=== PATIENT | female | born 1935 | race Caucasian/White ===

== ENCOUNTER 2018-10-30 16:34 | Emergency (ER) | payer MEDICARE, SELFPAY ==
[2018-10-30 16:37] VITALS: BP 150/96; PULSE 74; RESP 17; TEMP 36.7; O2SAT 98; BMI 26.4
[2018-10-30 17:27] LABS: Bacteria 0 SEEN /hpf (None Seen); Red Blood Cells-Urine 0 SEEN /hpf (0-5); Squamous Epithelial Cells - UA 0 SEEN /hpf (5-10)
[2018-10-30 17:28] LABS: Color, Urine Yellow (Yellow); Glucose, Dipstick Normal (Normal); Ketone-Dipstick 50 mg/dl (Negative); Leukocyte Esterase-Dipstick 25 /ul (Negative); Nitrite-Dipstick Negative (Negative); Occult Blood-Urine 10 /ul (Negative); Protein-Dipstick 30 mg/dl (Negative); Specific Gravity, Urine 1.025 (1.002-1.030); Urine Bilirubin Dipstick Negative (Negative); Urine Clarity Sl. Cloudy (Clear); Urine Urobilinogen Normal (Normal)
[2018-10-30 17:48] LABS: White Blood Cells 0-5 SEEN /hpf (0-5)
[2018-10-30 17:49] LABS: Calcium Oxalate Crystals Ur 3+ /hpf (<or=2+); Mucous, Urine 2+ /hpf (<or=2+)
[2018-10-30 18:04] LABS: Anion Gap 11 (5-15); BUN 22 mg/dL (7-18); BUN/Creat Ratio 22.4 RATIO (10-20); Calcium,Total 9.6 mg/dL (8.5-10.1); Chloride 104 mmol/L (98-107); Creatinine, Serum 0.98 mg/dL (0.55-1.02); EST Glomerular Filtration Rate 58 mL/min (>60); Est Glom Filt Rate - Afr Amer 70 mL/min (>60); Estimated Creatinine Clearance 39.54 ml/min; Glucose 93 mg/dL (74-106); Potassium 4.8 mmol/L (3.5-5.1); Sodium Level 140 mmol/L (136-145)
--- NOTE | 2018-10-30 18:16 | US_ITS ---
STUDY: ABDOMINAL ULTRASOUND - RIGHT UPPER QUADRANT REASON FOR VISIT: Female, 82 years old. Upper abdominal pain x2 days TECHNIQUE: Ultrasound evaluation of the right upper quadrant was performed with real-time and static sheffield-scale imaging. TECHNICAL QUALITY: Adequate. COMPARISON: None. FINDINGS: Liver: The liver measures 14.7 cm. There is normal echogenicity of the liver. The bile ducts are within normal limits. There is hepatic color flow. The direction of portal flow is hepatopetal. There is no demonstrated mass lesion. Gallbladder: Normal distended gallbladder. The gallbladder wall measures 1.4 mm. There is a negative sonographic Ricks's sign. There is no pericholecystic fluid. There are no gallstones. Common Bile Duct (C.B.D.): The common bile duct measures 3 mm. Pancreas: Normal size of the head, body and tail of the pancreas. There is normal echogenicity of the pancreas. There is no demonstrated pancreatic mass or cyst. Right Kidney: Normal size of the right kidney. The right kidney measures cm. Normal renal cortex. The right cortex measures cm. There is no demonstrated renal mass or cyst. There is no right hydronephrosis. US/Gallbladder IMPRESSION: Normal right upper quadrant ultrasound examination. Electronically Signed: Rolando Shultz MD at 20:04 EST , Service support ,
--- NOTE | 2018-10-30 18:16 | ED.VISSUMM ---
- ER Visit Summary Date of Service: 10/30/18 Chief Complaint: Abdominal pain History of Present Illness: The patient is a [address] Madden. She reports that she has upper abdominal pain began 2 days ago. Pain began suddenly. She describes an aching pain centered at worst and 6 out of 10 currently. Is worsened by nothing. She taken antacids and Pepto-Bismol without relief. She denies any nausea, vomiting, or diarrhea. Last bowel was today. She had no melena hematochezia. No dysuria frequency. She has no history of fatty food intolerance. She is never had anything like this before. Review of systems is negative. Physical Examination: Vitals: Stable. Afebrile. General: Well-nourished and well-developed. Head: Normocephalic atraumatic. Neck: Supple, no lymphadenopathy. No JVD. Nontender. Cardiovascular: Regular rate and rhythm. No murmurs. Respiratory: No respiratory distress. Clear to auscultation bilaterally. Abdominal: Soft, moderate epigastric and right upper quadrant tenderness to palpation, nondistended, normal bowel sounds. No guarding, rebound, or peritoneal signs. Back: Nontender. Extremities: Nontender, no edema. Skin: Normal color, no rash. Neurologic: Alert and oriented ?3. Cranial nerves II through XII are intact. Normal strength and sensation. Psych: Normal affect. Test Results: CBC is marked for a white count of 22 with 21 7 neutrophils 76 lymphocytes. 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 I do not have an old white count for comparison. Chem-7 is more for BUN of 22. LFTs are normal. Lipase normal. UA is negative. Clinical Impression(s) from Imaging Studies Gallbladder Ultrasound 10/30/18 18:16 IMPRESSION: Normal right upper quadrant ultrasound examination. Electronically Signed: Rolando Shlutz MD at 20:04 EST , Service support , Abdomen/Pelvis CT 10/30/18 20:30 IMPRESSION: Prominent nonspecific retroperitoneal lymphadenopathy. Differential considerations include infectious, inflammatory, and neoplastic disease. Follow-up and clinical correlation required. Otherwise no acute disease. Electronically Signed: Rolando Shultz MD at 21:28 EST , Service support , Emergency Department Course and Treatment: Patient refused pain and nausea medications. She is resting comfortably. Treatment Plan: I had a prolonged discussion with patient at this time I do not have an explanation for her pain. She has refused pain or nausea medications for home. She will be discharged with instructions to follow-up Dr. Madden in 1-2 days if not improving. Follow-up Dr. Altamirano as soon as possible for further evaluation and treatment. Return to the emergency department for any worsening symptoms. Disposition: To home in improved and stable condition. Impression: 1. Abdominal pain, uncertain cause. 2. Coagulopathy on Xarelto. 3. History of CLL. This note was generated with [employer] dictation software. It may contain incorrect words, spelling, and punctuation that were not noted in review of the chart prior to signing ED Disposition - Plan for ED Patient: Disposition: Home or Assisted Living Instructions: ED Abdominal Pain Unkn Cause Referrals: Jos Mcneil MD [STAFF PHYSICIAN] - As soon as possible Yamil Madden MD [Primary Care Provider] - 1-2 Days if not improving
[2018-10-30 18:35] VITALS: BP 160/85; PULSE 70; RESP 16; O2SAT 97
[2018-10-30] MEDS: 0.9% Normal Saline 1,000 ML 125 ML IV (18:43)
[2018-10-30 18:55] LABS: AST(SGOT) 30 U/L (15-37); Alanine Aminotransfer ALT/SGPT 21 U/L (13-56); Alkaline Phosphatase 61 U/L (45-117); Bilirubin, Direct 0.16 mg/dL (0.00-0.30); Globulin 3.2 g/dL (2.2-4.2); Lipase 151 U/L (73-393); Protein, Total 7.2 g/dL (6.4-8.2)
[2018-10-30 20:13] LABS: Absolute Lymphocyte Count 16.62 X10^3/ul (0.83-4.51); Absolute Neutrophil Count 4.6 X10^3/uL (2.0-7.7); Basophil# 0.03 X10^3/uL; Basophil% 0.1 % (0-1); Eosinophil# 0.13 X10^3/uL; Eosinophils% 0.6 % (0-5); Hemoglobin 14.7 g/dl (12.0-15.0); Lymphocyte # 16.62 X10^3/ul (4.0); Lymphocyte % 75.5 % (19-41); Mean Corp Hgb Conc 32.7 g/gl (32-36); Mean Corpuscular Hgb 30.6 pg (27.0-32.0); Mean Corpuscular Volume 93.6 fL (81-99); Monocyte# 0.62 X10^3/uL; Monocyte% 2.8 % (0-10); Neutrophil # 4.57 X10^3/uL (2.7-7.7); Neutrophil % 20.8 % (47-70); Platelet Count 150 K/mm3 (150-450); RBC Distribution Width CV 14.1 % (11.6-14.6); RBC Distribution Width SD 47.7 fl (35.1-43.9); Red Blood Count 4.81 M/mm3 (4.2-5.4)
[2018-10-30 20:27] LABS: Differential Indicated SCAN CRITERIA MET; POSITIVE COUNT NO; POSITIVE DIFFERENTIAL YES; POSITIVE MORPHOLOGY NO
[2018-10-30 20:30] VITALS: BP 142/103; PULSE 79; RESP 15; O2SAT 98
--- NOTE | 2018-10-30 20:30 | CT_ITS ---
STUDY: CT ABDOMEN AND PELVIS WITHOUT CONTRAST REASON FOR EXAM: Female, 82 years old. Upper abdominal pain and history of breast cancer RADIATION DOSAGE (If Supplied By Facility): CTDIvol = ( 17.91 ) mGy, DLP = ( 734.00 ) mGycm TECHNIQUE: Transaxial images were obtained from the dome of the diaphragm to the symphysis pubis without oral contrast, and without intravenous contrast. Sagittal and coronal images were reconstructed. Individualized dose optimization techniques were used for this CT. COMPARISON: None. FINDINGS: 3 x 7 mm nodule right lung base. The visualized portions of the heart are within normal limits. Normal liver. Normal gallbladder and extrahepatic biliary system. Normal spleen. Normal pancreas. Normal bilateral adrenal glands. Normal right kidney. Normal left kidney. Normal visualized stomach. Normal small intestine. Increased stool throughout the colon. Appendix is not identified. Normal abdominal aorta. Normal inferior vena cava. Prominent retroperitoneal lymphadenopathy measuring up to 8 x 20 mm. Normal urinary bladder. Normal abdominal wall. Slight anterior subluxation L4-5. CT/Abdomen/Pelvis W IV Cont ONLY IMPRESSION: Prominent nonspecific retroperitoneal lymphadenopathy. Differential considerations include infectious, inflammatory, and neoplastic disease. Follow-up and clinical correlation required. Otherwise no acute disease. Electronically Signed: Rolando Shultz MD at 21:28 EST , Service support ,
[2018-10-30 20:59] LABS: Differential Comment SCANNED; Platelet Estimate ADEQUATE (ADEQ); Smudge Cells 2+
[2018-10-30 22:18] VITALS: BP 161/77; PULSE 61; RESP 16; O2SAT 96
[2018-11-01 10:16] LABS: Pathologist Review Reviewed
== END 2018-10-30 22:22 | disposition home or self-care (01) ==
LOC: ED 18:30
PROVIDERS: Emergency Provider Emergency Medicine; Family Provider Family Medicine; PCP Family Medicine
DX: R10.13 Epigastric pain (principal); R10.11 Right upper quadrant pain; C91.10 Chronic lymphocytic leukemia of B-cell type not having achieved remission; I48.91 Unspecified atrial fibrillation; Z79.02 Long term (current) use of antithrombotics/antiplatelets; Z85.3 Personal history of malignant neoplasm of breast; Z79.899 Other long term (current) drug therapy
CPT/HCPCS: 36415; 74177; 76705; 80048; 80076; 81001; 83690; 85025; 96360; 96361; 99285; J7030; Q9967; A4216

== ENCOUNTER → 2019-06-14 12:46 | Outpatient (CLI) | payer MEDICARE, SELFPAY ==
[2019-06-14 12:37] VITALS: BMI 25.3
--- NOTE | 2019-06-14 12:48 | RAD_ITS ---
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 paperwork: 3 3 views of the left hand. Findings: No fracture or subluxation. Bone mineral density is diminished. Joint spaces of the interphalangeal joints are narrowed. There is minimal sclerosis at the first carpal metacarpal joint. Chondrocalcinosis is present in triangle fibrocartilage complex and adjacent to the triquetrum at the joint between the triquetrum and the lunate soft tissue swelling is present dorsal to the metatarsal phalangeal joints. RAD/Hand Min 3 Views IMPRESSION: Minimal interphalangeal joint arthritis. Chondrocalcinosis of the triangle fibrocartilage complex and at the lunotriquetral articulation. Findings may be related to osteoarthritis, or possibly even CPPD. at 0506 Reported and signed by: Nestor Barrios MD Electronically Signed: Nestor Barrios MD at 5:58 EDT Tel , Service support ,
== END ==
PROVIDERS: Family Provider Family Medicine; PCP Family Medicine; Referring Provider Physician Assistant; Visit Provider Physician Assistant
DX: M65.342 Trigger finger, left ring finger (principal)
CPT/HCPCS: 73130

== ENCOUNTER → 2019-06-15 15:06 | Outpatient (CLI) | payer MEDICARE, SELFPAY ==
[2019-05-29 13:09] VITALS: BMI 25.3
[2019-06-14 12:37] VITALS: BMI 25.3
--- NOTE | 2019-06-15 15:14 | ECHOD_ITS ---
Reason For Study: AFIB Procedure This was a 2D Doppler, Color Flow transthoracic echocardiogram. The study was technically difficult. Pt has difficulty tolerating any pressure from probe d/t history of radiation therapy. Exam performed in department. Left Ventricle Normal size and thickness. Mid cavitary false tendon noted. The estimated ejection fraction is 65 %. Unable to assess diastolic dysfunction due to arrhythmia. No regional wall motion abnormalities noted. Right Ventricle Normal size and thickness. Normal systolic function. Atria Normal left atrium. Normal right atrium. Normal atrial septum. Mitral Valve Mild focal mitral valve thickening. Mild mitral annular calcification extending into the posterior leaflet. Trivial mitral valve insufficiency. Tricuspid Valve Normal tricuspid valve. Trivial tricuspid valve insufficiency. Right ventricular systolic pressure estimated to be 40 mmHg. Mild pulmonary hypertension. Aortic Valve Normal aortic valve. Trisinus/trileaflet aortic valve. Pulmonic Valve Normal pulmonic valve. Great Vessels Normal aortic root. Normal arch. Normal inferior vena cava. Inferior vena cava collapse with sniff. Pericardium/Pleural No pericardial effusion. MMode/2D Measurements & Calculations LVIDd: 3.7 cm IVSd: 1.0 cm Ao root diam: 3.3 cm LVIDs: 2.6 cm LVPWd: 1.1 cm RVDd: 2.9 cm FS: 30.4 % LAV(MOD-bp): 53.6 ml LA A4 area: 15.4 cm2 LA dimension(2D): 4.0 cm LAV(MOD-bp) Indexed: 30.2 ml/m2 LAV(MOD-sp2): 65.5 ml LAV(MOD-sp4): 39.2 ml RA A4 area: 12.8 cm2 Doppler Measurements & Calculations Ao V2 max: 151.6 cm/sec LV V1 max: 117.5 cm/sec PA V2 max: 81.7 cm/sec Ao max P.4 mmHg LV V1 max P.6 mmHg TR max steven: 252.2 cm/sec TR max P.4 mmHg Interpretation Summary The estimated ejection fraction is 65 %. Unable to assess diastolic dysfunction due to arrhythmia. Trivial mitral valve insufficiency. Right ventricular systolic pressure estimated to be 40 mmHg. Mild pulmonary hypertension. Compared to echo report dated 09/12/2006, LV function has remained the same. Pt appears to be in atrial fibrillation. Ordering Physician: Ignacio Munoz Referring Physician: BONNIE COLLINS Performed By: Ciera Holland, HEENA, RVT
== END ==
PROVIDERS: Family Provider Family Medicine; PCP Family Medicine; Referring Provider Internal Medicine Cardiovascular Disease; Visit Provider Internal Medicine Cardiovascular Disease
DX: Z98.890 Other specified postprocedural states (principal)
CPT/HCPCS: 93306

== ENCOUNTER 2019-07-09 16:22 | Emergency (ER) | payer MEDICARE, SELFPAY ==
[2019-06-14 12:37] VITALS: BMI 25.3
[2019-07-09 16:23] VITALS: BP 148/89; PULSE 70; RESP 17; TEMP 36.9; O2SAT 97; BMI 25.2
[2019-07-09 16:49] LABS: Mucous, Urine 0 SEEN /hpf (<or=2+); Red Blood Cells-Urine 0 SEEN /hpf (0-5)
[2019-07-09 16:53] LABS: Color, Urine Yellow (Yellow); Glucose, Dipstick Normal (Normal); Ketone-Dipstick 5 mg/dl (Negative); Leukocyte Esterase-Dipstick 25 /ul (Negative); Nitrite-Dipstick Negative (Negative); Occult Blood-Urine Negative /ul (Negative); Protein-Dipstick 30 mg/dl (Negative); Urine Bilirubin Dipstick Negative (Negative); Urine Clarity Clear (Clear); Urine Urobilinogen Normal (Normal); Urine pH 6.5 (5.0 - 8.0)
[2019-07-09 17:11] LABS: Bacteria 1+ /hpf (None Seen); Squamous Epithelial Cells - UA 0-5 SEEN /hpf (5-10); White Blood Cells 0-5 SEEN /hpf (0-5)
[2019-07-09 17:42] LABS: Absolute Lymphocyte Count 12.64 X10^3/uL (0.83-4.51); Absolute Neutrophil Count 4.3 X10^3/uL (2.0-7.7); Basophil# 0.06 X10^3/uL; Basophil% 0.3 % (0-1); Eosinophil# 0.08 X10^3/uL; Eosinophils% 0.5 % (0-5); Hematocrit 44.3 % (37-47); Hemoglobin 14.9 g/dL (12.0-15.0); Lymphocyte # 12.64 X10^3/ul (4.0); Lymphocyte % 71.7 % (19-41); Mean Corp Hgb Conc 33.6 g/dL (32-36); Mean Corpuscular Hgb 31.2 pg (27.0-32.0); Mean Corpuscular Volume 92.7 fL (81-99); Mean Platelet Vol. 10.2 fl (6.2-12.0); Monocyte# 0.51 X10^3/uL; Monocyte% 2.9 % (0-10); NRBC Flagged by Analyzer 0 % (0-5); Neutrophil % 24.4 % (47-70); POSITIVE DIFFERENTIAL YES; POSITIVE MORPHOLOGY YES; Platelet Count 143 K/mm3 (150-450); RBC Distribution Width CV 13.8 % (11.6-14.6); RBC Distribution Width SD 46.8 fl (35.1-43.9); Red Blood Count 4.78 M/mm3 (4.2-5.4); White Blood Count 17.6 K/mm3 (4.4-11.0)
[2019-07-09 17:56] LABS: Differential Indicated SCAN CRITERIA MET
[2019-07-09 17:57] LABS: Anion Gap 7 (5-15); BUN 14 mg/dL (7-18); BUN/Creat Ratio 12.3 RATIO (10-20); Calcium,Total 9.5 mg/dL (8.5-10.1); Chloride 105 mmol/L (98-107); Creatinine, Serum 1.14 mg/dL (0.55-1.02); EST Glomerular Filtration Rate 49 mL/min (>60); Est Glom Filt Rate - Afr Amer 59 mL/min (>60); Estimated Creatinine Clearance 34.83 ml/min; Glucose 95 mg/dL (74-106); Potassium 4.8 mmol/L (3.5-5.1); Sodium Level 137 mmol/L (136-145)
--- NOTE | 2019-07-09 18:02 | CT_ITS ---
STUDY: CT ABDOMEN AND PELVIS WITHOUT CONTRAST REASON FOR EXAM: Female, 83 years old. Mid abdominal pain RADIATION DOSAGE (If Supplied By Facility): CTDIvol = ( 7.25 ) mGy, DLP = ( 335.22 ) mGycm TECHNIQUE: Transaxial images were obtained from the dome of the diaphragm to the symphysis pubis without oral contrast, and without intravenous contrast. Sagittal and coronal images were reconstructed. Individualized dose optimization techniques were used for this CT. COMPARISON: Previous study of 10/30/2018 FINDINGS: The study is technically limited, being performed without intravenous contrast. There is a 4 mm nodule of the right lower lobe image 12 of series 2, as well as a 3 x 7 mm nodule of the anterior right lower lobe image 18 series 2. Both of these are stable in the interval. Cardiomegaly is present. Coronary arterial calcifications are seen. There is no pericardial effusion. Normal liver. Normal gallbladder and extrahepatic biliary system. There is mild splenomegaly. Normal pancreas. Normal bilateral adrenal glands. Normal right kidney. Normal left kidney. Normal visualized stomach. Normal small intestine. Normal colon. There is non-visualization of the appendix. There are calcified plaques of the abdominal aorta. Normal inferior vena cava. Normal retroperitoneum. Normal urinary bladder. There is a small umbilical hernia containing fat. There are diffuse degenerative changes of the visualized thoracolumbar spine. CT/Abdomen/Pelvis without Cont IMPRESSION: 1. Stable right lower lobe nodules. 2. Mild splenomegaly. 3. Small fat-containing umbilical hernia. 4. Diffuse degenerative changes of the visualized thoracolumbar spine. 5. There is no evidence of free intra-abdominal or intrapelvic air, fluid, or inflammatory process. Electronically Signed: Rock Sarabia MD at 18:56 EST , Service support ,
--- NOTE | 2019-07-09 18:03 | ED.VIS.GEN ---
History of Present Illness Chief Complaint: Abd Pain Informant: Patient, Family Onset: Weeks - 3 or 4 weeks, worse x2 days. Current Severity: Moderate Maximum Severity: Moderate Narrative: Patient presents with a 1 month history of abdominal pain, but states it significantly worsened this weekend. She points the mid abdomen. She reports some mild nausea and mild constipation. Her primary care physician put her on Bactrim and Flagyl last week thinking she may have diverticulitis. She was scheduled for a CAT scan tomorrow, but due to worsened pain came to the emergency room. She denies fever or chills. Past Medical History - Allergies and Home Meds Allergies/Adverse Reactions: Allergies Gadolinium-MRI Contrast Medium Allergy (Severe, Verified 07/09/19 16:26) Hives gadoterate meglumine [From Dotarem] Allergy (Severe, Verified 07/09/19 16:26) Hives dabigatran etexilate [From Pradaxa] Adverse Reaction (Intermediate, Verified 07/09/19 16:26) GI upset codeine Adverse Reaction (Verified 07/09/19 16:26) Unknown diphtheria,pertussis (acell),tetanu Adverse Reaction (Verified 07/09/19 16:26) Swelling Penicillins Adverse Reaction (Verified 07/09/19 16:26) Hives Primary Care Physician: Yamil Madden MD [Primary Care Provider] - Prior records reviewed: Yes Past Medical History: - - Reviewed Surgical History: - - Uterine surgery Lives: Spouse/ Significant Other Smoking Status: Never smoker Review of Systems General: Denies: Chills, Fever Eyes: Denies: Visual changes - bilaterally ENT: Denies: Bilateral ear pain Cardiovascular: Denies: Chest pain Respiratory: Denies: Dyspnea, Cough Gastrointestinal: Reports: Abdominal pain, Nausea, Diarrhea. Denies: Vomiting Genitourinary: Denies: Dysuria Musculoskeletal: Denies: Neck pain, Back pain Skin: Denies: Rash Neurological: Denies: Headache Hematologic: Denies: Easy bruising Allergy: Denies: Uticaria Physical Exam Vital Signs/Narrative: Vital Signs Temp Pulse Resp BP Pulse Ox 07/09/19 16:23 98.5 F 70 17 148/89 H 97 Inital Vital Signs reviewed: Yes General: Well nourished, Well developed Head: Normocephalic ENT: Moist mucous membranes Neck: Supple Cardiovascular: Regular rate, Regular rhythm Respiratory: No distress, CTA bilaterally Abdomen: Soft, Tender - Mild diffuse tenderness palpation., Hypoactive bowel sounds. Negative for: Guarding, Rebound tenderness Extremities: Nontender Skin: Normal color, No rash Neurological: Alert, Oriented x3 Psychological: Normal affect Diagnostic/Tx/Re-eval Impressions Abdomen/Pelvis CT 07/09/19 18:02 IMPRESSION: 1. Stable right lower lobe nodules. 2. Mild splenomegaly. 3. Small fat-containing umbilical hernia. 4. Diffuse degenerative changes of the visualized thoracolumbar spine. 5. There is no evidence of free intra-abdominal or intrapelvic air, fluid, or inflammatory process. Electronically Signed: Rock Sarabia MD at 18:56 EST , Service support , 07/09/19 18:02 Abdomen/Pelvis without Cont [CT] Stat Laboratory Results 07/09/19 07/09/19 07/09/19 16:37 17:30 17:30 WBC 17.6 H RBC 4.78 Hgb 14.9 Hct 44.3 MCV 92.7 MCH 31.2 MCHC 33.6 RDW Std Deviation 46.8 H RDW Coeff of Asael 13.8 Plt Count 143 L MPV 10.2 Immature Gran % (Auto) 0.200 Neut % (Auto) 24.4 L Lymph % (Auto) 71.7 H [place] % (Auto) 2.9 Eos % (Auto) 0.5 Baso % (Auto) 0.3 Absolute Neuts (auto) 4.3 Absolute Lymphs (auto) 12.64 H Nucleated RBC % 0 Sodium 137 Potassium 4.8 Chloride 105 Carbon Dioxide 25.0 Anion Gap 7 BUN 14 Creatinine 1.14 H Estim Creat Clear Calc 34.83 Est GFR (MDRD) Af Amer 59 L Est GFR (MDRD) Non-Af 49 L BUN/Creatinine Ratio 12.3 Glucose 95 Calcium 9.5 Total Bilirubin Direct Bilirubin AST ALT Alkaline Phosphatase Total Protein Albumin Globulin Lipase Urine Color Yellow Urine Clarity Clear Urine pH 6.5 Ur Specific [place] 1.010 Urine Protein 30 H Urine Glucose (UA) Normal Urine Ketones 5 H Urine Occult Blood Negative Urine Nitrite Negative Urine Bilirubin Negative Urine Urobilinogen Normal Ur Leukocyte Esterase 25 H Urine RBC 0 SEEN Urine WBC 0-5 SEEN Ur Squamous Epith Cells 0-5 SEEN Urine Bacteria 1+ Urine Mucus 0 SEEN 07/09/19 17:30 WBC RBC Hgb Hct MCV MCH MCHC RDW Std Deviation RDW Coeff of Asael Plt Count MPV Immature Gran % (Auto) Neut % (Auto) Lymph % (Auto) [place] % (Auto) Eos % (Auto) Baso % (Auto) Absolute Neuts (auto) Absolute Lymphs (auto) Nucleated RBC % Sodium Potassium Chloride Carbon Dioxide Anion Gap BUN Creatinine Estim Creat Clear Calc Est GFR (MDRD) Af Amer Est GFR (MDRD) Non-Af BUN/Creatinine Ratio Glucose Calcium Total Bilirubin 0.50 Direct Bilirubin 0.18 AST 26 ALT 24 Alkaline Phosphatase 58 Total Protein 6.9 Albumin 4.2 Globulin 2.7 Lipase 146 Urine Color Urine Clarity Urine pH Ur Specific [place] Urine Protein Urine Glucose (UA) Urine Ketones Urine Occult Blood Urine Nitrite Urine Bilirubin Urine Urobilinogen Ur Leukocyte Esterase Urine RBC Urine WBC Ur Squamous Epith Cells Urine Bacteria Urine Mucus - Medical Decision Making Patient was given a small dose of morphine and Zofran. On repeat evaluation she is resting more comfortably. I discussed her test results with her. Her white count is elevated, however this is actually a good value for her with her history of CLL. I advised her that there are no acute findings noted on her abdominal CT. Whether this is secondary to being on antibiotics for the past 4 days I am unable to tell her. I did recommend she continue the full course of antibiotics and she will be written [place] for pain. She is to follow-up with her primary care physician. ED Disposition - Plan for ED Patient: Disposition: Home or Assisted Living Diagnosis: Abdominal pain Instructions: ABDOMINAL PAIN, Unknown Cause, (Female) Prescriptions: Hydrocodone Bitart/Apap 5-325 [[place] 5MG-325MG] 1 tablet PO Q6H PRN PRN 3 Days #10 tablet PRN Reason: Pain Referrals: Yamil Madden MD [Primary Care Provider] - 3-5 Days
[2019-07-09] MEDS: 0.9% Normal Saline 1,000 ML 150 ML IV (18:15)
[2019-07-09] MEDS: Morphine 2 MG/ML Syringe IV (18:16)
[2019-07-09] MEDS: Ondansetron 4 MG/2 ML Vial IV (18:16)
[2019-07-09 18:39] LABS: AST(SGOT) 26 U/L (15-37); Alanine Aminotransfer ALT/SGPT 24 U/L (13-56); Albumin, Serum 4.2 g/dL (3.2-5.0); Alkaline Phosphatase 58 U/L (45-117); Bilirubin, Direct 0.18 mg/dL (0.00-0.30); Globulin 2.7 g/dL (2.2-4.2); Lipase 146 U/L (73-393); Protein, Total 6.9 g/dL (6.4-8.2)
[2019-07-09 19:48] VITALS: BP 136/79; PULSE 47; RESP 16; O2SAT 95
[2019-07-09 19:50] LABS: Smudge Cells 1+
[2019-07-09 19:51] LABS: Platelet Estimate SLT DEC (ADEQ); Red Cell Morphology NORM C+C NORMAL (NORM C&C)
[2019-07-10 12:43] LABS: Pathologist Review Reviewed
== END 2019-07-09 19:53 | disposition home or self-care (01) ==
PROVIDERS: Emergency Provider Emergency Medicine; Family Provider Family Medicine; PCP Family Medicine
DX: R10.9 Unspecified abdominal pain (principal); R11.0 Nausea; R19.7 Diarrhea, unspecified; K59.00 Constipation, unspecified; R91.8 Other nonspecific abnormal finding of lung field; R16.1 Splenomegaly, not elsewhere classified; K42.9 Umbilical hernia without obstruction or gangrene; Z85.6 Personal history of leukemia; Z79.899 Other long term (current) drug therapy
CPT/HCPCS: 74176; 80048; 80076; 81001; 83690; 85025; 96361; 96374; 96375; 99283; J7030; A4216; J2405

== ENCOUNTER → 2020-02-06 11:38 | Outpatient (CLI) | payer MEDICARE, SELFPAY ==
[2020-01-31 11:55] VITALS: BMI 25.1
[2020-02-06 13:23] LABS: AST(SGOT) 28 U/L (15-37); Alanine Aminotransfer ALT/SGPT 22 U/L (13-56); Albumin, Serum 3.9 g/dL (3.2-5.0); Alkaline Phosphatase 53 U/L (45-117); Bilirubin, Direct 0.19 mg/dL (0.00-0.30); Cholesterol 147 mg/dL (200); Globulin 3.1 g/dL (2.2-4.2); High Density Lipoprotein 44 mg/dL; Triglycerides 107 mg/dL; Very Low Density Lipoprotein 21 mg/dL (5-40)
== END ==
PROVIDERS: PCP Family Medicine; Referring Provider Internal Medicine Cardiovascular Disease; Visit Provider Internal Medicine Cardiovascular Disease
DX: E78.5 Hyperlipidemia, unspecified (principal)
CPT/HCPCS: 36415; 80061; 80076

== ENCOUNTER 2020-10-20 11:05 | Emergency (ER) | payer MEDICARE, SELFPAY ==
[2020-06-10 13:53] VITALS: BMI 23.3
[2020-10-20 11:07] VITALS: BP 143/106; PULSE 73; RESP 15; TEMP 35.6; O2SAT 95; BMI 22.7
--- NOTE | 2020-10-20 11:51 | US_ITS ---
STUDY: ULTRASOUND OF THE FEMALE PELVIS - COMPLETE REASON FOR EXAM: Female, 84 years old. VAGINAL BLEEDING, POST MENOPAUSAL X 30 YEARS LMP: Postmenopausal. TECHNIQUE: Transvaginal TECHNICAL QUALITY: Adequate. COMPARISON: None. FINDINGS: The uterus is anteverted and is in a midline position. The uterus measures 2.7 cm x 2.6 cm x 3.7 cm. There is a Nabothian cyst of the cervix. The endometrium measures 8.3 mm in thickness, and is fluid distended. There is no demonstrated myometrial mass. I.U.D. - The patient does not have an I.U.D. The right ovary is non-visualized. The left ovary is non-visualized. There is minimal fluid in the cul-de-sac. US/Transvaginal Non- IMPRESSION: Thickened fluid distended endometrium. Minimal amount of free fluid in the cul-de-sac. The ovaries were not visualized. Electronically Signed: Moises Colbert MD at 13:07 EST , Service support ,
--- NOTE | 2020-10-20 11:51 | ED.DCSUM_ITS ---
History of Present Illness Chief Complaint: Vag Bleeding Informant: Patient Narrative: 84-year-old female presenting with vaginal spotting. She states that she only notices a small amount of blood on toilet paper when she wipes. She denies dysuria. She states he has had problems with vaginal dryness and itching. [facility] tested her for a yeast infection and states that she does not have one. They put her on estrogen 2 weeks ago. Patient states that now she notes a small amount of blood when she wipes. She denies any abdominal pain pelvic pain. She did not feel dizzy or lightheaded. She does not note any heavy bleeding. 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 (3) History of pulmonary embolus (PE) Status: Chronic Past Medical History - Allergies and Home Meds Allergies/Adverse Reactions: Allergies Gadolinium-MRI Contrast Medium Allergy (Severe, Verified 10/20/20 11:07) Hives gadoterate meglumine [From Dotarem] Allergy (Severe, Verified 10/20/20 11:07) Hives dabigatran etexilate [From Pradaxa] Adverse Reaction (Intermediate, Verified 10/20/20 11:07) GI upset codeine Adverse Reaction (Verified 10/20/20 11:07) Unknown diphtheria,pertussis (acell),tetanu Adverse Reaction (Verified 10/20/20 11:07) Swelling Penicillins Adverse Reaction (Verified 10/20/20 11:07) Hives Primary Care Physician: Yamil Madden MD [Primary Care Provider] - Prior records reviewed: Yes Surgical History: noncontributory, - - Uterine surgery Lives: Spouse/ Significant Other Smoking Status: Never smoker Alcohol: None Drugs: None Review of Systems General: Denies: Chills, Fever, Sweats Eyes: Denies: Visual changes - bilaterally, Diplopia ENT: Denies: Rhinorrhea, Sore throat Cardiovascular: Denies: Chest pain, Palpitations Respiratory: Denies: Dyspnea, Cough, Dyspnea on exertion Gastrointestinal: Denies: Abdominal pain, Nausea, Vomiting, Diarrhea, Melena, Hematochezia Genitourinary: Reports: - - Vaginal bleeding. Denies: Dysuria, Hematuria Musculoskeletal: Denies: Myalgias, Arthralgias Skin: Denies: Rash, Abscess Neurological: Denies: Headache, Weakness Psych: Denies: Depression, Anxiety Physical Exam Vital Signs/Narrative: Vital Signs Temp Pulse Resp BP Pulse Ox 10/20/20 11:07 96.0 F L 73 15 143/106 H 95 Inital Vital Signs reviewed: Yes General: Well nourished, No Acute Distress Head: Normocephalic, Atraumatic Eyes: Perrl, EOMI Cardiovascular: Regular rate, Regular rhythm Respiratory: No distress, CTA bilaterally Abdomen: Soft, Nontender, Nondistended Skin: Normal color, No rash. Negative for: Cyanosis, Diaphoresis, Pallor Neurological: Alert, Oriented x3 Psychological: Normal affect, Normal Mood Diagnostic/Tx/Re-eval Clinical Impression(s) from Imaging Studies Transvaginal US 10/20/20 11:51 IMPRESSION: Thickened fluid distended endometrium. Minimal amount of free fluid in the cul-de-sac. The ovaries were not visualized. Electronically Signed: Moises Colbert MD at 13:07 EST , Service support , - Medical Decision Making 84-year-old female presents with vaginal spotting. 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 She is not having any pain. Given the spotting and her age I did check a transvaginal ultrasound which shows thickening of the endometrium and some fluid. I discussed this with [facility] who recommended that she set up an appointment for follow-up with them. They did not feel it was anything emergent. This was discussed with the patient at length. She can return precautions. She stable for discharge at this time. Impression: 1. Vaginal spotting 2. Thickened fluid-filled endometrium ED Disposition - Plan for ED Patient: Disposition: Home or Assisted Living Referrals: Yamil Madden MD [Primary Care Provider] - Additional Instructions: I spoke with the [facility] about your ultrasound findings and they want you to come make an appointment to follow-up for further testing.
== END 2020-10-20 13:43 | disposition home or self-care (01) ==
PROVIDERS: Emergency Provider Student in an Organized Health Care Education/Training Program; PCP Family Medicine
DX: N93.9 Abnormal uterine and vaginal bleeding, unspecified (principal); R93.89 Abnormal findings on diagnostic imaging of other specified body structures; I10 Essential (primary) hypertension; Z86.711 Personal history of pulmonary embolism; Z86.69 Personal history of other diseases of the nervous system and sense organs; Z79.01 Long term (current) use of anticoagulants; Z79.899 Other long term (current) drug therapy
CPT/HCPCS: 76830; 99282

== ENCOUNTER 2021-04-21 13:56 | Inpatient (IN) | payer MEDICARE, SELFPAY ==
[2020-12-10 15:00] VITALS: BMI 22.6
[2021-04-21 14:05] VITALS: BMI 23.4
[2021-04-21 15:27] VITALS: BP 109/63; PULSE 70; RESP 16; TEMP 36.1; O2SAT 94
[2021-04-21] MEDS: Menthol/Lanolin/Calamine/Znox 113 GM Tube 1 APPLIC TOPICAL (17:15)
[2021-04-21] MEDS: Nystatin Powder 15gm Bottle 1 APPLIC TOPICAL (17:15)
--- NOTE | 2021-04-21 17:53 | HP.PCM_ITS ---
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 on 04/18/2021 complaining of right knee pain since twisting it while getting out of bed. When she tried to stand to go to the her knee gave out and she went down on her R knee. She was unable to ambulate. She was noted to have a right knee effusion and there was concern for a hemarthrosis since she is on Xarelto for atrial fibrillation. The ER note mentioned that her pain seemed out of proportion to the physical findings. She had a right total knee arthroplasty by Dr. Nair 14 years ago. . There was no fracture or dislocation on plain x-rays of the knee. Dr. Nair was called and recommended ice, elevation and a knee immobilizer. He also recommended holding the Xarelto so he could do an arthrocentesis. A CT scan of the right knee was obtained without contrast and showed a large suprapatellar joint effusion with a fluid heme level. There was no fracture seen. She was seen by PT and they felt she was not safe to go home. She is admitted to the transitional care unit at [facility] on 04/21/21 for rehabilitation. Consult will be placed with Dr. Nair. She tells me that the pain is actually much better today and she is able to move her knee without experiencing extreme pain. [facility] Medical History (Updated 04/21/21 @ 19:[address] Na Piper, ) Benign paroxysmal positional vertigo Chronic lymphocytic leukemia Circumscribed scleroderma Diverticulosis of colon Essential hypertension History of DVT of lower extremity (2006) History of Guillain-[place] syndrome (1969) History of pulmonary embolus (PE) Hyperlipidemia Insomnia Macular degeneration Osteoporosis Permanent atrial fibrillation Personal history of malignant neoplasm of breast (2007) Tietze syndrome Trigger finger, left ring finger Home Medications cholecalciferol (vitamin D3) 1,000 unit PO DAILY 10/30/18 [History Last Taken 10/30/18] multivitamin with folic acid 1 tab PO DAILY 10/30/18 [History Last Taken 10/30/18] vitamins A,C,M-tewh-wutlhf 1 ea PO BID 10/30/18 [History Last Taken 10/30/18] calcium citrate 250 mg calcium-vitamin D3 5 mcg (200 unit) tablet 1 tablet PO BID tablet 12/10/20 [History Last Taken Unknown] famotidine 20 mg tablet 20 mg PO QHS 12/10/20 [History Last Taken Unknown] acetaminophen 1,000 mg PO Q8 04/21/21 [History Last Taken Unknown] diltiazem HCl 240 mg PO DAILY 04/21/21 [History Last Taken Unknown] losartan 25 mg PO DAILY 04/21/21 [History Last Taken Unknown] lovastatin 20 mg PO QHS 04/21/21 [History Last Taken Unknown] multivitamin 1 tab PO DAILY 04/21/21 [History Last Taken Unknown] ondansetron 4 mg PO Q6H PRN 04/21/21 [History Last Taken Unknown] oxycodone 5 mg PO Q6H PRN 04/21/21 [History Last Taken Unknown] rivaroxaban 15 mg PO DAILY 04/21/21 [History Last Taken Unknown] Allergy/AdvReac Type Severity Reaction Status Date / Time Gadolinium-MRI Contrast Allergy Severe Hives Verified 12/10/20 15:00 Medium gadoterate meglumine Allergy Severe Hives Verified 12/10/20 15:00 [From Dotarem] dabigatran etexilate AdvReac Intermediate GI upset Verified 12/10/20 15:00 [From Pradaxa] codeine AdvReac Unknown Verified 12/10/20 15:00 diphtheria,pertussis AdvReac Swelling Verified 12/10/20 15:00 (acell),tetanu Penicillins AdvReac Hives Verified 12/10/20 15:00 Family History Mother H/O bilateral mastectomy Breast cancer Father Heart disease unsure of type Sister Cardiac pacemaker in situ Surgical History History of cardioversion (10/06/12) History of left mastectomy (04/11/08) History of total right knee replacement (2006) History of transesophageal echocardiography (LEN) (10/06/12) Social History Smoking Status: Never smoker ROS Constitutional Constitutional: Denies anorexia, change in weight, chills, fatigue, fever(s), night sweats or weakness Eyes Eyes: Denies blurry vision, change in vision, eye pain or loss of vision ENT HEENT: Denies abnormal hearing, dysphagia, headache(s), hearing loss, nasal congestion or sore throat Cardiovascular Cardiovascular: Denies chest pain, dyspnea on exertion, edema, lightheadedness, orthopnea, palpitations, paroxysmal nocturnal dyspnea or syncope Respiratory/Chest Respiratory/Chest: Denies cough, dyspnea, shortness of breath at rest, shortness of breath with exertion or wheezing Gastrointestinal Gastrointestinal: Denies abdominal pain, constipation, diarrhea, dyspepsia, hematemesis, hematochezia, nausea or vomiting Genitourinary Genitourinary: Denies dysuria, hematuria, nocturia, urinary frequency, urinary hesitancy, urinary incontinence or urinary urgency Musculoskeletal Musculoskeletal: Reports joint pain and joint swelling; Denies back pain or neck pain Neurologic Neurologic: Denies confusion, disequilibrium, dizziness, focal weakness, heada kasie(s), paresthesias, seizures or tremor(s) Psychiatric Psychiatric: Denies anxiety, depression, homicidal ideation or suicidal ideation Endocrine Endocrinology: Denies change in body appearance, polydipsia or polyuria Hematologic/Lymphatic Hematologic/Lymphatic: Reports easy bleeding and easy bruising; Denies lymphadenopathy Allergic/Immunologic Allergic/Immunologic: Denies rhinitis, eczemia or asthma Vital Signs Vital Signs Vital Signs: 04/21/21 14:05 04/21/21 15:27 Temperature 96.9 F L Temperature Source Oral Pulse Rate 70 Pulse Rhythm Regular Pulse Strength Normal (2+) Respiratory Rate 16 Respiratory Effort Normal Non-Labored Respiratory Depth Normal Respiratory Pattern Normal Blood Pressure 109/63 Blood Pressure Mean 78 Blood Pressure Source Monitor Blood Pressure Position Sitting Blood Pressure Location Right Arm Pulse Ox 94 Oxygen Delivery Method Room Air Room Air Weight Weight: 140 lb 14.006 oz Body Mass Index (BMI) 23.4 Physical Exam Const alert, oriented x3 and no apparent distress Constitutional Narrative: Making good eye contact, appropriate. She is sitting in bed and she has the knee immobilizer present. General Appearance: cooperative and comfortable HEENT moist oral mucous membranes Neck supple and no carotid bruits Resp normal respiratory effort, no use of accessory muscles and clear to auscultation bilaterally Resp Narrative: Not tachypneic and no conversational dyspnea. Cardio S1 normal heart sound, S2 normal heart sound, no rub and no gallops Cardio Narrative: irregular irregular rhythm with a controlled ventricular rate. She has a 2/6 SUJATHA at the second RICS with radiation to the LLSB. She also has a systolic MM in the left axilla GI normal to inspection, nondistended, normoactive bowel sounds and non-tender GI Narrative: No guarding with palpation. Extremity no clubbing, cyanosis or edema Extremity Narrative: Negative Abelardo's and Bell's signs. DP pulse is 2+ BL. Intact6 sensation in the R foot. Good cap refill. There is a joint effusion and also swelling in the bursa around the knee. She had pain with balloting the patella. Skin Skin Narrative: No rashes, no skin breakdown. Neuro oriented x3, CN's II-XII intact bilaterally and no focal motor deficits Motor Exam: strength 5/5 throughout Psych affect normal Psych Narrative: Appropriate, making good eye contact. Able to stay on topic and focus. No flight of ideas. Does not appear anxious or depressed. Conversant. Assessment & Plan Assessment/Plan (1) Debility: (2) Right knee pain: (3) Hemarthrosis of right knee: (4) Chronic anticoagulation: (5) Permanent atrial fibrillation: (6) History of DVT of lower extremity: (7) History of pulmonary embolus (PE): (8) Essential hypertension: (9) Hyperlipidemia: QUALIFIERS: Hyperlipidemia type: unspecified Qualified Code(s): E78.5 - Hyperlipidemia, unspecified (10) Chronic lymphocytic leukemia: (11) Personal history of malignant neoplasm of breast: (12) History of Guillain-[place] syndrome: PLAN: PLAN PT for gait stability OT for ADL's Analgesics as needed Bowel protocol Fall precautions Assess for Anxiety/Depression GI prophylaxis not necessary. She denies epigastric pain and has no history of peptic ulcer disease. DVT prophylaxis with JB osborne and SCDs. Follow up with PCP and Dr. Nair following DC from [facility] AM lab including CMP, CBC Hold Xarelto for arthrocentesis of the right knee by Dr. Nair. Restart Xarelto for chronic atrial fibrillation when appropriate. Charges/Coding Visit Charges Inpatient E&M: 78016 Init Hosp L2
[2021-04-21] MEDS: Atorvastatin Calcium 10 MG Tablet 5 MG PO (21:32)
[2021-04-21] MEDS: Acetaminophen 500 MG Tablet 1000 MG PO (21:33)
[2021-04-21] MEDS: oxyCODONE 5 MG Tablet PO (21:34)
[2021-04-22 05:19] VITALS: BP 140/66; PULSE 45
[2021-04-22] MEDS: Acetaminophen 500 MG Tablet 1000 MG PO ×3 (05:24→21:33)
[2021-04-22] MEDS: Nystatin Powder 15gm Bottle 1 APPLIC TOPICAL ×2 (05:25→21:36)
[2021-04-22] MEDS: Menthol/Lanolin/Calamine/Znox 113 GM Tube 1 APPLIC TOPICAL ×2 (05:25→21:35)
--- NOTE | 2021-04-22 05:25 | NURSING ---
Patient's heart rate at 45 BPM, apical. Asymptomatic. Patient states she feels fine. RN aware.
[2021-04-22 05:36] LABS: Absolute Lymphocyte Count 24.82 X10^3/uL (0.83-4.51); Absolute Neutrophil Count 3.7 X10^3/uL (2.0-7.7); Basophil# 0.09 X10^3/uL; Basophil% 0.3 % (0-1); Eosinophil# 0.18 X10^3/uL; Eosinophils% 0.6 % (0-5); Hematocrit 40.3 % (37-47); Hemoglobin 12.9 g/dL (12.0-15.0); Lymphocyte # 24.82 X10^3/ul (0.83-4.51); Lymphocyte % 84.2 % (19-41); Mean Corpuscular Hgb 30.6 pg (27.0-32.0); Mean Corpuscular Volume 95.5 fL (81-99); Mean Platelet Vol. 10.5 fl (6.2-12.0); Monocyte# 0.69 X10^3/uL; Monocyte% 2.3 % (0-10); NRBC Flagged by Analyzer 0 % (0-5); Neutrophil # 3.66 X10^3/uL (2.7-7.7); Neutrophil % 12.4 % (47-70); POSITIVE DIFFERENTIAL YES; Platelet Count 190 K/mm3 (150-450); RBC Distribution Width CV 13.6 % (11.6-14.6); RBC Distribution Width SD 47.4 fl (35.1-43.9); Red Blood Count 4.22 M/mm3 (4.2-5.4); White Blood Count 29.5 K/mm3 (4.4-11.0)
[2021-04-22 05:43] LABS: Differential Indicated SCAN CRITERIA MET
[2021-04-22 06:06] LABS: Anion Gap 6 (5-15); BUN 16 mg/dL (7-18); BUN/Creat Ratio 20.1 RATIO (10-20); Calcium,Total 8.5 mg/dL (8.5-10.1); Chloride 107 mmol/L (98-107); EST Glomerular Filtration Rate 73 mL/min (>60); Est Glom Filt Rate - Afr Amer 88 mL/min (>60); Estimated Creatinine Clearance 47.95 ml/min; Glucose 90 mg/dL (74-106); Potassium 4.2 mmol/L (3.5-5.1); Sodium Level 140 mmol/L (136-145)
[2021-04-22 06:54] VITALS: BP 138/70; PULSE 47
[2021-04-22 07:33] LABS: Smudge Cells 2+
[2021-04-22 07:34] LABS: Differential Comment SCANNED
[2021-04-22 07:35] LABS: Reactive Lymphocyte 3+
[2021-04-22] MEDS: Losartan Potassium 25 MG Tablet PO (09:16)
[2021-04-22] MEDS: dilTIAZem CD 240 MG Capsule PO (09:16)
[2021-04-22] MEDS: Multivitamins,Therapeutic Tablet 1 TABLET PO (09:17)
[2021-04-22 09:20] VITALS: BP 139/58; PULSE 66
[2021-04-22] MEDS: Magnesium Citrate 300 ML PO (09:26)
[2021-04-22] MEDS: Tuberculin,Purif.prot.deriv. 50 TU/ML Vial 0.1 ML ID (09:28)
[2021-04-22 09:35] VITALS: PULSE 66; RESP 18; O2SAT 96
--- NOTE | 2021-04-22 11:08 | NURSING ---
PT HAS APPOINTMENT WITH [facility] ON 04/23 AT 1;15PM. WILL PICK HER UP AT 12:40PM TO TAKE.
--- NOTE | 2021-04-22 11:56 | CASEMGMT ---
Social Work Met with pt for initial assessment. Discussed code status and assisted pt in completing MOLST. Pt choosing Full code with intubation. MOLST form communicated to nursing and physician and placed in pt chart. SW explained [facility] insurance and that NRD is 04/23 with no guarantee of continued stay. Pt plans to return home with her spouse at time of discharge. SW to follow. HOWARD Golden
[2021-04-22 15:37] VITALS: BP 135/65; PULSE 60; RESP 17; TEMP 36.4; O2SAT 97
--- NOTE | 2021-04-22 15:45 | CHAPLAIN ---
Type of Pastoral Visit _x__ Initial Visit ___ Follow-up Visit ___ On-call Visit ___ General Patient Visit ___ Spiritual Assessment ___ Family Conference ___ Bereavement ___ Rapid Response ___ Code Blue ___ Other (describe below) Pastoral Care Referral From _x__ Patient ___ Family ___ Nurse ___ Physician ___ Delinquency Prevention Officer ___ Chief Radiology ___ Other (describe below) Sacrament/Intervention _x__ Active listening ___ Anointing ___ Islam ___ Bereavement ___ Communion ___ Mirela exploration ___ ___ Life review _x__ Prayer ___ Reconciliation ___ Sacrament of Sick _x__ Supportive presence ___ Wedding ___ Other (describe below) Pastoral Comments
[2021-04-22] MEDS: Senna/Docusate Sodium 1 Tablet 2 TABLET PO (17:20)
--- NOTE | 2021-04-22 18:58 | NURSING ---
PT CAME TO NURSES STATION AND SAID PT STOMACH WAS HURTING. THIS NURSE WENT TO PT ROOM AND PT WAS MOANING AND HOLDING STOMACH. STOMACH SOFT AND HYPER BOWEL SOUNDS. 2 ASSIST TO BED SIDE COMMODE. EXPLAINED TO PT THAT SHE HAD MAX CITRATE AND STOOL SOFTENER PER ORDER AND THAT MAYBE WANTS CAUSING THE PAIN AND IF SHE DOESNT GET ANY RELEAF WE WILL CALL THE DOCTOR. REPORTED TO RN.
--- NOTE | 2021-04-22 19:43 | NURSING ---
pt transferred pt from bsc to bed. explained to that they need to call for help if needed and that we dont want pt to fall. stated well she wanted to go back. mag citrate given had positive results. xx large,liquid/soft. pt stated she felt much better.
[2021-04-22] MEDS: Atorvastatin Calcium 10 MG Tablet 5 MG PO (21:32)
[2021-04-23] MEDS: Senna/Docusate Sodium 1 Tablet 2 TABLET PO (05:42)
[2021-04-23] MEDS: Acetaminophen 500 MG Tablet 1000 MG PO ×3 (05:42→21:58)
[2021-04-23 05:43] VITALS: BP 125/57; PULSE 48; RESP 16; TEMP 36.9; O2SAT 96
[2021-04-23] MEDS: Nystatin Powder 15gm Bottle 1 APPLIC TOPICAL ×2 (05:43→21:58)
[2021-04-23] MEDS: Menthol/Lanolin/Calamine/Znox 113 GM Tube 1 APPLIC TOPICAL ×2 (05:43→21:59)
--- NOTE | 2021-04-23 05:45 | NURSING ---
Patient's apical heart rate at 48 BPM. Will recheck before giving Cozaar and Cardizem
[2021-04-23] MEDS: dilTIAZem CD 240 MG Capsule PO (06:32)
[2021-04-23] MEDS: Losartan Potassium 25 MG Tablet PO (06:32)
[2021-04-23 06:33] VITALS: PULSE 67
[2021-04-23] MEDS: Multivitamins,Therapeutic Tablet 1 TABLET PO (08:10)
[2021-04-23 11:46] LABS: Pathologist Review Reviewed
[2021-04-23 13:11] VITALS: BP 139/56; PULSE 60; RESP 16; TEMP 36; O2SAT 97
--- NOTE | 2021-04-23 15:02 | NURSING ---
Pt went to Dr. Nair's office today, WBAT in brace, does not need to wear brace in bed, active and passive ROM eithout resistence
--- NOTE | 2021-04-23 15:18 | PCM.PN.RX ---
Progress Note - Pharmacy Subjective: TCU ADMISSION Objective: Allergies Gadolinium-MRI Contrast Medium Allergy (Severe, Verified 12/10/20 15:00) Hives gadoterate meglumine [From Dotarem] Allergy (Severe, Verified 12/10/20 15:00) Hives dabigatran etexilate [From Pradaxa] Adverse Reaction (Intermediate, Verified 12/10/20 15:00) GI upset codeine Adverse Reaction (Verified 12/10/20 15:00) Unknown diphtheria,pertussis (acell),tetanu Adverse Reaction (Verified 12/10/20 15:00) Swelling Penicillins Adverse Reaction (Verified 12/10/20 15:00) Hives Current Medications Generic Name Dose Route Start Last Admin Trade Name Freq PRN Reason Stop Dose Admin Acetaminophen 1,000 mg 04/21/21 22:00 04/23/21 15:00 Acetaminophen 500 Mg Tablet PO 1,000 mg Q8 FARNAZ Administration Atorvastatin Calcium 5 mg 04/21/21 22:00 04/22/21 21:32 Atorvastatin Calcium 10 Mg Tablet PO 5 mg QHS FARNAZ Administration Calamine/Phenol 1 applic 04/22/21 22:00 04/23/21 05:43 Menthol/Lanolin/Calamine/Znox 113 Gm Tube TOPICAL 1 applic 0600,2200 FARNAZ Administration Protocol Diltiazem HCl 240 mg 04/22/21 06:00 04/23/21 06:32 Diltiazem Cd 240 Mg Capsule PO 240 mg DAILY FARNAZ Administration Losartan Potassium 25 mg 04/22/21 06:00 04/23/21 06:32 Losartan Potassium 25 Mg Tablet PO 25 mg DAILY FARNAZ Administration Multivitamins 1 tablet 04/22/21 08:00 04/23/21 08:10 Multivitamins,Therapeutic Tablet PO 1 tablet DAILYCM FARNAZ Administration Nutritional Formula (Lactose Free) 120 ml 04/22/21 08:00 04/23/21 08:10 Ensure Enlive 120 Ml Liquid PO 120 ml BIDCM FARNAZ Administration Nystatin 1 applic 04/22/21 22:00 04/23/21 05:43 Nystatin Powder 15gm Bottle TOPICAL 1 applic 0600,2200 FARNAZ Administration Protocol Ondansetron HCl 4 mg 04/21/21 14:48 Ondansetron Odt 4 Mg Tablet PO Q6H PRN PRN Nausea/Vomiting Oxycodone HCl 5 mg 04/21/21 14:48 04/21/21 21:34 Oxycodone 5 Mg Tablet PO 5 mg Q6H PRN PRN Administration Pain 4-10 Senna/Docusate Sodium 2 tablet 04/22/21 18:00 04/23/21 05:42 Senna/Docusate Sodium 1 Tablet PO 2 tablet BID FARNAZ Administration Tuberculin PPD 0.1 ml 04/29/21 10:00 Tuberculin,Purif.Prot.Deriv. 50 Tu/Ml Vial ID 04/29/21 10:01 X1 ONE Problem List (Last Reviewed 04/21/21 @ 17:[address] Na Piper, DO) Right knee pain (Acute) Debility (Acute) Hemarthrosis of right knee (Acute) Chronic anticoagulation (Acute) Permanent atrial fibrillation (Chronic) History of DVT of lower extremity (Chronic 2006) History of pulmonary embolus (PE) (Chronic) Essential hypertension (Chronic) Hyperlipidemia (Chronic) Chronic lymphocytic leukemia (Chronic) Personal history of malignant neoplasm of breast (Chronic 2007) History of Guillain-[place] syndrome (Chronic 1969) Vital Signs Temp Pulse Resp BP Pulse Ox 96.8 F L 60 16 139/56 H 97 04/23/21 13:11 04/23/21 13:11 04/23/21 13:11 04/23/21 13:11 04/23/21 13:11 Oxygen Delivery Method Room Air Weight: 63.758 kg Body Mass Index (BMI) 23.4 Sodium 140 mmol/L (136-145) 04/22/21 05:15 Potassium 4.2 mmol/L (3.5-5.1) 04/22/21 05:15 Chloride 107 mmol/L (98-107) 04/22/21 05:15 Carbon Dioxide 27.0 mmol/L (21.0-32.0) 04/22/21 05:15 Anion Gap 6 (5-15) 04/22/21 05:15 BUN 16 mg/dL (7-18) 04/22/21 05:15 Creatinine 0.80 mg/dL (0.55-1.02) 04/22/21 05:15 Est GFR (MDRD) Af Amer 88 mL/min (>60) 04/22/21 05:15 Est GFR (MDRD) Non-Af 73 mL/min (>60) 04/22/21 05:15 BUN/Creatinine Ratio 20.1 RATIO (10-20) H 04/22/21 05:15 Glucose 90 mg/dL (74-106) 04/22/21 05:15 Assessment/Plan: 1. Pain: Tylenol 1000mg PO Q8h, Oxycodone 5mg PO Q4h PRN Pain 4-10. Please continue to monitor for increased/ decreased S/S pain, PRN medication usage. 2. Atrial Fibrillation/ HLD/HTN: Lipitor 5mg PO QHS, Cardizem 240mg PO Daily, Losartan 25mg PO Daily. Please continue to monitor BP, HR, Lipid panel annually or sooner if clinically indicated. 3. Nausea/Vomitting: Zofran 4 mg PO Q6h PRN. Please continue to monitor for medication effectiveness, prolongation of the QT interval given hx of Afib, PRN medication usage. 4. General Wellness: MVI 1 tab PO Daily. Please continue to monitor Psychotropic Medications: None Unnecessary Medications: None Bowel Regimen: Senna/Docusate 2 tab PO BID. Please continue to monitor for increased/decreased constipation and/or diarrhea. Date of Note:: 04/23/21
[2021-04-23] MEDS: Atorvastatin Calcium 10 MG Tablet 5 MG PO (21:58)
[2021-04-23 22:04] VITALS: PULSE 44; RESP 16; O2SAT 96
[2021-04-24 05:51] VITALS: BP 131/70; PULSE 57; RESP 16; TEMP 36.2; O2SAT 98
[2021-04-24] MEDS: Senna/Docusate Sodium 1 Tablet 2 TABLET PO (05:52)
[2021-04-24] MEDS: Acetaminophen 500 MG Tablet 1000 MG PO ×3 (05:52→21:42)
[2021-04-24] MEDS: Losartan Potassium 25 MG Tablet PO (05:52)
[2021-04-24] MEDS: dilTIAZem CD 240 MG Capsule PO (05:52)
[2021-04-24] MEDS: Nystatin Powder 15gm Bottle 1 APPLIC TOPICAL ×2 (05:53→21:42)
[2021-04-24] MEDS: Menthol/Lanolin/Calamine/Znox 113 GM Tube 1 APPLIC TOPICAL ×2 (05:53→21:42)
[2021-04-24] MEDS: Multivitamins,Therapeutic Tablet 1 TABLET PO (08:39)
--- NOTE | 2021-04-24 10:58 | NURSING ---
Addendum entered by Anne Walsh 04/24/21 13:32: Joanie's office called back and stated that it was ok to resume Xarelto but watch for increased edema in right knee, Dr. Kirby updated and is agreeable to resuming Xarelto Original Note: Dr. Nair's office was called to clarify if pt can resume xarelto, Clinical specialist stated she would consult with Alexander PAREDES and call this nurse back to update on orders.
[2021-04-24 13:55] VITALS: BP 126/57; PULSE 64; RESP 16; TEMP 36.6; O2SAT 97
[2021-04-24] MEDS: Rivaroxaban 15 MG Tablet PO (16:46)
[2021-04-24] MEDS: Atorvastatin Calcium 10 MG Tablet 5 MG PO (21:41)
[2021-04-24] MEDS: MELATONIN 10 MG TABLET PO (22:52)
[2021-04-25] MEDS: dilTIAZem CD 240 MG Capsule PO (05:41)
[2021-04-25] MEDS: Acetaminophen 500 MG Tablet 1000 MG PO ×3 (05:41→21:39)
[2021-04-25] MEDS: Menthol/Lanolin/Calamine/Znox 113 GM Tube 1 APPLIC TOPICAL ×2 (05:42→21:38)
[2021-04-25] MEDS: Nystatin Powder 15gm Bottle 1 APPLIC TOPICAL ×2 (05:42→21:40)
[2021-04-25] MEDS: Losartan Potassium 25 MG Tablet PO (05:42)
[2021-04-25] MEDS: Multivitamins,Therapeutic Tablet 1 TABLET PO (07:52)
[2021-04-25] MEDS: oxyCODONE 5 MG Tablet PO (07:53)
[2021-04-25 16:21] VITALS: BP 138/66; PULSE 49; RESP 18; TEMP 36.6; O2SAT 97
[2021-04-25] MEDS: Rivaroxaban 15 MG Tablet PO (17:26)
[2021-04-25] MEDS: Atorvastatin Calcium 10 MG Tablet 5 MG PO (21:39)
[2021-04-25] MEDS: MELATONIN 10 MG TABLET PO (21:39)
[2021-04-25 22:00] VITALS: PULSE 61; O2SAT 98
[2021-04-26] MEDS: Losartan Potassium 25 MG Tablet PO (04:57)
[2021-04-26] MEDS: Acetaminophen 500 MG Tablet 1000 MG PO ×2 (04:57→21:51)
[2021-04-26] MEDS: Menthol/Lanolin/Calamine/Znox 113 GM Tube 1 APPLIC TOPICAL ×2 (04:57→21:51)
[2021-04-26] MEDS: dilTIAZem CD 240 MG Capsule PO (04:57)
[2021-04-26] MEDS: Nystatin Powder 15gm Bottle 1 APPLIC TOPICAL ×2 (04:58→21:51)
[2021-04-26] MEDS: Multivitamins,Therapeutic Tablet 1 TABLET PO (08:51)
[2021-04-26 10:40] VITALS: PULSE 51; RESP 18; O2SAT 96
[2021-04-26 16:23] VITALS: BP 145/65; PULSE 56; RESP 16; TEMP 36.4; O2SAT 96
[2021-04-26] MEDS: Rivaroxaban 15 MG Tablet PO (16:55)
[2021-04-26] MEDS: MELATONIN 10 MG TABLET PO (21:52)
[2021-04-26] MEDS: Atorvastatin Calcium 10 MG Tablet 5 MG PO (21:52)
[2021-04-27] MEDS: Losartan Potassium 25 MG Tablet PO (05:34)
[2021-04-27] MEDS: Acetaminophen 500 MG Tablet 1000 MG PO ×3 (05:34→21:29)
[2021-04-27] MEDS: Menthol/Lanolin/Calamine/Znox 113 GM Tube 1 APPLIC TOPICAL ×2 (05:34→21:31)
[2021-04-27] MEDS: dilTIAZem CD 240 MG Capsule PO (05:34)
[2021-04-27] MEDS: Nystatin Powder 15gm Bottle 1 APPLIC TOPICAL ×2 (05:35→21:32)
[2021-04-27] MEDS: Multivitamins,Therapeutic Tablet 1 TABLET PO (08:06)
--- NOTE | 2021-04-27 09:56 | NURSING ---
[facility] called and asked if pt needed bone scan while on TCU or if ok to schedule for after discharge. Clinical specialist stated it is not emergent and ok for pt to receive after discharge as an outpatient. Pt and occupational therapy asking if ok for pt to ambulate without brace, pt just saw [facility] last week with notes to wear brace at all times while OOB, order was clarified per pt and OT request, Pt is still supposed to wear brace with all ambulation.
[2021-04-27 14:18] VITALS: BP 139/62; PULSE 58; RESP 16; TEMP 36.6; O2SAT 96
[2021-04-27] MEDS: Rivaroxaban 15 MG Tablet PO (17:01)
[2021-04-27 21:28] VITALS: PULSE 50; RESP 16; O2SAT 95
[2021-04-27] MEDS: MELATONIN 10 MG TABLET PO (21:29)
[2021-04-27] MEDS: Atorvastatin Calcium 10 MG Tablet 5 MG PO (21:29)
[2021-04-28 05:31] VITALS: BP 120/69; PULSE 46
[2021-04-28] MEDS: Acetaminophen 500 MG Tablet 1000 MG PO ×3 (05:33→22:12)
[2021-04-28] MEDS: Nystatin Powder 15gm Bottle 1 APPLIC TOPICAL ×2 (05:36→22:12)
[2021-04-28] MEDS: Menthol/Lanolin/Calamine/Znox 113 GM Tube 1 APPLIC TOPICAL ×2 (05:36→22:11)
[2021-04-28 06:56] VITALS: BP 122/71; PULSE 47
[2021-04-28] MEDS: Multivitamins,Therapeutic Tablet 1 TABLET PO (08:44)
--- NOTE | 2021-04-28 09:04 | NURSING ---
PT STATED SHE WASN'T OFFERED TO HAVE HER CLOTHES CHANGED FOR BED AND NEEDED HELP TO TAKE HER BRACE OFF. THIS NURSE STATED TO PT THAT SHE IS AB JULIO IN ROOM BUT IF SHE DID NEED HELP WITH SOME THING TO CALL. PT STATED SHE HAS ONLY HAD 1 SHOWER SENSE SHES BEEN HERE. THIS NURSE OFFERED TO SET PT UP FOR A SHOWER AND HELP TAKE BRACE OFF BEFORE TURNING ON WATER. PT STATED I WILL MAYBE DO IT LATER. PT HAS MACULAR DEGENERATION AND MAY NEED HELP ON SOME THINGS. RN AWARE
[2021-04-28 09:30] VITALS: PULSE 72; RESP 18; O2SAT 96
[2021-04-28 13:28] VITALS: BP 117/65; PULSE 60; RESP 14; TEMP 35.7; O2SAT 97
[2021-04-28] MEDS: Rivaroxaban 15 MG Tablet PO (17:27)
[2021-04-28] MEDS: MELATONIN 10 MG TABLET PO (22:11)
[2021-04-28] MEDS: Atorvastatin Calcium 10 MG Tablet 5 MG PO (22:11)
[2021-04-29 05:50] LABS: Absolute Lymphocyte Count 23.11 X10^3/uL (0.83-4.51); Absolute Neutrophil Count 3.5 X10^3/uL (2.0-7.7); Basophil# 0.09 X10^3/uL; Basophil% 0.3 % (0-1); Eosinophil# 0.19 X10^3/uL; Eosinophils% 0.7 % (0-5); Hematocrit 42.4 % (37-47); Hemoglobin 13.2 g/dL (12.0-15.0); Lymphocyte # 23.11 X10^3/ul (0.83-4.51); Lymphocyte % 83.9 % (19-41); Mean Corp Hgb Conc 31.1 g/dL (32-36); Mean Corpuscular Hgb 30.6 pg (27.0-32.0); Mean Corpuscular Volume 98.1 fL (81-99); Mean Platelet Vol. 10.1 fl (6.2-12.0); Monocyte# 0.57 X10^3/uL; Monocyte% 2.1 % (0-10); NRBC Flagged by Analyzer 0 % (0-5); Neutrophil # 3.52 X10^3/uL (2.7-7.7); Neutrophil % 12.8 % (47-70); POSITIVE DIFFERENTIAL YES; Platelet Count 222 K/mm3 (150-450); RBC Distribution Width CV 13.5 % (11.6-14.6); RBC Distribution Width SD 48.8 fl (35.1-43.9); Red Blood Count 4.32 M/mm3 (4.2-5.4); White Blood Count 27.5 K/mm3 (4.4-11.0)
[2021-04-29 06:11] LABS: Differential Indicated SCAN CRITERIA MET
[2021-04-29] MEDS: dilTIAZem CD 120 MG Capsule PO (06:13)
[2021-04-29] MEDS: Acetaminophen 500 MG Tablet 1000 MG PO ×3 (06:13→20:54)
[2021-04-29] MEDS: Nystatin Powder 15gm Bottle 1 APPLIC TOPICAL ×2 (06:14→20:56)
[2021-04-29] MEDS: Menthol/Lanolin/Calamine/Znox 113 GM Tube 1 APPLIC TOPICAL ×2 (06:14→20:56)
[2021-04-29 06:23] LABS: Differential Comment SCANNED
[2021-04-29 06:26] LABS: Anion Gap 4 (5-15); BUN 23 mg/dL (7-18); BUN/Creat Ratio 31.6 RATIO (10-20); Calcium,Total 9.2 mg/dL (8.5-10.1); Chloride 106 mmol/L (98-107); Creatinine, Serum 0.73 mg/dL (0.55-1.02); EST Glomerular Filtration Rate 81 mL/min (>60); Est Glom Filt Rate - Afr Amer 98 mL/min (>60); Estimated Creatinine Clearance 38.36 ml/min; Glucose 84 mg/dL (74-106); Sodium Level 139 mmol/L (136-145)
[2021-04-29] MEDS: Multivitamins,Therapeutic Tablet 1 TABLET PO (08:04)
--- NOTE | 2021-04-29 08:06 | NURSING ---
THIS NURSE SEEN PT HAD BRUISES TO INSIDE OF LEFT KNEE. PT THINKS ITS FROM WEARING THE BRACE ON RIGHT AND ITS HITTING THE INSIDE OF HER KNEE. BRACE AT KNEE DOES LINE UP WITH BRUISES. RN AWARE. PLEASE PLACE BLANKET OR PILLOW BETWEEN KNEES WHEN PT RESTING.
[2021-04-29] MEDS: Tuberculin,Purif.prot.deriv. 50 TU/ML Vial 0.1 ML ID (10:45)
[2021-04-29 13:36] VITALS: BP 119/98; PULSE 73; RESP 16; TEMP 36.1; O2SAT 96
--- NOTE | 2021-04-29 14:09 | CASEMGMT ---
Social Work Plan of care meeting held with pt and pt spouse in attendance. Pt is receiving PT/OT and progressing well with therapy. Pt Mod I in her room. Pt requesting to return home and discharge date set for Tuesday05/01/21. Therapy will work with pt on tub transfers and toilet transfers to assist pt in deciding on what DME will be needed at home. Pt will need a Wheeled Walker and would like this to be ordered from [email or web address]. Pt is also agreeable to home health PT and list of [facility] agencies including quality and resource use data and consistent with the patient's preferred geographic region, medical needs and insurance network provided. Pt preferred provider is [facility]. SW will make referral. Discharge Date: 05/01/21 Discharge Disposition: home with spouse, home health PT HOWARD Golden
--- NOTE | 2021-04-29 14:38 | CASEMGMT ---
Social Work Referral to [facility] for home PT and they are able to accept with start date of Tuesday or Tuesday. SW will fax order for walker and request delivery to pt room prior to discharge. No further d/c needs. Discharge Date 05/01 Discharge Disposition: Home with spouse, home health PT HOWARD Golden
[2021-04-29] MEDS: Rivaroxaban 15 MG Tablet PO (17:35)
[2021-04-29 20:49] VITALS: PULSE 48; RESP 16; O2SAT 96
[2021-04-29] MEDS: MELATONIN 10 MG TABLET PO (20:53)
[2021-04-29] MEDS: Atorvastatin Calcium 10 MG Tablet 5 MG PO (20:54)
--- NOTE | 2021-04-29 21:31 | PCM.DC.SUM ---
Providers Date of Admission: 04/21/21 Primary Care Physician: Dr. Yamil Madden MD Consultations 04/21/21 19:45 Consult: Orthopedics Routine Consulting Provider: Clinton Nair Reason for Consult: R knee pain and effusion. 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 (5) Permanent atrial fibrillation: Status: Chronic Code(s): I48.2 - Chronic atrial fibrillation (6) History of DVT of lower extremity: Status: Chronic Code(s): Z86.718 - Personal history of other venous thrombosis and embolism (7) History of pulmonary embolus (PE): Status: Chronic Code(s): Z86.711 - Personal history of pulmonary embolism (8) Essential hypertension: Status: Chronic Code(s): I10 - Essential (primary) hypertension (9) Hyperlipidemia: Status: Chronic Code(s): E78.5 - Hyperlipidemia, unspecified Qualifiers: Hyperlipidemia type: unspecified Qualified Code(s): E78.5 - Hyperlipidemia, unspecified (10) Chronic lymphocytic leukemia: Status: Chronic Code(s): C91.90 - Lymphoid leukemia, unspecified not having achieved remission (11) Personal history of malignant neoplasm of breast: Status: Chronic Code(s): Z85.3 - Personal history of malignant neoplasm of breast (12) History of Guillain-Hoffmeister syndrome: Status: Chronic Code(s): Z86.69 - Personal history of other diseases of the nervous system and sense organs Medications at Discharge Home Medications acetaminophen 1,000 mg PO Q8 04/21/21 lovastatin 20 mg PO QHS 04/21/21 multivitamin 1 tab PO DAILY 04/21/21 rivaroxaban 15 mg PO DAILY 04/21/21 diltiazem HCl 120 mg PO DAILY 30 Days #30 cap 04/29/21 melatonin 10 mg PO QHS #0 tab 04/29/21 Hospital Course Operations None Procedures None Summary of Care Provided Minutes Spent on Discharge: 35 Hospital Course: 85 year old female with below past medical history with right knee pain, right knee effusion, admitted to TCU with debility, here for rehabilitation, strengthening, prior to discharge home with . Discharge home with 05/01/2021, Home Health PT. Physical Exam Const alert and oriented x3 General Appearance: cooperative HEENT normocephalic Eyes PERRL and EOMs intact bilaterally Neck supple, no JVD and no carotid bruits Resp normal respiratory effort, normal air movement and clear to auscultation bilaterally Cardio regular rate and regular rhythm GI normal to inspection, nondistended, normoactive bowel sounds, non-tender and non-distended Extremity normal capillary refill General Extremity: Negative for edema Skin no rashes or lesions noted General Skin Exam: no breakdown Psych affect normal Appearance: appropriate Weight / BMI Weight Weight: 62.737 kg Body Mass Index (BMI) 23.4 ABG / Lab / Microbiology Data Result Diagrams: 04/29/21 05:16 04/29/21 05:16 Laboratory: Laboratory Results - last 24 hr 04/29/21 05:16: WBC 27.5 H, RBC 4.32, Hgb 13.2, Hct 42.4, MCV 98.1, MCH 30.6, MCHC 31.1 L, RDW Std Deviation 48.8 H, RDW Coeff of Asael 13.5, Plt Count 222, MPV 10.1, Immature Gran % (Auto) 0.200, Neut % (Auto) 12.8 L, Lymph % (Auto) 83.9 H, [place] % (Auto) 2.1, Eos % (Auto) 0.7, Baso % (Auto) 0.3, Absolute Neuts (auto) 3.5, Absolute Lymphs (auto) 23.11 H, Nucleated RBC % 0, Differential Comment SCANNED 04/29/21 05:16: Sodium 139, Potassium 4.0, Chloride 106, Carbon Dioxide 29.0, Anion Gap 4 L, BUN 23 H, Creatinine 0.73, Estim Creat Clear Calc 38.36, Est GFR (MDRD) Af Amer 98, Est GFR (MDRD) Non-Af 81, BUN/Creatinine Ratio 31.6 H, Glucose 84, Calcium 9.2 D/C Instructions Discharge Diet: No restrictions Discharge Activity: Return to Normal Activity, May Shower and Use Walker Weight Bearing Status: Weight bearing as tolerated Call your doctor if you observe: Fever of 101 or Higher, Inability to urinate, Inability to have a bowel movement, Shortness of breath, Dizziness, Fainting spells, Swelling in the ankles, Chest pain, Increased palpitations (irregular heartbeat) and Uncontrolled pain Additional Instructions: Discharge home with 05/01/2021, Home Health PT. Please Follow Up With: REGGIE Mata When: As scheduled. Meaningful Use Info Meaningful Use Diagnoses (Choose all that apply): None applicable Discharge Plan Admission Admit Date/Time: 04/21/21 13:56 Primary Reason for Your Visit: Debility. Attending Provider: Carlito Tran Chi Primary Care Provider: Yamil Madden Consulting Providers: Clinton Nair Instructions Additional Instructions / Restrictions: Home Health PT Discharge Orders/Prescriptions Prescriptions: New diltiazem HCl 120 mg Capsule,Extended Release 24hr 120 mg PO DAILY 30 Days Qty: 30 RF: 0 melatonin 10 mg Tablet, Sublingual 10 mg PO QHS Qty: 0 RF: 0 Continued acetaminophen 500 mg Tablet 1,000 mg PO Q8 RF: 0 multivitamin Tablet 1 tab PO DAILY RF: 0 lovastatin 20 mg tablet 20 mg PO QHS RF: 0 rivaroxaban 15 mg tablet 15 mg PO DAILY RF: 0 Discontinued calcium citrate 250 mg calcium-vitamin D3 5 mcg (200 unit) tablet 250 mg-5 mcg (200 unit) tablet 1 tablet PO BID RF: 0 famotidine 20 mg tablet 20 mg PO QHS RF: 0 cholecalciferol (vitamin D3) 1,000 UNIT tablet 1,000 unit PO DAILY RF: 0 vitamins A,C,U-jven-fwqdbf 1 EACH capsule 1 ea PO BID RF: 0 multivitamin with folic acid 1 TABLET tablet 1 tab PO DAILY RF: 0 losartan 25 mg Tablet 25 mg PO DAILY RF: 0 ondansetron 4 mg Tablet,Disintegrating 4 mg PO Q6H PRN (Reason: Nausea/Vomiting ) RF: 0 oxycodone 5 mg Tablet 5 mg PO Q6H PRN (Reason: Pain 4-10) RF: 0 diltiazem HCl 240 mg capsule,extended release 24hr 240 mg PO DAILY RF: 0 Referrals / Follow Up: Yamil Madden MD [Primary Care Provider] - Disposition Disposition (needs filled in before D/C Order can be placed): Home Health Service
[2021-04-30 05:44] VITALS: BP 142/72; PULSE 52
[2021-04-30] MEDS: Menthol/Lanolin/Calamine/Znox 113 GM Tube 1 APPLIC TOPICAL ×2 (05:47→20:21)
[2021-04-30] MEDS: dilTIAZem CD 120 MG Capsule PO (05:47)
[2021-04-30] MEDS: Acetaminophen 500 MG Tablet 1000 MG PO ×3 (05:47→20:20)
[2021-04-30] MEDS: Nystatin Powder 15gm Bottle 1 APPLIC TOPICAL ×2 (05:47→20:22)
[2021-04-30] MEDS: Multivitamins,Therapeutic Tablet 1 TABLET PO (08:09)
[2021-04-30 13:38] VITALS: BP 124/68; PULSE 79; RESP 16; TEMP 36.4; O2SAT 96
[2021-04-30] MEDS: Rivaroxaban 15 MG Tablet PO (16:36)
[2021-04-30] MEDS: MELATONIN 10 MG TABLET PO (20:21)
[2021-04-30] MEDS: Atorvastatin Calcium 10 MG Tablet 5 MG PO (20:21)
[2021-05-01] MEDS: Acetaminophen 500 MG Tablet 1000 MG PO (05:25)
[2021-05-01] MEDS: dilTIAZem CD 120 MG Capsule PO (05:25)
[2021-05-01] MEDS: Nystatin Powder 15gm Bottle 1 APPLIC TOPICAL (05:28)
[2021-05-01] MEDS: Menthol/Lanolin/Calamine/Znox 113 GM Tube 1 APPLIC TOPICAL (05:30)
--- NOTE | 2021-05-01 07:15 | MDS.RN ---
Information for the mds was obtained from review of the clinical record, interview of resident, staff, and direct observation of resident's care.
[2021-05-01] MEDS: Multivitamins,Therapeutic Tablet 1 TABLET PO (08:57)
[2021-05-01] MEDS: MENTHOL 226.8 GM JAR 1 APPLIC TOPICAL (10:58)
== END 2021-05-01 11:44 | disposition home health service (06) | DRG 560 ==
PROVIDERS: Admitting Provider Internal Medicine; PCP Family Medicine; Visit Provider Family Medicine Geriatric Medicine
DX: Z47.1 Aftercare following joint replacement surgery (principal); I48.21 Permanent atrial fibrillation; C91.10 Chronic lymphocytic leukemia of B-cell type not having achieved remission; E78.5 Hyperlipidemia, unspecified; I10 Essential (primary) hypertension; Z96.651 Presence of right artificial knee joint; Z86.711 Personal history of pulmonary embolism; Z86.718 Personal history of other venous thrombosis and embolism; Z79.01 Long term (current) use of anticoagulants; Z79.899 Other long term (current) drug therapy
CPT/HCPCS: 36415; 80048; 85025; 97110; 97116; 97162; 97166; 97530; 97535; 97802

== ENCOUNTER 2021-11-13 14:10 | Emergency (ER) | payer MEDICARE, SELFPAY ==
[2021-11-13 14:10] VITALS: BP 119/92; PULSE 82; RESP 20; TEMP 36.6; O2SAT 98; BMI 21.6
--- NOTE | 2021-11-13 15:07 | EDS_ITS ---
HPI History of Present Illness Chief Complaint: Lower Extremity Injury Narrative Narrative: 85-year-old female presenting with right knee pain. She states it is right above her right kneecap. She states she woke up this morning with mild pain and over the course of the day it has progressed. Patient denies any trauma. She denies feeling a pop or tear. She states the pain is worsened over the day to the point where she is having difficulty walking. Patient has a history of right knee replacement. She states he has had something similar to this in the past and had to do weeks of physical therapy. She has history of DVT in the past and is currently on Xarelto. [facility] Medical History (Updated 11/13/21 @ 16:[address] Kyle Quinteros, DO) Benign paroxysmal positional vertigo Chronic lymphocytic leukemia Circumscribed scleroderma Diverticulosis of colon Essential hypertension History of DVT of lower extremity (2006) History of Guillain-Irwin syndrome (1969) History of pulmonary embolus (PE) Hyperlipidemia Insomnia Macular degeneration Osteoporosis Permanent atrial fibrillation Personal history of malignant neoplasm of breast (2007) Tietze syndrome Trigger finger, left ring finger Home Medications lovastatin 20 mg PO QHS 04/21/21 [History Last Taken Unknown] multivitamin 1 tab PO DAILY 04/21/21 [History Last Taken Unknown] rivaroxaban 15 mg PO DAILY 04/21/21 [History Last Taken Unknown] diltiazem HCl 120 mg PO DAILY 30 Days #30 cap 04/29/21 [Rx Last Taken Unknown] hydrocodone-acetaminophen 1 tab PO Q6H PRN 3 Days #12 tab 11/13/21 [Rx Last Taken Unknown] sertraline 50 mg PO DAILY 11/13/21 [History Last Taken Unknown] vit C,P-Ut-dbaut-lutein-zeaxan [PreserVision AREDS-2] 1 tab PO BID 11/13/21 [History Last Taken Unknown] Allergy/AdvReac Type Severity Reaction Status Date / Time Gadolinium-MRI Contrast Allergy Severe Hives Verified 11/13/21 14:13 Medium gadoterate meglumine Allergy Severe Hives Verified 11/13/21 14:13 [From Dotarem] dabigatran etexilate AdvReac Intermediate GI upset Verified 11/13/21 14:13 [From Pradaxa] codeine AdvReac Unknown Verified 11/13/21 14:13 diphtheria,pertussis AdvReac Swelling Verified 11/13/21 14:13 (acell),tetanu Penicillins AdvReac Hives Verified 11/13/21 14:13 Family History Mother H/O bilateral mastectomy Breast cancer Father Heart disease unsure of type Sister Cardiac pacemaker in situ Surgical History History of cardioversion (10/06/12) History of left mastectomy (04/11/08) History of total right knee replacement (2006) History of transesophageal echocardiography (LEN) (10/06/12) Social History Smoking Status: Never smoker ROS ROS ED Review of Systems ROS Unobtainable: due to encephalopathy Constitutional Constitutional ED: Denies chills or fever(s) Eyes Eyes: Denies blurry vision or diplopia ENT ENT ED: Denies rhinorrhea or sore throat Cardiovascular Cardiovascular: Denies chest pain or palpitations Respiratory/Chest Respiratory/Chest: Denies cough, dyspnea or dyspnea on exertion Gastrointestinal Gastrointestinal: Denies abdominal pain, nausea or vomiting Genitourinary Genitourinary ED: Denies dysuria or hematuria Musculoskeletal Musculoskeletal: Reports other Details: Right knee pain ; Denies back pain or neck pain Integumentary Denies Abrasions or rash Neurologic Neurologic: Denies headache(s) or paresthesias Psychiatric Psychiatric: Denies anxiety or depression EXAM Physical Exam Const Vital Signs: 11/13/21 14:10 11/13/21 17:59 Temperature 97.9 F Temperature Source Temporal Pulse Rate 82 102 H Respiratory Rate 20 H 18 Blood Pressure 119/92 H 109/77 Blood Pressure Mean 101 Pulse Ox 98 99 Oxygen Delivery Method Room Air Positive well nourished General Appearance ED: NAD HEENT Reports moist mucous membranes normocephalic and atraumatic Eyes PERRL Resp normal respiratory effort and clear to auscultation bilaterally Cardio regular rate and regular rhythm Extremity Extremity Narrative: Tenderness to palpation superior to the right patella. There is some localized swelling in this area. There is no ecchymosis. Infrapatellar region is nontender. Patient is able to bend her knee slightly but states it hurts above the right patella. She is unable to hold her leg extended secondary to pain, which makes it difficult to evaluate her extensor mechanism. Neuro oriented x3 and CN's II-XII intact bilaterally Sensorium / Orientation: alert Psych mental status grossly normal Skin Lesions: no lesions Rashes: no rashes MDM MDM MDM Narrative Medical decision making narrative: Patient presenting with pain above the right knee. She denies feeling a pop or tearing sensation prior to this. It slowly gradually worsened over the course of the day. Patient declines analgesia. She is on Xarelto so I have low suspicion for DVT. Patient has difficulty moving her right knee secondary to pain and I will obtain an x-ray of this. My interpretation of the right knee x-ray shows a large joint effusion however there is no bony abnormality. Patient initially declined pain medication but now is requesting this. She is given [place] for pain. I will place her in an Zev wrap and knee immobilizer and try to ambulate her. She states she uses a walker and crutches at home from time to time and has these available. Patient ambulated in the emergency room and was stable. Patient will follow up with Dr. Nair. Impression: 1. Right knee effusion Lab Data Attestation: I reviewed the patient's lab results. Radiography Diagnostic Testing: Clinical Impression(s) from Imaging Studies Knee X-Ray 11/13/21 15:08 IMPRESSION: There is a large volume joint effusion. Electronically Signed: Edvin Du MD at 15:23 EST Reading Location ID and State: [facility] / [place] , Service support , Discharge Plan Triage Chief Complaint: Lower Extremity Injury ED Provider: Kyle Quinteros Dx/Rx/DC Orders Instructions: ED Knee Effusion Prescriptions: New hydrocodone-acetaminophen 5-325 mg tablet 1 tab PO Q6H PRN (Reason: pain) 3 Days Qty: 12 RF: 0 No Action multivitamin Tablet 1 tab PO DAILY RF: 0 lovastatin 20 mg tablet 20 mg PO QHS RF: 0 rivaroxaban 15 mg tablet 15 mg PO DAILY RF: 0 diltiazem HCl 120 mg Capsule,Extended Release 24hr 120 mg PO DAILY 30 Days Qty: 30 RF: 0 sertraline 50 mg tablet 50 mg PO DAILY RF: 0 PreserVision AREDS-2 250-90-40-1 mg Capsule 1 tab PO BID RF: 0 Primary Care Provider: Yamil Madden Referrals: Clinton Nair DO [STAFF PHYSICIAN] - As soon as possible Yamil Madden MD [Primary Care Provider] - Disposition Disposition: Home, Self Care Discharge Date/Time: 11/13/21 18:00
--- NOTE | 2021-11-13 15:08 | RAD_ITS ---
STUDY: XR Knee 3 Views 11/13/2021 3:21 PM REASON FOR EXAM: Female, 85 years old. PAIN SUDDEN PAIN TO KNEE, STARTING THIS MORNING TECHNIQUE: XR Knee 3 Views RIGHT COMPARISON: None FINDINGS: There is demineralization of the visualized distal femur. There is demineralization of the tibia and fibula. Normal proximal tibiofibular articulation. Total right knee arthroplasty. Normal lateral femorotibial compartment. Normal patellofemoral articulation. There is a large volume joint effusion. The soft tissue structures are unremarkable. RAD/Knee 3 Views IMPRESSION: There is a large volume joint effusion. Electronically Signed: Edvin Du MD at 15:23 EST ,
[2021-11-13] MEDS: HYDROcodone Bitartrate/Apap 5/325 Tablet PO (17:26)
[2021-11-13 17:59] VITALS: BP 109/77; PULSE 102; RESP 18; O2SAT 99
== END 2021-11-13 18:00 | disposition home or self-care (01) ==
PROVIDERS: Emergency Provider Student in an Organized Health Care Education/Training Program; PCP Family Medicine; Visit Provider Student in an Organized Health Care Education/Training Program
DX: M25.461 Effusion, right knee (principal); I48.21 Permanent atrial fibrillation; M25.561 Pain in right knee; E78.5 Hyperlipidemia, unspecified; I10 Essential (primary) hypertension; Z96.651 Presence of right artificial knee joint; Z86.718 Personal history of other venous thrombosis and embolism; Z79.01 Long term (current) use of anticoagulants; Z79.899 Other long term (current) drug therapy; Z85.6 Personal history of leukemia; Z86.711 Personal history of pulmonary embolism; M81.0 Age-related osteoporosis without current pathological fracture; Z85.3 Personal history of malignant neoplasm of breast
CPT/HCPCS: 73562; 99283

== ENCOUNTER 2021-11-19 11:05 | Outpatient (CLI) | payer MEDICARE, SELFPAY ==
[2021-11-19 11:30] LABS: Absolute Lymphocyte Count 19.37 X10^3/uL (0.83-4.51); Absolute Neutrophil Count 5.2 X10^3/uL (2.0-7.7); Basophil# 0.07 X10^3/uL; Basophil% 0.3 % (0-1); Eosinophil# 0.27 X10^3/uL; Eosinophils% 1.1 % (0-5); Hematocrit 39.5 % (37-47); Hemoglobin 12.6 g/dL (12.0-15.0); Lymphocyte # 19.37 X10^3/ul (0.83-4.51); Lymphocyte % 75.4 % (19-41); Mean Corp Hgb Conc 31.9 g/dL (32-36); Mean Corpuscular Hgb 30.3 pg (27.0-32.0); Mean Platelet Vol. 9.9 fl (6.2-12.0); Monocyte# 0.73 X10^3/uL; Monocyte% 2.8 % (0-10); NRBC Flagged by Analyzer 0 % (0-5); Neutrophil % 20.2 % (47-70); POSITIVE DIFFERENTIAL YES; POSITIVE MORPHOLOGY YES; Platelet Count 190 K/mm3 (150-450); RBC Distribution Width CV 14.1 % (11.6-14.6); RBC Distribution Width SD 48.5 fl (35.1-43.9); Red Blood Count 4.16 M/mm3 (4.2-5.4); White Blood Count 25.7 K/mm3 (4.4-11.0)
[2021-11-19 11:37] LABS: Differential Indicated SCAN CRITERIA MET
[2021-11-19 11:38] LABS: Erythrocyte Sedimentation Rate 12 mm/hr (0-30)
[2021-11-19 11:57] LABS: Differential Comment SCANNED
[2021-11-19 12:00] LABS: CRP < 2.90 mg/L (0.0-3.0)
== END 2021-11-19 23:59 | disposition home or self-care (01) ==
LOC: LAB 11:07
PROVIDERS: PCP Family Medicine; Referring Provider Physician Assistant; Visit Provider Physician Assistant
DX: Z96.651 Presence of right artificial knee joint (principal)
CPT/HCPCS: 36415; 85025; 85652; 86140

== ENCOUNTER 2022-09-28 17:52 | Observation (INO) | payer MEDICARE, SELFPAY ==
[2022-09-28 17:53] VITALS: BP 165/75; PULSE 60; RESP 14; TEMP 36.4; O2SAT 98; BMI 20.1
[2022-09-28] MEDS: Morphine 4 MG/ML Syringe IV ×2 (18:30→21:08)
[2022-09-28] MEDS: Ondansetron 4 MG/2 ML Vial IV ×2 (18:30→21:08)
--- NOTE | 2022-09-28 18:36 | ED.VIS.LOWEX ---
HPI History of Present Illness Chief Complaint: Lower Extremity Injury Detail of Chief Complaint: Acute on chronic right knee pain Informant: patient Occured/Mechanism Comment: Patient denies trauma. Patient denies history of crystal induced arthritis. Patient is on anticoagulant for remote DVT after knee surgery and atrial fibrillation. Onset/Context/Timing Onset: Yesterday Context: Sudden Onset Timing: Continuous Quality of Pain: Dull and Aching Location: Right knee Current Severity: Moderate Maximum Severity: Severe Worsened by: Palpation, attempt to move, weightbearing Relieved by: None thing Associated Symptoms Associated Symptoms: Positive for Loss of Funtion (Due to pain); Negative for Parasthesia or Weakness Narrative Narrative: Patient is an 86-year-old woman status post total right knee arthroplasty by Dr. Wen Fagan. Patient is on Xarelto. There is no history of trauma. She denies fever, chills night sweats. She denies paresthesia, anesthesia medics. She denies history of gout or pseudogout. She denies history of infected joint. She denies recent infection. She denies fever, chills night sweats. She denies rhinorrhea, congestion, postnasal drainage sore throat. She denies cough or sputum production. She denies nausea, vomit or diarrhea. She denies dysuria, frequency, urgency or hematuria. Tetanus Immunization: Unknown Prior similar symptoms: No Recent Illness/Hospitalization: [facility] Medical History (Updated 09/28/22 @ 21:[address] Cy Read MD) Benign paroxysmal positional vertigo Chronic lymphocytic leukemia Circumscribed scleroderma Diverticulosis of colon Essential hypertension History of DVT of lower extremity (2006) History of Guillain-Belgrade syndrome (1969) History of pulmonary embolus (PE) Hyperlipidemia Insomnia Macular degeneration Osteoporosis Permanent atrial fibrillation Personal history of malignant neoplasm of breast (2007) Tietze syndrome Trigger finger, left ring finger Home Medications lovastatin 20 mg tablet 20 mg PO QHS Cholesterol 04/21/21 [History Last Taken Unknown] multivitamin 1 tab PO DAILY Supplement 04/21/21 [History Last Taken Unknown] rivaroxaban 15 mg tablet 15 mg PO DAILY Blood Thinner 04/21/21 [History Last Taken Unknown] diltiazem HCl 120 mg capsule,extended release 24 hr 120 mg PO DAILY 30 days #30 caps 04/29/21 [Rx Last Taken Unknown] sertraline 50 mg tablet 100 mg PO DAILY 11/13/21 [History Last Taken Unknown] vit C 250 mg-vit E 90 mg-zinc 40 mg-copper 1 xw-uzpwoa-uenuqb capsule (PreserVision AREDS-2) 1 tab PO BID 11/13/21 [History Last Taken Unknown] Allergy/AdvReac Type Severity Reaction Status Date / Time Gadolinium-MRI Contrast Allergy Severe Hives Verified 09/28/22 17:57 Medium gadoterate meglumine Allergy Severe Hives Verified 09/28/22 17:57 [From Dotarem] dabigatran etexilate AdvReac Intermediate GI upset Verified 09/28/22 17:57 [From Pradaxa] codeine AdvReac Unknown Verified 09/28/22 17:57 diphtheria,pertussis AdvReac Swelling Verified 09/28/22 17:57 (acell),tetanu Penicillins AdvReac Hives Verified 09/28/22 17:57 Family History Mother H/O bilateral mastectomy Breast cancer Father Heart disease unsure of type Sister Cardiac pacemaker in situ Surgical History History of cardioversion (10/06/12) History of left mastectomy (04/11/08) History of total right knee replacement (2006) History of transesophageal echocardiography (LEN) (10/06/12) Social History (Updated 09/28/22 @ 18:[address] Cy Read MD) household members: spouse Smoking Status: Never smoker substance use type: does not use ROS ROS ED Constitutional Constitutional ED: Denies chills, fever(s), subjective, sweats or weight loss Eyes Eyes: Denies blurry vision, change in vision or diplopia ENT ENT ED: Denies rhinorrhea or sore throat Cardiovascular Cardiovascular: Denies chest pain or palpitations Respiratory/Chest Respiratory/Chest: Denies cough, dyspnea or dyspnea on exertion Gastrointestinal Gastrointestinal: Denies abdominal pain, diarrhea, nausea or vomiting Genitourinary Genitourinary ED: Denies dysuria, hematuria or urinary frequency Musculoskeletal Musculoskeletal: Denies arthralgias, back pain, myalgias or neck pain Integumentary Denies rash Neurologic Neurologic: Denies paresthesias Hematologic/Lymphatic Hematologic/Lymphatic: Reports easy bruising; Denies easy bleeding EXAM Physical Exam Const Vital Signs: 09/28/22 17:53 Temperature 97.5 F L Temperature Source Temporal Pulse Rate 60 Respiratory Rate 14 Blood Pressure 165/75 H Blood Pressure Mean 105 Pulse Ox 98 Oxygen Delivery Method Room Air Positive well nourished and well developed General Appearance ED: well developed and NAD HEENT Reports moist mucous membranes normocephalic and atraumatic Eyes PERRL Eyes Narrative: Extract muscle intact. Sclera is anicteric. Conjunctive is pink. Neck full ROM and supple Chest Wall inspection of chest normal and palpation of chest normal Resp normal respiratory effort, no retractions and clear to auscultation bilaterally Cardio regular rate, S1 normal heart sound, S2 normal heart sound and no murmurs GI non-tender, non-distended and no masses Back/Spine no CVA tenderness Extremity Negative for normal to inspection Extremity Narrative: Well-healed vertical incision noted right knee due to total knee arthroplasty. There is no evidence of infection i.e. erythema, warmth, induration, lymphangitis, popliteal angle lymphadenopathy. The knee is swollen. There is a significant effusion. There is fullness in the popliteal fossa to suggest a Nicholson's cyst. Patient cannot hold her leg up against gravity because of pain. She is reluctant to even flex her knee. General Extremety ED: Yes weight-bearing difficulty; Negative for cyanosis or edema General Extremity: weight-bearing difficulty; Negative for cyanosis or edema Neuro oriented x3, CN's II-XII intact bilaterally and no sensory deficits noted Sensorium / Orientation: alert Psych mental status grossly normal Skin no wounds Lesions: no lesions Rashes: no rashes MDM MDM MDM Narrative Medical decision making narrative: Presents with atraumatic effusion of the right knee. This may represent a hemarthrosis, crystal induced arthritis versus pyogenic arthritis. Will obtain CBC, electrolyte panel, ESR and CRP as well as x-ray to evaluate this. Patient was medicated with morphine. When patient was informed of her x-ray results and laboratory results she states she was told that she had blood last time she had fluid in her knee. I informed her based on the x-ray I am unable to determine whether this was blood or not. Radiologist did not make comment whether this was blood or not. She requests additional dose of morphine. then made comment that she cannot go home because they have 2 floors. Case management was consulted. Lab Data Attestation: I reviewed the patient's lab results. Lab results narrative: TypeWhite count is elevated is chronically elevated due to CLL. All is unremarkable. ESR and CRP are normal. Labs: Laboratory Results - last 24 hr 09/28/22 09/28/22 18:30 18:30 WBC 20.2 H RBC 4.24 Hgb 13.2 Hct 40.6 MCV 95.8 MCH 31.1 MCHC 32.5 RDW Std Deviation 56.4 H RDW Coeff of Asael 16.0 H Plt Count 125 L MPV 10.6 Immature Gran % (Auto) 0.300 Neut % (Auto) 33.5 L Lymph % (Auto) 63.4 H [place] % (Auto) 2.4 Eos % (Auto) 0.1 Baso % (Auto) 0.3 Absolute Neuts (auto) 6.7 Absolute Lymphs (auto) 12.77 H Nucleated RBC % 0 Differential Comment SCANNED Atypical Lymphocytes 1+ Reactive Lymphocytes 1+ ESR 5 Sodium 139 Potassium 4.5 Chloride 106 Carbon Dioxide 28.0 Anion Gap 5 BUN 19 H Creatinine 0.77 Estim Creat Clear Calc 36.36 Est GFR (MDRD) Af Amer 92 Est GFR (MDRD) Non-Af 76 BUN/Creatinine Ratio 24.6 H Glucose 108 H Calcium 9.3 C-React Prot Ext Range < 2.90 Radiography X-Ray: - (Multiple view x-ray of the knee reveals a large effusion. There is hardware due to total knee arthroplasty. There is no bony abnormality noted. This is independently reviewed and interpreted by me.) Diagnostic Testing: Clinical Impression(s) from Imaging Studies Knee X-Ray 09/28/22 18:43 IMPRESSION: Right knee replacement. Large joint effusion. Electronically Signed: Faustino Moser MD at 19:05 EST , Treatment and Re-Evaluation Narrative: This management did see patient. Patient and would like her admitted to be placed in an transitional care unit since she is unable to go up and down steps and ambulation is limited. According to the licensed funeral director and embalmer for for case management she will need precertification based on her insurance. For this reason hospitalist was contacted for observation status with goal of placing in a transitional care unit facility/unit. Discharge Plan Triage Chief Complaint: Lower Extremity Injury ED Provider: Cy Read Dx/Rx/DC Orders Clinical Impression: Effusion of right knee joint, Essential hypertension, Chronic anticoagulation, Chronic lymphocytic leukemia, Inability to ambulate due to knee Prescriptions: No Action multivitamin Tablet 1 tab PO DAILY lovastatin 20 mg tablet 20 mg PO QHS rivaroxaban 15 mg tablet 15 mg PO DAILY diltiazem HCl 120 mg Capsule,Extended Release 24hr 120 mg PO DAILY 30 Days Qty: 30 0RF sertraline 50 mg tablet 100 mg PO DAILY PreserVision AREDS-2 250-90-40-1 mg Capsule 1 tab PO BID Primary Care Provider: Yamil Madden Referrals: Yamil Madden MD [Primary Care Provider] - Disposition Disposition: Acute Care Hospital [facility]
--- NOTE | 2022-09-28 18:43 | RAD_ITS ---
STUDY: X-RAY - RIGHT KNEE REASON FOR EXAM: Female, 86 years old. Injury/Pain TECHNIQUE: 3 view(s) of the knee. COMPARISON: November 13, 2021 FINDINGS: There is demineralization of the visualized distal femur. There is demineralization of the tibia and fibula. Normal proximal tibiofibular articulation. There is no demonstrated fracture. There is total knee replacement. Alignment is near-anatomic. There is a large suprapatellar joint effusion. RAD/Knee 3 Views IMPRESSION: Right knee replacement. Large joint effusion. Electronically Signed: Faustino Moser MD at 19:05 EST ,
[2022-09-28 18:47] LABS: Erythrocyte Sedimentation Rate 5 mm/hr (0-30)
[2022-09-28 18:50] LABS: Absolute Lymphocyte Count 12.77 X10^3/uL (0.83-4.51); Absolute Neutrophil Count 6.7 X10^3/uL (2.0-7.7); Basophil# 0.06 X10^3/uL; Basophil% 0.3 % (0-1); Eosinophil# 0.03 X10^3/uL; Eosinophils% 0.1 % (0-5); Hematocrit 40.6 % (37-47); Hemoglobin 13.2 g/dL (12.0-15.0); Lymphocyte # 12.77 X10^3/ul (0.83-4.51); Lymphocyte % 63.4 % (19-41); Mean Corp Hgb Conc 32.5 g/dL (32-36); Mean Corpuscular Hgb 31.1 pg (27.0-32.0); Mean Corpuscular Volume 95.8 fL (81-99); Mean Platelet Vol. 10.6 fl (6.2-12.0); Monocyte# 0.49 X10^3/uL; Monocyte% 2.4 % (0-10); NRBC Flagged by Analyzer 0 % (0-5); Neutrophil # 6.74 X10^3/uL (2.7-7.7); Neutrophil % 33.5 % (47-70); POSITIVE DIFFERENTIAL YES; Platelet Count 125 K/mm3 (150-450); RBC Distribution Width SD 56.4 fl (35.1-43.9); Red Blood Count 4.24 M/mm3 (4.2-5.4); White Blood Count 20.2 K/mm3 (4.4-11.0)
[2022-09-28 18:57] LABS: Differential Indicated SCAN CRITERIA MET
[2022-09-28 19:00] LABS: Anion Gap 5 (5-15); BUN 19 mg/dL (7-18); BUN/Creat Ratio 24.6 RATIO (10-20); CRP < 2.90 mg/L (0.0-3.0); Calcium,Total 9.3 mg/dL (8.5-10.1); Chloride 106 mmol/L (98-107); Creatinine, Serum 0.77 mg/dL (0.55-1.02); EST Glomerular Filtration Rate 76 mL/min (>60); Est Glom Filt Rate - Afr Amer 92 mL/min (>60); Estimated Creatinine Clearance 36.36 ml/min; Glucose 108 mg/dL (74-106); Potassium 4.5 mmol/L (3.5-5.1); Sodium Level 139 mmol/L (136-145)
[2022-09-28 19:15] LABS: Atypical Lymphocyte 1+ %; Differential Comment SCANNED; Reactive Lymphocyte 1+
--- NOTE | 2022-09-28 22:07 | CM.ED ---
SW Note SW met with MD Read to review patient's symptoms and current concerns. SW to follow up with patient and patient's . SW met with patient and patient's and introduced herself and role as [facility] Managed Care Liaison. Patient provided permission for SW to speak with her present. Patient's explained they are concerned with patient returning home due to their home being two story with stairs the patient can't currently navigate. Patient explained she is in a lot of pain and sat on the toilet for 45 minutes before being able to get up with assistance from . Patient and patient's feel patient needs to go to a SNF to get stronger in order to return home. SW reviewed patient's insurance and explained patient would need to be admitted due to her insurance requiring precert. SW reviewed [facility] and [facility] resource. Patient and patient's were receptive but ultimately feel patient is unable to go home today. SW met with MD Read and reviewed concerns. MD to follow up with hospitalist to review for admission. Plan: SNF, first choice [facility] TCU/rehab Dyan NORIEGA, RANI
[2022-09-28 22:24] VITALS: BMI 19.3
[2022-09-28 22:34] VITALS: BP 123/73; PULSE 55; RESP 18; TEMP 36.8; O2SAT 93
[2022-09-28 22:35] VITALS: BP 123/73; PULSE 55; RESP 18; TEMP 36.8; O2SAT 93
[2022-09-28 22:47] VITALS: RESP 18
[2022-09-28] MEDS: Atorvastatin Calcium 10 MG Tablet 5 MG PO (23:03)
--- NOTE | 2022-09-28 23:20 | HP.PCM.HOS_ITS ---
HPI - General General Date of Admission: 09/28/22 Date of Service: 09/28/22 Chief Complaint: R knee severe pain, debility. 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 She notes pain is controlled 1-2/10 if she is laying flat and not moving otherwise markedly increases to 10/10 with palpation or movement attempt. Patient reports similar presentation 04/2021 with initially onset severe sharp stabbing pain to the right knee however at that time she did end up falling but ended up having a right knee hemarthrosis at that time requiring evaluation and treatment at [facility] and eventual transition to rehab at [facility] In the ED work-up included T97.5, heart rate 60, BP 165/75, respiratory rate 14, 98% on room air, CBC with WC 20.2, hemoglobin 13.2, platelet 125 with lymphocytosis, BMP with glucose 108 otherwise unremarkable, ESR 5, CRP less than 2.90, plain film of the right knee with evidence of a right knee replacement with a large joint effusion. In the ED patient ministered morphine 4 mg IV x2 as well as Zofran 4 mg IV x2. [facility] Medical History (Updated 09/28/22 @ 21:[address] Cy Read MD) Benign paroxysmal positional vertigo Chronic lymphocytic leukemia Circumscribed scleroderma Diverticulosis of colon Essential hypertension History of DVT of lower extremity (2006) History of Guillain-Marble syndrome (1969) History of pulmonary embolus (PE) Hyperlipidemia Insomnia Macular degeneration Osteoporosis Permanent atrial fibrillation Personal history of malignant neoplasm of breast (2007) Tietze syndrome Trigger finger, left ring finger Home Medications lovastatin 20 mg tablet 20 mg PO QHS Cholesterol 04/21/21 [History Last Taken Unknown] multivitamin 1 tab PO DAILY Supplement 04/21/21 [History Last Taken Unknown] rivaroxaban 15 mg tablet 15 mg PO DAILY Blood Thinner 04/21/21 [History Last Taken Unknown] diltiazem HCl 120 mg capsule,extended release 24 hr 120 mg PO DAILY 30 days #30 caps 04/29/21 [Rx Last Taken Unknown] sertraline 50 mg tablet 100 mg PO DAILY 11/13/21 [History Last Taken Unknown] vit C 250 mg-vit E 90 mg-zinc 40 mg-copper 1 ke-osrnur-azipfw capsule (PreserVis ion AREDS-2) 1 tab PO BID 11/13/21 [History Last Taken Unknown] Allergy/AdvReac Type Severity Reaction Status Date / Time Gadolinium-MRI Contrast Allergy Severe Hives Verified 09/28/22 17:57 Medium gadoterate meglumine Allergy Severe Hives Verified 09/28/22 17:57 [From Dotarem] dabigatran etexilate AdvReac Intermediate GI upset Verified 09/28/22 17:57 [From Pradaxa] codeine AdvReac Unknown Verified 09/28/22 17:57 diphtheria,pertussis AdvReac Swelling Verified 09/28/22 17:57 (acell),tetanu Penicillins AdvReac Hives Verified 09/28/22 17:57 Family History Mother H/O bilateral mastectomy Breast cancer Father Heart disease unsure of type Sister Cardiac pacemaker in situ Surgical History History of cardioversion (10/06/12) History of left mastectomy (04/11/08) History of total right knee replacement (2006) History of transesophageal echocardiography (LEN) (10/06/12) Social History (Updated 09/28/22 @ 23:[address] Elsie Mendoza MD) household members: spouse Smoking Status: Never smoker alcohol intake: never substance use type: does not use ROS ROS Narrative Admission Review of Systems: CONSTITUTIONAL: No weight loss, fever, chills, + weakness or fatigue. HEENT: Eyes: No visual loss, blurred vision, double vision or yellow sclerae. Ears, Nose, Throat: No hearing loss, sneezing, congestion, runny nose or sore throat. SKIN: No rash or itching, lesions, wounds. CARDIOVASCULAR: No chest pain, chest pressure or chest discomfort, palpitations, edema, orthopnea, syncopal events. RESPIRATORY: No shortness of breath, cough or sputum, wheezing, hemoptysis. GASTROINTESTINAL: No anorexia, nausea, vomiting or diarrhea, abdominal pain, melena, BRBPR. GENITOURINARY: No dysuria, frequency, urgency or retention. NEUROLOGICAL: No headache, dizziness, syncope, paralysis, ataxia, numbness or tingling in the extremities, focal weakness, change in bowel or bladder control, seizure. MUSCULOSKELETAL: + muscle, back pain, joint pain or stiffness. HEMATOLOGIC: + anemia, bleeding or bruising. LYMPHATICS: No enlarged nodes. No history of splenectomy. PSYCHIATRIC: + history of depression or anxiety. ENDOCRINOLOGIC: No reports of sweating, cold or heat intolerance. No polyuria or polydipsia. ALLERGIES: + history of hives. Vital Signs Vital Signs Vital Signs: 09/28/22 17:53 Temperature 97.5 F L Temperature Source Temporal Pulse Rate 60 Respiratory Rate 14 Blood Pressure 165/75 H Blood Pressure Mean 105 Pulse Ox 98 Oxygen Delivery Method Room Air Weight Weight: 121 lb 4.068 oz Body Mass Index (BMI) 20.1 Physical Exam Narrative Physical Examination: General: Awake, alert, oriented x 3 and cooperative, laying in the ED bed, fatigued appearing, notes pain controlled his lungs the knee is not palpated or she is not moving, with examination reports severe 10 out of 10 pain Skin: Normal color, normal turgor, no icterus, no cyanosis. HEENT: AT/NC, EOMI, PERRLA, mildly dry MM, no carotid bruits or JVD noted. Lungs: Mildly diminished, greater bases, appropriate effort no rales, ronchi or wheezing. Heart: Bradycardic, rate controlled; no gallop, rub audible. Abdomen: Soft, NTTP, ND, distant normal BS, no HSM. Extremities: No cyanosis, no clubbing, significant right knee marked effusion, severe tenderness to palpation, no marked increased warmth or erythema overlying. Neurological: Patient awake, alert, oriented x 3, cognitive function intact; pupils equally reactive to light and accommodation, cranial nerves II-XII grossly normal, moving all 4 extremities except severe limitation to the right lower extremity given acute pain with any movement or palpation, strength accordingly severely globally decreased. Psychiatric: Affect appears fatigued, severely uncomfortable following evaluation, no acute evidence of depressive or anxiety feelings but does have underlying history. Results Lab / Micro Data Result Diagrams: 09/28/22 18:30 09/28/22 18:30 Labs: Laboratory Results - last 24 hr 09/28/22 18:30: WBC 20.2 H, RBC 4.24, Hgb 13.2, Hct 40.6, MCV 95.8, MCH 31.1, MCHC 32.5, RDW Std Deviation 56.4 H, RDW Coeff of Asael 16.0 H, Plt Count 125 L, MPV 10.6, Immature Gran % (Auto) 0.300, Neut % (Auto) 33.5 L, Lymph % (Auto) 63.4 H, [place] % (Auto) 2.4, Eos % (Auto) 0.1, Baso % (Auto) 0.3, Absolute Neuts (auto) 6.7, Absolute Lymphs (auto) 12.77 H, Nucleated RBC % 0, Differential Comment SCANNED, Atypical Lymphocytes 1+, Reactive Lymphocytes 1+, ESR 5 09/28/22 18:30: Sodium 139, Potassium 4.5, Chloride 106, Carbon Dioxide 28.0, Anion Gap 5, BUN 19 H, Creatinine 0.77, Estim Creat Clear Calc 36.36, Est GFR (MDRD) Af Amer 92, Est GFR (MDRD) Non-Af 76, BUN/Creatinine Ratio 24.6 H, Glucose 108 H, Calcium 9.3, C-React Prot Ext Range < 2.90 Radiology Impression Knee X-Ray 09/28/22 18:43 IMPRESSION: Right knee replacement. Large joint effusion. Electronically Signed: Faustino Moser MD at 19:05 EST , Assessment & Plan Assessment/Plan (1) Effusion of right knee joint: PLAN: Plan The patient is an 86 y/o F w/ PMHx: Anxiety and Depression, HTN, HLD, Hx RLE DVT w/ associated PE following R TKR, BPPV, CLL with chronic leukocytosis, Chronic atrial fibrillation, Hx L breast CA unclear type s/p mastectomy, Hx GBS 1970 who presents to the [facility] ED on with history of progressive worsening R knee pain and swelling over the last 48 hours with no recent increased warmth to the right knee, erythema, injury, fever or chills but notably sharp stabbing 10/10 severe pain starting to the R knee with eventual onset R sided effusion with inability to bend the knee or bear weight prompting eventual ED evaluation. #1. Intractable right knee pain with a large right knee joint effusion complicated by prior right total knee replacement: Patient status post prior rem ote right total knee replacement per Dr. Nair per discussion with patient, given significant joint effusion and pain will admit to medical surgical floor, temporally hold patient anticoagulant therapy, maintain on fall precautions, will have as needed pain and nausea regimen, will request patient's orthopedic surgery service to evaluate patient for consideration aspiration especially given status post replacement status ED was very hesitant to intervene, ESR and CRP unremarkable at this time, afebrile currently, will closely monitor hemoglobin level. #2. CLL: Admission CBC with WBC 20.2, hemoglobin 13.2, platelet 125 with lymphocytosis, patient CBC per review with chronic WC elevation primarily in the 20s, encourage continued outpatient follow-up with oncology. #3. Permanent atrial fibrillation: Patient status post prior cardioversion 2013 initially successful however eventually reverted, we will temporarily hold Xarelto while awaiting orthopedic surgery evaluation of the knee in case hemarthroses, continue patient home diltiazem regimen. #4. History of VTE: Patient with history right lower extremity DVT, PE following remote right total knee replacement, in this case was considered provoked although does have underlying cancer, holding Xarelto temporarily given acute presentation as noted. #5. Hypertension: Continue home regimen including diltiazem, PRN hydralazine. #6. Hyperlipidemia: We will continue patient on lovastatin regimen. #7. History of breast cancer: Patient status post left-sided breast cancer, unclear type, status postmastectomy, considered in remission, encourage continued follow-up outpatient with oncology. #8. Anxiety and depression: We will continue patient home sertraline regimen. #9. DVT prophylaxis: SCDs, temporarily holding patient home Xarelto regimen as noted. #10. CODE status: Patient HCPOA is her who is present and living will is currently in place. Full Code status. Admission Evaluation Time spent evaluating chart, patient history, patient evaluation, care planning and discussion with specialists: 60 minutes. Charges/Coding Visit Charges Inpatient E&M: 44332 Init Hosp L2
[2022-09-29 03:28] VITALS: BP 123/94; PULSE 51; RESP 18; TEMP 36.8; O2SAT 95
[2022-09-29] MEDS: Morphine 2 MG/ML Syringe IV (05:18)
[2022-09-29] MEDS: 0.9% Saline Lock 10 ML Syringe IV (05:24)
[2022-09-29 06:32] LABS: Absolute Lymphocyte Count 20.08 X10^3/uL (0.83-4.51); Absolute Neutrophil Count 4.4 X10^3/uL (2.0-7.7); Basophil# 0.08 X10^3/uL; Basophil% 0.3 % (0-1); Eosinophil# 0.11 X10^3/uL; Eosinophils% 0.4 % (0-5); Hematocrit 39.8 % (37-47); Hemoglobin 12.7 g/dL (12.0-15.0); Lymphocyte # 20.08 X10^3/ul (0.83-4.51); Lymphocyte % 78.5 % (19-41); Mean Corp Hgb Conc 31.9 g/dL (32-36); Mean Corpuscular Hgb 31.3 pg (27.0-32.0); Mean Platelet Vol. 11.2 fl (6.2-12.0); Monocyte# 0.82 X10^3/uL; Monocyte% 3.2 % (0-10); NRBC Flagged by Analyzer 0 % (0-5); Neutrophil # 4.43 X10^3/uL (2.7-7.7); Neutrophil % 17.4 % (47-70); POSITIVE DIFFERENTIAL YES; Platelet Count 135 K/mm3 (150-450); RBC Distribution Width SD 57.8 fl (35.1-43.9); Red Blood Count 4.06 M/mm3 (4.2-5.4); White Blood Count 25.6 K/mm3 (4.4-11.0)
[2022-09-29 06:36] LABS: Differential Indicated SCAN CRITERIA MET
[2022-09-29 07:00] LABS: ALB/GLOB Ratio 1.3 RATIO (0.9-2.4); AST(SGOT) 24 U/L (15-37); Alanine Aminotransfer ALT/SGPT 16 U/L (13-56); Albumin, Serum 3.8 g/dL (3.2-5.0); Alkaline Phosphatase 53 U/L (45-117); Anion Gap 6 (5-15); BUN 21 mg/dL (7-18); BUN/Creat Ratio 24.9 RATIO (10-20); Calcium,Total 9.1 mg/dL (8.5-10.1); Chloride 105 mmol/L (98-107); Creatinine, Serum 0.84 mg/dL (0.55-1.02); EST Glomerular Filtration Rate 68 mL/min (>60); Est Glom Filt Rate - Afr Amer 82 mL/min (>60); Globulin 2.9 g/dL (2.2-4.2); Glucose 91 mg/dL (74-106); Potassium 4.2 mmol/L (3.5-5.1); Protein, Total 6.7 g/dL (6.4-8.2); Sodium Level 138 mmol/L (136-145)
[2022-09-29 07:05] LABS: Anisocytosis 1+; Platelet Estimate SLT DEC (ADEQ)
[2022-09-29 07:42] VITALS: O2SAT 96
--- NOTE | 2022-09-29 08:53 | PN.HOSP_ITS ---
Objective Data Objective Data Vital Signs: Vital Signs Temp Pulse Resp BP Pulse Ox O2 Del Method 98.2 F 51 L 18 123/94 H 96 Room Air 09/29/22 03:28 09/29/22 03:28 09/29/22 03:28 09/29/22 03:28 09/29/22 07:42 09/29/22 07:42 Oxygen Delivery Method Room Air Weight: 115 lb 15.41 oz Body Mass Index (BMI) 19.3 Lab / Micro Data Result Diagrams: 09/29/22 05:06 09/29/22 05:06 Labs: Laboratory Results - last 24 hr 09/28/22 18:30: WBC 20.2 H, RBC 4.24, Hgb 13.2, Hct 40.6, MCV 95.8, MCH 31.1, MCHC 32.5, RDW Std Deviation 56.4 H, RDW Coeff of Asael 16.0 H, Plt Count 125 L, MPV 10.6, Immature Gran % (Auto) 0.300, Neut % (Auto) 33.5 L, Lymph % (Auto) 63.4 H, [place] % (Auto) 2.4, Eos % (Auto) 0.1, Baso % (Auto) 0.3, Absolute Neuts (auto) 6.7, Absolute Lymphs (auto) 12.77 H, Nucleated RBC % 0, Differential Comment SCANNED, Atypical Lymphocytes 1+, Reactive Lymphocytes 1+, ESR 5 09/28/22 18:30: Sodium 139, Potassium 4.5, Chloride 106, Carbon Dioxide 28.0, Anion Gap 5, BUN 19 H, Creatinine 0.77, Estim Creat Clear Calc 36.36, Est GFR (MDRD) Af Amer 92, Est GFR (MDRD) Non-Af 76, BUN/Creatinine Ratio 24.6 H, Glucose 108 H, Calcium 9.3, C-React Prot Ext Range < 2.90 09/29/22 05:06: WBC 25.6 H, RBC 4.06 L, Hgb 12.7, Hct 39.8, MCV 98.0, MCH 31.3, MCHC 31.9 L, RDW Std Deviation 57.8 H, RDW Coeff of Asael 16.0 H, Plt Count 135 L, MPV 11.2, Immature Gran % (Auto) 0.200, Neut % (Auto) 17.4 L, Lymph % (Auto) 78.5 H, [place] % (Auto) 3.2, Eos % (Auto) 0.4, Baso % (Auto) 0.3, Absolute Neuts (auto) 4.4, Absolute Lymphs (auto) 20.08 H, Nucleated RBC % 0, Platelet Estimate SLT DEC, Anisocytosis 1+ 09/29/22 05:06: Sodium 138, Potassium 4.2, Chloride 105, Carbon Dioxide 27.0, Anion Gap 6, BUN 21 H, Creatinine 0.84, Estim Creat Clear Calc 41.40, Est GFR (MDRD) Af Amer 82, Est GFR (MDRD) Non-Af 68, BUN/Creatinine Ratio 24.9 H, Glucose 91, Calcium 9.1, Total Bilirubin 0.80, AST 24, ALT 16, Alkaline Phosphatase 53, Total Protein 6.7, Albumin 3.8, Globulin 2.9, Albumin/Globulin Ratio 1.3 Radiography Diagnostic Testing: Radiology Impression Knee X-Ray 09/28/22 18:43 IMPRESSION: Right knee replacement. Large joint effusion. Electronically Signed: Faustino Moser MD at 19:05 EST Reading Location ID and State: [address] [place] [address] , Service support , Physical Exam Narrative Seen and examined. Patient complain of severe pain all around left knee, insidious onset progressively worsening for 1 week.Has history of several occasion of hemarthrosis due to anticoagulation therapy. Physical exam General: Alert, Oriented x3, Cooperative HEENT: Atraumatic, PERRLA, EOMI, Normocephalic Oral: Oral mucosa moist no Gingival or Mucosal Lesions/ Ulcerations Neck: Supple, No JVD, Negative Carotid Bruits Lungs: Air entry diminished in bilateral lung bases. No crepitation/rhonchi Cardiovascular: Irregular rhythm, Normal S1, Normal S2, No murmurs Abdomen: Bowel Sounds Present, Soft, Non Tender, Non-Distended : No renal angle tenderness. No suprapubic tenderness. Extremities: No edema, Capillary Refill Less than 3 Seconds Skin: No rashes, No breakdown Musculoskeletal: Mild warmth, swelling, edema exquisite tenderness over left knee. ROM not possible because of severe pain. Right knee no tenderness. Neurological: Cranial nerves II-XII grossly intact, DTR 2+/4 and Symmetrical, Neuro grossly intact Psych/Mental Status: Normal Affect, Appropriate. Assessment & Plan Assessment/Plan (1) Effusion of right knee joint: PLAN: Plan The patient is an 86 y/o F is being admitted with severe right knee pain 10/10 intensity along with right knee effusion #1. Intractable right knee pain with a large right knee joint effusion complicated by prior right total knee replacement: Patient status post prior remote right total knee replacement about [address] Nair. Patient is being admitted as MedSurg status PT and OT. Pain control. ESR and CRP unremarkable. 09/29: Patient seen by orthopedic service. No plan for aspiration. There is chance that patient might have hemarthrosis as he had in the past and is on blood thinner #2. CLL: Admission CBC with WBC 20.2, hemoglobin 13.2, platelet 125 with lymphocytosis, patient CBC per review with chronic WC elevation primarily in the 20s, encourage continued outpatient follow-up with oncology. #3. Permanent atrial fibrillation: Patient status post prior cardioversion 2012. Xarelto is on hold. Continue Cardizem #4. History of VTE: Patient with history right lower extremity DVT, PE following remote right total knee replacement, although patient is high risk of future DVT because of history of CLL and breast cancer #5. Hypertension: Continue home regimen including diltiazem, PRN hydralazine. #6. Hyperlipidemia: We will continue patient on lovastatin regimen. #7. History of breast cancer: Patient status post left-sided breast cancer, unclear type, status postmastectomy, considered in remission, encourage continued follow-up outpatient with oncology. #8. Anxiety and depression: We will continue patient home sertraline regimen. #9. DVT prophylaxis: SCDs, temporarily holding patient home Xarelto regimen as noted. #10. CODE status: Patient HCPOA is her who is present and living will is currently in place. Full Code status. Charges/Coding Visit Charges Inpatient E&M: 31556 Subs Hosp L2
[2022-09-29 09:40] VITALS: BP 104/55; PULSE 59; RESP 17; TEMP 36.7; O2SAT 93
[2022-09-29] MEDS: Sertraline 100 MG Tablet PO (09:46)
[2022-09-29] MEDS: dilTIAZem CD 120 MG Capsule PO (09:46)
--- NOTE | 2022-09-29 11:21 | CONS.ORTHO ---
HPI Consult Data Date of Consult: 09/29/22 HPI Narrative Reason for Consultation: Left knee pain and swelling HPI Narrative: DOMENICO MAIN, is a 86 F who presents through the emergency department with a chief complaint of left knee pain. Patient has had an insidious onset of progressive worsening knee pain over the past week. Patient reports that she has had similar pain in the past. She has had extensive work-up including synovial fluid analysis, bone scans, and extensive physical exam. Patient has had several occasions of hemarthrosis due to her anticoagulation therapy with Xarelto. Patient has been under the care of Dr. Oliveros for similar complaints. Patient reports no history of any type of trauma, or strenuous activities in the past month. Patient denies any falls. Patient reports she has severe pain if she attempts to weight-bear or bends her knee. Patient denies any chest pain, shortness of breath, fever, chills. No recent illnesses or infection. [facility] Medical History (Updated 09/29/22 @ 11:32 by Antelmo PAREDES PA-C) Benign paroxysmal positional vertigo Chronic lymphocytic leukemia Circumscribed scleroderma Diverticulosis of colon Essential hypertension History of DVT of lower extremity (2006) History of Guillain-Cleveland syndrome (1969) History of pulmonary embolus (PE) Hyperlipidemia Insomnia Macular degeneration Osteoporosis Permanent atrial fibrillation Personal history of malignant neoplasm of breast (2007) Tietze syndrome Trigger finger, left ring finger Home Medications lovastatin 20 mg tablet 20 mg PO QHS Cholesterol 04/21/21 [History Last Taken Unknown] multivitamin 1 tab PO DAILY Supplement 04/21/21 [History Last Taken Unknown] rivaroxaban 15 mg tablet 15 mg PO DAILY Blood Thinner 04/21/21 [History Last Taken Unknown] diltiazem HCl 120 mg capsule,extended release 24 hr 120 mg PO DAILY 30 days #30 caps 04/29/21 [Rx Last Taken Unknown] sertraline 50 mg tablet 100 mg PO DAILY 11/13/21 [History Last Taken Unknown] vit C 250 mg-vit E 90 mg-zinc 40 mg-copper 1 [id number] capsule (PreserVision AREDS-2) 1 tab PO BID 11/13/21 [History Last Taken Unknown] Allergy/AdvReac Type Severity Reaction Status Date / Time Gadolinium-MRI Contrast Allergy Severe Hives Verified 09/28/22 17:57 Medium gadoterate meglumine Allergy Severe Hives Verified 09/28/22 17:57 [From Dotarem] dabigatran etexilate AdvReac Intermediate GI upset Verified 09/28/22 17:57 [From Pradaxa] codeine AdvReac Unknown Verified 09/28/22 17:57 diphtheria,pertussis AdvReac Swelling Verified 09/28/22 17:57 (acell),tetanu Penicillins AdvReac Hives Verified 09/28/22 17:57 Family History Mother H/O bilateral mastectomy Breast cancer Father Heart disease unsure of type Sister Cardiac pacemaker in situ Surgical History History of cardioversion (10/06/12) History of left mastectomy (04/11/08) History of total right knee replacement (2006) History of transesophageal echocardiography (LEN) (10/06/12) Social History household members: spouse Smoking Status: Never smoker alcohol intake: never substance use type: does not use ROS ROS Narrative I discussed at detail at length 10 review of systems all pertinent positive negatives noted in the medical record Vital Signs Vital Signs Vital Signs: 09/28/22 17:53 09/28/22 22:34 09/28/22 22:47 Temperature 97.5 F L 98.3 F Temperature Source Temporal Oral Pulse Rate 60 55 L Respiratory Rate 14 18 18 Respiratory Effort Normal Non-Labored Respiratory Depth Normal Respiratory Pattern Normal Blood Pressure 165/75 H 123/73 H Blood Pressure Mean 105 89 Blood Pressure Source Monitor Blood Pressure Position Semi-Fowlers Blood Pressure Location Right Arm Pulse Ox 98 93 Oxygen Delivery Method Room Air Room Air Room Air 09/28/22 22:35 09/29/22 03:28 09/29/22 07:42 Temperature 98.3 F 98.2 F Temperature Source Oral Oral Pulse Rate 55 L 51 L Respiratory Rate 18 18 Respiratory Effort Respiratory Depth Respiratory Pattern Blood Pressure 123/73 H 123/94 H Blood Pressure Mean 88 104 Blood Pressure Source Monitor Monitor Blood Pressure Position Semi-Fowlers Semi-Fowlers Blood Pressure Location Pulse Ox 93 95 96 Oxygen Delivery Method Room Air Room Air Room Air 09/29/22 07:42 01/25/23 09:40 Temperature 98.0 F Temperature Source Oral Pulse Rate 59 L Respiratory Rate 17 Respiratory Effort Normal Respiratory Depth Normal Respiratory Pattern Normal Blood Pressure 104/55 L Blood Pressure Mean 70 Blood Pressure Source Monitor Blood Pressure Position Semi-Fowlers Blood Pressure Location Right Arm Pulse Ox 93 Oxygen Delivery Method Room Air Room Air Weight Weight: 52.6 kg Body Mass Index (BMI) 19.3 Physical Exam Narrative Upon exam I found the patient sleeping comfortably in bed. Patient was easy to awake alert oriented to person place and time. Patient in no obvious respiratory distress, speaking in full sentences. Patient is full range of motion of the upper extremities with good muscle tone and strength. Cranial nerves II through XII gross intact. No pain to palpation cervical thoracic lumbosacral spine. Full range of motion of the bilateral hips and left knee. Exam of the right knee initially when I began palpating the knee she complained of severe pain to touch. However during my history and the patient explaining her previous treatments to the left right knee I was palpating the knee and she showed no obvious signs of discomfort or pain when distracted for my exam. The knee was cool to touch nonerythematous. There is a trace effusion appreciated greatest in the patella tendon region. The patella appeared to be tracking nicely within the femoral groove. Patient was reluctant to any extensive range of motion secondary to reported pain. Patient was lacking 4 degrees full extension flexion to 80 degrees with pain. There was no pain to palpation of the popliteal fossa. There was no calf tenderness. There is no atrophic skin changes varicosities or edema the lower extremities. Patient had no instability with medial lateral anterior posterior stressing. Review of imaging studies 3 views shows patient has a very nicely seated cemented femoral tibial component there is no translucency's or indication of loosening. The patella appears to be tracking nicely within the femoral groove. Patient does have noted hemarthrosis appreciated greatest in the anterior patellofemoral region. Const alert, oriented x3, no apparent distress and well nourished General Appearance: cooperative HEENT normocephalic Eyes PERRL Lymph Lymphatic: no lymphadenopathy noted Resp normal respiratory effort Effort and Inspection: able to speak in complete sentences Cardio regular rate Extremity normal capillary refill, no clubbing, cyanosis or edema, no calf tenderness and no pedal edema Skin no rashes or lesions noted Neuro CN's II-XII intact bilaterally Psych mental status grossly normal and affect normal Lab / Micro Data Result Diagrams: 09/29/22 05:06 09/29/22 05:06 Labs: Laboratory Results - last 24 hr 09/28/22 18:30: WBC 20.2 H, RBC 4.24, Hgb 13.2, Hct 40.6, MCV 95.8, MCH 31.1, MCHC 32.5, RDW Std Deviation 56.4 H, RDW Coeff of Asael 16.0 H, Plt Count 125 L, MPV 10.6, Immature Gran % (Auto) 0.300, Neut % (Auto) 33.5 L, Lymph % (Auto) 63.4 H, [place] % (Auto) 2.4, Eos % (Auto) 0.1, Baso % (Auto) 0.3, Absolute Neuts (auto) 6.7, Absolute Lymphs (auto) 12.77 H, Nucleated RBC % 0, Differential Comment SCANNED, Atypical Lymphocytes 1+, Reactive Lymphocytes 1+, ESR 5 09/28/22 18:30: Sodium 139, Potassium 4.5, Chloride 106, Carbon Dioxide 28.0, Anion Gap 5, BUN 19 H, Creatinine 0.77, Estim Creat Clear Calc 36.36, Est GFR (MDRD) Af Amer 92, Est GFR (MDRD) Non-Af 76, BUN/Creatinine Ratio 24.6 H, Glucose 108 H, Calcium 9.3, C-React Prot Ext Range < 2.90 09/29/22 05:06: WBC 25.6 H, RBC 4.06 L, Hgb 12.7, Hct 39.8, MCV 98.0, MCH 31.3, MCHC 31.9 L, RDW Std Deviation 57.8 H, RDW Coeff of Asael 16.0 H, Plt Count 135 L, MPV 11.2, Immature Gran % (Auto) 0.200, Neut % (Auto) 17.4 L, Lymph % (Auto) 78.5 H, [place] % (Auto) 3.2, Eos % (Auto) 0.4, Baso % (Auto) 0.3, Absolute Neuts (auto) 4.4, Absolute Lymphs (auto) 20.08 H, Nucleated RBC % 0, Platelet Estimate SLT DEC, Anisocytosis 1+ 09/29/22 05:06: Sodium 138, Potassium 4.2, Chloride 105, Carbon Dioxide 27.0, Anion Gap 6, BUN 21 H, Creatinine 0.84, Estim Creat Clear Calc 41.40, Est GFR (MDRD) Af Amer 82, Est GFR (MDRD) Non-Af 68, BUN/Creatinine Ratio 24.9 H, Glucose 91, Calcium 9.1, Total Bilirubin 0.80, AST 24, ALT 16, Alkaline Phosphatase 53, Total Protein 6.7, Albumin 3.8, Globulin 2.9, Albumin/Globulin Ratio 1.3 Radiology Impression Knee X-Ray 09/28/22 18:43 IMPRESSION: Right knee replacement. Large joint effusion. Electronically Signed: Faustino Moser MD at 19:05 EST , Assessment & Plan Assessment/Plan (1) Hemarthrosis involving knee joint: PLAN: 1. Continue all pain medications as presently prescribed 2. Polar Care to right knee except with ambulation 3. Begin physical therapy weight-bear as tolerated, encourage range of motion 4. At this time no aspiration of the knee will be performed. The knee is cool to touch nonerythematous with a trace effusion. 5. Patient is to follow with Dr. Oliveros in 1 to 2 weeks. (2) Right knee pain: (3) Chronic anticoagulation:
--- NOTE | 2022-09-29 12:48 | CASEMGMT ---
ED SW spoke with patient and patient expressed interest in TCU. SW made a referral to TCU an they can accept. SW went to patient's room. Introduced self and role at [facility]. SW let patient know TCU can take her at discharge. Patient said she is not sure. Patient said her wanted her to go to TCU more than she does. SW explained to patient that therapy has to see her to see if she qualifies. Patient then asked SW to come back when her is present. SW let her know SW will do this. Dina Infante LABOR ECONOMIST RANI
[2022-09-29] MEDS: oxyCODONE 5 MG Tablet PO (13:03)
--- NOTE | 2022-09-29 15:20 | CASEMGMT ---
PETRA confirmed with patient and her that the plan is TCU. SW let them know TCU can take patient. PETRA also explained that patient will stay at [facility] while we wait on insurance to approve. PETRA asked Dalia with TCU to start the pre-cert. Plan: d/c to TCU under skilled level of care pending insurance approval Dina SARAVIA
[2022-09-29 15:48] VITALS: BP 115/61; PULSE 54; RESP 16; TEMP 36.5; O2SAT 96
--- NOTE | 2022-09-29 16:18 | CASEMGMT ---
LORIE ROMAN in to complete ERNANDEZ form with patient. LORIE ROMAN explained ERNANDEZ form with patient, patient voiced understanding. Patient signed ERNANDEZ form and filed in chart. Patient provided copy of signed ERNANDEZ form. Patient had no further questions or concerns at this time.
[2022-09-29 21:40] VITALS: BP 83/52; PULSE 52; RESP 16; TEMP 36.3; O2SAT 95
[2022-09-29] MEDS: Atorvastatin Calcium 10 MG Tablet 5 MG PO (21:50)
[2022-09-29 23:00] VITALS: BP 107/61; PULSE 46; RESP 16; TEMP 36.6; O2SAT 93
[2022-09-30] VITALS (7 sets, daily range): BP systolic 104–130; BP diastolic 54–74; PULSE 48–55; RESP 16; TEMP 36.6–37.1; O2SAT 94–99
--- NOTE | 2022-09-30 00:30 | NURSING ---
Patient hasn't been drinking enough water, no output this past 6 hours, discussed this with her and gave her a full pitcher of ice water. Will continue to push fluids. ADVERTISING DIRECTOR instructed to encourage her.
--- NOTE | 2022-09-30 03:42 | CPS ---
Pt sleeping, did not wake up for incentive spirometer.
[2022-09-30] MEDS: oxyCODONE 5 MG Tablet PO ×3 (03:54→20:01)
[2022-09-30] MEDS: Acetaminophen 325 MG Tablet 650 MG PO ×3 (03:54→20:00)
[2022-09-30 04:48] LABS: Absolute Neutrophil Count 3.3 X10^3/uL (2.0-7.7); Basophil# 0.04 X10^3/uL; Basophil% 0.3 % (0-1); Eosinophil# 0.14 X10^3/uL; Eosinophils% 1.1 % (0-5); Hematocrit 36.4 % (37-47); Hemoglobin 11.2 g/dL (12.0-15.0); Lymphocyte % 64.6 % (19-41); Mean Corp Hgb Conc 30.8 g/dL (32-36); Mean Corpuscular Hgb 30.4 pg (27.0-32.0); Mean Corpuscular Volume 98.9 fL (81-99); Mean Platelet Vol. 11.7 fl (6.2-12.0); Monocyte# 0.97 X10^3/uL; Monocyte% 7.6 % (0-10); NRBC Flagged by Analyzer 0.5 % (0-5); Neutrophil # 3.32 X10^3/uL (2.7-7.7); Neutrophil % 26.2 % (47-70); POSITIVE DIFFERENTIAL YES; Platelet Count 112 K/mm3 (150-450); RBC Distribution Width CV 15.7 % (11.6-14.6); RBC Distribution Width SD 57.4 fl (35.1-43.9); Red Blood Count 3.68 M/mm3 (4.2-5.4); White Blood Count 12.7 K/mm3 (4.4-11.0)
[2022-09-30 04:54] LABS: Differential Indicated SCAN CRITERIA MET
[2022-09-30 05:22] LABS: Anion Gap 7 (5-15); BUN 23 mg/dL (7-18); BUN/Creat Ratio 33.2 RATIO (10-20); Calcium,Total 8.3 mg/dL (8.5-10.1); Chloride 104 mmol/L (98-107); Creatinine, Serum 0.69 mg/dL (0.55-1.02); EST Glomerular Filtration Rate 86 mL/min (>60); Est Glom Filt Rate - Afr Amer 104 mL/min (>60); Estimated Creatinine Clearance 34.77 ml/min; Glucose 97 mg/dL (74-106); Potassium 4.4 mmol/L (3.5-5.1); Sodium Level 139 mmol/L (136-145)
[2022-09-30 05:55] LABS: Anisocytosis 1+; Platelet Estimate SLT DEC (ADEQ)
--- NOTE | 2022-09-30 07:25 | CASEMGMT ---
Patient's insurance approved patient for TCU. SW notified physician. Plan: [facility] TCU when ready. Dina SARAVIA
--- NOTE | 2022-09-30 09:45 | PCM.PN.HOSP ---
Subjective Subjective Follow-up for right knee swelling suspected hemarthrosis. Pain is better, 7/10 intensity. Swelling is better. Patient not happy with right knee not drain. Range of motion is better. Objective Data Objective Data Vital Signs: Vital Signs Temp Pulse Resp BP Pulse Ox O2 Del Method 97.8 F 52 L 16 121/68 H 96 Room Air 09/30/22 04:00 09/30/22 04:00 09/30/22 04:00 09/30/22 04:00 09/30/22 04:00 09/30/22 04:00 Oxygen Delivery Method Room Air Weight: 115 lb 1.301 oz Body Mass Index (BMI) 19.3 Intake & Output: Intake and Output for Last 24 Hours 09/28/22 09/29/22 09/30/22 23:59 23:59 23:59 Intake Total 550 / 650 100 / 100 Output Total 0 / 0 Balance 550 / 650 100 / 100 Medical Nutrition Assessment Dietitian: Malnutrition Criteria Met Start: 09/29/22 14:31 Freq: Status: Active Protocol: Document 09/29/22 14:31 (Rec: 09/29/22 14:31 [id number]) Nutrition Malnutrition Evidence of Malnutrition Exists Yes Malnutrition (moderate): Chronic Evidenced By Suboptimal Energy Intake ( Moderate),Physical Changes ( Moderate) Clinical Problem Chronic Disease or Condition Related Malnutrition Etiology chronic, moderate malnutrition related to inadequate energy intake Signs/Symptoms as evidenced by estimated PO intake meeting <75% of estimated energy needs > 3 months; moderate muscle wasting/fat loss evident per physical exam in orbital, temporal, acromion, and clavicle areas; BMI 19.3 Status Active Problem Recommendation Dietitian Recommendations/Changes regular diet given signs/ symptoms of malnutrition; continue ensure plus high protein 120mL 4x/day w/ medpass and will add carnation instant breakfast w/ lunches for additional calories/ protein if consumed Lab / Micro Data Result Diagrams: 09/30/22 03:30 09/30/22 03:30 Labs: Laboratory Results - last 24 hr 09/30/22 03:30: WBC 12.7 H, RBC 3.68 L, Hgb 11.2 L, Hct 36.4 L, MCV 98.9, MCH 30.4, MCHC 30.8 L, RDW Std Deviation 57.4 H, RDW Coeff of Asael 15.7 H, Plt Count 112 L, MPV 11.7, Immature Gran % (Auto) 0.200, Neut % (Auto) 26.2 L, Lymph % (Auto) 64.6 H, [place] % (Auto) 7.6, Eos % (Auto) 1.1, Baso % (Auto) 0.3, Absolute Neuts (auto) 3.3, Absolute Lymphs (auto) 8.20 H, Nucleated RBC % 0.5, Platelet Estimate SLT DEC, Anisocytosis 1+ 09/30/22 03:30: Sodium 139, Potassium 4.4, Chloride 104, Carbon Dioxide 28.0, Anion Gap 7, BUN 23 H, Creatinine 0.69, Estim Creat Clear Calc 34.77, Est GFR (MDRD) Af Amer 104, Est GFR (MDRD) Non-Af 86, BUN/Creatinine Ratio 33.2 H, Glucose 97, Calcium 8.3 L Physical Exam Narrative Seen and examined. Physical exam General: Alert, Oriented x3, Cooperative HEENT: Atraumatic, PERRLA, EOMI, Normocephalic Oral: Oral mucosa moist no Gingival or Mucosal Lesions/ Ulcerations Neck: Supple, No JVD, Negative Carotid Bruits Lungs: Air entry diminished in bilateral lung bases. No crepitation/rhonchi Cardiovascular: Irregular rhythm, Normal S1, Normal S2, No murmurs Abdomen: Bowel Sounds Present, Soft, Non Tender, Non-Distended : No renal angle tenderness. No suprapubic tenderness. Extremities: No edema, Capillary Refill Less than 3 Seconds Skin: No rashes, No breakdown Musculoskeletal: Mild swelling, edema under ice bag. No increased temperature. Tenderness over right knee better. ROM not possible because of severe pain. Left knee no tenderness. Neurological: Cranial nerves II-XII grossly intact, DTR 2+/4 and Symmetrical, Neuro grossly intact Psych/Mental Status: Normal Affect, Appropriate. Assessment & Plan Assessment/Plan (1) Effusion of right knee joint: PLAN: Plan The patient is an 86 y/o F is being admitted with severe right knee pain 10/10 intensity along with right knee effusion #1. Intractable right knee pain with a large right knee joint effusion complicated by prior right total knee replacement: Patient status post prior remote right total knee replacement about [address] Nair. Patient is being admitted as MedSurg status PT and OT. Pain control. ESR and CRP unremarkable. 09/29: Patient seen by orthopedic service. No plan for aspiration. There is chance that patient might have hemarthrosis as he had in the past and is on blood thinner 09/30: Patient not happy with the right knee not being drained. Wanted definitive answer. I called Dr. Nair he is out of town but he can follow her in the office in about 1 to 2 weeks. Further call Thania Rodriges PA about patient concerned that she is not happy with knee not drained. He said he is discussed with Dr. Oliveros and this inoperability looks like hemarthrosis does not want needle to get new source of infection and bleeding. #2. CLL: Admission CBC with WBC 20.2, hemoglobin 13.2, platelet 125 with lymphocytosis, patient CBC per review with chronic WC elevation primarily in the 20s, encourage continued outpatient follow-up with oncology. 09/30: Leukocytosis better. Lymphocytosis on peripheral smear. #3. Permanent atrial fibrillation: Patient status post prior cardioversion 2012. Xarelto is on hold. Continue Cardizem #4. History of VTE: Patient with history right lower extremity DVT, PE following remote right total knee replacement, although patient is high risk of future DVT because of history of CLL and breast cancer #5. Hypertension: Continue home regimen including diltiazem, PRN hydralazine. #6. Hyperlipidemia: We will continue patient on lovastatin regimen. #7. History of breast cancer: Patient status post left-sided breast cancer, unclear type, status postmastectomy, considered in remission, encourage continued follow-up outpatient with oncology. #8. Anxiety and depression: We will continue patient home sertraline regimen. #9. DVT prophylaxis: SCDs, temporarily holding patient home Xarelto regimen as noted. #10. CODE status: Patient HCPOA is her who is present and living will is currently in place. Full Code status. Charges/Coding Visit Charges Inpatient E&M: 23274 Subs Hosp L2
[2022-09-30] MEDS: dilTIAZem CD 120 MG Capsule PO (10:25)
[2022-09-30] MEDS: Sertraline 100 MG Tablet PO (10:25)
[2022-09-30] MEDS: Senna/Docusate Sodium 1 Tablet 2 TABLET PO (20:01)
[2022-09-30] MEDS: Ensure Plus High Protein 120 ML LIQUID PO (21:59)
[2022-09-30] MEDS: Atorvastatin Calcium 10 MG Tablet 5 MG PO (21:59)
[2022-10-01 04:00] VITALS: BP 128/51; PULSE 105; RESP 16; TEMP 36.4; O2SAT 105; O2SAT 96
[2022-10-01 04:42] LABS: Absolute Lymphocyte Count 9.66 X10^3/uL (0.83-4.51); Absolute Neutrophil Count 2.7 X10^3/uL (2.0-7.7); Basophil# 0.05 X10^3/uL; Basophil% 0.4 % (0-1); Eosinophil# 0.19 X10^3/uL; Eosinophils% 1.5 % (0-5); Hematocrit 34.3 % (37-47); Hemoglobin 11.2 g/dL (12.0-15.0); Lymphocyte # 9.66 X10^3/ul (0.83-4.51); Mean Corp Hgb Conc 32.7 g/dL (32-36); Mean Corpuscular Hgb 31.7 pg (27.0-32.0); Mean Corpuscular Volume 97.2 fL (81-99); Monocyte# 0.47 X10^3/uL; Monocyte% 3.6 % (0-10); NRBC Flagged by Analyzer 0.5 % (0-5); Neutrophil # 2.66 X10^3/uL (2.7-7.7); Neutrophil % 20.3 % (47-70); POSITIVE DIFFERENTIAL YES; Platelet Count 115 K/mm3 (150-450); RBC Distribution Width CV 15.9 % (11.6-14.6); RBC Distribution Width SD 56.3 fl (35.1-43.9); Red Blood Count 3.53 M/mm3 (4.2-5.4); White Blood Count 13.1 K/mm3 (4.4-11.0)
[2022-10-01 04:44] LABS: Differential Indicated SCAN CRITERIA MET
[2022-10-01 05:05] LABS: Anisocytosis 1+; Platelet Estimate SLT DEC (ADEQ)
[2022-10-01 05:28] LABS: Anion Gap 6 (5-15); BUN 21 mg/dL (7-18); BUN/Creat Ratio 29.4 RATIO (10-20); Calcium,Total 8.5 mg/dL (8.5-10.1); Chloride 105 mmol/L (98-107); Creatinine, Serum 0.71 mg/dL (0.55-1.02); EST Glomerular Filtration Rate 83 mL/min (>60); Est Glom Filt Rate - Afr Amer 100 mL/min (>60); Estimated Creatinine Clearance 34.51 ml/min; Glucose 93 mg/dL (74-106); Potassium 4.4 mmol/L (3.5-5.1); Sodium Level 138 mmol/L (136-145)
--- NOTE | 2022-10-01 07:56 | TREXTCAR_ITS ---
Diet Diet Order/Speech Therapy: 09/29/22 13:39 Diet: Regular - General Food consistency:: Regular Liquid Consistency:: Regular/Thin Type of Dietary Supplement:: [place] Breakfast Is pt able to select menu?: No Diet Comments: CIB w/ lunch Routine Orders/Code Status Suppository Type: Dulcolax 10mg Suppository Frequency: Daily PRN Code Status: Full Code Therapies Weight Bearing: Weight bearing as tolerated Extremity Affected:: Right Lower Physical Therapy: Eval and Treat Occupational Therapy: Eval and Treat Speech Therapy: Eval and Treat Problem/Diagnosis (1) Effusion of right knee joint: Status: Acute Code(s): M25.461 - Effusion, right knee Plan The patient is an 86 y/o F is being admitted with severe right knee pain 10/10 intensity along with right knee effusion #1. Intractable right knee pain with a large right knee joint effusion complicated by prior right total knee replacement: Patient status post prior remote right total knee replacement about [address] Nair. Patient is being admitted as MedSurg status PT and OT. Pain control. ESR and CRP unremarkable. 09/29: Patient seen by orthopedic service. No plan for aspiration. There is chance that patient might have hemarthrosis as he had in the past and is on blood thinner 09/30: Patient not happy with the right knee not being drained. I called Dr. Nair he is out of town but he can follow her in the office in about 1 to 2 weeks. Further I talked to Thania Rodriges PA about patient concern at knee not drained. He said he is discussed with Dr. Oliveros who thinks it is like previous hemarthrosis does not want needle to get new source of infection and bleeding. #2. CLL: Admission CBC with WBC 20.2, hemoglobin 13.2, platelet 125 with lymphocytosis, patient CBC per review with chronic WC elevation primarily in the 20s, encourage continued outpatient follow-up with oncology. 09/30: Leukocytosis better. Lymphocytosis on peripheral smear. 10/01: WBC count is about 13,000.Platelet count 115,000. Hemoglobin 11 #3. Permanent atrial fibrillation: Patient status post prior cardioversion 2012. Xarelto is on hold. Continue Cardizem #4. History of VTE: Patient with history right lower extremity DVT, PE following remote right total knee replacement, although patient is high risk of future DVT because of history of CLL and breast cancer 10/01: Patient is going to TCU. Resume Xarelto as per orthopedic surgeon discretion #5. Hypertension: Continue home regimen including diltiazem, PRN hydralazine. #6. Hyperlipidemia: We will continue patient on lovastatin regimen. #7. History of breast cancer: Patient status post left-sided breast cancer, unclear type, status postmastectomy, considered in remission, encourage continued follow-up outpatient with oncology. #8. Anxiety and depression: We will continue patient home sertraline regimen. #9. DVT prophylaxis: SCDs, temporarily holding patient home Xarelto regimen as noted. #10. CODE status: Patient HCPSOPHIE is her who is present and living will is currently in place. Full Code status. Allergies/Procedures Done in Hospital Allergies Gadolinium-MRI Contrast Medium Allergy (Severe, Verified 09/28/22 17:57) Hives gadoterate meglumine [From Dotarem] Allergy (Severe, Verified 09/28/22 17:57) Hives dabigatran etexilate [From Pradaxa] Adverse Reaction (Intermediate, Verified 09/28/22 17:57) GI upset codeine Adverse Reaction (Verified 09/28/22 17:57) Unknown diphtheria,pertussis (acell),tetanu Adverse Reaction (Verified 09/28/22 17:57) Swelling Penicillins Adverse Reaction (Verified 09/28/22 17:57) Hives Type of Care/Length of Stay Estimated LOS: Convalescent Care Less Than 30 days Type of Care Needed: Skilled Rehab Potential: Good Prognosis: Good Additional Orders/Day of Discharge Day of Discharge: 10/01/22 Dietary and Speech Recommendations Dietitian Recommendations/Changes: regular diet given signs/symptoms of malnutrition; continue ensure plus high protein 120mL 4x/day w/ medpass and will add carnation instant breakfast w/ lunches for additional calories/protein if consumed Discharge Plan Admission Admit Date/Time: 09/28/22 21:27 Primary Reason for Your Visit: Right knee swelling probably hemarthrosis Attending Provider: Juan Guzman Primary Care Provider: Yamil Madden Consulting Providers: Cody Jhaveri ; Elsie Mendoza Discharge Orders/Prescriptions Prescriptions: New acetaminophen [Tylenol] 325 mg Tablet 650 mg PO Q4H PRN PRN (Reason: Fever, pain 1-10/10) Qty: 0 0RF sennosides-docusate sodium [Stool Softener-Stimulant Laxat] 8.6-50 mg Tablet 2 tab PO BID PRN (Reason: Constipation) Qty: 0 0RF oxycodone 5 mg Tablet 5 mg PO Q4H PRN PRN (Reason: Pain Score 4-10) Qty: 0 0RF tizanidine 2 mg Tablet 2 mg PO Q8H PRN PRN (Reason: muscle spasm) Qty: 0 0RF Continued multivitamin Tablet 1 tab PO DAILY lovastatin 20 mg tablet 20 mg PO QHS diltiazem HCl 120 mg Capsule,Extended Release 24hr 120 mg PO DAILY 30 Days Qty: 30 0RF sertraline 50 mg tablet 100 mg PO DAILY PreserVision AREDS-2 250-90-40-1 mg Capsule 1 tab PO BID Held rivaroxaban 15 mg tablet 15 mg PO DAILY Hold Instructions: Hold it general: Alert, Oriented x3, Cooperative HEENT: Atraumatic, PERRLA, EOMI, Normocephalic Oral: No Gingival or Mucosal Lesions/ Ulcerations Neck: Supple, No JVD, Negative Carotid Bruits Lungs: Air entry diminished in bilateral lung bases. No crepitation/rhonchi Cardiovascular: Regular rate, Regular Rhythm, Normal S1, Normal S2, No murmurs Abdomen: Bowel Sounds Present, Soft, Non Tender, Non-Distended : No renal angle tenderness. No suprapubic tenderness. Extremities: No edema, Capillary Refill Less than 3 Seconds Skin: No rashes, No breakdown Musculoskeletal: No Tenderness to Palpation of Joints or Extremities Neurological: Cranial nerves II-XII grossly intact, DTR 2+/4 and Symmetrical, Neuro grossly intact Psych/Mental Status: Normal Affect, Appropriate. Follow-up with Dr. Nair/Dr Oliveros before resumption. Referrals / Follow Up: Yamil Madden MD [Primary Care Provider] - Disposition Disposition (needs filled in before D/C Order can be placed): [facility]
--- NOTE | 2022-10-01 08:49 | DS.PCM_ITS ---
Providers Date of Admission: 09/28/22 Date of Discharge: 10/01/22 Primary Care Physician: Dr. Yamil Madden MD Consultations 09/28/22 22:31 Consult: Orthopedics Routine Consulting Provider: Cody Jhaveri Reason for Consult: Intractable R knee pain, notable effusion, s/p R TKR prior per Dr. Nair. EMERGENT Consult: No MD Notified: Yes Date Notified: 09/29/22 Time Notified: 06:30 Method of Notification: Text Reason For Visit: RT KNEE EFFUSION/PAIN,FTT ADULT Diagnosis Discharge Diagnosis (1) Effusion of right knee joint: Status: Acute Code(s): M25.461 - Effusion, right knee Plan The patient is an 86 y/o F is being admitted with severe right knee pain 10/10 intensity along with right knee effusion #1. Intractable right knee pain with a large right knee joint effusion complicated by prior right total knee replacement: Patient status post prior remote right total knee replacement about [address] Nair. Patient is being admitted as MedSurg status PT and OT. Pain control. ESR and CRP unremarkable. 09/29: Patient seen by orthopedic service. No plan for aspiration. There is chance that patient might have hemarthrosis as he had in the past and is on blood thinner 09/30: Patient not happy with the right knee not being drained. I called Dr. Nair he is out of town but he can follow her in the office in about 1 to 2 weeks. Further I talked to Thania Rodriges PA about patient concern at knee not drained. He said he is discussed with Dr. Oliveros who thinks it is like previous hemarthrosis does not want needle to get new source of infection and bleeding. 10/01: Discussed with the patient and advised follow-up with Dr. Nair. Continue holding Xarelto at least for 3 to 4 days and follow-up with orthopedic surgeon before resumption. #2. CLL: Admission CBC with WBC 20.2, hemoglobin 13.2, platelet 125 with lymphocytosis, patient CBC per review with chronic WC elevation primarily in the 20s, encourage continued outpatient follow-up with oncology. 09/30: Leukocytosis better. Lymphocytosis on peripheral smear. 10/01: WBC count is about 13,000.Platelet count 115,000. Hemoglobin 11 #3. Permanent atrial fibrillation: Patient status post prior cardioversion 2012. Xarelto is on hold. Continue Cardizem #4. History of VTE: Patient with history right lower extremity DVT, PE following remote right total knee replacement, although patient is high risk of future DVT because of history of CLL and breast cancer 10/01: Patient is going to TCU. Resume Xarelto as per orthopedic surgeon discretion #5. Hypertension: Continue home regimen including diltiazem, PRN hydralazine. #6. Hyperlipidemia: We will continue patient on lovastatin regimen. #7. History of breast cancer: Patient status post left-sided breast cancer, unclear type, status postmastectomy, considered in remission, encourage continued follow-up outpatient with oncology. #8. Anxiety and depression: We will continue patient home sertraline regimen. #9. DVT prophylaxis: SCDs, temporarily holding patient home Xarelto regimen as noted. #10. CODE status: Patient AMANDA is her who is present and living will is currently in place. Full Code status. Medications at Discharge Home Medications lovastatin 20 mg tablet 20 mg PO QHS Cholesterol 04/21/21 multivitamin 1 tab PO DAILY Supplement 04/21/21 rivaroxaban 15 mg tablet 15 mg PO DAILY Blood Thinner 04/21/21 diltiazem HCl 120 mg capsule,extended release 24 hr 120 mg PO DAILY 30 days #30 caps 04/29/21 sertraline 50 mg tablet 100 mg PO DAILY 11/13/21 vit C 250 mg-vit E 90 mg-zinc 40 mg-copper 1 [id number] capsule (PreserVision AREDS-2) 1 tab PO BID 11/13/21 acetaminophen 325 mg tablet (Tylenol) 650 mg PO Q4H PRN PRN Fever, pain 1-10/10 #0 tabs 10/01/22 oxycodone 5 mg tablet 5 mg PO Q4H PRN PRN Pain Score 4-10 #0 tabs 10/01/22 sennosides 8.6 mg-docusate sodium 50 mg tablet (Stool Softener-Stimulant Laxative) 2 tab PO BID PRN Constipation #0 tabs 10/01/22 tizanidine 2 mg tablet 2 mg PO Q8H PRN PRN muscle spasm #0 tabs 10/01/22 Physical Exam Narrative Seen and examined on the day of discharge. Physical exam General: Alert, Oriented x3, Cooperative HEENT: Atraumatic, PERRLA, EOMI, Normocephalic Oral: Oral mucosa moist no Gingival or Mucosal Lesions/ Ulcerations Neck: Supple, No JVD, Negative Carotid Bruits Lungs: Air entry diminished in bilateral lung bases. No crepitation/rhonchi Cardiovascular: Irregular rhythm, Normal S1, Normal S2, No murmurs Abdomen: Bowel Sounds Present, Soft, Non Tender, Non-Distended : No renal angle tenderness. No suprapubic tenderness. Extremities: No edema, Capillary Refill Less than 3 Seconds Skin: No rashes, No breakdown Musculoskeletal: Right knee swelling better, under ice bag. No increased temperature. Tenderness over right knee better. ROM restricted knee, prosthetic joint status post TKR. Left knee no tenderness. Neurological: Cranial nerves II-XII grossly intact, DTR 2+/4 and Symmetrical, Neuro grossly intact Psych/Mental Status: mildly frustrated. Medical Records Data Medical Nutrition Assessment Dietitian: Malnutrition Criteria Met Start: 09/29/22 14:31 Freq: Status: Active Protocol: Document 09/29/22 14:31 (Rec: 09/29/22 14:31 [id number]) Nutrition Malnutrition Evidence of Malnutrition Exists Yes Malnutrition (moderate): Chronic Evidenced By Suboptimal Energy Intake ( Moderate),Physical Changes ( Moderate) Clinical Problem Chronic Disease or Condition Related Malnutrition Etiology chronic, moderate malnutrition related to inadequate energy intake Signs/Symptoms as evidenced by estimated PO intake meeting <75% of estimated energy needs > 3 months; moderate muscle wasting/fat loss evident per physical exam in orbital, temporal, acromion, and clavicle areas; BMI 19.3 Status Active Problem Recommendation Dietitian Recommendations/Changes regular diet given signs/ symptoms of malnutrition; continue ensure plus high protein 120mL 4x/day w/ medpass and will add carnation instant breakfast w/ lunches for additional calories/ protein if consumed Weight / BMI Weight Weight: 117 lb 15.157 oz Body Mass Index (BMI) 19.3 ABG / Lab / Microbiology Data Result Diagrams: 10/01/22 04:34 10/01/22 04:34 Laboratory: Laboratory Results - last 24 hr 10/01/22 04:34: WBC 13.1 H, RBC 3.53 L, Hgb 11.2 L, Hct 34.3 L, MCV 97.2, MCH 31.7, MCHC 32.7 D, RDW Std Deviation 56.3 H, RDW Coeff of Asael 15.9 H, Plt Count 115 L, MPV 10.0, Immature Gran % (Auto) 0.200, Neut % (Auto) 20.3 L, Lymph % (Auto) 74.0 H, [place] % (Auto) 3.6, Eos % (Auto) 1.5, Baso % (Auto) 0.4, Absolute Neuts (auto) 2.7, Absolute Lymphs (auto) 9.66 H, Nucleated RBC % 0.5, Platelet Estimate SLT DEC, Anisocytosis 1+ 10/01/22 04:34: Sodium 138, Potassium 4.4, Chloride 105, Carbon Dioxide 27.0, Anion Gap 6, BUN 21 H, Creatinine 0.71, Estim Creat Clear Calc 34.51, Est GFR (MDRD) Af Amer 100, Est GFR (MDRD) Non-Af 83, BUN/Creatinine Ratio 29.4 H, Glucose 93, Calcium 8.5 Meaningful Use Info Meaningful Use Diagnoses (Choose all that apply): None applicable Discharge Plan Admission Admit Date/Time: 09/28/22 21:27 Primary Reason for Your Visit: Right knee swelling probably hemarthrosis Attending Provider: Juan Guzman Primary Care Provider: Yamil Madden Consulting Providers: Cody Jhaveri ; Elsie Mendoza Discharge Orders/Prescriptions Prescriptions: New acetaminophen [Tylenol] 325 mg Tablet 650 mg PO Q4H PRN PRN (Reason: Fever, pain 1-10/10) Qty: 0 0RF sennosides-docusate sodium [Stool Softener-Stimulant Laxat] 8.6-50 mg Tablet 2 tab PO BID PRN (Reason: Constipation) Qty: 0 0RF oxycodone 5 mg Tablet 5 mg PO Q4H PRN PRN (Reason: Pain Score 4-10) Qty: 0 0RF tizanidine 2 mg Tablet 2 mg PO Q8H PRN PRN (Reason: muscle spasm) Qty: 0 0RF Continued multivitamin Tablet 1 tab PO DAILY lovastatin 20 mg tablet 20 mg PO QHS diltiazem HCl 120 mg Capsule,Extended Release 24hr 120 mg PO DAILY 30 Days Qty: 30 0RF sertraline 50 mg tablet 100 mg PO DAILY PreserVision AREDS-2 250-90-40-1 mg Capsule 1 tab PO BID Held rivaroxaban 15 mg tablet 15 mg PO DAILY Hold Instructions: Hold it general: Alert, Oriented x3, Cooperative HEENT: Atraumatic, PERRLA, EOMI, Normocephalic Oral: No Gingival or Mucosal Lesions/ Ulcerations Neck: Supple, No JVD, Negative Carotid Bruits Lungs: Air entry diminished in bilateral lung bases. No crepitation/rhonchi Cardiovascular: Regular rate, Regular Rhythm, Normal S1, Normal S2, No murmurs Abdomen: Bowel Sounds Present, Soft, Non Tender, Non-Distended : No renal angle tenderness. No suprapubic tenderness. Extremities: No edema, Capillary Refill Less than 3 Seconds Skin: No rashes, No breakdown Musculoskeletal: No Tenderness to Palpation of Joints or Extremities Neurological: Cranial nerves II-XII grossly intact, DTR 2+/4 and Symmetrical, Neuro grossly intact Psych/Mental Status: Normal Affect, Appropriate. Follow-up with Dr. Nair/Dr Oliveros before resumpti on. Referrals / Follow Up: Yamil Madden MD [Primary Care Provider] - Disposition Disposition (needs filled in before D/C Order can be placed): Intermediate Facility Charges/Coding Visit Charges Inpatient E&M: 14666 Disch Hosp >30min
--- NOTE | 2022-10-01 09:41 | CASEMGMT ---
Patient is ready for d/c to [facility] TCU today. SW notified Dalia in TCU. Plan: d/c to [facility] TCU under skilled level of care Dina SARAVIA
[2022-10-01] MEDS: dilTIAZem CD 120 MG Capsule PO (09:49)
[2022-10-01] MEDS: Sertraline 100 MG Tablet PO (09:50)
[2022-10-01] MEDS: Senna/Docusate Sodium 1 Tablet 2 TABLET PO (09:52)
[2022-10-01 10:00] VITALS: BP 114/72; PULSE 53; RESP 18; TEMP 36.5; O2SAT 96
[2022-10-01] MEDS: 0.9% Saline Lock 10 ML Syringe IV (11:06)
[2022-10-01] MEDS: Ondansetron 4 MG/2 ML Vial IV (11:07)
[2022-10-01] MEDS: Acetaminophen 325 MG Tablet 650 MG PO (11:07)
[2022-10-01] MEDS: oxyCODONE 5 MG Tablet PO (11:07)
== END 2022-10-01 12:45 | disposition skilled nursing facility (03) ==
LOC: ED 21:14 → PCU 21:25
PROVIDERS: Admitting Provider Family Medicine; Emergency Provider Emergency Medicine; PCP Family Medicine; Visit Provider Internal Medicine
DX: M25.461 Effusion, right knee (principal); C91.10 Chronic lymphocytic leukemia of B-cell type not having achieved remission; I48.21 Permanent atrial fibrillation; E78.5 Hyperlipidemia, unspecified; I10 Essential (primary) hypertension; R53.81 Other malaise; M25.562 Pain in left knee; Z86.718 Personal history of other venous thrombosis and embolism; Z79.01 Long term (current) use of anticoagulants; F41.9 Anxiety disorder, unspecified; F32.A Depression, unspecified; Z86.711 Personal history of pulmonary embolism
CPT/HCPCS: 36415; 73562; 80048; 80053; 85025; 85652; 86140; 87426; 94668; 96374; 96375; 96376; 97162; 97166; 97530; 97802; 99221; 99252; 99284; A4216; G0378; G0463; J2405

== ENCOUNTER 2022-10-01 12:50 | Inpatient (IN) | payer MEDICARE, SELFPAY ==
[2022-10-01 12:58] VITALS: BP 120/60; PULSE 62; RESP 16; TEMP 36.2; O2SAT 94; BMI 19.6
[2022-10-01 13:40] VITALS: PULSE 54; RESP 16
--- NOTE | 2022-10-01 13:47 | HP.PCM_ITS ---
HPI - General General Date of Admission: 10/01/22 Date of Service: 10/01/22 Chief Complaint: Here for rehabilitation. HPI Narrative 09/28/2022 DOMENICO MAIN, is a 86 Female who presents to [facility] Emergency Department with lower extremity injury. History of right total knee arthroplasty with Dr. Nair. On Xarelto for atrial fibrillation, no recent trauma. Severe right knee pain, right knee effusion, morphine given x 2 for pain. Unable to go home due to 2 story home. 09/28/2022 Admit to Hospital. Consult Orthopedics for right knee effusion. Hold Xarelto for atrial fibrillation in case of intervention per Ortho. 09/29/2022 Severe right knee pain, History of hemarthrosis of knee on anticoagulation. PT/OT for debility. ESR okay, CRP okay. Ortho recmmended no aspiration right knee, probable Hemarthrosis on Xarelto, Hold Xarelto. 09/30/2022 Pain 7/10. Swelling better, Range of motion better. Patient not happy right knee not drained, but draining can increase risk of infection especially with prosthetic knee. 10/01/2022 Hold Xarelto until seen by Ortho in office. 10/01/2022 Admit to TCU with debility, here for rehabilitation, strengthening, prior to discharge home with . [facility] Medical History (Updated 10/01/22 @ 13:[address] Carlito Tran MD) Benign paroxysmal positional vertigo Chronic lymphocytic leukemia Circumscribed scleroderma Diverticulosis of colon Essential hypertension History of DVT of lower extremity (2006) History of Guillain-[place] syndrome (1969) History of pulmonary embolus (PE) Hyperlipidemia Insomnia Macular degeneration Osteoporosis Permanent atrial fibrillation Personal history of malignant neoplasm of breast (2007) Tietze syndrome Trigger finger, left ring finger Home Medications lovastatin 20 mg tablet 20 mg PO QHS Cholesterol 04/21/21 [History Last Taken Unknown] multivitamin 1 tab PO DAILY Supplement 04/21/21 [History Last Taken Unknown] rivaroxaban 15 mg tablet 15 mg PO DAILY Blood Thinner 04/21/21 [History Last Taken Unknown] sertraline 50 mg tablet 100 mg PO DAILY mental health 11/13/21 [History Last Taken Unknown] vit C 250 mg-vit E 90 mg-zinc 40 mg-copper 1 [id number] capsule (PreserVision AREDS-2) 1 tab PO BID vitamin 11/13/21 [History Last Taken Unknown] acetaminophen 325 mg tablet (Tylenol) 650 mg PO Q4H PRN PRN Fever, pain 1-10 #0 tabs 10/01/22 [Rx Last Taken Unknown] diltiazem HCl 120 mg capsule,extended release 24 hr 120 mg PO DAILY BP 10/01/22 [History Last Taken Unknown] oxycodone 5 mg tablet 5 mg PO Q4H PRN PRN Pain Score 4-10 #0 tabs 10/01/22 [Rx Last Taken Unknown] sennosides 8.6 mg-docusate sodium 50 mg tablet (Stool Softener-Stimulant Laxative) 2 tab PO BID PRN Constipation #0 tabs 10/01/22 [Rx Last Taken Unknown] tizanidine 2 mg tablet 2 mg PO Q8H PRN PRN muscle spasm #0 tabs 10/01/22 [Rx Last Taken Unknown] Allergy/AdvReac Type Severity Reaction Status Date / Time Gadolinium-MRI Contrast Allergy Severe Hives Verified 09/28/22 17:57 Medium gadoterate meglumine Allergy Severe Hives Verified 09/28/22 17:57 [From Dotarem] dabigatran etexilate AdvReac Intermediate GI upset Verified 09/28/22 17:57 [From Pradaxa] codeine AdvReac Unknown Verified 09/28/22 17:57 diphtheria,pertussis AdvReac Swelling Verified 09/28/22 17:57 (acell),tetanu Penicillins AdvReac Hives Verified 09/28/22 17:57 Family History Mother H/O bilateral mastectomy Breast cancer Father Heart disease unsure of type Sister Cardiac pacemaker in situ Surgical History (Updated 10/01/22 @ 13:[address] Carlito Tran MD) History of cardioversion (10/06/12) History of left mastectomy (04/11/08) History of total right knee replacement (2006) History of transesophageal echocardiography (LEN) (10/06/12) Social History household members: spouse Smoking Status: Never smoker alcohol intake: never substance use type: does not use ROS Constitutional Constitutional: Denies chills, fever(s) or weight gain ENT HEENT: Denies headache(s), nasal congestion or nasal discharge Cardiovascular Cardiovascular: Denies chest pain or palpitations Respiratory/Chest Respiratory/Chest: Denies cough, excessive phlegm production or shortness of breath with exertion Gastrointestinal Gastrointestinal: Denies abdominal pain, nausea or vomiting Genitourinary Genitourinary: Denies dysuria Musculoskeletal Musculoskeletal: Reports joint pain and joint swelling Integumentary Integumentary: Denies rash or wounds Neurologic Neurologic: Denies focal weakness, numbness or tingling Psychiatric Psychiatric: Denies anxiety, auditory hallucinations, depression, homicidal ideation or suicidal ideation Physical Exam Const alert General Appearance: cooperative HEENT normocephalic Eyes PERRL and EOMs intact bilaterally Neck supple, no JVD and no carotid bruits Resp normal respiratory effort, normal air movement and clear to auscultation bilaterally Cardio regular rate and regular rhythm GI normal to inspection, nondistended, normoactive bowel sounds, non-tender and non-distended Extremity normal capillary refill Extremity Narrative: Right knee swelling, right knee pain. General Extremity: Negative for edema Skin no rashes or lesions noted General Skin Exam: no breakdown Psych affect normal Appearance: appropriate Assessment & Plan Assessment/Plan (1) Debility: (2) Effusion of right knee joint: (3) Hemarthrosis, right knee: (4) Hyperlipidemia: (5) History of total right knee replacement: (6) Atrial fibrillation: (7) Depression: (8) Chronic lymphocytic leukemia: PLAN: Plan 86 year old female with below past medical history hospitalized for intractable right knee pain secondary to hemarthrosis right knee, admitted to TCU with debility, here for rehabilitation, strengthening, prior to discharge home with . * Debility - PT/OT. * Pain - Tylenol 1000mg q8, Tramadol 50mg q6h prn pain (1-5), Oxycodone 5mg q4h prn pain (6-10). * Bowel - senna/colace 2 tablets bid, Dulcolax 10mg pr x 1 prn, MOM 30ml po x 1 prn. * Adult immunization - Administer pneumonia vaccine, covid19 vaccine, flu vaccine as appropriate. * DVT prophylaxis - Hold, hemarthrosis right knee. * Hyperlipidemia - Atorvastatin 5mg qhs. * Atrial fibrillation - Diltiazem 120mg daily, Hold Xarelto 15mg daily until cleared by Orthopedics. * Nutrition - Ensure Plus 120ml 4x/day, MVI daily. * Macular degeneration - Healthy Eyes 1 capsule po bid. 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 * Muscle spasm - Tizanidine 2mg q8h prn.
--- NOTE | 2022-10-01 15:21 | NURSING ---
Teachers' Assistant Note; Activity Asset: Kd Thibodeaux is independent in her choice of daily activities. She has stated she is unable to see therefore can not read or even look at magazines. I offered her a radio while family was in her room and she declined. Morelia stated tv would be fine to listen to for now. I will do extra social visits weekly and told her if she needs anything to please ask myself of staff.
[2022-10-01] MEDS: Multivitamin (Healthy Eyes) Capsule 1 CAP PO (17:51)
[2022-10-01] MEDS: Ensure Plus High Protein 120 ML LIQUID PO (21:32)
[2022-10-01] MEDS: Atorvastatin Calcium 10 MG Tablet 5 MG PO (21:32)
[2022-10-01] MEDS: Acetaminophen 500 MG Tablet 1000 MG PO (21:36)
[2022-10-02] MEDS: Multivitamin (Healthy Eyes) Capsule 1 CAP PO ×2 (04:41→17:07)
[2022-10-02] MEDS: Multivitamins,Therapeutic Tablet 1 TABLET PO (04:41)
[2022-10-02] MEDS: dilTIAZem CD 120 MG Capsule PO (04:41)
[2022-10-02] MEDS: Senna/Docusate Sodium 1 Tablet 2 TABLET PO (04:41)
[2022-10-02] MEDS: Acetaminophen 500 MG Tablet 1000 MG PO ×3 (04:42→22:14)
[2022-10-02] MEDS: Sertraline 50 MG Tablet 100 MG PO (04:42)
[2022-10-02 07:46] LABS: Absolute Lymphocyte Count 13.67 X10^3/uL (0.83-4.51); Absolute Neutrophil Count 3.8 X10^3/uL (2.0-7.7); Basophil# 0.04 X10^3/uL; Basophil% 0.2 % (0-1); Eosinophil# 0.16 X10^3/uL; Eosinophils% 0.9 % (0-5); Hematocrit 36.3 % (37-47); Hemoglobin 11.5 g/dL (12.0-15.0); Lymphocyte # 13.67 X10^3/ul (0.83-4.51); Lymphocyte % 74.6 % (19-41); Mean Corp Hgb Conc 31.7 g/dL (32-36); Mean Corpuscular Hgb 31.2 pg (27.0-32.0); Mean Corpuscular Volume 98.4 fL (81-99); Mean Platelet Vol. 10.9 fl (6.2-12.0); Monocyte# 0.64 X10^3/uL; Monocyte% 3.5 % (0-10); NRBC Flagged by Analyzer 0 % (0-5); Neutrophil # 3.78 X10^3/uL (2.7-7.7); Neutrophil % 20.6 % (47-70); POSITIVE DIFFERENTIAL YES; Platelet Count 128 K/mm3 (150-450); RBC Distribution Width CV 15.9 % (11.6-14.6); RBC Distribution Width SD 56.7 fl (35.1-43.9); Red Blood Count 3.69 M/mm3 (4.2-5.4); White Blood Count 18.3 K/mm3 (4.4-11.0)
[2022-10-02 07:49] LABS: Differential Indicated SCAN CRITERIA MET
[2022-10-02 07:54] LABS: Anion Gap 5 (5-15); BUN 20 mg/dL (7-18); BUN/Creat Ratio 29.9 RATIO (10-20); Chloride 107 mmol/L (98-107); Creatinine, Serum 0.67 mg/dL (0.55-1.02); EST Glomerular Filtration Rate 89 mL/min (>60); Est Glom Filt Rate - Afr Amer 108 mL/min (>60); Estimated Creatinine Clearance 35.37 ml/min; Glucose 88 mg/dL (74-106); Potassium 4.2 mmol/L (3.5-5.1); Sodium Level 141 mmol/L (136-145)
[2022-10-02 08:31] LABS: Differential Comment SCANNED
[2022-10-02] MEDS: Tuberculin,Purif.prot.deriv. 50 TU/ML Vial 0.1 ML ID (10:13)
[2022-10-02 15:16] VITALS: BP 119/55; PULSE 59; RESP 20; TEMP 36.6; O2SAT 96
[2022-10-02] MEDS: Atorvastatin Calcium 10 MG Tablet 5 MG PO (22:08)
[2022-10-02 22:30] VITALS: PULSE 54; RESP 14; O2SAT 95
[2022-10-03] MEDS: Sertraline 50 MG Tablet 100 MG PO (05:27)
[2022-10-03] MEDS: Acetaminophen 500 MG Tablet 1000 MG PO ×3 (05:27→20:56)
[2022-10-03] MEDS: dilTIAZem CD 120 MG Capsule PO (05:27)
[2022-10-03] MEDS: Multivitamin (Healthy Eyes) Capsule 1 CAP PO ×2 (05:27→17:19)
[2022-10-03] MEDS: Multivitamins,Therapeutic Tablet 1 TABLET PO (05:28)
[2022-10-03 05:34] VITALS: BP 130/73; PULSE 53; RESP 16; O2SAT 93
[2022-10-03 09:53] VITALS: PULSE 54; RESP 16; O2SAT 95
[2022-10-03 16:00] VITALS: BP 134/57; PULSE 45; RESP 18; TEMP 36.6; O2SAT 96
[2022-10-03] MEDS: Atorvastatin Calcium 10 MG Tablet 5 MG PO (20:57)
[2022-10-04] MEDS: Acetaminophen 500 MG Tablet 1000 MG PO ×3 (05:24→19:36)
[2022-10-04] MEDS: Sertraline 50 MG Tablet 100 MG PO (05:25)
[2022-10-04] MEDS: Multivitamin (Healthy Eyes) Capsule 1 CAP PO ×2 (05:25→17:29)
[2022-10-04] MEDS: dilTIAZem CD 120 MG Capsule PO (05:27)
[2022-10-04 05:31] VITALS: BP 144/63; PULSE 60
[2022-10-04] MEDS: Multivitamins,Therapeutic Tablet 1 TABLET PO (08:36)
--- NOTE | 2022-10-04 11:52 | CASEMGMT ---
Social Work Met with patient to complete initial assessment. Introduced self and role. Verified contacts. Discussed code status and MOLST form. Pt wishes to be DNR-CCA, no intubation. New MOLST completed and placed in chart. Nursing notified and was going to have pt sign DNR form and place bracelet. Pt unsure if advanced directives are completed and will ask . SW offered to complete if needed. Educated to [facility] insurance with NRD 10/04 and continued stay is not guaranteed with each review. Pt's goal is to return home with at [facility]. SW to continue to follow. Marixa Jerome, LEANN SUPERVISOR BUILDING MAINTENANCE
--- NOTE | 2022-10-04 12:11 | PHA.CONS_ITS ---
TCU RX Drug Regimen Review Subjective: TCU Admission. 86 YOF presented to the ER with lower extremity injury. Hospitalized for intractable right knee pain secondary to hemarthrosis right knee. Admitted to TCU with debility for strengthening and rehabilitation. Objective: Allergies Gadolinium-MRI Contrast Medium Allergy (Severe, Verified 09/28/22 17:57) Hives gadoterate meglumine [From Dotarem] Allergy (Severe, Verified 09/28/22 17:57) Hives dabigatran etexilate [From Pradaxa] Adverse Reaction (Intermediate, Verified 09/28/22 17:57) GI upset codeine Adverse Reaction (Verified 09/28/22 17:57) Unknown diphtheria,pertussis (acell),tetanu Adverse Reaction (Verified 09/28/22 17:57) Swelling Penicillins Adverse Reaction (Verified 09/28/22 17:57) Hives Current Medications Generic Name Dose Route Start Last Admin Trade Name Freq PRN Reason Stop Dose Admin Acetaminophen 1,000 mg 10/01/22 22:00 10/04/22 05:24 Acetaminophen 500 Mg Tablet PO 1,000 mg Q8 [facility] Administration Atorvastatin Calcium 5 mg 10/01/22 22:00 10/03/22 20:57 Atorvastatin Calcium 10 Mg Tablet PO 5 mg QHS [facility]1983 Administration Bisacodyl 10 mg 10/01/22 13:21 Bisacodyl 10 Mg Suppository RC X1 PRN Constipation Diltiazem HCl 120 mg 10/05/22 08:00 Diltiazem Cd 120 Mg Capsule PO DAILY@0800 [facility] Magnesium Hydroxide 30 ml 10/01/22 14:01 Magnesium Hydroxide 30 Ml Udc PO X1 PRN Constipation Multivitamins 1 tablet 10/04/22 08:00 10/04/22 08:36 Multivitamins,Therapeutic Tablet PO 1 tablet DAILY@0800 [facility]1983 Administration Multivitamins/Minerals 1 cap 10/01/22 18:00 10/04/22 05:25 Multivitamin (Healthy Eyes) Capsule PO 1 cap BID [facility]1983 Administration Oxycodone HCl 5 mg 10/01/22 13:08 Oxycodone 5 Mg Tablet PO Q4H PRN PRN Pain Score 4-10 Senna/Docusate Sodium 2 tablet 10/01/22 18:00 10/04/22 05:29 Senna/Docusate Sodium 1 Tablet PO Not Given BID [facility] Sertraline HCl 100 mg 10/05/22 08:00 Sertraline 50 Mg Tablet PO DAILY@0800 FARNAZ Sodium Chloride 10 - 40 ml 10/01/22 13:44 0.9% Saline Lock 10 Ml Syringe IV UD PRN SALINE FLUSH Tizanidine HCl 2 mg 10/01/22 13:08 Tizanidine Hcl 2 Mg Tablet PO Q8H PRN PRN muscle spasm Tramadol HCl 50 mg 10/01/22 14:01 Tramadol 50 Mg Tablet PO Q6H PRN PRN Pain Score 1-3 Tuberculin PPD 0.1 ml 10/09/22 10:00 Tuberculin,Purif.Prot.Deriv. 50 Tu/Ml Vial ID 10/09/22 10:01 X1 ONE Problem List (Last Reviewed 10/01/22 @ 13:[address] Carlito Tran MD) Chronic lymphocytic leukemia (Chronic) Depression (Acute) Atrial fibrillation (Acute) History of total right knee replacement (Acute) Hyperlipidemia (Acute) Hemarthrosis, right knee (Acute) Debility (Acute) Effusion of right knee joint (Acute) Vital Signs Temp Pulse Resp BP Pulse Ox O2 Del Method 98 F 60 18 144/63 H 96 Room Air 10/03/22 16:00 10/04/22 05:31 10/03/22 16:00 10/04/22 05:31 10/03/22 16:00 10/03/22 16:00 Oxygen Delivery Method Room Air Weight: 53.5 kg Body Mass Index (BMI) 19.6 Sodium 141 mmol/L (136-145) 10/02/22 07:25 Potassium 4.2 mmol/L (3.5-5.1) 10/02/22 07:25 Chloride 107 mmol/L (98-107) 10/02/22 07:25 Carbon Dioxide 29.0 mmol/L (21.0-32.0) 10/02/22 07:25 Anion Gap 5 (5-15) 10/02/22 07:25 BUN 20 mg/dL (7-18) H 10/02/22 07:25 Creatinine 0.67 mg/dL (0.55-1.02) 10/02/22 07:25 Est GFR (MDRD) Af Amer 108 mL/min (>60) 10/02/22 07:25 Est GFR (MDRD) Non-Af 89 mL/min (>60) 10/02/22 07:25 BUN/Creatinine Ratio 29.9 RATIO (10-20) H 10/02/22 07:25 Glucose 88 mg/dL (74-106) 10/02/22 07:25 Assessment/Plan: 1. Pain: acetaminophen 1000mg PO Q8, tramadol 50mg PO Q6H PRN pain 1-5 and oxycodone 5mg PO Q4H PRN pain 6-10. Resident has not had any PRN doses. Please continue to monitor for increased pain and PRN usage. 2. Bowel: senna/docusate 2T PO BID, bisacodyl 10mg RX x1 PRN constipation and MOM 30mL PO x1 PRN constipation. No documented bowel movements or PRN doses. Resident has refused 5/6 doses of senna/docusate. Please consider changing to PRN constipation if clinically appropriate. Thanks. Please continue to monitor for constipation and PRN usage. 3. Atrial fibrillation: diltiazem 120mg PO daily. Please continue to monitor BP (last 144/63) and HR (last 60). Xarelto on hold until cleared by orthopedics. 4. Hyperlipidemia: atorvastatin 5mg PO QHS. Please consider ordering a lipid panel if clinically appropriate. Last panel from 03/04/20. Thanks. Please continue to monitor LFTs (last 09/29/22) and muscle pain. 5. Muscle spasm: [id number] PO Q8H PRN muscle spasms. Resident has not had any doses. Please continue to monitor for muscle spasms and PRN usage. 6. Nutrition/macular degeneration: multivitamin 1T PO DAILYCM and healthy eyes 1C PO BID. Please continue to monitor. Assessment/Plan for indications treated with psychotropic medications: 1. Depression: sertraline 100mg PO daily. Please see physician note regarding GDR. Please continue to monitor for suicidal ideation (black box warning), falls/fractures (BEERs criteria medication), sodium, and weight gain. Medical chart and medication regimen reviewed. The following medication irregularities or issues were identified: 1. Senna/docusate 2T PO BID. No documented bowel movements or PRN doses. Resident has refused 5/6 doses of senna/docusate. Please consider changing to PRN constipation if clinically appropriate. Thanks. 2. Atorvastatin 5mg PO QHS. Please consider ordering a lipid panel if clinically appropriate. Last panel from 03/04/20. Thanks. Date of Note:: 10/04/22
[2022-10-04 14:43] VITALS: BP 145/94; PULSE 52; RESP 16; TEMP 36.8; O2SAT 96
--- NOTE | 2022-10-04 15:08 | NURSING ---
Patient informed this nurse that she had her covid booster this past August and verified. Vaccine record updated.
[2022-10-04] MEDS: Atorvastatin Calcium 10 MG Tablet 5 MG PO (19:34)
[2022-10-04 23:02] VITALS: O2SAT 94
[2022-10-05] MEDS: tiZANidine HCl 2 MG Tablet PO (00:34)
[2022-10-05] MEDS: Acetaminophen 500 MG Tablet 1000 MG PO ×3 (04:58→20:32)
[2022-10-05] MEDS: Multivitamin (Healthy Eyes) Capsule 1 CAP PO ×2 (04:59→18:03)
[2022-10-05] MEDS: Multivitamins,Therapeutic Tablet 1 TABLET PO (08:09)
[2022-10-05] MEDS: Sertraline 50 MG Tablet 100 MG PO (08:09)
[2022-10-05] MEDS: dilTIAZem CD 120 MG Capsule PO (08:09)
[2022-10-05 15:25] VITALS: BP 136/79; PULSE 58; RESP 16; TEMP 36.7; O2SAT 96
--- NOTE | 2022-10-05 15:36 | CHAPLAIN ---
Type of Pastoral Visit _x__ Initial Visit ___ Follow-up Visit ___ On-call Visit ___ General Patient Visit ___ Spiritual Assessment ___ Family Conference ___ Bereavement ___ Rapid Response ___ Code Blue ___ Other (describe below) Pastoral Care Referral From _x__ Patient ___ Family ___ Nurse ___ Physician ___ Lockstitch Hemmer ___ Drywall Worker ___ Other (describe below) Sacrament/Intervention _x__ Active listening ___ Anointing ___ Oriental Orthodox ___ Bereavement ___ Communion ___ Mirela exploration ___ _x__ Life review _x__ Prayer ___ Reconciliation ___ Sacrament of Sick ___ Supportive presence ___ Wedding ___ Other (describe below) Pastoral Comments patient and spouse are in the room; pt acknowledges that she is struggling with the pain and inability to correct the situation with her knee; spouse also reports the difficulties for pt to maneuver in her own home; pt welcomes presence but needed to call aide for assistance to bathroom and the visit ended
[2022-10-05] MEDS: Atorvastatin Calcium 10 MG Tablet 5 MG PO (20:32)
[2022-10-05] MEDS: MELATONIN 10 MG TABLET PO (20:32)
[2022-10-06] MEDS: Multivitamins,Therapeutic Tablet 1 TABLET PO (07:52)
[2022-10-06] MEDS: Sertraline 50 MG Tablet 100 MG PO (07:53)
[2022-10-06] MEDS: Multivitamin (Healthy Eyes) Capsule 1 CAP PO ×2 (07:53→17:14)
[2022-10-06 07:55] VITALS: BP 141/67; PULSE 57
[2022-10-06] MEDS: dilTIAZem CD 120 MG Capsule PO (07:56)
[2022-10-06] MEDS: Acetaminophen 500 MG Tablet 1000 MG PO ×3 (09:50→21:40)
--- NOTE | 2022-10-06 10:38 | CASEMGMT ---
Social Work Plan of care meeting held. Patient present as well as patient spouse, Reginaldo. This social secretary communicating that continued stay approval has been obtained by insurance with next update due on 10/13/2022 and anticipated discharge date to be 10/16/2022 per insurance. Patient and Reginaldo voiced understanding. Patient inquired about if patient is able to discharge to home before 10/16. Reginaldo reports main concern with patient returning to home as there are 2 flights of stairs that patient will need to be able to negotiate to function in the home. Therapy reports to be able to work with patient further on step training as patient is not currently able to negotiate a flight of stairs. Patient agreeable to plan to continue with further care and treatment on the Transitional Care Unit to work on stair training and mobility. Team to continue to follow up with patient on establishing discharge date/plan. Social Work to continue to follow. Davion NORIEGA, WLOFGANG
[2022-10-06 16:00] VITALS: BP 138/61; PULSE 62; RESP 16; TEMP 36.3; O2SAT 97
[2022-10-06 21:30] VITALS: O2SAT 98
[2022-10-06] MEDS: Atorvastatin Calcium 10 MG Tablet 5 MG PO (21:37)
[2022-10-06] MEDS: MELATONIN 10 MG TABLET PO (21:38)
[2022-10-07] MEDS: Multivitamins,Therapeutic Tablet 1 TABLET PO (08:45)
[2022-10-07] MEDS: Acetaminophen 500 MG Tablet 1000 MG PO ×3 (08:45→20:54)
[2022-10-07] MEDS: Multivitamin (Healthy Eyes) Capsule 1 CAP PO ×2 (08:46→17:22)
[2022-10-07] MEDS: Sertraline 50 MG Tablet 100 MG PO (08:46)
[2022-10-07 08:51] VITALS: BP 111/65; PULSE 46
--- NOTE | 2022-10-07 12:38 | MDS.RN ---
Pain assessment for MALINDA 10/08/22 completed.
[2022-10-07 15:16] VITALS: BP 138/77; PULSE 54; RESP 18; TEMP 36.2; O2SAT 95
[2022-10-07] MEDS: MELATONIN 10 MG TABLET PO (20:55)
[2022-10-07] MEDS: Atorvastatin Calcium 10 MG Tablet 5 MG PO (20:55)
[2022-10-07 21:00] VITALS: PULSE 60; RESP 16; O2SAT 97
[2022-10-08] MEDS: Multivitamin (Healthy Eyes) Capsule 1 CAP PO ×2 (08:28→16:41)
[2022-10-08] MEDS: dilTIAZem CD 120 MG Capsule PO (08:28)
[2022-10-08] MEDS: Sertraline 50 MG Tablet 100 MG PO (08:29)
[2022-10-08] MEDS: Multivitamins,Therapeutic Tablet 1 TABLET PO (08:29)
[2022-10-08] MEDS: Acetaminophen 500 MG Tablet 1000 MG PO ×3 (08:31→21:10)
[2022-10-08 08:34] VITALS: BP 143/66; PULSE 60
--- NOTE | 2022-10-08 09:32 | NURSING ---
Film Booker Note; MDS Complete
--- NOTE | 2022-10-08 13:14 | CASEMGMT ---
Social Work BIMS () and PHQ-9 (01/17) completed for MDS assessment. Marixa Jerome MSW TECHNICAL SALES REPRESENTATIVES
[2022-10-08] MEDS: Glycerin/Hypromellose/PEG400 15 ml Bottle 2 DRP EACH EYE (13:51)
[2022-10-08 15:11] VITALS: BP 124/64; PULSE 60; RESP 18; TEMP 36.2; O2SAT 97
[2022-10-08 20:39] VITALS: PULSE 57; RESP 16; O2SAT 95
[2022-10-08] MEDS: MELATONIN 10 MG TABLET PO (21:06)
[2022-10-08] MEDS: Atorvastatin Calcium 10 MG Tablet 5 MG PO (21:10)
[2022-10-09 06:51] LABS: Absolute Lymphocyte Count 18.74 X10^3/uL (0.83-4.51); Absolute Neutrophil Count 3.2 X10^3/uL (2.0-7.7); Basophil# 0.06 X10^3/uL; Basophil% 0.3 % (0-1); Eosinophil# 0.24 X10^3/uL; Hematocrit 38.6 % (37-47); Hemoglobin 12.2 g/dL (12.0-15.0); Lymphocyte # 18.74 X10^3/ul (0.83-4.51); Lymphocyte % 81.9 % (19-41); Mean Corp Hgb Conc 31.6 g/dL (32-36); Mean Corpuscular Hgb 30.7 pg (27.0-32.0); Mean Corpuscular Volume 97.2 fL (81-99); Mean Platelet Vol. 9.9 fl (6.2-12.0); Monocyte# 0.63 X10^3/uL; Monocyte% 2.8 % (0-10); NRBC Flagged by Analyzer 0.6 % (0-5); Neutrophil # 3.16 X10^3/uL (2.7-7.7); Neutrophil % 13.8 % (47-70); POSITIVE DIFFERENTIAL YES; POSITIVE MORPHOLOGY YES; Platelet Count 161 K/mm3 (150-450); RBC Distribution Width CV 15.9 % (11.6-14.6); RBC Distribution Width SD 56.9 fl (35.1-43.9); Red Blood Count 3.97 M/mm3 (4.2-5.4); White Blood Count 22.9 K/mm3 (4.4-11.0)
[2022-10-09 06:59] LABS: Differential Indicated SCAN CRITERIA MET
[2022-10-09 07:19] LABS: Atypical Lymphocyte 2+ %; Differential Comment SCANNED
[2022-10-09 07:21] LABS: Anion Gap 6 (5-15); BUN 20 mg/dL (7-18); Calcium,Total 9.1 mg/dL (8.5-10.1); Chloride 109 mmol/L (98-107); Creatinine, Serum 0.65 mg/dL (0.55-1.02); EST Glomerular Filtration Rate 93 mL/min (>60); Est Glom Filt Rate - Afr Amer 112 mL/min (>60); Estimated Creatinine Clearance 35.15 ml/min; Glucose 88 mg/dL (74-106); Potassium 4.8 mmol/L (3.5-5.1); Sodium Level 141 mmol/L (136-145)
[2022-10-09] MEDS: dilTIAZem CD 120 MG Capsule PO (08:40)
[2022-10-09] MEDS: Multivitamins,Therapeutic Tablet 1 TABLET PO (08:40)
[2022-10-09] MEDS: Multivitamin (Healthy Eyes) Capsule 1 CAP PO ×2 (08:40→17:03)
[2022-10-09] MEDS: Acetaminophen 500 MG Tablet 1000 MG PO ×3 (08:40→21:50)
[2022-10-09] MEDS: Sertraline 50 MG Tablet 100 MG PO (08:41)
[2022-10-09] MEDS: Tuberculin,Purif.prot.deriv. 50 TU/ML Vial 0.1 ML ID (09:30)
[2022-10-09 09:42] VITALS: PULSE 60; O2SAT 97
[2022-10-09 15:40] VITALS: BP 149/70; PULSE 43; RESP 20; TEMP 36.6; O2SAT 95
[2022-10-09] MEDS: Glycerin/Hypromellose/PEG400 15 ml Bottle 2 DRP EACH EYE (17:02)
[2022-10-09 18:26] VITALS: PULSE 65; O2SAT 95
[2022-10-09] MEDS: Atorvastatin Calcium 10 MG Tablet 5 MG PO (21:47)
[2022-10-09] MEDS: MELATONIN 10 MG TABLET PO (21:48)
[2022-10-10] MEDS: Multivitamin (Healthy Eyes) Capsule 1 CAP PO ×2 (07:55→17:06)
[2022-10-10] MEDS: dilTIAZem CD 120 MG Capsule PO (07:55)
[2022-10-10] MEDS: Multivitamins,Therapeutic Tablet 1 TABLET PO (07:55)
[2022-10-10] MEDS: Sertraline 50 MG Tablet 100 MG PO (07:57)
[2022-10-10] MEDS: Acetaminophen 500 MG Tablet 1000 MG PO ×3 (08:00→21:33)
[2022-10-10 14:24] VITALS: BP 113/55; PULSE 56; RESP 14; TEMP 36.4; O2SAT 95
[2022-10-10 17:08] VITALS: O2SAT 95
[2022-10-10] MEDS: Atorvastatin Calcium 10 MG Tablet 5 MG PO (21:34)
[2022-10-10] MEDS: MELATONIN 10 MG TABLET PO (21:34)
--- NOTE | 2022-10-11 01:20 | NURSING ---
Left vm for Marixa LAMBERT, to update on pt request to discuss dc.
[2022-10-11] MEDS: Multivitamin (Healthy Eyes) Capsule 1 CAP PO ×2 (08:30→17:08)
[2022-10-11] MEDS: dilTIAZem CD 120 MG Capsule PO (08:30)
[2022-10-11] MEDS: Multivitamins,Therapeutic Tablet 1 TABLET PO (08:30)
[2022-10-11 08:33] VITALS: BP 128/69; PULSE 61; RESP 18; TEMP 36.8; O2SAT 97
[2022-10-11] MEDS: Acetaminophen 500 MG Tablet 1000 MG PO ×3 (08:45→21:19)
[2022-10-11] MEDS: Sertraline 50 MG Tablet 100 MG PO (08:45)
--- NOTE | 2022-10-11 09:13 | CASEMGMT ---
Addendum entered by Marixa Jerome 10/11/22 10:06: Pt received a FWW in 2020 and is not elgible for another one. Updated pt. Original Note: Social Work Spoke with pt about request to DC. Pt requesting to DC 10/12 home with . IDT agreeable. Pt denying continued therapy needs. SW offered FWW. Pt agreed. Referral made to [facility] [place] for FWW. to transport. Plan: DC home with 10/12, FWW, no therapy needs Marixa Jerome ,MEDICAL RECORD SPECIALIST DEPLOYMENT TECHNICIAN
[2022-10-11 09:21] VITALS: PULSE 66; RESP 16; O2SAT 95
[2022-10-11 16:00] VITALS: BP 132/68; PULSE 70; RESP 16; TEMP 36.6; O2SAT 97
--- NOTE | 2022-10-11 19:47 | DS.PCM_ITS ---
Providers Date of Admission: 10/01/22 Primary Care Physician: Dr. Yamil Madden MD Reason For Visit: RT KNEE EFFUSION, FAILURE TO THRIVE Diagnosis Discharge Diagnosis (1) Debility: Status: Acute Code(s): R53.81 - Other malaise (2) Effusion of right knee joint: Status: Inactive Code(s): M25.461 - Effusion, right knee (3) Hemarthrosis, right knee: Status: Acute Code(s): M25.061 - Hemarthrosis, right knee (4) Hyperlipidemia: Status: Acute Code(s): E78.5 - Hyperlipidemia, unspecified (5) History of total right knee replacement: Status: Acute Code(s): Z96.651 - Presence of right artificial knee joint (6) Atrial fibrillation: Status: Acute Code(s): I48.91 - Unspecified atrial fibrillation (7) Depression: Status: Acute Code(s): F32.A - Depression, unspecified (8) Chronic lymphocytic leukemia: Status: Chronic Code(s): C91.10 - Chronic lymphocytic leukemia of B-cell type not having achieved remission Plan 86 year old female with below past medical history hospitalized for intractable right knee pain secondary to hemarthrosis right knee, admitted to TCU with debility, here for rehabilitation, strengthening, prior to discharge home with . * Debility - PT/OT. * Pain - Tylenol 1000mg q8, Tramadol 50mg q6h prn pain (1-5), Oxycodone 5mg q4h prn pain (6-10). * Bowel - senna/colace 2 tablets bid, Dulcolax 10mg pr x 1 prn, MOM 30ml po x 1 prn. * Adult immunization - Administer pneumonia vaccine, covid19 vaccine, flu vacci ne as appropriate. * DVT prophylaxis - Hold, hemarthrosis right knee. * Hyperlipidemia - Atorvastatin 5mg qhs. * Atrial fibrillation - Diltiazem 120mg daily, Hold Xarelto 15mg daily until cleared by Orthopedics. * Nutrition - Ensure Plus 120ml 4x/day, MVI daily. * Macular degeneration - Healthy Eyes 1 capsule po bid. * Depression - Sertraline 100mg daily, stable chronic long term care phlebotomist use, GDR not recommended. * Muscle spasm - Tizanidine 2mg q8h prn. Medications at Discharge Home Medications lovastatin 20 mg tablet 20 mg PO QHS Cholesterol 04/21/21 multivitamin 1 tab PO DAILY Supplement 04/21/21 sertraline 50 mg tablet 100 mg PO DAILY mental health 11/13/21 vit C 250 mg-vit E 90 mg-zinc 40 mg-copper 1 [id number] capsule (Preser Vision AREDS-2) 1 tab PO BID vitamin 11/13/21 diltiazem HCl 120 mg capsule,extended release 24 hr 120 mg PO DAILY BP 10/01/22 acetaminophen 500 mg tablet 1,000 mg PO 0800,1400,2200 #0 tabs 10/11/22 Hospital Course Operations None Procedures None Summary of Care Provided Minutes Spent on Discharge: 35 Hospital Course: 86 year old female with below past medical history hospitalized for intractable right knee pain secondary to hemarthrosis right knee, admitted to TCU with debility, here for rehabilitation, strengthening, prior to discharge home with . Discharge home with 10/12/2022, Front Wheeled Walker, no therapy needs. Physical Exam Const alert General Appearance: cooperative HEENT normocephalic Eyes PERRL and EOMs intact bilaterally Neck supple, no JVD and no carotid bruits Resp normal respiratory effort, normal air movement and clear to auscultation bilaterally Cardio regular rate and regular rhythm GI normal to inspection, nondistended, normoactive bowel sounds, non-tender and non-distended Extremity normal capillary refill General Extremity: Negative for edema Skin no rashes or lesions noted General Skin Exam: no breakdown Psych affect normal Appearance: appropriate Medical Records Data Medical Nutrition Assessment Dietitian: Malnutrition Criteria Met Start: 10/01/22 13:54 Freq: Status: Active Protocol: Document 10/06/22 15:46 VITA (Rec: 10/06/22 15:47 [facility] [id number]) Nutrition Malnutrition Evidence of Malnutrition Exists Yes Malnutrition (moderate): Chronic Evidenced By Suboptimal Energy Intake ( Moderate),Physical Changes ( Moderate) Intake Problem Inadequate Oral Intake Etiology related to decreased appetite/ debility Signs/Symptoms as evidenced by oral intake ~ 50% meals Status Active Problem Clinical Problem Chronic Disease or Condition Related Malnutrition Etiology Moderate protein-calorie malnutrition in the context of chronic disease related to inadequate energy intake Signs/Symptoms as evidenced by estimated PO intake meeting <75% of estimated energy needs > 3 months; moderate muscle wasting/fat loss evident per physical exam in orbital, temporal, acromion, and clavicle areas; BMI 19.5 Status Active Problem Recommendation Dietitian Recommendations/Changes Will continue liberalized regular diet with fortified foods as able. Recommend appetite stimulant d /t poor po intake and signs and symptoms of malnutrition. Will order 120 ml ensure clear tid w/ meals per res request. Adjust ONS as needed to promote weight gain and optimize oral intake. Weight / BMI Weight Weight: 53.161 kg Body Mass Index (BMI) 19.6 ABG / Lab / Microbiology Data Result Diagrams: 10/09/22 06:40 10/09/22 06:40 Microbiology: Microbiology 10/05/22 06:25 Nasal Secretion SARS-CoV-2 Antigen (Rapid) - Final 10/03/22 05:13 Nasal Secretion SARS-CoV-2 Antigen (Rapid) - Final D/C Instructions Discharge Diet: No restrictions Discharge Activity: Return to Normal Activity, May Shower and Use Walker Weight Bearing Status: Weight bearing as tolerated Call your doctor if you observe: Fever of 101 or Higher, Inability to urinate, Inability to have a bowel movement, Shortness of breath, Dizziness, Fainting spells, Swelling in the ankles, Chest pain and Uncontrolled pain Additional Instructions: Discharge home with 10/12/2022, Front Wheeled Walker, no therapy needs. Please Follow Up With: Clinton Nair DO When: As scheduled. Meaningful Use Info Meaningful Use Diagnoses (Choose all that apply): None applicable Discharge Plan Admission Admit Date/Time: 10/01/22 12:50 Primary Reason for Your Visit: Debility. Attending Provider: Carlito Tran Chi Primary Care Provider: Yamil Madden Instructions Additional Instructions / Restrictions: Discharge home with 10/12/2022, Front Wheeled Walker, no therapy needs. Discharge Orders/Prescriptions Prescriptions: New acetaminophen 500 mg Tablet 1,000 mg PO 0800,1400,2200 Qty: 0 0RF Continued multivitamin Tablet 1 tab PO DAILY lovastatin 20 mg tablet 20 mg PO QHS sertraline 50 mg tablet 100 mg PO DAILY PreserVision AREDS-2 250-90-40-1 mg Capsule 1 tab PO BID diltiazem HCl 120 mg capsule,extended release 24hr 120 mg PO DAILY Discontinued rivaroxaban 15 mg tablet 15 mg PO DAILY Hold Instructions: Hold it general: Alert, Oriented x3, Cooperative HEENT: Atraumatic, PERRLA, EOMI, Normocephalic Oral: No Gingival or Mucosal Lesions/ Ulcerations Neck: Supple, No JVD, Negative Carotid Bruits Lungs: Air entry diminished in bilateral lung bases. No crepitation/rhonchi Cardiovascular: Regular rate, Regular Rhythm, Normal S1, Normal S2, No murmurs Abdomen: Bowel Sounds Present, Soft, Non Tender, Non-Distended : No renal angle tenderness. No suprapubic tenderness. Extremities: No edema, Capillary Refill Less than 3 Seconds Skin: No rashes, No breakdown Musculoskeletal: No Tenderness to Palpation of Joints or Extremities Neurological: Cranial nerves II-XII grossly intact, DTR 2+/4 and Symmetrical, Neuro grossly intact Psych/Mental Status: Normal Affect, Appropriate. Follow-up with Dr. Nair/Dr Oliveros before resumption. acetaminophen [Tylenol] 325 mg Tablet 650 mg PO Q4H PRN PRN (Reason: Fever, pain 1-10/10) Qty: 0 0RF sennosides-docusate sodium [Stool Softener-Stimulant Laxat] 8.6-50 mg Tablet 2 tab PO BID PRN (Reason: Constipation) Qty: 0 0RF oxycodone 5 mg Tablet 5 mg PO Q4H PRN PRN (Reason: Pain Score 4-10) Qty: 0 0RF tizanidine 2 mg Tablet 2 mg PO Q8H PRN PRN (Reason: muscle spasm) Qty: 0 0RF Referrals / Follow Up: Clinton Nair DO [Med Staff - Active Staff] - 10/14/22 10:15 am Yamil Madden MD [Primary Care Provider] - Disposition Disposition (needs filled in before D/C Order can be placed): Home, Self Care
[2022-10-11] MEDS: Atorvastatin Calcium 10 MG Tablet 5 MG PO (21:14)
[2022-10-11] MEDS: MELATONIN 10 MG TABLET PO (21:15)
[2022-10-12] MEDS: Multivitamin (Healthy Eyes) Capsule 1 CAP PO (08:36)
[2022-10-12] MEDS: Multivitamins,Therapeutic Tablet 1 TABLET PO (08:37)
[2022-10-12] MEDS: Sertraline 50 MG Tablet 100 MG PO (08:37)
[2022-10-12] MEDS: dilTIAZem CD 120 MG Capsule PO (08:37)
[2022-10-12] MEDS: Acetaminophen 500 MG Tablet 1000 MG PO (08:41)
[2022-10-12 08:42] VITALS: BP 124/64; PULSE 59
[2022-10-12 09:43] VITALS: PULSE 60; RESP 16; O2SAT 98
[2022-10-12 10:00] VITALS: BP 122/63; PULSE 60; RESP 16; TEMP 36.1; O2SAT 97
--- NOTE | 2022-10-13 13:40 | MDS.RN ---
Information for the mds was obtained from review of the clinical record, interview of resident, staff, and direct observation of resident's care,
== END 2022-10-12 10:45 | disposition home or self-care (01) | DRG 554 ==
PROVIDERS: Admitting Provider Family Medicine Geriatric Medicine; PCP Family Medicine; Referring Provider Family Medicine Geriatric Medicine; Visit Provider Family Medicine Geriatric Medicine
DX: M25.061 Hemarthrosis, right knee (principal); I48.21 Permanent atrial fibrillation; C91.10 Chronic lymphocytic leukemia of B-cell type not having achieved remission; E78.5 Hyperlipidemia, unspecified; I10 Essential (primary) hypertension; M62.838 Other muscle spasm; H35.30 Unspecified macular degeneration; M25.461 Effusion, right knee; F32.A Depression, unspecified; Z96.651 Presence of right artificial knee joint; Z86.718 Personal history of other venous thrombosis and embolism; Z86.711 Personal history of pulmonary embolism; Z79.899 Other long term (current) drug therapy; Z79.01 Long term (current) use of anticoagulants
CPT/HCPCS: 36415; 80048; 85025; 87426; 87811; 97110; 97161; 97166; 97530; 97535; 97802

== ENCOUNTER → 2023-05-13 | Outpatient (CLI) | payer MEDICARE, SELFPAY ==
[2023-05-13 14:40] LABS: Absolute Lymphocyte Count 23.15 X10^3/uL (0.83-4.51); Basophil# 0.09 X10^3/uL; Basophil% 0.3 % (0-1); Eosinophil# 0.14 X10^3/uL; Eosinophils% 0.5 % (0-5); Hematocrit 41.7 % (37-47); Hemoglobin 13.1 g/dL (12.0-15.0); Lymphocyte # 23.15 X10^3/ul (0.83-4.51); Lymphocyte % 82.7 % (19-41); Mean Corp Hgb Conc 31.4 g/dL (32-36); Mean Corpuscular Hgb 30.3 pg (27.0-32.0); Mean Corpuscular Volume 96.5 fL (81-99); Mean Platelet Vol. 10.6 fl (6.2-12.0); Monocyte# 0.57 X10^3/uL; NRBC Flagged by Analyzer 0 % (0-5); Neutrophil # 3.96 X10^3/uL (2.7-7.7); Neutrophil % 14.2 % (47-70); POSITIVE DIFFERENTIAL YES; POSITIVE MORPHOLOGY YES; Platelet Count 159 K/mm3 (150-450); RBC Distribution Width CV 14.1 % (11.6-14.6); RBC Distribution Width SD 49.6 fl (35.1-43.9); Red Blood Count 4.32 M/mm3 (4.2-5.4)
[2023-05-13 14:41] LABS: Differential Indicated SCAN CRITERIA MET
[2023-05-13 15:06] LABS: Smudge Cells 2+
[2023-05-13 15:08] LABS: Anion Gap 4 (5-15); BUN 13 mg/dL (7-18); BUN/Creat Ratio 17.1 RATIO (10-20); Calcium,Total 9.3 mg/dL (8.5-10.1); Chloride 109 mmol/L (98-107); Creatinine, Serum 0.76 mg/dL (0.55-1.02); EST Glomerular Filtration Rate 77 mL/min (>60); Est Glom Filt Rate - Afr Amer 93 mL/min (>60); Glucose 88 mg/dL (74-106); Potassium 4.4 mmol/L (3.5-5.1); Sodium Level 138 mmol/L (136-145)
[2023-05-13 15:25] LABS: BNP,B-Type NATRIURETIC PEPTIDE 199.2 pg/mL (0-100)
== END | disposition home or self-care (01) ==
LOC: LAB 13:54
PROVIDERS: PCP Family Medicine; Referring Provider Nurse Practitioner Gerontology; Visit Provider Nurse Practitioner Gerontology
DX: R42 Dizziness and giddiness (principal); R06.09 Other forms of dyspnea
CPT/HCPCS: 36415; 80048; 83880; 85025

== ENCOUNTER 2023-05-31 19:45 | Observation (INO) | payer MEDICARE, SELFPAY ==
[2023-05-31 19:46] VITALS: BP 128/70; PULSE 62; RESP 15; TEMP 36.3; O2SAT 95
--- NOTE | 2023-05-31 20:03 | RAD_ITS ---
INDICATION: PAIN EXAMINATION/TECHNIQUE: X-RAY - RIGHT XR Knee COMPARISON: XR right knee September 28, 2022 FINDINGS: 4 views of the right knee were obtained. A right knee prosthesis is again identified. No acute fracture is identified. A large knee joint effusion is similar to the prior exam. Osteopenia of the medial femoral condyle as well as the medial and lateral tibial plateau. RAD/Knee 4 or More Views IMPRESSION: No acute fracture identified. Knee prosthesis. Large joint effusion. Electronically Signed: Reji Berry MD at 20:33 EDT ,
--- NOTE | 2023-05-31 20:46 | EDS_ITS ---
HPI History of Present Illness Chief Complaint: Lower Extremity Injury [facility] Medical History (Updated 05/31/23 @ 22:[address] Osorio Cormier MD) Benign paroxysmal positional vertigo Chronic lymphocytic leukemia Circumscribed scleroderma Diverticulosis of colon Effusion of right knee joint Essential hypertension Hemarthrosis involving knee joint History of DVT of lower extremity (2006) History of Guillain-Ramona syndrome (1969) History of pulmonary embolus (PE) Hyperlipidemia Insomnia Macular degeneration Osteoporosis Permanent atrial fibrillation Personal history of malignant neoplasm of breast (2007) Tietze syndrome Trigger finger, left ring finger Home Medications lovastatin 20 mg tablet 20 mg PO QHS Cholesterol 04/21/21 [History Last Taken Unknown] multivitamin 1 tab PO DAILY Supplement 04/21/21 [History Last Taken Unknown] sertraline 50 mg tablet 100 mg PO DAILY mental health 11/13/21 [History Last Taken Unknown] vit C 250 mg-vit E 90 mg-zinc 40 mg-copper 1 kg-jndeqi-jykued capsule (PreserVision AREDS-2) 1 tab PO BID vitamin 11/13/21 [History Last Taken Unknown] acetaminophen 500 mg tablet 1,000 mg (2 x 500 mg) PO 0800,1400,2200 #0 tabs 10/11/22 [Rx Last Taken Unknown] apixaban 2.5 mg tablet (Eliquis) 2.5 mg PO BID #180 tabs 11/24/22 [Rx Last Taken Unknown] metoprolol tartrate 25 mg tablet 25 mg PO BID #60 tabs 05/13/23 [Rx Last Taken Unknown] Allergy/AdvReac Type Severity Reaction Status Date / Time Gadolinium-MRI Contrast Allergy Severe Hives Verified 05/31/23 19:52 Medium gadoterate meglumine Allergy Severe Hives Verified 05/31/23 19:52 [From Dotarem] dabigatran etexilate AdvReac Intermediate GI upset Verified 05/31/23 19:52 [From Pradaxa] codeine AdvReac Unknown Verified 05/31/23 19:52 diphtheria,pertussis AdvReac Swelling Verified 05/31/23 19:52 (acell),tetanu Penicillins AdvReac Hives Verified 05/31/23 19:52 Family History Mother H/O bilateral mastectomy Breast cancer Father Heart disease unsure of type Sister Cardiac pacemaker in situ Surgical History History of cardioversion (10/06/12) History of left mastectomy (04/11/08) History of total right knee replacement (2006) History of transesophageal echocardiography (LEN) (10/06/12) Social History household members: spouse Smoking Status: Never smoker alcohol intake: never substance use type: does not use EXAM Physical Exam Const Vital Signs: 05/31/23 19:46 05/31/23 21:29 05/31/23 22:48 Temperature 97.4 F L 98.2 F Temperature Source Temporal Oral Pulse Rate 62 54 L 52 L Respiratory Rate 15 16 14 Blood Pressure 128/70 H 158/65 H 143/66 H Blood Pressure Mean 89 96 91 Pulse Ox 95 93 94 Oxygen Delivery Method Room Air Room Air Room Air 05/31/23 22:51 Temperature 98.2 F Temperature Source Oral Pulse Rate 56 L Respiratory Rate 14 Blood Pressure 143/66 H Blood Pressure Mean 91 Pulse Ox 98 Oxygen Delivery Method Room Air MDM MDM MDM Narrative Medical decision making narrative: HISTORY OF PRESENT ILLNESS: 87-year-old female here with right knee pain. She states she has pain when she walks or stands. She notes a fluid collection started earlier today. States she stood up and felt a pop in her right knee. Noted swelling afterwards. Denies any falls or other trauma. Notes compliance with her blood thinning medication regimen. Denies any fever, fatigue body aches or other signs of infection REVIEW OF SYSTEMS: Pertinent positives: Right knee pain Pertinent negatives: Numbness weakness, fever PHYSICAL EXAM: Nursing triage notes reviewed, Vital signs reviewed Constitutional: please see mdm HENT: MMM Eyes: Pupils equal round and reactive to light, Extraocular muscles intact Neck: No stridor, no JVD, full neck ROM Lungs: Clear to auscultation, No wheezing or rales. No increased work of breathing, no conversational dyspnea, no accessory muscle use, no nasal flaring. No respiratory distress noted Heart: Regular rate and rhythm, No murmurs, No rubs and No gallops, 2+ distal pulses (radial, femoral, posterior tibial) in all extremities Abdomen: Soft, there is no tenderness, rigidity, rebound or guarding, no obvious peritoneal signs, no palpable pulsatile abdominal masses, no auscultated abdominal bruit : No CVAT Extremities: Right knee with obvious effusion, intact quadriceps tendon complex, compartments are soft Neuro: My back neuro Skin: No rash or lesions noted MEDICAL DECISION MAKING: Chief Complaint: Knee pain External records reviewed: X-ray of the involved joint from September 2022 shows right knee replacement a large joint effusion Factors affecting care: On Eliquis secondary to A-fib Social determinants of health: Elderly History obtained from others: Patient's Consults: Internal medicine, Orthopedic surgery MDM Narrative: Patient was hemodynamically stable, afebrile, nontoxic-appearing. Right knee was edematous with there is no warmth, no signs of infection, pain was on proportion to exam. There is intact quadriceps tendon complex. I considered the following differential diagnosis: Septic arthritis, joint effusion, quadriceps tendon strain, ligamentous injury of the knee, hemarthrosis secondary to Eliquis I suspect the patient presentation is likely secondary to ligamentous injury. ALL IMAGES (IF OBTAINED) HAVE BEEN PERSONALLY REVIEWED AND INTERPRETED BY MYSELF. X-ray was read and reviewed by myself shows no evidence of bony fracture, dislocation or hardware malfunction. I considered septic arthritis as a potential etiology but the patient is afebrile, her knee had a decent range of motion although limited by pain, pain was not out of proportion to exam and there was no overlying redness or signs of infection. The extremity is not warm. I suspect the patient suffering from a ligamentous injury. Patient could not ambulate despite giving IV narcotics. Given her advanced age and inability ambulate I offer the patient inpatient admission. Discussed with Dr. Cormier. Also discussed case with Dr. Apodaca. He recommended Zev wrap, pain control. He states he will see the patient tomorrow for further evaluation. He recommended against any arthrocentesis at this time is likely make the patient symptoms worse. The patient and/or family, caregivers express understanding. The patient and/or family, caregivers agrees with the plan. Shared decision making: I will have a discussion with the patient and or visitors regarding risk /benefits of further testing or admission. They will be made aware of of the risk/benefits inherent in this decision they will be given the opportunity to voice understanding. Total critical care time today provided was at least 0 minutes. This excludes separately billable procedures. Critical care time (if documented) is secondary to the patient having high probability of clinically significant/life threatening deterioration in the patient's condition which required my urgent intervention. Impression: 1. Knee pain 2. Knee effusion 3. History of knee replaced 4. Inability to ambulate Dispo: Admit Lab Data Labs: Laboratory Results - last 24 hr 05/31/23 21:20 WBC 28.3 H RBC 4.23 Hgb 13.2 Hct 40.8 MCV 96.5 MCH 31.2 MCHC 32.4 RDW Std Deviation 49.5 H RDW Coeff of Asael 14.2 Plt Count 144 L MPV 10.5 Immature Gran % (Auto) 0.200 Neut % (Auto) 23.0 L Lymph % (Auto) 74.5 H [place] % (Auto) 1.8 Eos % (Auto) 0.2 Baso % (Auto) 0.3 Absolute Neuts (auto) 6.5 Absolute Lymphs (auto) 21.04 H Nucleated RBC % 0.1 Differential Comment SCANNED Sodium 138 Potassium 4.3 Chloride 106 Carbon Dioxide 27.0 Anion Gap 5 BUN 17 Creatinine 0.90 Est GFR (MDRD) Af Amer 77 Est GFR (MDRD) Non-Af 63 BUN/Creatinine Ratio 18.9 Glucose 116 H Calcium 9.1 Total Bilirubin 0.70 AST 28 ALT 22 Alkaline Phosphatase 66 Total Protein 7.6 Albumin 4.2 Globulin 3.4 Albumin/Globulin Ratio 1.2 Radiography Diagnostic Testing: Clinical Impression(s) from Imaging Studies Knee X-Ray 05/31/23 20:03 IMPRESSION: No acute fracture identified. Knee prosthesis. Large joint effusion. Electronically Signed: Reji Berry MD at 20:33 EDT , Discharge Plan Triage Chief Complaint: Lower Extremity Injury ED Provider: Abundio You Dx/Rx/DC Orders Prescriptions: No Action metoprolol tartrate 25 mg tablet 25 mg PO BID Qty: 60 11RF multivitamin Tablet 1 tab PO DAILY lovastatin 20 mg tablet 20 mg PO QHS sertraline 50 mg tablet 100 mg PO DAILY PreserVision AREDS-2 250-90-40-1 mg Capsule 1 tab PO BID acetaminophen 500 mg Tablet 1,000 mg PO 0800,1400,2200 Qty: 0 0RF Eliquis 2.5 mg tablet 2.5 mg PO BID Qty: 180 3RF Primary Care Provider: Yamil Madden Referrals: Yamil Madden MD [Primary Care Provider] -
[2023-05-31] MEDS: Morphine 2 MG/ML Syringe IV (21:22)
[2023-05-31 21:29] VITALS: BP 158/65; PULSE 54; RESP 16; O2SAT 93
[2023-05-31 21:38] LABS: Absolute Lymphocyte Count 21.04 X10^3/uL (0.83-4.51); Absolute Neutrophil Count 6.5 X10^3/uL (2.0-7.7); Basophil# 0.08 X10^3/uL; Basophil% 0.3 % (0-1); Eosinophil# 0.07 X10^3/uL; Eosinophils% 0.2 % (0-5); Hematocrit 40.8 % (37-47); Hemoglobin 13.2 g/dL (12.0-15.0); Lymphocyte # 21.04 X10^3/ul (0.83-4.51); Lymphocyte % 74.5 % (19-41); Mean Corp Hgb Conc 32.4 g/dL (32-36); Mean Corpuscular Hgb 31.2 pg (27.0-32.0); Mean Corpuscular Volume 96.5 fL (81-99); Mean Platelet Vol. 10.5 fl (6.2-12.0); Monocyte# 0.52 X10^3/uL; Monocyte% 1.8 % (0-10); NRBC Flagged by Analyzer 0.1 % (0-5); Neutrophil # 6.47 X10^3/uL (2.7-7.7); POSITIVE DIFFERENTIAL YES; POSITIVE MORPHOLOGY YES; Platelet Count 144 K/mm3 (150-450); RBC Distribution Width CV 14.2 % (11.6-14.6); RBC Distribution Width SD 49.5 fl (35.1-43.9); Red Blood Count 4.23 M/mm3 (4.2-5.4); White Blood Count 28.3 K/mm3 (4.4-11.0)
[2023-05-31 21:44] LABS: Differential Indicated SCAN CRITERIA MET
[2023-05-31 22:04] LABS: ALB/GLOB Ratio 1.2 RATIO (0.9-2.4); AST(SGOT) 28 U/L (15-37); Alanine Aminotransfer ALT/SGPT 22 U/L (13-56); Albumin, Serum 4.2 g/dL (3.2-5.0); Alkaline Phosphatase 66 U/L (45-117); Anion Gap 5 (5-15); BUN 17 mg/dL (7-18); BUN/Creat Ratio 18.9 RATIO (10-20); Calcium,Total 9.1 mg/dL (8.5-10.1); Chloride 106 mmol/L (98-107); EST Glomerular Filtration Rate 63 mL/min (>60); Est Glom Filt Rate - Afr Amer 77 mL/min (>60); Globulin 3.4 g/dL (2.2-4.2); Glucose 116 mg/dL (74-106); Potassium 4.3 mmol/L (3.5-5.1); Protein, Total 7.6 g/dL (6.4-8.2); Sodium Level 138 mmol/L (136-145)
--- NOTE | 2023-05-31 22:22 | HP.PCM.HOS_ITS ---
HPI - General General Date of Admission: 05/31/23 Date of Service: 05/31/23 Chief Complaint: Right knee pain HPI Narrative DOMENICO MAIN, is a 87 F with a significant history of CLL; atrial fibrillation on metoprolol and Eliquis; and prostatic right knee replacement who presents emergency department with excruciating pain in the right knee. Reportedly patient attempted to ambulate. She stood up and then heard a pop in the right knee. Her symptoms started on the same day of presentation. At the emergency department it was found the patient has right knee effusion. Reportedly it is the third time that it has happened. ED doctor discussed case with orthopedic surgeon who recommended applying zev wrap. [facility] Medical History (Updated 06/01/23 @ 01:[address] Osorio Cormier MD) Benign paroxysmal positional vertigo Chronic lymphocytic leukemia Circumscribed scleroderma Diverticulosis of colon Effusion of right knee joint Essential hypertension Hemarthrosis involving knee joint History of DVT of lower extremity (2006) History of Guillain-[place] syndrome (1969) History of pulmonary embolus (PE) Hyperlipidemia Insomnia Macular degeneration Osteoporosis Permanent atrial fibrillation Personal history of malignant neoplasm of breast (2007) Tietze syndrome Trigger finger, left ring finger Home Medications lovastatin 20 mg tablet 20 mg PO QHS Cholesterol 04/21/21 [History Last Taken Unknown] multivitamin 1 tab PO DAILY Supplement 04/21/21 [History Last Taken Unknown] sertraline 50 mg tablet 100 mg PO DAILY mental health 11/13/21 [History Last Taken Unknown] vit C 250 mg-vit E 90 mg-zinc 40 mg-copper 1 so-puptie-wotbzr capsule (PreserVision AREDS-2) 1 tab PO BID vitamin 11/13/21 [History Last Taken Unknown] acetaminophen 500 mg tablet 1,000 mg (2 x 500 mg) PO 0800,1400,2200 #0 tabs 10/11/22 [Rx Last Taken Unknown] apixaban 2.5 mg tablet (Eliquis) 2.5 mg PO BID #180 tabs 11/24/22 [Rx Last Taken Unknown] metoprolol tartrate 25 mg tablet 25 mg PO BID #60 tabs 05/13/23 [Rx Last Taken Unknown] Allergy/AdvReac Type Severity Reaction Status Date / Time Gadolinium-MRI Contrast Allergy Severe Hives Verified 05/31/23 19:52 Medium gadoterate meglumine Allergy Severe Hives Verified 05/31/23 19:52 [From Dotarem] dabigatran etexilate AdvReac Intermediate GI upset Verified 05/31/23 19:52 [From Pradaxa] codeine AdvReac Unknown Verified 05/31/23 19:52 diphtheria,pertussis AdvReac Swelling Verified 05/31/23 19:52 (acell),tetanu Penicillins AdvReac Hives Verified 05/31/23 19:52 Family History Mother H/O bilateral mastectomy Breast cancer Father Heart disease unsure of type Sister Cardiac pacemaker in situ Surgical History History of cardioversion (10/06/12) History of left mastectomy (04/11/08) History of total right knee replacement (2006) History of transesophageal echocardiography (LEN) (10/06/12) Social History household members: spouse Smoking Status: Never smoker alcohol intake: never substance use type: does not use ROS ROS Narrative Pertinent positives and pertinent negatives as noted in HPI. All other systems were reviewed and are negative Vital Signs Vital Signs Vital Signs: 05/31/23 19:46 05/31/23 21:29 Temperature 97.4 F L Temperature Source Temporal Pulse Rate 62 54 L Respiratory Rate 15 16 Blood Pressure 128/70 H 158/65 H Blood Pressure Mean 89 96 Pulse Ox 95 93 Oxygen Delivery Method Room Air Room Air Physical Exam Narrative Physical exam: General: Well-nourished, well-developed. Head: Normocephalic, atraumatic, no tenderness Eyes: Vision is grossly intact. EOMI ENT, no trauma, moist mucous membranes, no rhinorrhea Neck: Nontender, No thyromegaly. CVS: Cardiac. Irregularly irregular. Respiratory : clear to auscultation bilaterally, chest wall nontender Abdomen: Soft, nontender, nondistended, normal bowel sounds, no masses : Deferred Back: Nontender, no CVA tenderness Extremities: Tender; and swelling of the right knee. Left knee no swelling, nontender. Skin: Normal color, no trauma, abrasions Neuro: Alert, oriented, cranial nerves II through XII grossly intact. Psychiatry: Normal mood. Normal affect. Not depressed. Not anxious. Results Lab / Micro Data 05/31/23 21:20 05/31/23 21:20 Labs: Laboratory Results - last 24 hr 05/31/23 21:20: WBC 28.3 H, RBC 4.23, Hgb 13.2, Hct 40.8, MCV 96.5, MCH 31.2, MCHC 32.4, RDW Std Deviation 49.5 H, RDW Coeff of Asael 14.2, Plt Count 144 L, MPV 10.5, Immature Gran % (Auto) 0.200, Neut % (Auto) 23.0 L, Lymph % (Auto) 74.5 H, [place] % (Auto) 1.8, Eos % (Auto) 0.2, Baso % (Auto) 0.3, Absolute Neuts (auto) 6.5, Absolute Lymphs (auto) 21.04 H, Nucleated RBC % 0.1, Sodium 138, Potassium 4.3, Chloride 106, Carbon Dioxide 27.0, Anion Gap 5, BUN 17, Creatinine 0.90, Est GFR (MDRD) Af Amer 77, Est GFR (MDRD) Non-Af 63, BUN/Creatinine Ratio 18.9, Glucose 116 H, Calcium 9.1, Total Bilirubin 0.70, AST 28, ALT 22, Alkaline Phosphatase 66, Total Protein 7.6, Albumin 4.2, Globulin 3.4, Albumin/Globulin Ratio 1.2 Radiology Impression Knee X-Ray 05/31/23 20:03 IMPRESSION: No acute fracture identified. Knee prosthesis. Large joint effusion. Electronically Signed: Reji Berry MD at 20:33 EDT , Assessment & Plan Assessment/Plan (1) Knee effusion: QUALIFIERS: Laterality: right Qualified Code(s): M25.461 - Effusion, right knee (2) Right knee pain: QUALIFIERS: Chronicity: acute Qualified Code(s): M25.561 - Pain in right knee (3) Atrial fibrillation: QUALIFIERS: Atrial fibrillation type: longstanding persistent Qualified Code(s): I48.11 - Longstanding persistent atrial fibrillation (4) Bradycardia: PLAN: Plan Right knee effusion and right knee pain Impression of right knee x-ray by radiology: No acute fracture identified. Knee prosthesis. Large joint effusion. Independent interpretation of right knee by hospitalist: Agrees with radiologist interpretation. Orthopedic recommendation Eliquis held and Zev wrap ordered for right knee. Tylenol continued. As needed oxycodone. Morphine ordered. Bowel protocol and antiemetics in place. PT and OT to work with patient. Case management consult. Orthopedic consult. Atrial Fibrillation with bradycardia: Hold parameters placed on metoprolol. If bradycardia persists consider de-escalating dose of metoprolol. Admit to [facility] on telemetry CLL White count of 28,300 with neutropenia and lymphocytosis. Chronic. Trend CBC DVT prophylaxis SCD ordered. Time spent in the patient's overall evaluation,decision-making process, review of diagnostic data, adjustment of management, discussion with other providers, nursing nursing and ancillary staff involved in patient's care documentation, 50 minutes. Charges/Coding Visit Charges Inpatient E&M: 63805 Init Hosp L2
[2023-05-31 22:35] LABS: Differential Comment SCANNED
[2023-05-31 22:48] VITALS: BP 143/66; PULSE 52; RESP 14; TEMP 36.8; O2SAT 94
[2023-05-31 22:51] VITALS: BP 143/66; PULSE 56; RESP 14; TEMP 36.8; O2SAT 98
[2023-05-31 23:37] VITALS: BP 131/66; PULSE 54; RESP 20; TEMP 36.8; O2SAT 95
[2023-06-01 00:08] VITALS: BMI 19.0
[2023-06-01 00:42] VITALS: BP 132/67; PULSE 62; RESP 14; TEMP 36.7; O2SAT 94
[2023-06-01] MEDS: oxyCODONE 5 MG Tablet PO (01:05)
[2023-06-01 06:18] VITALS: BP 131/73; PULSE 54; RESP 14; TEMP 36.6; O2SAT 94
--- NOTE | 2023-06-01 07:43 | CON.PCM.OR_ITS ---
HPI Consult Data Date of Consult: 06/01/23 HPI Narrative Reason for Consultation: Right knee effusion, suspected hemarthrosis HPI Narrative: DOMENICO MAIN, is a 87 F who presents to [facility] with excruciating right knee pain and swelling. Patient states she was standing up after putting up her socks and noted a pop in her right knee. Swelling was noted and pain. Patient reports this happening twice in the past with sig nificant swelling. Patient is on Eliquis for atrial fibrillation. It was suspected in the past this was due to hemarthrosis. She denies any constitutional symptoms including fevers, chills, nausea vomiting, chest pain or shortness of breath.Patient is status post right total knee arthroplasty liza roximately 15 years ago and reports no other issues with any other than these swelling episodes that have spontaneously resolved. [facility] Medical History (Updated 06/01/23 @ 01:[address] Osorio Cormier MD) Benign paroxysmal positional vertigo Chronic lymphocytic leukemia Circumscribed scleroderma Diverticulosis of colon Effusion of right knee joint Essential hypertension Hemarthrosis involving knee joint History of DVT of lower extremity (2006) History of Guillain-[place] syndrome (1969) History of pulmonary embolus (PE) Hyperlipidemia Insomnia Macular degeneration Osteoporosis Permanent atrial fibrillation Personal history of malignant neoplasm of breast (2007) Tietze syndrome Trigger finger, left ring finger Home Medications lovastatin 20 mg tablet 20 mg PO QHS Cholesterol 04/21/21 [History Last Taken Unknown] multivitamin 1 tab PO DAILY Supplement 04/21/21 [History Last Taken Unknown] sertraline 50 mg tablet 100 mg PO DAILY mental health 11/13/21 [History Last Taken Unknown] vit C 250 mg-vit E 90 mg-zinc 40 mg-copper 1 [id number] capsule (PreserVision AREDS-2) 1 tab PO BID vitamin 11/13/21 [History Last Taken Unknown] acetaminophen 500 mg tablet 1,000 mg (2 x 500 mg) PO 0800,1400,2200 #0 tabs 10/11/22 [Rx Last Taken Unknown] apixaban 2.5 mg tablet (Eliquis) 2.5 mg PO BID #180 tabs 11/24/22 [Rx Last Taken Unknown] metoprolol tartrate 25 mg tablet 25 mg PO BID #60 tabs 05/13/23 [Rx Last Taken Unknown] Allergy/AdvReac Type Severity Reaction Status Date / Time Gadolinium-MRI Contrast Allergy Severe Hives Verified 05/31/23 19:52 Medium gadoterate meglumine Allergy Severe Hives Verified 05/31/23 19:52 [From Dotarem] dabigatran etexilate AdvReac Intermediate GI upset Verified 05/31/23 19:52 [From Pradaxa] codeine AdvReac Unknown Verified 05/31/23 19:52 diphtheria,pertussis AdvReac Swelling Verified 05/31/23 19:52 (acell),tetanu Penicillins AdvReac Hives Verified 05/31/23 19:52 Family History Mother H/O bilateral mastectomy Breast cancer Father Heart disease unsure of type Sister Cardiac pacemaker in situ Surgical History History of cardioversion (10/06/12) History of left mastectomy (04/11/08) History of total right knee replacement (2006) History of transesophageal echocardiography (LEN) (10/06/12) Social History household members: spouse Smoking Status: Never smoker alcohol intake: never substance use type: does not use ROS ROS Narrative 12 point review systems obtained, negative unless otherwise noted in HPI. Vital Signs Vital Signs Vital Signs: 05/31/23 19:46 05/31/23 21:29 05/31/23 22:48 Temperature 97.4 F L 98.2 F Temperature Source Temporal Oral Pulse Rate 62 54 L 52 L Respiratory Rate 15 16 14 Respiratory Effort Respiratory Depth Respiratory Pattern Blood Pressure 128/70 H 158/65 H 143/66 H Blood Pressure Mean 89 96 91 Blood Pressure Source Blood Pressure Position Blood Pressure Location Pulse Ox 95 93 94 Oxygen Delivery Method Room Air Room Air Room Air 05/31/23 22:51 05/31/23 23:37 06/01/23 00:42 Temperature 98.2 F 98.2 F 98.1 F Temperature Source Oral Oral Oral Pulse Rate 56 L 54 L 62 Respiratory Rate 14 20 H 14 Respiratory Effort Respiratory Depth Respiratory Pattern Blood Pressure 143/66 H 131/66 H 132/67 H Blood Pressure Mean 91 87 88 Blood Pressure Source Monitor Blood Pressure Position Semi-Fowlers Blood Pressure Location Right Arm Pulse Ox 98 95 94 Oxygen Delivery Method Room Air Room Air Room Air 06/01/23 00:08 06/01/23 06:18 Temperature 98 F Temperature Source Oral Pulse Rate 54 L Respiratory Rate 14 Respiratory Effort Normal Non-Labored Respiratory Depth Normal Respiratory Pattern Normal Blood Pressure 131/73 H Blood Pressure Mean 92 Blood Pressure Source Monitor Blood Pressure Position Semi-Fowlers Blood Pressure Location Right Arm Pulse Ox 94 Oxygen Delivery Method Room Air Room Air Weight Weight: 117 lb 12.8 oz Body Mass Index (BMI) 19.0 Physical Exam Narrative General -A&Ox3, NAD, appears stated age. Vital signs stable, afebrile. Respiratory -normal work of breathing, no intercostal retractions. CV -pulses regular, brisk capillary refill ?4 limbs. Abdomen-soft, nontender, nondistended. No guarding, rigidity, rebound tenderness. Musculoskeletal/neurologic -full range of motion nontender throughout bilateral upper extremities, left lower extremity with full sensation and strength in all dermatomes and myotomes. No midline cervical tenderness. Right lower extremity-no obvious deformity. 3+ right knee effusion is noted with ballotable patella. No warmth or erythema. Patient unable to straight leg raise, no defect palpated in the quad or patellar tendon. No short arc range of motion pain. Brisk capillary refill. Sensation intact light touch L3-S1 dermatomes. DF, PF, EHL intact. DP, PT 2+. Pelvis is stable, nontender. Skin is intact without lacerations, abrasions. No ecchymosis noted. Lab / Micro Data 05/31/23 21:20 05/31/23 21:20 Labs: Laboratory Results - last 24 hr 05/31/23 21:20: WBC 28.3 H, RBC 4.23, Hgb 13.2, Hct 40.8, MCV 96.5, MCH 31.2, MCHC 32.4, RDW Std Deviation 49.5 H, RDW Coeff of Asael 14.2, Plt Count 144 L, MPV 10.5, Immature Gran % (Auto) 0.200, Neut % (Auto) 23.0 L, Lymph % (Auto) 74.5 H, [place] % (Auto) 1.8, Eos % (Auto) 0.2, Baso % (Auto) 0.3, Absolute Neuts (auto) 6.5, Absolute Lymphs (auto) 21.04 H, Nucleated RBC % 0.1, Differential Comment SCANNED, Sodium 138, Potassium 4.3, Chloride 106, Carbon Dioxide 27.0, Anion Gap 5, BUN 17, Creatinine 0.90, Est GFR (MDRD) Af Amer 77, Est GFR (MDRD) Non-Af 63, BUN/Creatinine Ratio 18.9, Glucose 116 H, Calcium 9.1, Total Bilirubin 0.70, AST 28, ALT 22, Alkaline Phosphatase 66, Total Protein 7.6, Albumin 4.2, Globulin 3.4, Albumin/Globulin Ratio 1.2 Radiology Impression Knee X-Ray 05/31/23 20:03 IMPRESSION: No acute fracture identified. Knee prosthesis. Large joint effusion. Electronically Signed: Reji Berry MD at 20:33 EDT , Assessment & Plan Assessment/Plan (1) Inability to ambulate due to knee: PLAN: Suspected right knee spontaneous hemarthrosis, likely secondary to Eliquis -I discussed the presumed diagnosis with the patient. We discussed conservative management with compression and holding anticoagulation therapy. We also discussed arthrocentesis. I explained this would allow us to visualize fluid as well as likely more rapidly improve her symptoms. She was amenable to arthrocentesis. Informed consent obtained. Procedure details: Skin was prepped overlying the superior lateral right knee with ChloraPrep. An 18-gauge needle was then inserted into the right knee joint. 60 cc of sanguinous fluid was aspirated. Patient noted immediate pain relief after needle was withdrawn dressed with a Band-Aid and Zev wrap. Patient was able to perform straight leg raise and had improved range of motion following arthro centesis. Fluid was not sent for analysis due to its gross appearance and benign appearing history. Patient may mobilize with physical therapy. I recommended holding Eliquis today, likely okay to restart tomorrow. I recommended patient limited to her activity to minimal walking over the next several days to limit any trauma to her knee. Ice as needed. Patient may follow-up with Dr. Nair as needed.
[2023-06-01 08:01] LABS: Vitamin D,25 Hydroxy 51.6 ng/mL
[2023-06-01] MEDS: Acetaminophen 500 MG Tablet 1000 MG PO (08:25)
[2023-06-01] MEDS: Multivitamins,Therapeutic Tablet 1 TABLET PO (08:25)
[2023-06-01 08:30] VITALS: BP 124/102; PULSE 49
--- NOTE | 2023-06-01 08:37 | PN.HOSP_ITS ---
Reason for Visit Reason for Visit: Diagnoses Longstanding persistent atrial fibrillation (05/31/23) Effusion, right knee (05/31/23) Pain in right knee (05/31/23) Bradycardia, unspecified (05/31/23) Difficulty in walking, not elsewhere classified (05/31/23) Subjective Subjective Feels much better after the arthocentesis. Objective Data Objective Data Vital Signs: Vital Signs Temp Pulse Resp BP Pulse Ox O2 Del Method 36.6 C 49 L 14 124/102 H 94 Room Air 06/01/23 06:18 06/01/23 08:30 06/01/23 06:18 06/01/23 08:30 06/01/23 06:18 06/01/23 06:18 Oxygen Delivery Method Room Air Weight: 53.433 kg Body Mass Index (BMI) 19.0 Lab / Micro Data 05/31/23 21:20 05/31/23 21:20 Labs: Laboratory Results - last 24 hr 05/31/23 21:20: WBC 28.3 H, RBC 4.23, Hgb 13.2, Hct 40.8, MCV 96.5, MCH 31.2, MCHC 32.4, RDW Std Deviation 49.5 H, RDW Coeff of Asael 14.2, Plt Count 144 L, MPV 10.5, Immature Gran % (Auto) 0.200, Neut % (Auto) 23.0 L, Lymph % (Auto) 74.5 H, [place] % (Auto) 1.8, Eos % (Auto) 0.2, Baso % (Auto) 0.3, Absolute Neuts (auto) 6.5, Absolute Lymphs (auto) 21.04 H, Nucleated RBC % 0.1, Differential Comment SCANNED, Sodium 138, Potassium 4.3, Chloride 106, Carbon Dioxide 27.0, Anion Gap 5, BUN 17, Creatinine 0.90, Est GFR (MDRD) Af Amer 77, Est GFR (MDRD) Non-Af 63, BUN/Creatinine Ratio 18.9, Glucose 116 H, Calcium 9.1, Total Bilirubin 0.70, AST 28, ALT 22, Alkaline Phosphatase 66, Total Protein 7.6, Albumin 4.2, Globulin 3.4, Albumin/Globulin Ratio 1.2 06/01/23 06:36: Vitamin D 25-Hydroxy 51.6 Radiography Diagnostic Testing: Radiology Impression Knee X-Ray 05/31/23 20:03 IMPRESSION: No acute fracture identified. Knee prosthesis. Large joint effusion. Electronically Signed: Reji Berry MD at 20:33 EDT , Physical Exam Const alert and no apparent distress Extremity Extremity Narrative: right knee wrapped--did not remove. able to bend right knee Assessment & Plan Assessment/Plan (1) Knee effusion: QUALIFIERS: Laterality: right Qualified Code(s): M25.461 - Effusion, right knee PLAN: Right knee effusion and right knee pain Orthopedic consult. Patient underwent an arthrocentesis today that removed 60 cc of sanguinous fluid. Per orthopedics, okay to resume apixaban on the 28th Pt doing much better after arthrocentesis. Ambulating w/o difficulty. PLAN: Plan Chronic conditions: * Atrial Fibrillation with bradycardia: Hold parameters placed on metoprolol. If bradycardia persists consider de-escalating dose of metoprolol. * CLLWhite count of 28,300 with neutropenia and lymphocytosis. Chronic. Trend CBC DVT prophylaxis SCD ordered.
[2023-06-01 09:00] VITALS: RESP 18
[2023-06-01 10:04] VITALS: BP 124/102; PULSE 49; RESP 18; TEMP 37.2; O2SAT 98
[2023-06-01] MEDS: Multivitamin (Healthy Eyes) Capsule 1 CAP PO (11:11)
[2023-06-01] MEDS: Sertraline 100 MG Tablet PO (11:12)
--- NOTE | 2023-06-01 12:26 | PCM.DC.SUM ---
Providers Date of Admission: 05/31/23 Primary Care Physician: Dr. Yamil Madden MD Consultations 06/01/23 00:17 Consult: Orthopedics Routine Consulting Provider: Marcelino Apodaca Reason for Consult: Large Right knee effusion EMERGENT Consult: No MD Notified: Yes Date Notified: 06/01/23 Time Notified: 06:22 Method of Notification: Text Reason For Visit: LARGE JOINT EFFUSION Diagnosis Discharge Diagnosis (1) Knee effusion: Status: Acute Code(s): M25.469 - Effusion, unspecified knee Qualifiers: Laterality: right Qualified Code(s): M25.461 - Effusion, right knee Plan: Right knee effusion and right knee pain Orthopedic consult. Patient underwent an arthrocentesis today that removed 60 cc of sanguinous fluid. Per orthopedics, okay to resume apixaban on the 28th Pt doing much better after arthrocentesis. Ambulating w/o difficulty. (2) Bradycardia: Status: Acute Code(s): R00.1 - Bradycardia, unspecified Plan: 30s-40s. DC metoprolol Plan Chronic conditions: Atrial Fibrillation with bradycardia: dc metoprolol as above. CLLWhite count of 28,300 with neutropenia and lymphocytosis. Chronic. Trend CBC DVT prophylaxis SCD ordered. Medications at Discharge Home Medications lovastatin 20 mg tablet 20 mg PO QHS Cholesterol 04/21/21 multivitamin 1 tab PO DAILY Supplement 04/21/21 sertraline 50 mg tablet 100 mg PO DAILY mental health 11/13/21 vit C 250 mg-vit E 90 mg-zinc 40 mg-copper 1 [id number]-[id number] capsule (PreserVision AREDS-2) 1 tab PO BID vitamin 11/13/21 acetaminophen 500 mg tablet 1,000 mg (2 x 500 mg) PO 0800,1400,2200 #0 tabs 10/11/22 apixaban 2.5 mg tablet (Eliquis) 2.5 mg PO BID #180 tabs 11/24/22 Hospital Course Operations None Procedures - (right knee arthrocentesis) Summary of Care Provided Minutes Spent on Discharge: 28 Weight / BMI Weight Weight: 53.433 kg Body Mass Index (BMI) 19.0 ABG / Lab / Microbiology Data 05/31/23 21:20 05/31/23 21:20 Laboratory: Laboratory Results - last 24 hr 05/31/23 21:20: WBC 28.3 H, RBC 4.23, Hgb 13.2, Hct 40.8, MCV 96.5, MCH 31.2, MCHC 32.4, RDW Std Deviation 49.5 H, RDW Coeff of Asael 14.2, Plt Count 144 L, MPV 10.5, Immature Gran % (Auto) 0.200, Neut % (Auto) 23.0 L, Lymph % (Auto) 74.5 H, [place] % (Auto) 1.8, Eos % (Auto) 0.2, Baso % (Auto) 0.3, Absolute Neuts (auto) 6.5, Absolute Lymphs (auto) 21.04 H, Nucleated RBC % 0.1, Differential Comment SCANNED, Sodium 138, Potassium 4.3, Chloride 106, Carbon Dioxide 27.0, Anion Gap 5, BUN 17, Creatinine 0.90, Est GFR (MDRD) Af Amer 77, Est GFR (MDRD) Non-Af 63, BUN/Creatinine Ratio 18.9, Glucose 116 H, Calcium 9.1, Total Bilirubin 0.70, AST 28, ALT 22, Alkaline Phosphatase 66, Total Protein 7.6, Albumin 4.2, Globulin 3.4, Albumin/Globulin Ratio 1.2 06/01/23 06:36: Vitamin D 25-Hydroxy 51.6 Radiography Diagnostic Testing: Radiology Impression Knee X-Ray 05/31/23 20:03 IMPRESSION: No acute fracture identified. Knee prosthesis. Large joint effusion. Electronically Signed: Reji Berry MD at 20:33 EDT Reading Location ID and State: [facility] / [place] Tel , Service support , D/C Instructions Discharge Diet: Low fat / Low cholesterol Call your doctor if you observe: - (increase pain and swelling of right knee. ) Meaningful Use Info Meaningful Use Diagnoses (Choose all that apply): None applicable Discharge Plan Admission Admit Date/Time: 05/31/23 22:24 Primary Reason for Your Visit: right knee hemarthrosis Attending Provider: Sina Garnett Primary Care Provider: Yamil Madden Consulting Providers: Marcelino Apodaca; Osorio Cormier Discharge Orders/Prescriptions Prescriptions: Continued multivitamin Tablet 1 tab PO DAILY lovastatin 20 mg tablet 20 mg PO QHS sertraline 50 mg tablet 100 mg PO DAILY PreserVision AREDS-2 250-90-40-1 mg Capsule 1 tab PO BID acetaminophen 500 mg Tablet 1,000 mg PO 0800,1400,2200 Qty: 0 0RF Held Eliquis 2.5 mg tablet 2.5 mg PO BID Qty: 180 3RF Hold Instructions: Resume on 06/02/23. Discontinued metoprolol tartrate 25 mg tablet 25 mg PO BID Qty: 60 11RF Referrals / Follow Up: Clinton Nair DO [Med Staff - Active Staff] - (as needed. ) Yamil Madden MD [Primary Care Provider] - Within 2 Weeks Disposition Disposition (needs filled in before D/C Order can be placed): Home, Self Care Charges/Coding Visit Charges Inpatient E&M: 54913 Disch Hosp
--- NOTE | 2023-06-01 14:24 | CASEMGMT ---
RN ABEL spoke with therapy, pt did well. Pt states she lives with her . She has a FWW that she does not typically use but obtained yesterday when she could not walk. Pt states her is able to assist her at home and he does as she has poor vision. Pt sitting up in chair and bending her knee. Pt denies any homegoing needs and states she is ready for dc home today.
--- NOTE | 2023-06-01 14:56 | CHAPLAIN ---
Type of Pastoral Visit _x__ Initial Visit ___ Follow-up Visit ___ On-call Visit ___ General Patient Visit ___ Spiritual Assessment ___ Family Conference ___ Bereavement ___ Rapid Response ___ Code Blue ___ Other (describe below) Pastoral Care Referral From _x__ Patient ___ Family ___ Nurse ___ Physician ___ Pilling Machine Operator ___ Search Strategist ___ Other (describe below) Sacrament/Intervention __x_ Active listening ___ Anointing ___ Sikh ___ Bereavement ___ Communion ___ Mirela exploration ___ ___ Life review _x__ Prayer ___ Reconciliation ___ Sacrament of Sick ___ Supportive presence ___ Wedding ___ Other (describe below) Pastoral Comments patient describes her issues and how she is now experiencing some relief; pt expresses myriam about the lower pain levels; pt expresses her experiences as she has difficulty with eyesight and has some concerns about being in the hospital; pt welcomes a prayer
[2023-06-01 16:24] VITALS: BP 137/70; PULSE 70; RESP 18; TEMP 36.8; O2SAT 98
== END 2023-06-01 15:50 | disposition home or self-care (01) ==
LOC: ED 23:07 → MS3 06-01 01:37
PROVIDERS: Admitting Provider Hospitalist; Emergency Provider Emergency Medicine; PCP Family Medicine
DX: M25.461 Effusion, right knee (principal); C91.10 Chronic lymphocytic leukemia of B-cell type not having achieved remission; I48.11 Longstanding persistent atrial fibrillation; R00.1 Bradycardia, unspecified; E78.5 Hyperlipidemia, unspecified; I10 Essential (primary) hypertension; Z79.01 Long term (current) use of anticoagulants; Z79.899 Other long term (current) drug therapy
CPT/HCPCS: 20610; 36415; 73564; 80053; 82306; 85025; 93005; 96374; 97162; 97166; 99221; 99284; A4216; G0378

== ENCOUNTER 2023-06-08 18:36 | Observation (INO) | payer MEDICARE, SELFPAY ==
[2023-06-08 18:37] VITALS: BP 115/95; PULSE 66; RESP 18; TEMP 36.4; O2SAT 97; BMI 20.5
[2023-06-08] MEDS: Morphine 2 MG/ML Syringe IV (19:42)
--- NOTE | 2023-06-08 19:54 | RAD_ITS ---
INDICATION: swelling EXAMINATION/TECHNIQUE: X-RAY - RIGHT XR Knee 3 Views COMPARISON: XR right knee May 31, 2023. FINDINGS: 3 views of the right knee were obtained. A knee prosthesis is again identified. Osteopenia of the femoral condyles and tibial plateau, greatest at the medial aspect is again identified. No acute fracture is visualized. A large joint effusion is similar in size to the prior exam. RAD/Knee 3 Views IMPRESSION: Knee prosthesis. No acute fracture identified. Large joint effusion is similar in size to the prior exam. Electronically Signed: Reji Berry MD at 20:17 EDT ,
--- NOTE | 2023-06-08 19:56 | ED.VIS.LOWEX ---
HPI History of Present Illness Chief Complaint: Lower Extremity Injury Informant: patient and spouse/S.O. Narrative Narrative: Right knee swelling and pain this morning. Denies trauma. History of right total knee arthroplasty [address] Nair. She is on Eliquis for history of atrial fibrillation. Last dose this morning. Similar symptoms swelling that brought her to the ED May 31, 8 days ago. She was admitted for inability to ambulate. She was seen by orthopedics states knee was drained and symptoms improved. She was restarted back on Eliquis. Similar presentation, states was given morphine for pain at that time. Spouse states she had to be carried from her home into the car and into the emergency department to the wheelchair. After initiation of work-up, evaluation patient's ED and inpatient records. She was seen by Dr. Apodaca, there was concern for potential hemarthrosis, her knee was aspirated with 60 cc of sanguinous fluid, her symptoms seem to improve then. There is no concerns for septic knee and labs were not sent. She was discharged to follow-up with her orthopedist. Prior similar symptoms: Yes PFSH PFSH Medical History (Updated 06/08/23 @ 23:[address] Gigi Fang, DO) Benign paroxysmal positional vertigo Chronic lymphocytic leukemia Circumscribed scleroderma Diverticulosis of colon Effusion of right knee joint Essential hypertension Hemarthrosis involving knee joint History of DVT of lower extremity (2006) History of Guillain-[place] syndrome (1969) History of pulmonary embolus (PE) Hyperlipidemia Insomnia Macular degeneration Osteoporosis Permanent atrial fibrillation Personal history of malignant neoplasm of breast (2007) Tietze syndrome Trigger finger, left ring finger Home Medications lovastatin 20 mg tablet 20 mg PO QHS Cholesterol 04/21/21 [History Last Taken Unknown] multivitamin 1 tab PO DAILY Supplement 04/21/21 [History Last Taken Unknown] sertraline 50 mg tablet 50 mg PO DAILY mental health 11/13/21 [History Last Taken Unknown] vit C 250 mg-vit E 90 mg-zinc 40 mg-copper 1 [id number] capsule (PreserVision AREDS-2) 1 tab PO BID vitamin 11/13/21 [History Last Taken Unknown] apixaban 2.5 mg tablet (Eliquis) 2.5 mg PO BID #180 tabs 11/24/22 [Rx Last Taken Unknown] acetaminophen 500 mg tablet 1,000 mg PO 0800,1400,2200 PRN pain 06/08/23 [History Last Taken Unknown] Allergy/AdvReac Type Severity Reaction Status Date / Time Gadolinium-MRI Contrast Allergy Severe Hives Verified 06/08/23 18:37 Medium gadoterate meglumine Allergy Severe Hives Verified 06/08/23 18:37 [From Dotarem] dabigatran etexilate AdvReac Intermediate GI upset Verified 06/08/23 18:37 [From Pradaxa] codeine AdvReac Unknown Verified 06/08/23 18:37 diphtheria,pertussis AdvReac Swelling Verified 06/08/23 18:37 (acell),tetanu Penicillins AdvReac Hives Verified 06/08/23 18:37 Family History Mother H/O bilateral mastectomy Breast cancer Father Heart disease unsure of type Sister Cardiac pacemaker in situ Surgical History History of cardioversion (10/06/12) History of left mastectomy (04/11/08) History of total right knee replacement (2006) History of transesophageal echocardiography (LEN) (10/06/12) Social History household members: spouse Smoking Status: Never smoker alcohol intake: never substance use type: does not use ROS ROS ED Constitutional Constitutional ED: Denies chills, fever(s) or sweats Eyes Eyes: Denies change in vision ENT ENT ED: Denies dysphagia or sore throat Cardiovascular Cardiovascular: Denies chest pain, leg edema, palpitations or racing heartbeat Respiratory/Chest Respiratory/Chest: Denies cough, dyspnea or dyspnea on exertion Gastrointestinal Gastrointestinal: Denies abdominal pain, diarrhea, nausea or vomiting Genitourinary Genitourinary ED: Denies dysuria, hematuria or urinary frequency Musculoskeletal Musculoskeletal: Reports extremity pain; Denies back pain or neck pain Integumentary Denies rash or wounds Neurologic Neurologic: Denies headache(s), paresthesias or weakness EXAM Physical Exam Const Vital Signs: 06/08/23 18:37 06/08/23 21:33 Temperature 97.5 F L Temperature Source Temporal Pulse Rate 66 60 Respiratory Rate 18 18 Blood Pressure 115/95 H 119/67 Blood Pressure Mean 101 84 Pulse Ox 97 96 Oxygen Delivery Method Room Air Room Air Positive well nourished and well developed General Appearance ED: well developed and NAD HEENT Reports moist mucous membranes normocephalic and atraumatic Eyes PERRL, EOMs intact bilaterally and conjunctivae normal General Eye ED: Yes normal appearance of both eyes Neck no lymphadenopathy and supple General: Negative for tenderness Chest Wall Chest: Negative for tenderness Resp normal respiratory effort and normal air movement Effort and Inspection: symmetric chest movement; Negative for respiratory distress Cardio regular rate, regular rhythm and no murmurs Peripheral Pulses: pulses 2+ throughout GI normal to inspection, nondistended, normoactive bowel sounds and non-tender Palpation: Negative for guarding or rebound tenderness present Back/Spine no CVA tenderness and no thoracic nor lumbar tenderness Extremity Extremity Narrative: Right lower extremity: Negative logroll. There is suprapatellar effusion knee was cool to palpation, pain worse with range of motion. No erythema. Puncture scab noted on superior lateral knee. Skin intact. Neuro vas intact distally. General Extremety ED: Negative for edema or tenderness General Extremity: Negative for edema Neuro oriented x3 and no sensory deficits noted Sensorium / Orientation: awake and alert Skin no rashes or lesions noted and no wounds MDM MDM MDM Narrative Medical decision making narrative: Interventions / MDM: Differential diagnosis: Recurrent knee effusion, history of CLL Diagnosis considered but do not suspect: Septic joint, however clinically lower suspicion. My EKG interpretation: N/A Imaging independently reviewed and interpreted by myself: Right knee x-ray 4 views: Right knee joint effusion External documents reviewed: N/A Test considered but not ordered:N/A ED course: Patient recurrent symptoms, pain worse with movement. Morphine IV ordered labs with ESR CRP and x-ray. WBC at 20.6 she has history of CLL the staff from 30. ESR and CRP negative. She has a prosthetic joint with recurrent right knee effusion. Discussed with her orthopedist Dr. Nair, agrees with lower concerns for septic joint with her recent evaluation in the hospital 8 days ago with fluid removal. he recommended admitting to the hospitalist service holding her Eliquis he will see her in the morning for treatment options. Discussed with hospitalist Dr. Mendoza for admission. Re-evaluation: stable Disposition discussed with patient/family/significant other: Patient significant other Case discussed with consulting clinician: Orthopedics, hospitalist This note was generated with [employer] dictation software. It may contain incorrect words, spelling, and punctuation that were not noted in checking the note before signing. Lab Data Labs: Laboratory Results - last 24 hr 06/08/23 19:37 WBC 20.6 H RBC 4.07 L Hgb 12.4 Hct 39.4 MCV 96.8 MCH 30.5 MCHC 31.5 L RDW Std Deviation 50.2 H RDW Coeff of Asael 14.2 Plt Count 179 MPV 10.4 Immature Gran % (Auto) 0.200 Neut % (Auto) 18.8 L Lymph % (Auto) 77.2 H [place] % (Auto) 2.9 Eos % (Auto) 0.6 Baso % (Auto) 0.3 Absolute Neuts (auto) 3.9 Absolute Lymphs (auto) 15.92 H Nucleated RBC % 0 Differential Comment SCANNED ESR 2 Sodium 139 Potassium 4.3 Chloride 106 Carbon Dioxide 32.0 Anion Gap 1 L BUN 15 Creatinine 0.84 Estim Creat Clear Calc 42.07 Est GFR (MDRD) Af Amer 82 Est GFR (MDRD) Non-Af 68 BUN/Creatinine Ratio 17.8 Glucose 116 H Calcium 9.1 C-React Prot Ext Range < 2.90 Radiography Diagnostic Testing: Clinical Impression(s) from Imaging Studies Knee X-Ray 06/08/23 19:54 IMPRESSION: Knee prosthesis. No acute fracture identified. Large joint effusion is similar in size to the prior exam. Electronically Signed: Reji Berry MD at 20:17 EDT , Discharge Plan Dx/Rx/DC Orders Clinical Impression: Knee effusion, Chronic lymphocytic leukemia, Chronic anticoagulation, Right knee pain Disposition Disposition: Acute Care Hospital [facility] Discharge Date/Time: 06/08/23 22:59
[2023-06-08 20:12] LABS: Anion Gap 1 (5-15); BUN 15 mg/dL (7-18); BUN/Creat Ratio 17.8 RATIO (10-20); CRP < 2.90 mg/L (0.0-3.0); Calcium,Total 9.1 mg/dL (8.5-10.1); Chloride 106 mmol/L (98-107); Creatinine, Serum 0.84 mg/dL (0.55-1.02); EST Glomerular Filtration Rate 68 mL/min (>60); Est Glom Filt Rate - Afr Amer 82 mL/min (>60); Estimated Creatinine Clearance 42.07 ml/min; Glucose 116 mg/dL (74-106); Potassium 4.3 mmol/L (3.5-5.1); Sodium Level 139 mmol/L (136-145)
[2023-06-08 20:15] LABS: Absolute Lymphocyte Count 15.92 X10^3/uL (0.83-4.51); Absolute Neutrophil Count 3.9 X10^3/uL (2.0-7.7); Basophil# 0.07 X10^3/uL; Basophil% 0.3 % (0-1); Eosinophil# 0.12 X10^3/uL; Eosinophils% 0.6 % (0-5); Hematocrit 39.4 % (37-47); Hemoglobin 12.4 g/dL (12.0-15.0); Lymphocyte # 15.92 X10^3/ul (0.83-4.51); Lymphocyte % 77.2 % (19-41); Mean Corp Hgb Conc 31.5 g/dL (32-36); Mean Corpuscular Hgb 30.5 pg (27.0-32.0); Mean Corpuscular Volume 96.8 fL (81-99); Mean Platelet Vol. 10.4 fl (6.2-12.0); Monocyte# 0.59 X10^3/uL; Monocyte% 2.9 % (0-10); NRBC Flagged by Analyzer 0 % (0-5); Neutrophil # 3.88 X10^3/uL (2.7-7.7); Neutrophil % 18.8 % (47-70); POSITIVE DIFFERENTIAL YES; POSITIVE MORPHOLOGY YES; Platelet Count 179 K/mm3 (150-450); RBC Distribution Width CV 14.2 % (11.6-14.6); RBC Distribution Width SD 50.2 fl (35.1-43.9); Red Blood Count 4.07 M/mm3 (4.2-5.4); White Blood Count 20.6 K/mm3 (4.4-11.0)
[2023-06-08 20:38] LABS: Differential Indicated SCAN CRITERIA MET
[2023-06-08 21:04] LABS: Differential Comment SCANNED
[2023-06-08 21:05] LABS: Erythrocyte Sedimentation Rate 2 mm/hr (0-30)
[2023-06-08 21:33] VITALS: BP 119/67; PULSE 60; RESP 18; O2SAT 96
--- NOTE | 2023-06-08 21:38 | HP.PCM.HOS_ITS ---
HPI - General General Date of Admission: 06/08/23 Date of Service: 06/08/23 Chief Complaint: Recurrent R joint effusion, debility. HPI Narrative The patient is an 87 y/o F w/ PMHx: CLL, Anxiety and Depression, HLD, PAF, Hx VTE (DVT/PE), Hx Breast CA unclear type s/p L mastectomy, recent discharge 06/01/23 following admission for a large right knee joint effusion with orthopedic consultation with arthrocentesis with removal of 60 cc of sanguinous fluid with clearance for resumption of apixaban on 06/02/2023 per orthopedic surgery with incidentally noted bradycardia during admission with heart rate in the 30s to 40s with discontinuation at that time of metoprolol with known CLL with chronic WBC elevation with neutropenia/lymphocytosis with clinical improvement following arthrocentesis prompting return to home who now represents with recurrent effusion starting just prior to ED evaluation occurring later in the day while she was actually standing at the sink in her bathroom and associated discomfort as well as difficulty ambulating prompting ED return. She denies any fever or chills nor any redness/increased warmth to the R knee. She notes it came on very suddenly and she had no trauma or injury. She currently is rating her pain 5-6 out of 10 in severity notes the morphine hardly touched it, worse with any movement or activity attempts. Work-up in the ED included T97.5, heart rate 66, BP 115/95, respiratory rate 18, 97% room air, CBC with WBC 20.6, hemoglobin 12.4, platelet 179 with left shift, BMP with glucose 116, ESR 2, CRP less than 2.90, plain film of the right knee with a knee prosthesis with no acute fracture identified with a large joint effusion similar to prior evaluation. Last dose of eliquis was in the AM. ED discussed case with Dr. Nair and noted intention for repeat drainage of the R knee. In the ED patient ministered morphine initially 2 mg IV x1 and a repeat morphine 4 mg IV x1. [facility] Medical History (Updated 06/09/23 @ 02:[address] Elsie Mendoza MD) Atrial fibrillation Benign paroxysmal positional vertigo Chronic lymphocytic leukemia Circumscribed scleroderma Diverticulosis of colon Effusion of right knee joint Essential hypertension Hemarthrosis involving knee joint History of DVT of lower extremity (2006) History of Guillain-[place] syndrome (1969) History of pulmonary embolus (PE) Hyperlipidemia Insomnia Macular degeneration Osteoporosis Permanent atrial fibrillation Personal history of malignant neoplasm of breast (2007) Tietze syndrome Trigger finger, left ring finger Home Medications lovastatin 20 mg tablet 20 mg PO QHS Cholesterol 04/21/21 [History Last Taken Unknown] multivitamin 1 tab PO DAILY Supplement 04/21/21 [History Last Taken Unknown] sertraline 50 mg tablet 50 mg PO DAILY mental health 11/13/21 [History Last Taken Unknown] vit C 250 mg-vit E 90 mg-zinc 40 mg-copper 1 [id number] capsule (PreserVision AREDS-2) 1 tab PO BID vitamin 11/13/21 [History Last Taken Unknown] apixaban 2.5 mg tablet (Eliquis) 2.5 mg PO BID #180 tabs 11/24/22 [Rx Last Taken Unknown] acetaminophen 500 mg tablet 1,000 mg PO 0800,1400,2200 PRN pain 06/08/23 [History Last Taken Unknown] Allergy/AdvReac Type Severity Reaction Status Date / Time Gadolinium-MRI Contrast Allergy Severe Hives Verified 06/08/23 18:37 Medium gadoterate meglumine Allergy Severe Hives Verified 06/08/23 18:37 [From Dotarem] dabigatran etexilate AdvReac Intermediate GI upset Verified 06/08/23 18:37 [From Pradaxa] codeine AdvReac Unknown Verified 06/08/23 18:37 diphtheria,pertussis AdvReac Swelling Verified 06/08/23 18:37 (acell),tetanu Penicillins AdvReac Hives Verified 06/08/23 18:37 Family History Mother H/O bilateral mastectomy Breast cancer Father Heart disease unsure of type Sister Cardiac pacemaker in situ Surgical History History of cardioversion (10/06/12) History of left mastectomy (04/11/08) History of total right knee replacement (2006) History of transesophageal echocardiography (LEN) (10/06/12) Social History household members: spouse Smoking Status: Never smoker alcohol intake: never substance use type: does not use ROS ROS Narrative Admission Review of Systems: CONSTITUTIONAL: No weight loss, fever, chills, + weakness or fatigue. HEENT: Eyes: No visual loss, blurred vision, double vision or yellow sclerae. Ears, Nose, Throat: No hearing loss, sneezing, congestion, runny nose or sore throat. SKIN: No rash or itching, lesions, wounds. CARDIOVASCULAR: No chest pain, chest pressure or chest discomfort, palpitations, edema, orthopnea, syncopal events. RESPIRATORY: No shortness of breath, cough or sputum, wheezing, hemoptysis. GASTROINTESTINAL: No anorexia, nausea, vomiting or diarrhea, abdominal pain, melena, BRBPR. GENITOURINARY: No dysuria, frequency, urgency or retention. NEUROLOGICAL: No headache, dizziness, syncope, paralysis, ataxia, numbness or tingling in the extremities, focal weakness, change in bowel or bladder control, seizure. MUSCULOSKELETAL: + muscle, back pain, joint pain or stiffness. HEMATOLOGIC: + Easy bleeding or bruising. LYMPHATICS: No enlarged nodes. No history of splenectomy. PSYCHIATRIC: + history of depression or anxiety. ENDOCRINOLOGIC: No reports of sweating, cold or heat intolerance. No polyuria or polydipsia. ALLERGIES: + history of hives. Vital Signs Vital Signs Vital Signs: 06/08/23 18:37 06/08/23 21:33 Temperature 97.5 F L Temperature Source Temporal Pulse Rate 66 60 Respiratory Rate 18 18 Blood Pressure 115/95 H 119/67 Blood Pressure Mean 101 84 Pulse Ox 97 96 Oxygen Delivery Method Room Air Room Air Weight Weight: 120 lb Body Mass Index (BMI) 20.5 Physical Exam Narrative Physical Examination: General: Awake, alert, oriented x 3 and cooperative, seated upright in the ED bed, notes ongoing discomfort to the right knee, worse with any movement. Skin: Normal color, normal turgor, no icterus, no cyanosis. HEENT: AT/NC, EOMI, PERRLA, MMM, no carotid bruits or JVD noted. Lungs: Mildly diminished, greater bases, proper effort, no rales, ronchi or wheezing. Heart: Regular rate and rhythm; no gallop, rub audible, + SM. Abdomen: Soft, NTTP, ND, mildly hyperactive BS, no HSM. Extremities: No cyanosis, no clubbing, significant right knee swelling with e ffusion, no erythema or increased warmth. Neurological: Patient awake, alert, oriented as noted, cognitive function intact; pupils equally reactive to light and accommodation, cranial nerves grossly normal, moving all 4 extremities except extremely limited right lower extremity movement secondary to pain elicited with fusion, strength accordingly severely globally decreased. Psychiatric: Affect appears fatigued, uncomfortable, no acute evidence of depressive or anxiety feelings but does have underlying history. Results Lab / Micro Data 06/08/23 19:37 06/08/23 19:37 Labs: Laboratory Results - last 24 hr 06/08/23 19:37: WBC 20.6 H, RBC 4.07 L, Hgb 12.4, Hct 39.4, MCV 96.8, MCH 30.5, MCHC 31.5 L, RDW Std Deviation 50.2 H, RDW Coeff of Asael 14.2, Plt Count 179, MPV 10.4, Immature Gran % (Auto) 0.200, Neut % (Auto) 18.8 L, Lymph % (Auto) 77.2 H, [place] % (Auto) 2.9, Eos % (Auto) 0.6, Baso % (Auto) 0.3, Absolute Neuts (auto) 3.9, Absolute Lymphs (auto) 15.92 H, Nucleated RBC % 0, Differential Comment SCANNED, ESR 2, Sodium 139, Potassium 4.3, Chloride 106, Carbon Dioxide 32.0, Anion Gap 1 L, BUN 15, Creatinine 0.84, Estim Creat Clear Calc 42.07, Est GFR (MDRD) Af Amer 82, Est GFR (MDRD) Non-Af 68, BUN/Creatinine Ratio 17.8, Glucose 116 H, Calcium 9.1, C-React Prot Ext Range < 2.90 Radiology Impression Knee X-Ray 06/08/23 19:54 IMPRESSION: Knee prosthesis. No acute fracture identified. Large joint effusion is similar in size to the prior exam. Electronically Signed: Reji Berry MD at 20:17 EDT , Assessment & Plan Assessment/Plan (1) Right knee pain: PLAN: Plan The patient is an 87 y/o F w/ PMHx: CLL, Anxiety and Depression, HLD, PAF, Hx VTE (DVT/PE), Hx Breast CA unclear type s/p L mastectomy, recent discharge 06/01/23 following admission for a large right knee joint effusion with orthopedic consultation with arthrocentesis with removal of 60 cc of sanguinous fluid with clearance for resumption of apixaban on 06/02/2023 per orthopedic surgery with incidentally noted bradycardia during admission with heart rate in the 30s to 40s with discontinuation at that time of metoprolol with known CLL with chronic WBC elevation with neutropenia/lymphocytosis with clinical improvement following arthrocentesis prompting return to home who now represents with recurrent effusion starting just prior to ED evaluation. #1. Recurrent intractable right knee discomfort with recurrent joint effusion: Given debility and recurrent effusion will admit to medical surgical floor, maintain on fall precaution, continue hold on oral anticoagulant therapy, orthopedic surgery consulted with planned a.m. arthrocentesis which improved her discomfort significantly previously and given recurrence may need earlier follow-up, will have as needed pain regimen, will trial topical pain compound, PT/OT/case management consultation for discharge planning. #2. CLL: Patient with CBC upon presentation with WBC 20.6, similar to baseline, will repeat CBC in a.m., encourage continued outpatient follow-up with her oncology team. #3. PAF: We will temporally hold home Eliquis regimen given presentation as noted, not on rate or rhythm agent of note. #4. History of breast cancer: Unclear specific type, status post left mast ectomy, considered in remission, encourage continued outpatient follow-up with her surgeon as previously arranged. #5. Hyperlipidemia: We will continue patient on statin therapy. #6. Anxiety and depression: We will continue patient home chronic sertraline regimen. #7. History of VTE: Patient status post prior DVT, PE, temporally holding oral Eliquis regimen as noted, resume once cleared per orthopedic surgery. #8. DVT prophylaxis: Holding Eliquis, last dose this AM. #9. CODE status: Patient AMANDA is her who is present and living will is currently in place. Discussed CODE status at length including difference between FULL code, DNR-CCA and DNR-CC status. Following discussions about the differences in these status, requested DNR-CCA, no intubation status. Advanced Care Planning Face to Face Time: 16 minutes. Charges/Coding Visit Charges Inpatient E&M: 06680 Init Hosp L2 Procedures Hospitalists Procedures: 56014 Advncd Care Plan 30 Min
[2023-06-08 22:01] VITALS: BP 119/67; PULSE 60; RESP 18; TEMP 36.3; O2SAT 94
[2023-06-08] MEDS: Morphine 4 MG/ML Syringe IV (22:29)
[2023-06-08 23:10] VITALS: BP 129/83; PULSE 60; RESP 16; TEMP 37.2; O2SAT 94
[2023-06-08 23:26] VITALS: BMI 20.3
[2023-06-09] MEDS: Arthritis Pain Compound 60 CLICK TUBE TOPICAL ×2 (00:27→06:09)
[2023-06-09 06:07] VITALS: BP 120/69; PULSE 54; RESP 16; TEMP 36.8; O2SAT 93
[2023-06-09] MEDS: Menthol/Lanolin/Calamine/Znox 113 GM Tube 1 APPLIC TOPICAL (06:09)
[2023-06-09 06:25] LABS: Absolute Neutrophil Count 3.3 X10^3/uL (2.0-7.7); Basophil# 0.08 X10^3/uL; Basophil% 0.3 % (0-1); Eosinophil# 0.18 X10^3/uL; Eosinophils% 0.7 % (0-5); Hematocrit 36.3 % (37-47); Hemoglobin 11.3 g/dL (12.0-15.0); Lymphocyte % 82.9 % (19-41); Mean Corp Hgb Conc 31.1 g/dL (32-36); Mean Corpuscular Hgb 30.2 pg (27.0-32.0); Mean Corpuscular Volume 97.1 fL (81-99); Monocyte% 2.4 % (0-10); NRBC Flagged by Analyzer 0 % (0-5); Neutrophil # 3.29 X10^3/uL (2.7-7.7); Neutrophil % 13.5 % (47-70); POSITIVE DIFFERENTIAL YES; POSITIVE MORPHOLOGY YES; Platelet Count 165 K/mm3 (150-450); RBC Distribution Width CV 14.3 % (11.6-14.6); Red Blood Count 3.74 M/mm3 (4.2-5.4); White Blood Count 24.5 K/mm3 (4.4-11.0)
[2023-06-09 06:26] LABS: Differential Indicated SCAN CRITERIA MET
[2023-06-09 06:33] VITALS: BMI 20.2
[2023-06-09] MEDS: Acetaminophen 325 MG Tablet 650 MG PO (06:36)
[2023-06-09] MEDS: oxyCODONE 5 MG Tablet PO (06:36)
[2023-06-09 06:53] LABS: AST(SGOT) 25 U/L (15-37); Alanine Aminotransfer ALT/SGPT 18 U/L (13-56); Albumin, Serum 3.1 g/dL (3.2-5.0); Alkaline Phosphatase 53 U/L (45-117); Anion Gap 4 (5-15); BUN 15 mg/dL (7-18); BUN/Creat Ratio 21.8 RATIO (10-20); Calcium,Total 8.1 mg/dL (8.5-10.1); Chloride 109 mmol/L (98-107); Creatinine, Serum 0.69 mg/dL (0.55-1.02); EST Glomerular Filtration Rate 86 mL/min (>60); Est Glom Filt Rate - Afr Amer 104 mL/min (>60); Estimated Creatinine Clearance 34.84 ml/min; Glucose 89 mg/dL (74-106); Potassium 4.3 mmol/L (3.5-5.1); Protein, Total 6.1 g/dL (6.4-8.2); Sodium Level 139 mmol/L (136-145)
[2023-06-09 09:15] VITALS: BP 142/74; PULSE 53; RESP 18; TEMP 36.8; O2SAT 94
[2023-06-09] MEDS: Multivitamin (Healthy Eyes) Capsule 1 CAP PO (09:22)
[2023-06-09] MEDS: Sertraline 50 MG Tablet PO (09:22)
[2023-06-09] MEDS: Multivitamins,Therapeutic Tablet 1 TABLET PO (09:22)
[2023-06-09 10:18] VITALS: O2SAT 97
--- NOTE | 2023-06-09 11:47 | CON.PCM.OR_ITS ---
HPI Consult Data Date of Consult: 06/09/23 HPI Narrative Reason for Consultation: Recurrent right knee effusion HPI Narrative: DOMENICO MAIN, is a 87 F who presents to [facility] with excruciating right knee pain and swelling. Patient states she was standing getting ready for bed last night and noted rapid onset of right knee pain. She reports no history of trauma. Swelling was noted and pain. Patient had very similar episode last week and was admitted to the hospital 05/31/2023. I saw patient in consultation 06/01/2023. Arthrocentesis was performed with 60 cc of sanguinous fluid aspirated. She noted immediate relief and was able to be discharged home same day. She returned to the emergency department last evening 06/08/23 shortly after the pain started. She denies any fevers, chills, nausea vomiting, chest pain or shortness of breath. [facility] Medical History (Updated 06/09/23 @ 11:[address] Marcelino Apodaca, DO) Atrial fibrillation Benign paroxysmal positional vertigo Chronic lymphocytic leukemia Circumscribed scleroderma Diverticulosis of colon Effusion of right knee joint Essential hypertension Hemarthrosis involving knee joint History of DVT of lower extremity (2006) History of Guillain-Carencro syndrome (1969) History of pulmonary embolus (PE) Hyperlipidemia Insomnia Macular degeneration Osteoporosis Permanent atrial fibrillation Personal history of malignant neoplasm of breast (2007) Tietze syndrome Trigger finger, left ring finger Home Medications lovastatin 20 mg tablet 20 mg PO QHS Cholesterol 04/21/21 [History Last Taken Unknown] multivitamin 1 tab PO DAILY Supplement 04/21/21 [History Last Taken Unknown] sertraline 50 mg tablet 50 mg PO DAILY mental health 11/13/21 [History Last T aken Unknown] vit C 250 mg-vit E 90 mg-zinc 40 mg-copper 1 [id number] capsule (PreserVision AREDS-2) 1 tab PO BID vitamin 11/13/21 [History Last Taken Unknown] acetaminophen 500 mg tablet 1,000 mg PO 0800,1400,2200 PRN pain 06/08/23 [History Last Taken Unknown] Allergy/AdvReac Type Severity Reaction Status Date / Time Gadolinium-MRI Contrast Allergy Severe Hives Verified 06/08/23 18:37 Medium gadoterate meglumine Allergy Severe Hives Verified 06/08/23 18:37 [From Dotarem] dabigatran etexilate AdvReac Intermediate GI upset Verified 06/08/23 18:37 [From Pradaxa] codeine AdvReac Unknown Verified 06/08/23 18:37 diphtheria,pertussis AdvReac Swelling Verified 06/08/23 18:37 (acell),tetanu Penicillins AdvReac Hives Verified 06/08/23 18:37 Family History Mother H/O bilateral mastectomy Breast cancer Father Heart disease unsure of type Sister Cardiac pacemaker in situ Surgical History History of cardioversion (10/06/12) History of left mastectomy (04/11/08) History of total right knee replacement (2006) History of transesophageal echocardiography (LEN) (10/06/12) Social History household members: spouse Smoking Status: Never smoker alcohol intake: never substance use type: does not use ROS ROS Narrative 12 point review systems obtained, negative less otherwise noted HPI. Vital Signs Vital Signs Vital Signs: 06/08/23 18:37 06/08/23 21:33 06/08/23 22:01 Temperature 97.5 F L 97.3 F L Temperature Source Temporal Temporal Pulse Rate 66 60 60 Pulse Strength Respiratory Rate 18 18 18 Respiratory Effort Respiratory Depth Respiratory Pattern Blood Pressure 115/95 H 119/67 119/67 Blood Pressure Mean 101 84 84 Blood Pressure Source Blood Pressure Position Blood Pressure Location Pulse Ox 97 96 94 Oxygen Delivery Method Room Air Room Air Room Air 06/08/23 23:10 06/08/23 23:56 06/09/23 06:07 Temperature 98.9 F 98.3 F Temperature Source Oral Oral Pulse Rate 60 54 L Pulse Strength Respiratory Rate 16 16 Respiratory Effort Normal Respiratory Depth Normal Respiratory Pattern Normal Blood Pressure 129/83 H 120/69 Blood Pressure Mean 98 86 Blood Pressure Source Monitor Monitor Blood Pressure Position Semi-Fowlers Semi-Fowlers Blood Pressure Location Right Arm Right Arm Pulse Ox 94 93 Oxygen Delivery Method Room Air Room Air Room Air 06/09/23 09:19 06/09/23 09:15 06/09/23 09:15 Temperature 98.2 F Temperature Source Oral Pulse Rate 53 L Pulse Strength Normal (2+) Respiratory Rate 18 Respiratory Effort Normal Non-Labored Respiratory Depth Normal Respiratory Pattern Normal Blood Pressure 142/74 H Blood Pressure Mean 96 Blood Pressure Source Monitor Blood Pressure Position Semi-Fowlers Blood Pressure Location Right Arm Pulse Ox 94 Oxygen Delivery Method Room Air Room Air 06/09/23 10:18 Temperature Temperature Source Pulse Rate Pulse Strength Respiratory Rate Respiratory Effort Respiratory Depth Respiratory Pattern Blood Pressure Blood Pressure Mean Blood Pressure Source Blood Pressure Position Blood Pressure Location Pulse Ox 97 Oxygen Delivery Method Room Air Weight Weight: 118 lb 4.8 oz Body Mass Index (BMI) 20.2 Physical Exam Narrative General -A&Ox3, NAD, appears stated age. Vital signs stable, afebrile. Respiratory -normal work of breathing, no intercostal retractions. CV -pulses regular, brisk capillary refill ?4 limbs. Abdomen-soft, nontender, nondistended. No guarding, rigidity, rebound tenderness. Musculoskeletal/neurologic -full range of motion nontender throughout bilateral upper extremities, left lower extremity with full sensation and strength in all dermatomes and myotomes. No midline cervical tenderness. Right lower extremity-no obvious deformity. 2+ right knee effusion is noted with ballotable patella. No warmth or erythema. Patient unable to straight leg raise, no defect palpated in the quad or patellar tendon. No short arc range of motion pain. Brisk capillary refill. Sensation intact light touch L3-S1 dermatomes. DF, PF, EHL intact. DP, PT 2+. Pelvis is stable, nontender. Skin is intact without lacerations, abrasions. No ecchymosis noted. Lab / Micro Data 06/09/23 06:00 06/09/23 06:00 Labs: Laboratory Results - last 24 hr 06/08/23 19:37: WBC 20.6 H, RBC 4.07 L, Hgb 12.4, Hct 39.4, MCV 96.8, MCH 30.5, MCHC 31.5 L, RDW Std Deviation 50.2 H, RDW Coeff of Asael 14.2, Plt Count 179, MPV 10.4, Immature Gran % (Auto) 0.200, Neut % (Auto) 18.8 L, Lymph % (Auto) 77.2 H, [place] % (Auto) 2.9, Eos % (Auto) 0.6, Baso % (Auto) 0.3, Absolute Neuts (auto) 3.9, Absolute Lymphs (auto) 15.92 H, Nucleated RBC % 0, Differential Comment SCANNED, ESR 2, Sodium 139, Potassium 4.3, Chloride 106, Carbon Dioxide 32.0, Anion Gap 1 L, BUN 15, Creatinine 0.84, Estim Creat Clear Calc 42.07, Est GFR (MDRD) Af Amer 82, Est GFR (MDRD) Non-Af 68, BUN/Creatinine Ratio 17.8, Glucose 116 H, Calcium 9.1, C-React Prot Ext Range < 2.90 06/09/23 06:00: WBC 24.5 H, RBC 3.74 L, Hgb 11.3 L, Hct 36.3 L, MCV 97.1, MCH 30.2, MCHC 31.1 L, RDW Std Deviation 50.0 H, RDW Coeff of Asael 14.3, Plt Count 165, MPV 10.0, Immature Gran % (Auto) 0.200, Neut % (Auto) 13.5 L, Lymph % (Auto) 82.9 H, [place] % (Auto) 2.4, Eos % (Auto) 0.7, Baso % (Auto) 0.3, Absolute Neuts (auto) 3.3, Absolute Lymphs (auto) 20.30 H, Nucleated RBC % 0, Sodium 139, Potassium 4.3, Chloride 109 H, Carbon Dioxide 26.0, Anion Gap 4 L, BUN 15, Creatinine 0.69, Estim Creat Clear Calc 34.84, Est GFR (MDRD) Af Amer 104, Est GFR (MDRD) Non-Af 86, BUN/Creatinine Ratio 21.8 H, Glucose 89, Calcium 8.1 L, Total Bilirubin 0.50, AST 25, ALT 18, Alkaline Phosphatase 53, Total Protein 6.1 L, Albumin 3.1 L, Globulin 3.0, Albumin/Globulin Ratio 1.0 Radiology Impression Knee X-Ray 06/08/23 19:54 IMPRESSION: Knee prosthesis. No acute fracture identified. Large joint effusion is similar in size to the prior exam. Electronically Signed: Reji Berry MD at 20:17 EDT , Assessment & Plan Assessment/Plan (1) Right knee pain: QUALIFIERS: Chronicity: acute Qualified Code(s): M25.561 - Pain in right knee PLAN: Suspected recurrent right knee hemarthrosis in the setting of oral anticoagulant therapy. We discussed conservative measures including ice, compression and holding her anticoagulant for at least 3 days as well as possible arthrocentesis. Patient wished to proceed with arthrocentesis due to the immediate pain relief offered last week. Informed consent was obtained. See below procedure note for details. Case was discussed with Dr. Nair who agreed with palliative arthrocentesis. Procedure details: Skin was prepped overlying the superior lateral right knee with ChloraPrep. An 18-gauge needle was then inserted into the right knee joint. 30 cc of sanguinous fluid was aspirated. Patient noted immediate pain relief after nee dle was withdrawn dressed with a Band-Aid and Zev wrap. Patient was able to perform straight leg raise and had improved range of motion following arthrocentesis. Fluid was not sent for analysis due to its gross appearance and benign appearing history. Plan: Mobilize with therapy. I would recommend holding anticoagulant times at least [address] Nair would like the patient follow-up with Dr. Oliveros following discharge from the hospital. I recommended Zev wrap to the right knee at all times when she is out of bed and may remove at nighttime and for hygiene purposes. Thank you for this consultation. I will sign off at this time. Plan of care was discussed with primary service. Please do not hesitate to call if any questions or concerns arise.
--- NOTE | 2023-06-09 11:48 | DCINST_ITS ---
Discharge Instructions Diet Discharge Diet: No restrictions Activity Discharge Activity: Return to Normal Activity and Use Walker Weight Bearing Status: Full weight bearing Follow Up Care Test Results: Test results from this visit will be discussed in further detail at your follow- up appointment, if applicable. Discharge Plan Admission Admit Date/Time: 06/08/23 21:39 Primary Reason for Your Visit: RIGHT KNEE EFFUSION Attending Provider: Adan Sotelo Primary Care Provider: Yamil Madden Consulting Providers: Elsie Mendoza; Clinton Nair Instructions Additional Instructions / Restrictions: YOU WILL HAVE TO CHECK WITH YOUR CAEDIOLOGIST ABOUT RESUMING ELIQUIS Discharge Orders/Prescriptions Prescriptions: Continued multivitamin Tablet 1 tab PO DAILY lovastatin 20 mg tablet 20 mg PO QHS sertraline 50 mg tablet 50 mg PO DAILY PreserVision AREDS-2 250-90-40-1 mg Capsule 1 tab PO BID acetaminophen 500 mg Tablet 1,000 mg PO 0800,1400,2200 PRN (Reason: pain) Discontinued Eliquis 2.5 mg tablet 2.5 mg PO BID Qty: 180 3RF Hold Instructions: MD Ordered Referrals / Follow Up: Everton Oliveros MD [Med Staff - Active Staff] - See Referral Note (CALL FOR APPOINTMENT) Yamil Madden MD [Primary Care Provider] - Disposition Disposition (needs filled in before D/C Order can be placed): Home, Self Care
--- NOTE | 2023-06-09 11:53 | DS.PCM_ITS ---
Providers Date of Admission: 06/08/23 Date of Discharge: 06/09/23 Primary Care Physician: Dr. Yamil Madden MD Consultations 06/09/23 06:29 Consult: Orthopedics Routine Consulting Provider: Clinton Nair Reason for Consult: Recurrent knee effusion EMERGENT Consult: No MD Notified: Yes Date Notified: 06/09/23 Time Notified: 06:30 Method of Notification: ED Physician Initiated Reason For Visit: RECURRENT R KNEE EFFUSION, DEBILITY Diagnosis Discharge Diagnosis (1) Right knee pain: Status: Acute Code(s): M25.561 - Pain in right knee Qualifiers: Chronicity: acute Qualified Code(s): M25.561 - Pain in right knee Plan 1. Right knee effusion-etiology unclear #2 essential hypertension #3 hyperlipidemia #4 chronic lymphocytic leukemia #5 acute debility secondary to right knee effusion Medications at Discharge Home Medications lovastatin 20 mg tablet 20 mg PO QHS Cholesterol 04/21/21 multivitamin 1 tab PO DAILY Supplement 04/21/21 sertraline 50 mg tablet 50 mg PO DAILY mental health 11/13/21 vit C 250 mg-vit E 90 mg-zinc 40 mg-copper 1 [id number]-tubghg capsule (Pre serVision AREDS-2) 1 tab PO BID vitamin 11/13/21 acetaminophen 500 mg tablet 1,000 mg PO 0800,1400,2200 PRN pain 06/08/23 Hospital Course Operations None Procedures - (Arthrocentesis of the right knee) Summary of Care Provided Minutes Spent on Discharge: 30 Hospital Course: This 87-year-old white female was seen in the emergency room at [facility] [place] complaining of right knee swelling, she denied any trauma, patient had a history of a right total knee arthroplasty in 2008, she is taking Eliquis for atrial fibrillation. She had been seen in the emergency room on May 31 and was admitted for inability to ambulate, she was seen by orthopedics at that time and underwent an arthrocentesis of her right knee. She then resumed her Eliquis at home. The ER physician contacted her orthopedic surgeon who was concerned that the patient may have a septic joint and recommended that she be admitted and be seen by orthopedic surgery. Patient's labs revealed an elevated white blood cell count but the patient has chronic lymphocytic leukemia. Patient was placed in observation status on MedSurg 3, she was given IV analgesics for pain, she was seen in consultation by orthopedic surgery performed right knee arthrocentesis with removal of approximately 30 cc of bloody fluid. Patient had improved ambulation after the arthrocentesis. On 06/09/2023, patient was seen and examined: On examination she appeared in good health and spirits, she does not appear to be in any distress. Vital signs as documented. Skin warm and dry and without overt rashes. Neck without JVD, thyroid appears normal, trachea is midline, neck is supple. Lungs clear, normal air movement was noted. Heart exam notable for regular rhythm, normal sounds and absence of murmurs, rubs or gallops. Abdomen unremarkable and without evidence of organomegaly, masses, or abdominal aortic enlargement, bowel sounds are present in all 4 quadrants, no abdominal tenderness was noted. Extremities nonedematous, no cyanosis was noted, no clubbing was noted. Neuro: Cranial nerves II through XII are grossly intact, no focal motor deficits were noted, sensation to light touch and pinprick is intact, motor exam 5/5 throughout. Psych: Patient is alert and oriented x3, she does not appear anxious or depressed, she does not appear agitated. Patient was felt to be stable for discharge home on 06/09/2023. She was not to resume her Eliquis. Weight / BMI Weight Weight: 53.66 kg Body Mass Index (BMI) 20.2 ABG / Lab / Microbiology Data 06/09/23 06:00 06/09/23 06:00 Laboratory: Laboratory Results - last 24 hr 06/08/23 19:37: WBC 20.6 H, RBC 4.07 L, Hgb 12.4, Hct 39.4, MCV 96.8, MCH 30.5, MCHC 31.5 L, RDW Std Deviation 50.2 H, RDW Coeff of Asael 14.2, Plt Count 179, MPV 10.4, Immature Gran % (Auto) 0.200, Neut % (Auto) 18.8 L, Lymph % (Auto) 77.2 H, [place] % (Auto) 2.9, Eos % (Auto) 0.6, Baso % (Auto) 0.3, Absolute Neuts (auto) 3.9, Absolute Lymphs (auto) 15.92 H, Nucleated RBC % 0, Differential Comment SCANNED, ESR 2, Sodium 139, Potassium 4.3, Chloride 106, Carbon Dioxide 32.0, Anion Gap 1 L, BUN 15, Creatinine 0.84, Estim Creat Clear Calc 42.07, Est GFR (MDRD) Af Amer 82, Est GFR (MDRD) Non-Af 68, BUN/Creatinine Ratio 17.8, Glucose 116 H, Calcium 9.1, C-React Prot Ext Range < 2.90 06/09/23 06:00: WBC 24.5 H, RBC 3.74 L, Hgb 11.3 L, Hct 36.3 L, MCV 97.1, MCH 30.2, MCHC 31.1 L, RDW Std Deviation 50.0 H, RDW Coeff of Asael 14.3, Plt Count 165, MPV 10.0, Immature Gran % (Auto) 0.200, Neut % (Auto) 13.5 L, Lymph % (Auto) 82.9 H, [place] % (Auto) 2.4, Eos % (Auto) 0.7, Baso % (Auto) 0.3, Absolute Neuts (auto) 3.3, Absolute Lymphs (auto) 20.30 H, Nucleated RBC % 0, Sodium 139, Potassium 4.3, Chloride 109 H, Carbon Dioxide 26.0, Anion Gap 4 L, BUN 15, Creatinine 0.69, Estim Creat Clear Calc 34.84, Est GFR (MDRD) Af Amer 104, Est GFR (MDRD) Non-Af 86, BUN/Creatinine Ratio 21.8 H, Glucose 89, Calcium 8.1 L, Total Bilirubin 0.50, AST 25, ALT 18, Alkaline Phosphatase 53, Total Protein 6.1 L, Albumin 3.1 L, Globulin 3.0, Albumin/Globulin Ratio 1.0 Radiography Diagnostic Testing: Radiology Impression Knee X-Ray 06/08/23 19:54 IMPRESSION: Knee prosthesis. No acute fracture identified. Large joint effusion is similar in size to the prior exam. Electronically Signed: Reji Berry MD at 20:17 EDT , D/C Instructions Discharge Diet: No restrictions Weight Bearing Status: Full weight bearing Meaningful Use Info Meaningful Use Diagnoses (Choose all that apply): None applicable Discharge Plan Admission Admit Date/Time: 06/08/23 21:39 Primary Reason for Your Visit: RIGHT KNEE EFFUSION Attending Provider: Adan Sotelo Primary Care Provider: Yamil Madden Consulting Providers: Elsie Mendoza; Clinton Nair Instructions Additional Instructions / Restrictions: YOU WILL HAVE TO CHECK WITH YOUR CAEDIOLOGIST ABOUT RESUMING ELIQUIS Discharge Orders/Prescriptions Prescriptions: Continued multivitamin Tablet 1 tab PO DAILY lovastatin 20 mg tablet 20 mg PO QHS sertraline 50 mg tablet 50 mg PO DAILY PreserVision AREDS-2 250-90-40-1 mg Capsule 1 tab PO BID acetaminophen 500 mg Tablet 1,000 mg PO 0800,1400,2200 PRN (Reason: pain) Discontinued Eliquis 2.5 mg tablet 2.5 mg PO BID Qty: 180 3RF Hold Instructions: MD Ordered Referrals / Follow Up: Everton Oliveros MD [Med Staff - Active Staff] - See Referral Note (CALL FOR APPOINTMENT) Yamil Madden MD [Primary Care Provider] - Disposition Disposition (needs filled in before D/C Order can be placed): Home, Self Care Charges/Coding Visit Charges Inpatient E&M: 51561 Subs Hosp L1
[2023-06-09 12:35] VITALS: BP 146/71; PULSE 54; RESP 18; TEMP 36.3; O2SAT 97
== END 2023-06-09 12:45 | disposition home or self-care (01) ==
LOC: ED 19:01 → MS3 22:04
PROVIDERS: Admitting Provider Family Medicine; Emergency Provider Emergency Medicine; PCP Family Medicine; Visit Provider Internal Medicine
DX: M25.461 Effusion, right knee (principal); C91.10 Chronic lymphocytic leukemia of B-cell type not having achieved remission; I48.0 Paroxysmal atrial fibrillation; Z96.659 Presence of unspecified artificial knee joint; I10 Essential (primary) hypertension; E78.5 Hyperlipidemia, unspecified; R53.81 Other malaise; Z79.01 Long term (current) use of anticoagulants; Z86.718 Personal history of other venous thrombosis and embolism; Z79.899 Other long term (current) drug therapy; F41.9 Anxiety disorder, unspecified; F32.A Depression, unspecified
CPT/HCPCS: 20610; 36415; 73562; 80048; 80053; 85025; 85652; 86140; 94668; 96374; 96376; 97162; 97166; 99221; 99283; A4216; G0378

== ENCOUNTER 2023-06-11 18:45 | Observation (INO) | payer MEDICARE, SELFPAY ==
[2023-06-11 18:46] VITALS: BP 154/77; PULSE 63; RESP 16; TEMP 36.2; O2SAT 94
--- NOTE | 2023-06-11 19:01 | EDS_ITS ---
HPI <REGGIE Stiles - Last Filed: 06/11/23 20:44> History of Present Illness HPI Narrative: 87-year-old female presents with recurrent right knee swelling. In the past she had a right knee replacement with Dr. Nair. The knee started swelling over the last few weeks and she was seen several times in the ER with negative x- rays. Xarelto was switched to Eliquis but it did not help. Dr. Apodaca performed arthrocentesis twice, most recently when she was admitted on 06/08-06/09. Orth opedics suspected recurrent right knee hemarthrosis due to ongoing anticoagulation so advised stopping all blood thinners which she did three days ago and following up with cardiology. However despite using an Zev wrap the knee is still swollen and she has pain with walking and difficulty going up stairs at home. No fever chills or redness of the joint. No trauma. Chief Complaint: Lower Extremity Injury [facility] <REGGIE Stiles - Last Filed: 06/11/23 20:44> [facility] Medical History (Updated 06/11/23 @ 20:44 by REGGIE Stiles) Atrial fibrillation Benign paroxysmal positional vertigo Chronic lymphocytic leukemia Circumscribed scleroderma Diverticulosis of colon Effusion of right knee joint Essential hypertension Hemarthrosis involving knee joint History of DVT of lower extremity (2006) History of Guillain-Merrillan syndrome (1969) History of pulmonary embolus (PE) Hyperlipidemia Insomnia Macular degeneration Osteoporosis Permanent atrial fibrillation Personal history of malignant neoplasm of breast (2007) Tietze syndrome Trigger finger, left ring finger Home Medications lovastatin 20 mg tablet 20 mg PO QHS Cholesterol 04/21/21 [History Last Taken Unknown] multivitamin 1 tab PO DAILY Supplement 04/21/21 [History Last Taken Unknown] sertraline 50 mg tablet 50 mg PO DAILY mental health 11/13/21 [History Last Taken Unknown] vit C 250 mg-vit E 90 mg-zinc 40 mg-copper 1 [id number] capsule (PreserVision AREDS-2) 1 tab PO BID vitamin 11/13/21 [History Last Taken Unknown] acetaminophen 500 mg tablet 1,000 mg PO 0800,1400,2200 PRN pain 06/08/23 [History Last Taken Unknown] Allergy/AdvReac Type Severity Reaction Status Date / Time Gadolinium-MRI Contrast Allergy Severe Hives Verified 06/11/23 18:48 Medium gadoterate meglumine Allergy Severe Hives Verified 06/11/23 18:48 [From Dotarem] dabigatran etexilate AdvReac Intermediate GI upset Verified 06/11/23 18:48 [From Pradaxa] codeine AdvReac Unknown Verified 06/11/23 18:48 diphtheria,pertussis AdvReac Swelling Verified 06/11/23 18:48 (acell),tetanu Penicillins AdvReac Hives Verified 06/11/23 18:48 Family History Mother H/O bilateral mastectomy Breast cancer Father Heart disease unsure of type Sister Cardiac pacemaker in situ Surgical History History of cardioversion (10/06/12) History of left mastectomy (04/11/08) History of total right knee replacement (2006) History of transesophageal echocardiography (LEN) (10/06/12) Social History household members: spouse Smoking Status: Never smoker alcohol intake: never substance use type: does not use ROS <REGGIE Stiles - Last Filed: 06/11/23 20:44> ROS ED ROS Narrative Constitutional: Negative for fever, chills, malaise. Neuro: Negative for motor/sensory dysfunction. Skin: Negative for rash, abscess, or wound. Musc: Positive for right knee pain, swelling. EXAM <REGGIE Stiles - Last Filed: 06/11/23 20:44> Physical Exam Narrative Exam Narrative: CONST: Patient sitting in no acute distress. EYES: Normal inspection. NECK: Normal inspection. RESP: No respiratory distress, CTAB. CVS: Regular rate and rhythm, no murmur, no gallop. SKIN: Color normal, no rash, warm, dry, intact. EXTREMITIES: Right knee effusion, extension intact, knee joint stable, compartments are soft. Normal distal strength and sensation, 2+ DP pulse. No erythema or warmth of the joint. Healed chronic midline arthroplasty incision. NEURO: Oriented x4. PSYCH: Normal affect. Const Vital Signs: 06/11/23 18:46 Temperature 97.1 F L Temperature Source Temporal Pulse Rate 63 Respiratory Rate 16 Blood Pressure 154/77 H Blood Pressure Mean 102 Pulse Ox 94 Oxygen Delivery Method Room Air <Dr. Abundio You DO - Last Filed: 06/11/23 20:52> Physical Exam Const Vital Signs: 06/11/23 18:46 Temperature 97.1 F L Temperature Source Temporal Pulse Rate 63 Respiratory Rate 16 Blood Pressure 154/77 H Blood Pressure Mean 102 Pulse Ox 94 Oxygen Delivery Method Room Air MDM <REGGIE Stiles - Last Filed: 06/11/23 20:44> [facility] MDM Narrative Medical decision making narrative: Patient has recurrent right knee effusion. She had recent admission and arthrocentesis by orthopedics who thought it was hemarthrosis secondary to anticoagulation. Blood thinners have been discontinued over the last several days and she is using an Zev wrap but the effusion is still present and causing pain and difficulty ambulating at home. She appears well and nontoxic and is afebrile with normal vital signs. Right knee is swollen but has no redness or warmth or signs of infection. Extremity is neurovascularly intact. Multiple x- rays in the past of been negative so I ordered a CT to rule out occult fracture. It shows hardware intact, no fracture, large fluid collection which may be hemarthrosis. CBC shows stable white count of 22.8 from CLL, hemoglobin 12.4, BMP unremarkable. Plan will be to call the hospitalist and admit patient for placement as she cannot ambulate or perform ADLs safely at home. I also spoke with Dr. Cody Jhaveri in orthopedics who is aware patient is here and states they can be consulted if needed if there is an infection/fracture. Differential: Right knee hemarthrosis, occult fracture, less likely infectious Consults: Hospitalist, orthopedics Lab Data Attestation: I reviewed the patient's lab results. Labs: Laboratory Results - last 24 hr 06/11/23 19:34 WBC 22.8 H RBC 4.07 L Hgb 12.4 Hct 39.1 MCV 96.1 MCH 30.5 MCHC 31.7 L RDW Std Deviation 49.5 H RDW Coeff of Asael 14.2 Plt Count 180 MPV 9.7 Immature Gran % (Auto) 0.200 Neut % (Auto) 14.3 L Lymph % (Auto) 82.3 H [place] % (Auto) 2.5 Eos % (Auto) 0.5 Baso % (Auto) 0.2 Absolute Neuts (auto) 3.3 Absolute Lymphs (auto) 18.74 H Nucleated RBC % 0 Differential Comment SCANNED Sodium 139 Potassium 4.4 Chloride 104 Carbon Dioxide 31.0 Anion Gap 4 L BUN 15 Creatinine 0.72 Est GFR (MDRD) Af Amer 99 Est GFR (MDRD) Non-Af 82 BUN/Creatinine Ratio 20.8 H Glucose 91 Calcium 9.4 Radiography Diagnostic Testing: Clinical Impression(s) from Imaging Studies Lower Extremity CT 06/11/23 19:18 IMPRESSION: 1. No acute fracture is identified. 2. Heterogenous mixed attenuation large joint effusion. This may be indicative of hemarthrosis. 3. Status post total knee arthroplasty. Electronically Signed: Heraclio Stacy DO at 20:39 EDT , <Dr. Abundio You, - Last Filed: 06/11/23 20:52> [facility] Lab Data Labs: Laboratory Results - last 24 hr 06/11/23 19:34 WBC 22.8 H RBC 4.07 L Hgb 12.4 Hct 39.1 MCV 96.1 MCH 30.5 MCHC 31.7 L RDW Std Deviation 49.5 H RDW Coeff of Asael 14.2 Plt Count 180 MPV 9.7 Immature Gran % (Auto) 0.200 Neut % (Auto) 14.3 L Lymph % (Auto) 82.3 H [place] % (Auto) 2.5 Eos % (Auto) 0.5 Baso % (Auto) 0.2 Absolute Neuts (auto) 3.3 Absolute Lymphs (auto) 18.74 H Nucleated RBC % 0 Differential Comment SCANNED Sodium 139 Potassium 4.4 Chloride 104 Carbon Dioxide 31.0 Anion Gap 4 L BUN 15 Creatinine 0.72 Est GFR (MDRD) Af Amer 99 Est GFR (MDRD) Non-Af 82 BUN/Creatinine Ratio 20.8 H Glucose 91 Calcium 9.4 Radiography Diagnostic Testing: Clinical Impression(s) from Imaging Studies Lower Extremity CT 06/11/23 19:18 IMPRESSION: 1. No acute fracture is identified. 2. Heterogenous mixed attenuation large joint effusion. This may be indicative of hemarthrosis. 3. Status post total knee arthroplasty. Electronically Signed: Heraclio Stacy DO at 20:39 EDT , Treatment and Re-Evaluation Narrative: ED attending note: I evaluated the patient in conjunction with the JACOB. I agree with his/her stat ements and above findings. I have personally performed a face to face assessment of the patient and have reviewed the JACOB Note. I performed a substantive portion of the visit including all aspects of the following. I personally saw the patient performed chart review, physical exam, reviewed labs, imaging (if obtained), and formulated a treatment and management plan. Brief history: 87-year-old female here with right knee pain. Exam: Hemodynamically stable, afebrile, nontoxic-appearing. Nursing triage notes reviewed, Vital signs reviewed Constitutional: please see mdm Extremities: Slight swelling to right knee. Neuro: N intact sensation L1-S1 dermatomal distributions. Intact 5/5 strength in hip flexion (T12-L3). Knee extension (L2-L4). Ankle dorsiflexion (L4-L5). Ankle plantar flexion (S1). Great toe extension (L5). 2+ patellar and Achilles DTRs. Skin: No rash or lesions noted but no overlying redness or erythema, right knee is not warm to touch has good range of motion. Pain is not out of proportion to exam. MDM/plan: Chief Complaint: Right knee pain External records reviewed: Multiple times recently for similar symptoms. Status post arthrocentesis by orthopedics with drainage of serosanguineous fluid. Factors affecting care: Hemarthrosis status post right total knee arthroplasty history of CLL, Social determinants of health: Elderly History obtained from others: The patient's Consults: Orthopedic surgery, internal medicine MDM narrative: I considered the following differential diagnosis: Fracture, dislocation, hardware failure, septic arthritis, hemarthrosis I suspect the patient suffered hemarthrosis given recent history recent visits for similar. No evidence of septic arthritis clinically. We will obtain a CT scan to rule out occult fracture dislocation or hardware failure. Given the patient is elderly and is not able to ambulate she would likely need admission for orthopedic surgery evaluation, physical therapy and possible pl acement. Shared decision making: I will have a discussion with the patient and or visitors regarding risk/benefits of further testing or admission. They will be made aware of of the risk/benefits inherent in this decision they will be given the opportunity to voice understanding. Discharge Plan Triage Chief Complaint: Lower Extremity Injury ED Midlevel Provider: Carrie Olmstead ED Provider: Abundio You Dx/Rx/DC Orders Clinical Impression: Knee effusion, right, Acute pain of right knee Prescriptions: No Action multivitamin Tablet 1 tab PO DAILY lovastatin 20 mg tablet 20 mg PO QHS sertraline 50 mg tablet 50 mg PO DAILY PreserVision AREDS-2 250-90-40-1 mg Capsule 1 tab PO BID acetaminophen 500 mg Tablet 1,000 mg PO 0800,1400,2200 PRN (Reason: pain) Primary Care Provider: Yamil Madden Referrals: Yamil Madden MD [Primary Care Provider] -
--- NOTE | 2023-06-11 19:18 | CT_ITS ---
EXAM: CT RIGHT LOWER EXTREMITY WITHOUT INTRAVENOUS CONTRAST, KNEE CLINICAL INDICATION: right knee pain, recurrent effusion TECHNIQUE: Helically acquired images were obtained of the right knee without intravenous contrast. This CT exam was performed using one or more of the following dose reduction techniques: automated exposure control, adjustment of the mA and/or kV according to patient size, and/or use of iterative reconstruction technique. COMPARISON: Right knee radiographs, 06/08/2023 FINDINGS: BONES/JOINTS: Heterogenous mixed attenuation large joint effusion. Examination is limited due to attenuation artifacts secondary to the patient''s knee arthroplasty hardware. Status post total knee arthroplasty. Patellar enthesopathy. Normal osseous alignment. No acute fracture is identified. SOFT TISSUES: No significant abnormality. No soft tissue swelling or gas. No radiopaque foreign body. CT/Extremity Lower without Contra IMPRESSION: 1. No acute fracture is identified. 2. Heterogenous mixed attenuation large joint effusion. This may be indicative of hemarthrosis. 3. Status post total knee arthroplasty. Electronically Signed: Heraclio Stacy DO at 20:39 EDT ,
[2023-06-11] MEDS: Acetaminophen 325 MG Tablet 650 MG PO (19:35)
[2023-06-11 19:42] LABS: Absolute Lymphocyte Count 18.74 X10^3/uL (0.83-4.51); Absolute Neutrophil Count 3.3 X10^3/uL (2.0-7.7); Basophil# 0.05 X10^3/uL; Basophil% 0.2 % (0-1); Eosinophil# 0.12 X10^3/uL; Eosinophils% 0.5 % (0-5); Hematocrit 39.1 % (37-47); Hemoglobin 12.4 g/dL (12.0-15.0); Lymphocyte # 18.74 X10^3/ul (0.83-4.51); Lymphocyte % 82.3 % (19-41); Mean Corp Hgb Conc 31.7 g/dL (32-36); Mean Corpuscular Hgb 30.5 pg (27.0-32.0); Mean Corpuscular Volume 96.1 fL (81-99); Mean Platelet Vol. 9.7 fl (6.2-12.0); Monocyte# 0.57 X10^3/uL; Monocyte% 2.5 % (0-10); NRBC Flagged by Analyzer 0 % (0-5); Neutrophil # 3.26 X10^3/uL (2.7-7.7); Neutrophil % 14.3 % (47-70); POSITIVE DIFFERENTIAL YES; POSITIVE MORPHOLOGY YES; Platelet Count 180 K/mm3 (150-450); RBC Distribution Width CV 14.2 % (11.6-14.6); RBC Distribution Width SD 49.5 fl (35.1-43.9); Red Blood Count 4.07 M/mm3 (4.2-5.4); White Blood Count 22.8 K/mm3 (4.4-11.0)
[2023-06-11 19:58] LABS: Differential Comment SCANNED; Differential Indicated SCAN CRITERIA MET
[2023-06-11 20:01] LABS: Anion Gap 4 (5-15); BUN 15 mg/dL (7-18); BUN/Creat Ratio 20.8 RATIO (10-20); Calcium,Total 9.4 mg/dL (8.5-10.1); Chloride 104 mmol/L (98-107); Creatinine, Serum 0.72 mg/dL (0.55-1.02); EST Glomerular Filtration Rate 82 mL/min (>60); Est Glom Filt Rate - Afr Amer 99 mL/min (>60); Glucose 91 mg/dL (74-106); Potassium 4.4 mmol/L (3.5-5.1); Sodium Level 139 mmol/L (136-145)
--- NOTE | 2023-06-11 20:58 | PCM.HP.STD ---
HPI - General General Date of Admission: 06/11/23 Date of Service: 06/11/23 Chief Complaint: Recurrent R knee pain, swelling. HPI Narrative The patient is an 87 y/o F w/ PMHx: CLL, Anxiety and Depression, HLD, PAF, Hx VTE (DVT/PE), Hx Breast CA unclear type s/p L mastectomy, recent discharge 06/01/23 following admission for a large right knee joint effusion with arthrocentesis with improvement, re-presentation 06/08/23 with again recurrent knee effusion again drained per Dr. Apodaca with temporarily d/c on anticoagulation secondary to recurrent hemarthrosis who now re-presents to the [facility] ED on 06/11/23 after being most recently discharged on 06/09/23 with recurrent right knee effusion despite snug HOMAR wraps and hold on her anticoagulation with no fever or chills but notable debility and difficulty safely caring for herself in her home prompting ED re-evaluation. She notes again she had gone home and seemed improved however she was laying on the couch this evening and got up to use the restroom and again had sudden onset of sensation of increased swelling and tension in the knee. She does report that it feels warm to the touch but she denies any fevers or chills. Work-up in the ED included T97.1, heart rate 63, BP 154/77, respiratory rate 16, 94% on room air, CBC with WBC 22.8, hemoglobin 12.4, platelet 180 with left shift, BMP unremarkable, CT of the right lower extremity obtained following ED discussion with orthopedic surgery to assure no occult fracture noting no acute fracture, heterogeneous mixed attenuation large joint effusion possibly indicative of hemarthroses, status post total knee arthroplasty evident. ED discussed case with Orthopedic surgery, Dr. Jhaveri. Of note patient Hgb has remained stable. [facility] Medical History Atrial fibrillation Benign paroxysmal positional vertigo Chronic lymphocytic leukemia Circumscribed scleroderma Diverticulosis of colon Effusion of right knee joint Essential hypertension Hemarthrosis involving knee joint History of DVT of lower extremity (2006) History of Guillain-Wymore syndrome (1969) History of pulmonary embolus (PE) Hyperlipidemia Insomnia Macular degeneration Osteoporosis Permanent atrial fibrillation Personal history of malignant neoplasm of breast (2007) Tietze syndrome Trigger finger, left ring finger Home Medications lovastatin 20 mg tablet 20 mg PO QHS Cholesterol 04/21/21 [History Last Taken Unknown] multivitamin 1 tab PO DAILY Supplement 04/21/21 [History Last Taken Unknown] sertraline 50 mg tablet 50 mg PO DAILY mental health 11/13/21 [History Last Taken Unknown] vit C 250 mg-vit E 90 mg-zinc 40 mg-copper 1 [id number] capsule (PreserVision AREDS-2) 1 tab PO BID vitamin 11/13/21 [History Last Taken Unknown] acetaminophen 500 mg tablet 1,000 mg PO 0800,1400,2200 PRN pain 06/08/23 [History Last Taken Unknown] Allergy/AdvReac Type Severity Reaction Status Date / Time Gadolinium-MRI Contrast Allergy Severe Hives Verified 06/11/23 18:48 Medium gadoterate meglumine Allergy Severe Hives Verified 06/11/23 18:48 [From Dotarem] dabigatran etexilate AdvReac Intermediate GI upset Verified 06/11/23 18:48 [From Pradaxa] codeine AdvReac Unknown Verified 06/11/23 18:48 diphtheria,pertussis AdvReac Swelling Verified 06/11/23 18:48 (acell),tetanu Penicillins AdvReac Hives Verified 06/11/23 18:48 Family History Mother H/O bilateral mastectomy Breast cancer Father Heart disease unsure of type Sister Cardiac pacemaker in situ Surgical History History of cardioversion (10/06/12) History of left mastectomy (04/11/08) History of total right knee replacement (2006) History of transesophageal echocardiography (LEN) (10/06/12) Social History household members: spouse Smoking Status: Never smoker alcohol intake: never substance use type: does not use ROS ROS Narrative Admission Review of Systems: CONSTITUTIONAL: No weight loss, fever, chills, + weakness or fatigue. HEENT: Eyes: No visual loss, blurred vision, double vision or yellow sclerae. Ears, Nose, Throat: No hearing loss, sneezing, congestion, runny nose or sore throat. SKIN: No rash or itching, lesions, wounds. CARDIOVASCULAR: No chest pain, chest pressure or chest discomfort, palpitations, edema, orthopnea, syncopal events. RESPIRATORY: No shortness of breath, cough or sputum, wheezing, hemoptysis. GASTROINTESTINAL: No anorexia, nausea, vomiting or diarrhea, abdominal pain, melena, BRBPR. GENITOURINARY: No dysuria, frequency, urgency or retention. NEUROLOGICAL: No headache, dizziness, syncope, paralysis, ataxia, numbness or tingling in the extremities, focal weakness, change in bowel or bladder control, seizure. MUSCULOSKELETAL: + muscle, back pain, joint pain or stiffness. HEMATOLOGIC: + Easy bleeding or bruising. LYMPHATICS: No enlarged nodes. No history of splenectomy. PSYCHIATRIC: + history of depression or anxiety. ENDOCRINOLOGIC: No reports of sweating, cold or heat intolerance. No polyuria or polydipsia. ALLERGIES: + history of hives. Vital Signs Vital Signs Vital Signs: 06/11/23 18:46 Temperature 97.1 F L Temperature Source Temporal Pulse Rate 63 Respiratory Rate 16 Blood Pressure 154/77 H Blood Pressure Mean 102 Pulse Ox 94 Oxygen Delivery Method Room Air Physical Exam Narrative Physical Examination: General: Awake, alert, oriented x 3 and cooperative, seated upright in the ED bed, discomfort to the right knee ongoing, worse with palpation and movement. Skin: Normal color, normal turgor, no icterus, no cyanosis, no erythema to the R knee. HEENT: AT/NC, EOMI, PERRLA, MMM, no carotid bruits or JVD noted. Lungs: Mildly diminished, greater bases, proper effort, no rales, ronchi or wheezing. Heart: Regular rate and rhythm; no gallop, rub audible, + SM. Abdomen: Soft, NTTP, ND, mildly hyperactive BS, no HSM. Extremities: No cyanosis, no clubbing, right knee swelling with effusion, no erythema, currently increased warmth noted to the R knee. Neurological: Patient awake, alert, oriented as noted, cognitive function intact; pupils equally reactive to light and accommodation, cranial nerves grossly normal, moving all 4 extremities except extremely limited right lower extremity movement secondary to pain elicited with fusion, strength accordingly severely globally decreased. Psychiatric: Affect appears fatigued, uncomfortable, no acute evidence of depressive or anxiety feelings but does have underlying history. Results Lab / Micro Data 06/11/23 19:34 06/11/23 19:34 Labs: Laboratory Results - last 24 hr 06/11/23 19:34: WBC 22.8 H, RBC 4.07 L, Hgb 12.4, Hct 39.1, MCV 96.1, MCH 30.5, MCHC 31.7 L, RDW Std Deviation 49.5 H, RDW Coeff of Asael 14.2, Plt Count 180, MPV 9.7, Immature Gran % (Auto) 0.200, Neut % (Auto) 14.3 L, Lymph % (Auto) 82.3 H, [place] % (Auto) 2.5, Eos % (Auto) 0.5, Baso % (Auto) 0.2, Absolute Neuts (auto) 3.3, Absolute Lymphs (auto) 18.74 H, Nucleated RBC % 0, Differential Comment SCANNED, Sodium 139, Potassium 4.4, Chloride 104, Carbon Dioxide 31.0, Anion Gap 4 L, BUN 15, Creatinine 0.72, Est GFR (MDRD) Af Amer 99, Est GFR (MDRD) Non-Af 82, BUN/Creatinine Ratio 20.8 H, Glucose 91, Calcium 9.4 Radiology Impression Lower Extremity CT 06/11/23 19:18 IMPRESSION: 1. No acute fracture is identified. 2. Heterogenous mixed attenuation large joint effusion. This may be indicative of hemarthrosis. 3. Status post total knee arthroplasty. Electronically Signed: Heraclio Stacy DO at 20:39 EDT , Assessment & Plan Assessment/Plan (1) Acute pain of right knee: (2) Knee effusion, right: PLAN: Plan The patient is an 87 y/o F w/ PMHx: CLL, Anxiety and Depression, HLD, PAF, Hx VTE (DVT/PE), Hx Breast CA unclear type s/p L mastectomy, recent discharge 06/01/23 following admission for a large right knee joint effusion with arthrocentesis with improvement, re-presentation 06/08/23 with again recurrent knee effusion again drained per Dr. Apodaca with temporarily d/c on anticoagulation secondary to recurrent hemarthrosis who now re-presents to the [facility] ED on 06/11/23 after being most recently discharged on 06/09/23 with recurrent right knee effusion despite snug HOMAR wraps and hold on her anticoagulation with no fever or chills but notable debility and difficulty safely caring for herself in her home prompting ED re-evaluation. #1. Recurrent intractable right knee discomfort, adult FTT, unable to ambulate with recurrent R knee hemarthorsis: Returns again with recurrent effusion despite wrap and aspiration, will admit to [facility], maintain on fall precaution, continue hold on oral anticoagulant therapy, continue snug HOMAR wrap, orthopedic surgery consulted and evaluation pending, uncertain if recurrent aspiration will be performed given it keeps recurring, will have as needed pain regimen, will use topical pain compound as seemed to assist during prior admission, PT/OT/case management consultation for discharge planning. Procalcitonin, CRP and ESR again requested. #2. CLL: Patient with CBC upon presentation with WBC 22.6, stable, repeat CBC in AM, encourage continued outpatient follow-up with her oncology team. #3. PAF: Continue to hold home Eliquis regimen, not on rate or rhythm agent. Prior had been on metoprolol but this was discontinued during prior admission secondary to noted bradycardia with HR 30-40 range. #4. History of breast cancer: Unclear specific type, s/p L mastectomy, in remission, encourage continued outpatient follow-up. #5. Hyperlipidemia: We will continue patient on statin therapy. #6. Anxiety and depression: We will continue patient home sertraline regimen. #7. History of VTE: Patient status post prior DVT, PE, holding oral Eliquis regimen as noted. #8. DVT prophylaxis: Holding Eliquis. Last dose was on 06/08/23 AM. #9. CODE status: Patient HCPOA is her who is present and living will is currently in place. DNR-CCA, no intubation status. Charges/Coding Visit Charges Inpatient E&M: 52739 Init Hosp L2
[2023-06-11 21:07] VITALS: BP 146/70; PULSE 50; RESP 16; TEMP 36.8; O2SAT 97
[2023-06-11 22:00] VITALS: BP 167/65; PULSE 99; RESP 18; TEMP 36.6; O2SAT 97
[2023-06-11 22:13] LABS: Erythrocyte Sedimentation Rate 2 mm/hr (0-30)
[2023-06-11 22:15] VITALS: BMI 20.2
[2023-06-11 22:33] LABS: Procalcitonin 0.06 ng/mL (0.00-0.09)
[2023-06-11 23:21] VITALS: BP 188/82; PULSE 84
[2023-06-11 23:36] VITALS: BP 188/82; PULSE 84
[2023-06-11] MEDS: 0.9% Saline Lock 10 ML Syringe IV (23:36)
[2023-06-11] MEDS: hydrALAZINE 20 MG/ML Vial 10 MG IV (23:36)
[2023-06-12] VITALS (8 sets, daily range): BP systolic 111–152; BP diastolic 64–73; PULSE 58–70; RESP 16–18; TEMP 36.7–37.6; O2SAT 96–97; BMI 20.1
[2023-06-12] MEDS: 0.9% Saline Lock 10 ML Syringe IV (04:34)
[2023-06-12] MEDS: Morphine 2 MG/ML Syringe IV (04:35)
[2023-06-12 06:05] LABS: Absolute Lymphocyte Count 18.22 X10^3/uL (0.83-4.51); Absolute Neutrophil Count 3.5 X10^3/uL (2.0-7.7); Basophil# 0.07 X10^3/uL; Basophil% 0.3 % (0-1); Eosinophil# 0.17 X10^3/uL; Eosinophils% 0.8 % (0-5); Hematocrit 38.4 % (37-47); Hemoglobin 12.3 g/dL (12.0-15.0); Lymphocyte # 18.22 X10^3/ul (0.83-4.51); Lymphocyte % 80.7 % (19-41); Mean Corpuscular Hgb 30.4 pg (27.0-32.0); Mean Corpuscular Volume 94.8 fL (81-99); Mean Platelet Vol. 10.6 fl (6.2-12.0); Monocyte# 0.63 X10^3/uL; Monocyte% 2.8 % (0-10); NRBC Flagged by Analyzer 0 % (0-5); Neutrophil # 3.46 X10^3/uL (2.7-7.7); Neutrophil % 15.2 % (47-70); POSITIVE DIFFERENTIAL YES; Platelet Count 161 K/mm3 (150-450); RBC Distribution Width CV 14.2 % (11.6-14.6); RBC Distribution Width SD 48.9 fl (35.1-43.9); Red Blood Count 4.05 M/mm3 (4.2-5.4); White Blood Count 22.6 K/mm3 (4.4-11.0)
[2023-06-12 07:27] LABS: ALB/GLOB Ratio 1.1 RATIO (0.9-2.4); AST(SGOT) 22 U/L (15-37); Alanine Aminotransfer ALT/SGPT 18 U/L (13-56); Albumin, Serum 3.5 g/dL (3.2-5.0); Alkaline Phosphatase 55 U/L (45-117); Anion Gap 8 (5-15); BUN 13 mg/dL (7-18); BUN/Creat Ratio 19.5 RATIO (10-20); Calcium,Total 9.1 mg/dL (8.5-10.1); Chloride 106 mmol/L (98-107); Creatinine, Serum 0.67 mg/dL (0.55-1.02); EST Glomerular Filtration Rate 89 mL/min (>60); Est Glom Filt Rate - Afr Amer 108 mL/min (>60); Estimated Creatinine Clearance 34.61 ml/min; Globulin 3.1 g/dL (2.2-4.2); Glucose 92 mg/dL (74-106); Protein, Total 6.6 g/dL (6.4-8.2); Sodium Level 138 mmol/L (136-145)
[2023-06-12 07:31] LABS: Differential Indicated SCAN CRITERIA MET
[2023-06-12] MEDS: Multivitamins,Therapeutic Tablet 1 TABLET PO (09:07)
[2023-06-12] MEDS: Multivitamin (Healthy Eyes) Capsule 1 CAP PO ×2 (09:08→21:56)
[2023-06-12] MEDS: Sertraline 50 MG Tablet PO (09:08)
[2023-06-12] MEDS: Acetaminophen 325 MG Tablet 650 MG PO (09:10)
[2023-06-12] MEDS: oxyCODONE 5 MG Tablet PO (09:11)
--- NOTE | 2023-06-12 10:19 | CON.PCM.OR_ITS ---
HPI Consult Data Date of Consult: 06/12/23 HPI Narrative HPI Narrative: DOMENICO MAIN, is a 87 F who presents recurring right knee pain and swelling. She previously had knee replacement surgery, cemented posterior stabilized total knee replacement by Dr. Nair approximately 17 years ago. She ultimately was started on blood thinners for atrial fibrillation. She cannot remember how long she has been on the blood thinner. She states she first developed right knee swelling in April 2021 without any specific trauma. She was on blood thinners at that time. Reportedly Dr. Nair did not want to aspirate her knee. He felt that it would recur. Patient denies any history of knee infection. She states that she has been in the hospital 3 times in the past 2 and half weeks. She did have evaluation and treatment by Dr. Apodaca as recently as of this week. She states that he did aspirate her knee which then felt better. Also it was decided to stop her blood thinners. Reportedly she has been off blood thinner since . Fluid was not sent. Reportedly it was a hemarthrosis. Patient has had recurrent knee pain and swelling. Denies fever or chills. Denies hip pain. Denies injury. She states she cannot put weight on it normally. She cannot walk on it. Patient returned to the hospital and orthopedics was reconsulted. [facility] Medical History Atrial fibrillation Benign paroxysmal positional vertigo Chronic lymphocytic leukemia Circumscribed scleroderma Diverticulosis of colon Effusion of right knee joint Essential hypertension Hemarthrosis involving knee joint History of DVT of lower extremity (2006) History of Guillain-Bellmont syndrome (1969) History of pulmonary embolus (PE) Hyperlipidemia Insomnia Macular degeneration Osteoporosis Permanent atrial fibrillation Personal history of malignant neoplasm of breast (2007) Tietze syndrome Trigger finger, left ring finger Home Medications lovastatin 20 mg tablet 20 mg PO QHS Cholesterol 04/21/21 [History Last Taken Unknown] multivitamin 1 tab PO DAILY Supplement 04/21/21 [History Last Taken Unknown] sertraline 50 mg tablet 50 mg PO DAILY mental health 11/13/21 [History Last Taken Unknown] vit C 250 mg-vit E 90 mg-zinc 40 mg-copper 1 [id number] capsule (PreserVision AREDS-2) 1 tab PO BID vitamin 11/13/21 [History Last Taken Unknown] acetaminophen 500 mg tablet 1,000 mg PO 0800,1400,2200 PRN pain 06/08/23 [ History Last Taken Unknown] Allergy/AdvReac Type Severity Reaction Status Date / Time Gadolinium-MRI Contrast Allergy Severe Hives Verified 06/11/23 18:48 Medium gadoterate meglumine Allergy Severe Hives Verified 06/11/23 18:48 [From Dotarem] dabigatran etexilate AdvReac Intermediate GI upset Verified 06/11/23 18:48 [From Pradaxa] codeine AdvReac Unknown Verified 06/11/23 18:48 diphtheria,pertussis AdvReac Swelling Verified 06/11/23 18:48 (acell),tetanu Penicillins AdvReac Hives Verified 06/11/23 18:48 Family History Mother H/O bilateral mastectomy Breast cancer Father Heart disease unsure of type Sister Cardiac pacemaker in situ Surgical History History of cardioversion (10/06/12) History of left mastectomy (04/11/08) History of total right knee replacement (2006) History of transesophageal echocardiography (LEN) (10/06/12) Social History household members: spouse Smoking Status: Never smoker alcohol intake: never substance use type: does not use ROS ROS Narrative Patient has macular degeneration. She has atrial fibrillation. She denies any recent changes to eyes ears nose or throat heart or lungs bowel or bladder. She has recurrent knee pain and swelling. Vital Signs Vital Signs Vital Signs: 06/11/23 18:46 06/11/23 21:07 06/11/23 22:00 Temperature 97.1 F L 98.2 F 97.9 F Temperature Source Temporal Oral Pulse Rate 63 50 L 99 Respiratory Rate 16 16 18 Respiratory Effort Respiratory Depth Respiratory Pattern Blood Pressure 154/77 H 146/70 H 167/65 H Blood Pressure [BP] Blood Pressure Mean 102 95 99 Blood Pressure Mean [BP] Blood Pressure Source Monitor Blood Pressure Source [BP] Blood Pressure Position Semi-Fowlers Blood Pressure Position [BP] Blood Pressure Location Right Arm Blood Pressure Location [BP] Pulse Ox 94 97 97 Oxygen Delivery Method Room Air Room Air 06/11/23 22:15 06/11/23 23:21 06/11/23 23:36 Temperature Temperature Source Pulse Rate 84 84 Respiratory Rate Respiratory Effort Normal Non-Labored Respiratory Depth Normal Respiratory Pattern Normal Blood Pressure 188/82 H Blood Pressure [BP] 188/82 H Blood Pressure Mean Blood Pressure Mean [BP] 117 Blood Pressure Source Blood Pressure Source [BP] Monitor Blood Pressure Position Blood Pressure Position [BP] Semi-Fowlers Blood Pressure Location Blood Pressure Location [BP] Right Arm Pulse Ox Oxygen Delivery Method Room Air 06/12/23 00:01 06/12/23 00:15 06/12/23 04:32 Temperature 98.2 F Temperature Source Oral Pulse Rate 58 L 58 L 58 L Respiratory Rate 16 Respiratory Effort Respiratory Depth Respiratory Pattern Blood Pressure 129/72 H Blood Pressure [BP] 147/67 H 147/67 H Blood Pressure Mean 91 Blood Pressure Mean [BP] 93 93 Blood Pressure Source Monitor Blood Pressure Source [BP] Monitor Monitor Blood Pressure Position Semi-Fowlers Blood Pressure Position [BP] Semi-Fowlers Semi-Fowlers Blood Pressure Location Right Arm Blood Pressure Location [BP] Right Arm Right Arm Pulse Ox 96 Oxygen Delivery Method Room Air 06/12/23 04:15 06/12/23 04:43 06/12/23 09:00 Temperature 98.0 F Temperature Source Temporal Pulse Rate 65 Respiratory Rate 18 Respiratory Effort Normal Non-Labored Respiratory Depth Normal Respiratory Pattern Normal Blood Pressure 111/64 Blood Pressure [BP] Blood Pressure Mean 79 Blood Pressure Mean [BP] Blood Pressure Source Monitor Blood Pressure Source [BP] Blood Pressure Position Semi-Fowlers Blood Pressure Position [BP] Blood Pressure Location Right Arm Blood Pressure Location [BP] Pulse Ox 96 Oxygen Delivery Method Room Air Room Air Weight Weight: 53.297 kg Body Mass Index (BMI) 20.1 Physical Exam Narrative Right knee has a small to moderate palpable effusion. She has some mild tenderness about the medial aspect of the knee. She is able to do a straight leg raise against gravity on the right leg. Her knee motion is 0-75 degrees actively. Passively her motion is 0-90 degrees. Knee seems ligamentously stable. No calf pain or swelling. Negative Homans' sign. No hip pain with motion. No hip pain on palpation. Negative straight leg raise. No warmth or redness about the knee. No adenopathy noted at the knee or hip region. Lab / Micro Data Attestation: I reviewed the patient's lab results. Lab results narrative: X-rays reviewed, no obvious loosening or fracture of the knee. CT scan reviewed, no obvious loosening or fracture of the knee, knee effusion noted on all exams. Previous knee x-rays also reviewed. Reported bone scan done approximately 1 year ago as ordered by Dr. Oliveros. Follow-up in 2 years was recommended 06/12/23 05:04 06/12/23 05:04 Labs: Laboratory Results - last 24 hr 06/11/23 19:34: WBC 22.8 H, RBC 4.07 L, Hgb 12.4, Hct 39.1, MCV 96.1, MCH 30.5, MCHC 31.7 L, RDW Std Deviation 49.5 H, RDW Coeff of Asael 14.2, Plt Count 180, MPV 9.7, Immature Gran % (Auto) 0.200, Neut % (Auto) 14.3 L, Lymph % (Auto) 82.3 H, [place] % (Auto) 2.5, Eos % (Auto) 0.5, Baso % (Auto) 0.2, Absolute Neuts (auto) 3.3, Absolute Lymphs (auto) 18.74 H, Nucleated RBC % 0, Differential Comment SCANNED, ESR 2, Sodium 139, Potassium 4.4, Chloride 104, Carbon Dioxide 31.0, Anion Gap 4 L, BUN 15, Creatinine 0.72, Est GFR (MDRD) Af Amer 99, Est GFR (MDRD) Non-Af 82, BUN/Creatinine Ratio 20.8 H, Glucose 91, Calcium 9.4, C-React Prot Ext Range 3.50 H 06/11/23 21:19: Procalcitonin 0.06 06/12/23 05:04: WBC 22.6 H, RBC 4.05 L, Hgb 12.3, Hct 38.4, MCV 94.8, MCH 30.4, MCHC 32.0, RDW Std Deviation 48.9 H, RDW Coeff of Asael 14.2, Plt Count 161, MPV 10.6, Immature Gran % (Auto) 0.200, Neut % (Auto) 15.2 L, Lymph % (Auto) 80.7 H, [place] % (Auto) 2.8, Eos % (Auto) 0.8, Baso % (Auto) 0.3, Absolute Neuts (auto) 3.5, Absolute Lymphs (auto) 18.22 H, Nucleated RBC % 0, Sodium 138, Potassium 4.0, Chloride 106, Carbon Dioxide 24.0, Anion Gap 8, BUN 13, Creatinine 0.67, Estim Creat Clear Calc 34.61, Est GFR (MDRD) Af Amer 108, Est GFR (MDRD) Non-Af 89, BUN/Creatinine Ratio 19.5, Glucose 92, Calcium 9.1, Total Bilirubin 0.60, AST 22, ALT 18, Alkaline Phosphatase 55, Total Protein 6.6, Albumin 3.5, Globulin 3.1, Albumin/Globulin Ratio 1.1 Radiology Impression Lower Extremity CT 06/11/23 19:18 IMPRESSION: 1. No acute fracture is identified. 2. Heterogenous mixed attenuation large joint effusion. This may be indicative of hemarthrosis. 3. Status post total knee arthroplasty. Electronically Signed: Heraclio Stacy DO at 20:39 EDT , Assessment & Plan Assessment/Plan (1) Acute pain of right knee: (2) Knee effusion, right: PLAN: Her diagnosis and treatment options regarding her recurring right knee effusion discussed with her at length. Dr. Mir was present. After prolonged discussion patient did wish to have her knee aspirated. She understood the risk of the procedure which could include infection, pain, recurrent swelling. She tolerated the procedure well. Fluid was sent for liza ropriate Gram stain, culture and sensitivity, cell count, crystal exam, fungal cultures. Patient can do ice to the knee. Zev wrap could be applied. She can be weightbearing as tolerated. I will make Dr. Oliveros/lyric/david aware of her admission. Procedure: After obtaining appropriate consent patient's right knee was prepped with Betadine followed by alcohol. Under standard sterile technique I aspirated her right knee from a superior lateral approach and obtained less than 5 cc of bloody fluid. Although further effusion was felt to be present no further fluid was obtainable. Sterile bandage was applied. Patient tolerated the procedure well. Case was discussed with Dr. Mir. Recommend patient follow-up with Dr. Oliveros as outpatient. (3) Right knee pain: QUALIFIERS: Chronicity: acute Qualified Code(s): M25.561 - Pain in right knee
[2023-06-12 10:30] LABS: Differential Comment SCANNED
--- NOTE | 2023-06-12 15:30 | PCM.PN.HOSP ---
Reason for Visit Reason for Visit: Diagnoses Effusion, right knee (06/11/23) Pain in right knee (06/11/23) Subjective Subjective Patient was seen and examined today, I talked with Dr. Jhaveri (Ortho) about her care today, he performed a bedside arthrocentesis on her right knee, he got minimal amounts of bloody fluid. He is going to have his partner Dr. Oliveros see the patient and give his input. Objective Data Objective Data Vital Signs: Vital Signs Temp Pulse Resp BP Pulse Ox O2 Del Method 98.0 F 70 18 111/64 96 Room Air 06/12/23 09:00 06/12/23 10:00 06/12/23 09:00 06/12/23 09:00 06/12/23 09:00 06/12/23 10:19 Oxygen Delivery Method Room Air Weight: 53.297 kg Body Mass Index (BMI) 20.1 Intake & Output: Intake and Output for Last 24 Hours 06/10/23 06/11/23 06/12/23 23:59 23:59 23:59 Intake Total 100 / 100 500 / 500 Balance 100 / 100 500 / 500 Lab / Micro Data 06/12/23 05:04 06/12/23 05:04 Labs: Laboratory Results - last 24 hr 06/11/23 19:34: WBC 22.8 H, RBC 4.07 L, Hgb 12.4, Hct 39.1, MCV 96.1, MCH 30.5, MCHC 31.7 L, RDW Std Deviation 49.5 H, RDW Coeff of Asael 14.2, Plt Count 180, MPV 9.7, Immature Gran % (Auto) 0.200, Neut % (Auto) 14.3 L, Lymph % (Auto) 82.3 H, [place] % (Auto) 2.5, Eos % (Auto) 0.5, Baso % (Auto) 0.2, Absolute Neuts (auto) 3.3, Absolute Lymphs (auto) 18.74 H, Nucleated RBC % 0, Differential Comment SCANNED, ESR 2, Sodium 139, Potassium 4.4, Chloride 104, Carbon Dioxide 31.0, Anion Gap 4 L, BUN 15, Creatinine 0.72, Est GFR (MDRD) Af Amer 99, Est GFR (MDRD) Non-Af 82, BUN/Creatinine Ratio 20.8 H, Glucose 91, Calcium 9.4, C-React Prot Ext Range 3.50 H 06/11/23 21:19: Procalcitonin 0.06 06/12/23 05:04: WBC 22.6 H, RBC 4.05 L, Hgb 12.3, Hct 38.4, MCV 94.8, MCH 30.4, MCHC 32.0, RDW Std Deviation 48.9 H, RDW Coeff of Asael 14.2, Plt Count 161, MPV 10.6, Immature Gran % (Auto) 0.200, Neut % (Auto) 15.2 L, Lymph % (Auto) 80.7 H, [place] % (Auto) 2.8, Eos % (Auto) 0.8, Baso % (Auto) 0.3, Absolute Neuts (auto) 3.5, Absolute Lymphs (auto) 18.22 H, Nucleated RBC % 0, Differential Comment SCANNED, Sodium 138, Potassium 4.0, Chloride 106, Carbon Dioxide 24.0, Anion Gap 8, BUN 13, Creatinine 0.67, Estim Creat Clear Calc 34.61, Est GFR (MDRD) Af Amer 108, Est GFR (MDRD) Non-Af 89, BUN/Creatinine Ratio 19.5, Glucose 92, Calcium 9.1, Total Bilirubin 0.60, AST 22, ALT 18, Alkaline Phosphatase 55, Total Protein 6.6, Albumin 3.5, Globulin 3.1, Albumin/Globulin Ratio 1.1 Micro: Microbiology 06/12/23 10:26 Fluid - Bursa Gram Stain - Final Radiography Diagnostic Testing: Radiology Impression Lower Extremity CT 06/11/23 19:18 IMPRESSION: 1. No acute fracture is identified. 2. Heterogenous mixed attenuation large joint effusion. This may be indicative of hemarthrosis. 3. Status post total knee arthroplasty. Electronically Signed: Heraclio Stacy DO at 20:39 EDT , Physical Exam Const alert, oriented x3, no apparent distress and average body habitus General Appearance: cooperative, well kempt and well developed Orientation / Consciousness: awake, oriented to person, oriented to place and oriented to time HEENT normocephalic, head/scalp atraumatic and moist oral mucous membranes Eyes PERRL, EOMs intact bilaterally and conjunctivae normal Neck supple, no JVD, thyroid normal and no carotid bruits General: trachea midline Resp normal respiratory effort, no retractions, no use of accessory muscles and clear to auscultation bilaterally Auscultation: Negative for rales, rhonchi or wheezes Cardio regular rate, regular rhythm, S1 normal heart sound, S2 normal heart sound, no murmurs, no rub and no gallops GI normal to inspection, nondistended, normoactive bowel sounds, soft to palpation, non-tender and non-distended Extremity Extremity Narrative: There is minimal right knee effusion noted on examination Skin no rashes or lesions noted General Skin Exam: no breakdown Neuro oriented x3, CN's II-XII intact bilaterally, moves all extremities, no focal motor deficits and no sensory deficits noted Sensorium / Orientation: awake and alert Speech: speech normal Psych affect normal Assessment & Plan Assessment/Plan (1) Knee effusion, right: PLAN: Plan 1. Recurrent right knee effusion-etiology unclear, continue PT OT, Dr. Oliveros will see the patient #2 debility secondary to #1-PT and OT will see the patient #3 chronic lymphocytic leukemia-complicates care, medical course, recovery, and prognosis #4 hyperlipidemia-patient is on lovastatin, she will be receiving Lipitor while she is hospitalized here Total clinical time spent by myself addressing the patient's medical issues, reviewing all of her data, and collaborating with patient's care team: 25 minutes Charges/Coding Visit Charges Inpatient E&M: 36694 Subs Hosp L1
[2023-06-12] MEDS: Atorvastatin Calcium 10 MG Tablet PO (21:56)
[2023-06-13 04:00] VITALS: BP 139/63; PULSE 72; RESP 18; TEMP 36.4; O2SAT 94
[2023-06-13 05:14] VITALS: BMI 20.1
[2023-06-13 07:15] VITALS: O2SAT 97
[2023-06-13] MEDS: Sertraline 50 MG Tablet PO (09:32)
[2023-06-13] MEDS: Multivitamin (Healthy Eyes) Capsule 1 CAP PO (09:32)
[2023-06-13] MEDS: Multivitamins,Therapeutic Tablet 1 TABLET PO (09:32)
--- NOTE | 2023-06-13 09:59 | CASEMGMT ---
Discharge Planning A list of?SNF?providers including quality and resource use data and consistent with the patient's preferred geographic region, medical needs, and insurance network was created in [facility] Guide.? This list was provided to the SW. Leti Jackson, Discharge Planning Asst.
[2023-06-13 10:00] VITALS: BP 112/99; PULSE 80; RESP 18; TEMP 36.5; O2SAT 96
--- NOTE | 2023-06-13 10:28 | PCM.PN.HOSP ---
Reason for Visit Reason for Visit: Diagnoses Effusion, right knee (06/11/23) Pain in right knee (06/11/23) Subjective Subjective Patient was seen and examined today, I had a discussion with the patient and her who was in the room at the time my examination, patient does not feel she is able to go home and the agrees, they would like to try to have her go to TCU for short-term rehab services. I talked with social and human services assistant and discharge planning about this. Objective Data Objective Data Vital Signs: Vital Signs Temp Pulse Resp BP Pulse Ox O2 Del Method 97.7 F L 80 18 112/99 H 96 Room Air 06/13/23 10:00 06/13/23 10:00 06/13/23 10:00 06/13/23 10:00 06/13/23 10:00 06/13/23 10:00 Oxygen Delivery Method Room Air Weight: 53.295 kg Body Mass Index (BMI) 20.1 Intake & Output: Intake and Output for Last 24 Hours 06/11/23 06/12/23 06/13/23 23:59 23:59 23:59 Intake Total 100 / 100 500 / 1000 550 / 550 Balance 100 / 100 500 / 1000 550 / 550 Lab / Micro Data 06/12/23 05:04 06/12/23 05:04 Labs: Laboratory Results - last 24 hr 06/12/23 05:04: Differential Comment SCANNED Micro: Microbiology 06/12/23 10:26 Fluid - Bursa Gram Stain - Final Physical Exam Narrative alert, oriented x3, no apparent distress and average body habitus General Appearance: cooperative, well kempt and well developed Orientation / Consciousness: awake, oriented to person, oriented to place and oriented to time HEENT normocephalic, head/scalp atraumatic and moist oral mucous membranes Eyes PERRL, EOMs intact bilaterally and conjunctivae normal Neck supple, no JVD, thyroid normal and no carotid bruits General: trachea midline Resp normal respiratory effort, no retractions, no use of accessory muscles and clear to auscultation bilaterally Auscultation: Negative for rales, rhonchi or wheezes Cardio regular rate, regular rhythm, S1 normal heart sound, S2 normal heart sound, no murmurs, no rub and no gallops GI normal to inspection, nondistended, normoactive bowel sounds, soft to palpation, non-tender and non-distended Extremity Extremity Narrative: There is minimal right knee effusion noted on examination Skin no rashes or lesions noted General Skin Exam: no breakdown Neuro oriented x3, CN's II-XII intact bilaterally, moves all extremities, no focal motor deficits and no sensory deficits noted Sensorium / Orientation: awake and alert Speech: speech normal Psych affect normal Assessment & Plan Assessment/Plan (1) Acute pain of right knee: (2) Knee effusion, right: PLAN: Plan 1. Recurrent right knee effusion-etiology unclear, continue PT OT, Dr. Oliveros will see the patient #2 debility secondary to #1-PT and OT will see the patient, patient and the patient's requested the patient go to a correction facility for short-term rehab services, again I let social and human services assistant and discharge planning know about this. #3 chronic lymphocytic leukemia-complicates care, medical course, recovery, and prognosis #4 hyperlipidemia-patient is on lovastatin, she will be receiving Lipitor while she is hospitalized here Total clinical time spent by myself addressing the patient's medical issues, reviewing all of her data, and collaborating with patient's care team: 25 minutes Charges/Coding Visit Charges Inpatient E&M: 82603 Subs Hosp L1
--- NOTE | 2023-06-13 10:56 | CASEMGMT ---
Met with patient to complete ERNANDEZ form. ERNANDEZ form explained to patient and her husbanc who voiced understanding and signed form (patient requested that her sign form).. Original form placed in pt?s chart and copy provided to patient. Leti Jackson, Discharge Planning Asst.
[2023-06-13] MEDS: Mag Hydrox/Al Hydrox/Simeth 30 ML UDC PO (12:13)
[2023-06-13] MEDS: Ondansetron 4 MG/2 ML Vial IV (12:13)
[2023-06-13] MEDS: 0.9% Saline Lock 10 ML Syringe IV (12:13)
--- NOTE | 2023-06-13 14:05 | CASEMGMT ---
Addendum entered by Basilia Nava 06/13/23 16:10: Pt with dc in. LORIE ROMAN into pt room, pt denies any need for therapy. She states she just wants to figure out what is causing this. Pt has an appt with on . Pt to dc home today. Addendum entered by Basilia Nava 06/13/23 15:00: Spoke with hospitalist who is unsure if ortho will be in today or tomorrow and asked to relay this to pt and . LORIE ROMAN relayed information at this time. Original Note: LORIE ROMAN into pt room, pt lying in bed stating she is nauseated, at bedside. Pt states she cannot return home. She states that her leg all of the sudden gives out and she feels that she gets paralyzed. Pt has two story home. Pt agrees that pt cannot return home. LORIE ROMAN spoke with therapy who states pt was nauseated this morning but moving the knee fine. LORIE ROMAN back into pt room and it was gathered that pt just doesn't know when this is going to happen and they are wanting an answer as to why this is happening.
--- NOTE | 2023-06-13 15:38 | DCINST_ITS ---
Discharge Instructions Diet Discharge Diet: No restrictions Activity Discharge Activity: Use Walker Weight Bearing Status: Weight bearing as tolerated Follow Up Care Test Results: Test results from this visit will be discussed in further detail at your follow- up appointment, if applicable. Discharge Plan Admission Admit Date/Time: 06/11/23 21:01 Primary Reason for Your Visit: right knee pain Attending Provider: Adan Sotelo Primary Care Provider: Yamil Madden Consulting Providers: Cody Jhaveri; Elsie Mendoza Discharge Orders/Prescriptions Prescriptions: New hydrocodone-acetaminophen 5-325 mg tablet 1 tab PO Q6H PRN (Reason: pain) 5 Days Qty: 20 0RF Rx Instructions: you may take 1/2-1 every six hours for pain-you may take a 500 mg Tylenol with each dose Continued multivitamin Tablet 1 tab PO DAILY lovastatin 20 mg tablet 20 mg PO QHS sertraline 50 mg tablet 50 mg PO DAILY PreserVision AREDS-2 250-90-40-1 mg Capsule 1 tab PO BID Discontinued acetaminophen 500 mg Tablet 1,000 mg PO 0800,1400,2200 PRN (Reason: pain) Referrals / Follow Up: Everton Oliveros MD [Med Staff - Active Staff] - See Referral Note (This ) Yamil Madden MD [Primary Care Provider] - Disposition Disposition (needs filled in before D/C Order can be placed): Home, Self Care
--- NOTE | 2023-06-13 15:39 | CASEMGMT ---
Social Work SW met with patient and in room, inquired about advanced directives. Pt does have documents, but Dr just ordered discharge so will not be able to provide copies. Marixa Jerome, [employer]
--- NOTE | 2023-06-13 15:53 | PCM.DC.SUM ---
Providers Date of Admission: 06/11/23 Date of Discharge: 06/13/23 Primary Care Physician: Dr. Yamil Madden MD Consultations 06/11/23 22:47 Consult: Orthopedics Routine Consulting Provider: Cody Jhaveri Reason for Consult: Recurrent R knee effusion, now knee warm to touch. EMERGENT Consult: No MD Notified: Yes Date Notified: 06/11/23 Time Notified: 21:47 Method of Notification: ED Physician Initiated Reason For Visit: RECURRENT R KNEE EFFUSION, PAIN Diagnosis Discharge Diagnosis (1) Acute pain of right knee: Status: Acute Code(s): M25.561 - Pain in right knee (2) Knee effusion, right: Status: Acute Code(s): M25.461 - Effusion, right knee Plan 1. Recurrent right knee effusion-etiology unclear #2 debility secondary to #1-PT and OT will see the patient, patient and the patient's requested the patient go to a long term facility for short-term rehab services, again I let social service technician and discharge planning know about this. #3 chronic lymphocytic leukemia-complicates care, medical course, recovery, and prognosis #4 hyperlipidemia-patient is on lovastatin, she will be receiving Lipitor while she is hospitalized here Total clinical time spent by myself addressing the patient's medical issues, reviewing all of her data, and collaborating with patient's care team: 30 minutes Medications at Discharge Home Medications lovastatin 20 mg tablet 20 mg PO QHS Cholesterol 04/21/21 multivitamin 1 tab PO DAILY Supplement 04/21/21 sertraline 50 mg tablet 50 mg PO DAILY mental health 11/13/21 vit C 250 mg-vit E 90 mg-zinc 40 mg-copper 1 [id number]-fqzajc capsule (PreserVision AREDS-2) 1 tab PO BID vitamin 11/13/21 hydrocodone-acetaminophen 5-325mg 5mg-325mg 1 tab PO Q6H PRN pain 5 days #20 tabs 06/13/23 Hospital Course Operations None Procedures - (Right knee arthrocentesis) Summary of Care Provided Minutes Spent on Discharge: 30 Hospital Course: This 87-year-old white female was seen in the emergency room at [facility] with complaints of right knee pain and inability to ambulate at home. Patient has a chronic right knee effusion which has been drained recently twice. The etiology of the knee effusion is unknown at this time. [facility], she was seen in consultation by orthopedic surgery who performed a right knee arthrocentesis, the final result was not available at the time of this dictation, there were a lot of red blood cells and some white blood cells seen in the fluid however. The knee was not felt to be infected. PT and OT saw the patient, she initially wanted to go to an extended care facility because she was afraid she could not walk at home but PT and OT did not feel she would qualify for skilled care. I talked with orthopedic surgery and they recommended the patient follow-up with Dr. Oliveros in his office this week, patient's stated that the patient had an upcoming appointment on . On 06/13/2023, patient was seen and examined: On examination she appeared in good health and spirits, she does not appear to be in any distress. Vital signs as documented. Skin warm and dry and without overt rashes. Neck without JVD, thyroid appears normal, trachea is midline, neck is supple. Lungs clear, normal air movement was noted. Heart exam notable for regular rhythm, normal sounds and absence of murmurs, rubs or gallops. Abdomen unremarkable and without evidence of organomegaly, masses, or abdominal aortic enlargement, bowel sounds are present in all 4 quadrants, no abdominal tenderness was noted. Extremities nonedematous, no cyanosis was noted, no clubbing was noted. Small right knee effusion was noted. Neuro: Cranial nerves II through XII are grossly intact, no focal motor deficits were noted, sensation to light touch and pinprick is intact, motor exam 5/5 throughout. Psych: Patient is alert and oriented x3, she does not appear anxious or depressed, she does not appear agitated. On 06/13/2023, patient was felt to be stable for discharge home. Weight / BMI Weight Weight: 53.295 kg Body Mass Index (BMI) 20.1 ABG / Lab / Microbiology Data 06/12/23 05:04 06/12/23 05:04 Microbiology: Microbiology 06/12/23 10:26 Fluid - Bursa Gram Stain - Final D/C Instructions Discharge Diet: No restrictions Weight Bearing Status: Weight bearing as tolerated Meaningful Use Info Meaningful Use Diagnoses (Choose all that apply): None applicable Discharge Plan Admission Admit Date/Time: 06/11/23 21:01 Primary Reason for Your Visit: right knee pain Attending Provider: Adan Sotelo Primary Care Provider: Yamil Madden Consulting Providers: Cody Jhaveri; Elsie Mendoza Discharge Orders/Prescriptions Prescriptions: New hydrocodone-acetaminophen 5-325 mg tablet 1 tab PO Q6H PRN (Reason: pain) 5 Days Qty: 20 0RF Rx Instructions: you may take 1/2-1 every six hours for pain-you may take a 500 mg Tylenol with each dose Continued multivitamin Tablet 1 tab PO DAILY lovastatin 20 mg tablet 20 mg PO QHS sertraline 50 mg tablet 50 mg PO DAILY PreserVision AREDS-2 250-90-40-1 mg Capsule 1 tab PO BID Discontinued acetaminophen 500 mg Tablet 1,000 mg PO 0800,1400,2200 PRN (Reason: pain) Referrals / Follow Up: Everton Oliveros MD [Med Staff - Active Staff] - See Referral Note (This ) Yamil Madden MD [Primary Care Provider] - Disposition Disposition (needs filled in before D/C Order can be placed): Home, Self Care Charges/Coding Visit Charges Inpatient E&M: 30381 Disch Hosp
[2023-06-13 16:00] VITALS: BP 124/73; PULSE 78; RESP 18; TEMP 36.6; O2SAT 97
== END 2023-06-13 16:40 | disposition home or self-care (01) ==
LOC: ED 19:21 → MS3 21:10
PROVIDERS: Physician Assistant; Admitting Provider Family Medicine; Emergency Provider Emergency Medicine; PCP Family Medicine; Visit Provider Internal Medicine
DX: M25.461 Effusion, right knee (principal); C91.10 Chronic lymphocytic leukemia of B-cell type not having achieved remission; I48.0 Paroxysmal atrial fibrillation; M25.561 Pain in right knee; E78.5 Hyperlipidemia, unspecified; R53.81 Other malaise; F41.9 Anxiety disorder, unspecified; I10 Essential (primary) hypertension; Z86.718 Personal history of other venous thrombosis and embolism; Z96.651 Presence of right artificial knee joint; Z79.899 Other long term (current) drug therapy; F32.A Depression, unspecified
CPT/HCPCS: 20610; 36415; 73700; 80048; 80053; 84145; 85025; 85652; 86140; 87070; 87075; 87205; 87206; 94668; 97162; 97166; 99284; A4216; J2405

== ENCOUNTER → 2023-06-21 | Outpatient (CLI) | payer MEDICARE, SELFPAY ==
--- NOTE | 2023-06-21 12:52 | ECHOD_ITS ---
Reason For Study: SOB Procedure This was a 2D Doppler, Color Flow transthoracic echocardiogram. Technically difficult study. Patient unable to lay in the left lateral position, was very uncomfortable on the table and could not tolerate the probe on her skin. Most images taken with patient supine. Exam performed in department. Left Ventricle Normal LV size. Left ventricular systolic function is normal. The estimated ejection fraction is 60 %. No regional wall motion abnormalities noted. Right Ventricle Normal RV size. Normal systolic function. Atria Normal left atrium. Normal right atrium. Tricuspid Valve Normal tricuspid valve. Pulmonic Valve Normal pulmonic valve. Great Vessels Normal aortic root. The pulmonary artery is normal size. Normal inferior vena cava. Pericardium/Pleural No pericardial effusion. MMode/2D Measurements & Calculations LVIDd: 4.1 cm IVSd: 0.86 cm Ao root diam: 3.1 cm LVIDs: 2.5 cm LVPWd: 0.82 cm LA dimension: 3.9 cm RVDd: 2.7 cm FS: 38.8 % LAV(MOD-sp4): 49.6 ml LA A4 area: 18.9 cm2 RA A4 area: 18.1 cm2 TAPSE: 1.3 cm Time Measurements MV dec time: 0.23 sec Doppler Measurements & Calculations MV E max stuart: 102.3 cm/sec Lat Peak E' Stuart: 14.2 cm/sec Med Peak E' Stuart: 14.0 cm/sec MV A max stuart: 23.1 cm/sec E/E' lat: 7.2 E/E' med: 7.3 MV E/A: 4.4 MV V2 max: 112.9 cm/sec MV P1/2t max stuart: 114.1 cm/sec Ao V2 max: 147.1 cm/sec MV max P.1 mmHg MV P1/2t: 76.1 msec Ao max P.7 mmHg MV V2 mean: 47.5 cm/sec MV dec slope: 439.6 cm/sec2 Ao V2 mean: 95.6 cm/sec MV mean P.3 mmHg Ao mean P.2 mmHg MV V2 VTI: 27.1 cm MVA(P1/2t): 2.9 cm2 Ao V2 VTI: 30.4 cm LV V1 max: 118.0 cm/sec TR max stuart: 231.8 cm/sec LV V1 max P.6 mmHg TR max P.5 mmHg ECHO/Echo Complete Interpretation Summary Normal LV size. Left ventricular systolic function is normal. The estimated ejection fraction is 60 %. Ordering Physician: Mackenzie Reyes Referring Physician: Mackenzie Reyes Performed By: Pedro Pablo Figueredo RCS
== END | disposition home or self-care (01) ==
LOC: CVS 12:52
PROVIDERS: PCP Family Medicine; Referring Provider Nurse Practitioner Gerontology; Visit Provider Nurse Practitioner Gerontology
DX: R06.09 Other forms of dyspnea (principal)
CPT/HCPCS: 93306

== ENCOUNTER 2023-11-23 06:25 | Observation (INO) | payer MEDICARE, SELFPAY ==
[2023-11-23] VITALS (7 sets, daily range): BP systolic 132–167; BP diastolic 62–89; PULSE 45–68; RESP 14–19; TEMP 36.2–37; O2SAT 91–99
--- NOTE | 2023-11-23 06:39 | ED.VIS.LOWEX ---
HPI History of Present Illness Chief Complaint: Lower Extremity Injury Informant: patient and spouse/S.O. Narrative Narrative: Patient woke up this morning with a swollen painful right knee. States they called was orthopedics, but she was not able to get in and so they were referred here to the ER to get the fluid drawn off of my knee again. She denies any falls or injuries to it, and denies any repetitive motions or unusual activities/overuse yesterday or this morning. She denies any fevers, chills, systemic symptoms. She used to be anticoagulated on apixaban but has not been on that medication for some time and just takes baby aspirin instead now. She states she has so much pain when she tries to move her knee or stand on it that she is unable to stand or walk. [facility] Medical History (Updated 11/23/23 @ 06:[address] Faustino Donnelly MD) Acute pain of right knee Atrial fibrillation Benign paroxysmal positional vertigo Chronic anticoagulation Chronic lymphocytic leukemia Circumscribed scleroderma Diverticulosis of colon Effusion of right knee joint Essential hypertension Hemarthrosis involving knee joint History of DVT of lower extremity (2006) History of Guillain-[place] syndrome (1969) History of pulmonary embolus (PE) Hyperlipidemia Insomnia Knee effusion, right Macular degeneration Osteoporosis Permanent atrial fibrillation Personal history of malignant neoplasm of breast (2007) Tietze syndrome Trigger finger, left ring finger Home Medications lovastatin 20 mg tablet 20 mg PO QHS Cholesterol 04/21/21 [History Last Taken Unknown] multivitamin 1 tab PO DAILY Supplement 04/21/21 [History Last Taken Unknown] sertraline 50 mg tablet 50 mg PO DAILY mental health 11/13/21 [History Last Taken Unknown] vit C 250 mg-vit E 90 mg-zinc 40 mg-copper 1 [id number]-bubmwn capsule (PreserVision AREDS-2) 1 tab PO BID vitamin 11/13/21 [History Last Taken Unknown] apixaban 2.5 mg tablet (Eliquis) 2.5 mg PO BID 08/16/23 [History Last Taken Unknown] Allergy/AdvReac Type Severity Reaction Status Date / Time Gadolinium-MRI Contrast Allergy Severe Hives Verified 08/16/23 14:11 Medium gadoterate meglumine Allergy Severe Hives Verified 08/16/23 14:11 [From Dotarem] dabigatran etexilate AdvReac Intermediate GI upset Verified 08/16/23 14:11 [From Pradaxa] codeine AdvReac Unknown Verified 08/16/23 14:11 diphtheria,pertussis AdvReac Swelling Verified 08/16/23 14:11 (acell),tetanu Penicillins AdvReac Hives Verified 08/16/23 14:11 Family History (Reviewed 08/16/23 @ 14:11 by Mackenzie Reyes SUPERVISOR HEAT TREATING, SUPERVISOR [employer] TREATING-C) Mother H/O bilateral mastectomy Breast cancer Father Heart disease unsure of type Sister Cardiac pacemaker in situ Surgical History (Updated 11/23/23 @ 06:[address] Faustino Donnelly MD) History of cardioversion (10/06/12) History of left mastectomy (04/11/08) History of total right knee replacement (2006) History of transesophageal echocardiography (LEN) (10/06/12) Social History household members: spouse Smoking Status: Never smoker alcohol intake: never substance use type: does not use ROS ROS ED Constitutional Constitutional ED: Denies chills or fever(s) Musculoskeletal Musculoskeletal: Reports extremity pain; Denies neck pain Integumentary Denies Abrasions, rash or wounds Neurologic Neurologic: Denies paresthesias or weakness EXAM Physical Exam Const Vital Signs: 11/23/23 06:26 11/23/23 06:25 Temperature 98.2 F Temperature Source Temporal Pulse Rate 58 L 68 Respiratory Rate 16 19 H Blood Pressure 167/82 H 147/79 H Blood Pressure Mean 110 101 Pulse Ox 95 96 Oxygen Delivery Method Room Air Room Air Positive well nourished and well developed General Appearance ED: well developed and NAD Neck full ROM and supple Back/Spine normal ROM and normal to inspection Extremity Extremity Narrative: Right knee with a mild-moderate effusion. There is no excessive warmth compared with surrounding areas and no erythema or other skin lesions. There is a well-healed midline dorsal knee surgical scar, apparently from a total knee arthroplasty. She is able to extend the knee fully, all ligaments are intact and without pain or laxity on stressing. She can move the knee well until about 45 degrees at which point she states she is unable. General Extremety ED: Yes weight-bearing difficulty General Extremity: weight-bearing difficulty Neuro oriented x3, no focal motor deficits and no sensory deficits noted Sensorium / Orientation: alert Psych mental status grossly normal and thought process normal Skin no wounds Rashes: no rashes MDM MDM MDM Narrative Medical decision making narrative: I confirmed with the patient that she has a total knee arthroplasty in the right knee, it was done about [address] Fagan with [facility], the practice she tried to call today. 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 I discussed with Dr. Oliveros, he does not recommend performing an emergent arthrocentesis for this, citing that the risks especially infection outweigh the potential benefits. I relayed to the patient and her that I do not think she has a septic arthritis here, she may have knee pain/effusion from arthritis, less likely to be crystal induced arthritis. I offered her a wrap, pain medication, they declined that but states that she is unable to go home because she is unable to stand or walk even with a walker. Therefore I advise x-rays, labs, and admission for now. History & Record Review Additional record(s) reviewed:: Prior ED visit (Orthopedic Dr. Apodaca performed 2 prior arthrocentesis, not performed by ED physicians.) Lab Data Attestation: I reviewed the patient's lab results. Labs: Laboratory Results - last 24 hr 11/23/23 07:21 WBC 26.0 H RBC 4.07 L Hgb 12.4 Hct 38.7 MCV 95.1 MCH 30.5 MCHC 32.0 RDW Std Deviation 50.4 H RDW Coeff of Asael 14.5 Plt Count 133 L MPV 10.0 Immature Gran % (Auto) 0.200 Neut % (Auto) 17.4 L Lymph % (Auto) 79.0 H [place] % (Auto) 2.2 Eos % (Auto) 0.9 Baso % (Auto) 0.3 Absolute Neuts (auto) 4.6 Absolute Lymphs (auto) 20.56 H Nucleated RBC % 0.2 ALC 21, ANC only 4.6. Similar WBC to prior measurements, likely related to CLL as opposed to acute infection. Management Discussion w/another healthcare provider: Hospitalist and Experimental Electronics Developer (Ortho Dr. Oliveros) Discharge Plan Dx/Rx/DC Orders Clinical Impression: Effusion of right knee, History of total right knee replacement, Inability to ambulate due to right knee Disposition Disposition: Acute Care Hospital [facility]
[2023-11-23] MEDS: HYDROcodone Bitartrate/Apap 5/325 Tablet PO (07:19)
--- NOTE | 2023-11-23 07:30 | RAD_ITS ---
INDICATION: pain/swelling EXAMINATION/TECHNIQUE: X-RAY - RIGHT XR Knee 1 or 2 Views 2 VIEWS COMPARISON: June 08, 2023 FINDINGS: SOFT TISSUES: No soft tissue swelling or gas. No radiopaque foreign body. BONES/JOINTS: There is a total knee arthroplasty in place that is stable. The alignment is anatomic. There is a moderate-sized joint effusion. No suspicious bony lesions are visualized. RAD/Knee 1 or 2 Views IMPRESSION: Total knee arthroplasty, grossly anatomic in alignment. Joint effusion. Electronically Signed: Rocío Borja MD at 8:07 EDT ,
[2023-11-23 07:35] LABS: Absolute Lymphocyte Count 20.56 X10^3/uL (0.83-4.51); Absolute Neutrophil Count 4.6 X10^3/uL (2.0-7.7); Basophil# 0.07 X10^3/uL; Basophil% 0.3 % (0-1); Eosinophil# 0.23 X10^3/uL; Eosinophils% 0.9 % (0-5); Hematocrit 38.7 % (37-47); Hemoglobin 12.4 g/dL (12.0-15.0); Lymphocyte # 20.56 X10^3/ul (0.83-4.51); Mean Corpuscular Hgb 30.5 pg (27.0-32.0); Mean Corpuscular Volume 95.1 fL (81-99); Monocyte# 0.58 X10^3/uL; Monocyte% 2.2 % (0-10); NRBC Flagged by Analyzer 0.2 % (0-5); Neutrophil # 4.55 X10^3/uL (2.7-7.7); Neutrophil % 17.4 % (47-70); POSITIVE DIFFERENTIAL YES; POSITIVE MORPHOLOGY YES; Platelet Count 133 K/mm3 (150-450); RBC Distribution Width CV 14.5 % (11.6-14.6); RBC Distribution Width SD 50.4 fl (35.1-43.9); Red Blood Count 4.07 M/mm3 (4.2-5.4)
[2023-11-23 07:38] LABS: Differential Indicated SCAN CRITERIA MET
[2023-11-23 07:51] LABS: Anion Gap 6 (5-15); BUN 20 mg/dL (7-18); BUN/Creat Ratio 23.5 RATIO (10-20); Calcium,Total 9.2 mg/dL (8.5-10.1); Chloride 109 mmol/L (98-107); Creatinine, Serum 0.85 mg/dL (0.55-1.02); EST Glomerular Filtration Rate 67 mL/min (>60); Est Glom Filt Rate - Afr Amer 82 mL/min (>60); Estimated Creatinine Clearance 40.56 ml/min; Glucose 116 mg/dL (74-106); Sodium Level 142 mmol/L (136-145); Uric Acid 3.8 mg/dL (2.6-6.0)
--- NOTE | 2023-11-23 09:55 | PCM.HP.STD ---
HPI - General General Date of Admission: 11/23/23 Date of Service: 11/23/23 Chief Complaint: Right knee pain HPI Narrative DOMENICO MAIN, is a 87 F who presents to the emergency room at [facility] with complaints of right knee pain that started early this morning. According to orthopedic surgery (Dr. Oliveros) who was contacted by the emergency room physician, patient has had a long history of right knee pain and she gets joint effusions which are usually bloody, she has been sent to other orthopedic surgeons for another opinion about the knee and it is not recommended that the knee be replaced again. Workup in the emergency room included a CBC which showed an elevated white blood cell count, on examination by myself the right knee does appear to be swollen but it is not overly warm or reddened. Patient states that she cannot be discharged home from the ER due to the fact that she cannot walk. I have decided to place the patient into observation status on [facility] 3, she will be seen by PT and OT, I will take her off aspirin, I had a brief discussion with Dr. Herrera concerning the patient's aspirin usage, aspirin is not beneficial to prevent strokes from A-fib and so I will stop her aspirin to prevent recurrent bleeding in her right knee. I will have to talk to the patient about this. [facility] Medical History (Updated 11/23/23 @ 06:[address] Faustino Donnelly MD) Acute pain of right knee Atrial fibrillation Benign paroxysmal positional vertigo Chronic anticoagulation Chronic lymphocytic leukemia Circumscribed scleroderma Diverticulosis of colon Effusion of right knee joint Essential hypertension Hemarthrosis involving knee joint History of DVT of lower extremity (2006) History of Guillain-[place] syndrome (1969) History of pulmonary embolus (PE) Hyperlipidemia Insomnia Knee effusion, right Macular degeneration Osteoporosis Permanent atrial fibrillation Personal history of malignant neoplasm of breast (2007) Tietze syndrome Trigger finger, left ring finger Home Medications lovastatin 20 mg tablet 20 mg PO QHS Cholesterol 04/21/21 [History Last Taken Unknown] multivitamin 1 tab PO DAILY Supplement 04/21/21 [History Last Taken Unknown] sertraline 50 mg tablet 50 mg PO DAILY mental health 11/13/21 [History Last Taken Unknown] vit C 250 mg-vit E 90 mg-zinc 40 mg-copper 1 iu-lcgmui-xmpixp capsule (PreserVision AREDS-2) 1 tab PO BID vitamin 11/13/21 [History Last Taken Unknown] aspirin 325 mg tablet,delayed release (Aspir-Melida) 325 mg PO DAILY 11/23/23 [History Last Taken Unknown] Allergy/AdvReac Type Severity Reaction Status Date / Time Gadolinium-MRI Contrast Allergy Severe Hives Verified 08/16/23 14:11 Medium gadoterate meglumine Allergy Severe Hives Verified 08/16/23 14:11 [From Dotarem] dabigatran etexilate AdvReac Intermediate GI upset Verified 08/16/23 14:11 [From Pradaxa] codeine AdvReac Unknown Verified 08/16/23 14:11 diphtheria,pertussis AdvReac Swelling Verified 08/16/23 14:11 (acell),tetanu Penicillins AdvReac Hives Verified 08/16/23 14:11 Family History (Reviewed 08/16/23 @ 14:11 by Mackenzie Reyes INSPECTOR [employer]GRICULTURAL COMMODITIES, INSPECTOR [employer]GRICULT[employer] COMMODITIES-C) Mother H/O bilateral mastectomy Breast cancer Father Heart disease unsure of type Sister Cardiac pacemaker in situ Surgical History (Updated 11/23/23 @ 06:[address] Faustino Donnelly MD) History of cardioversion (10/06/12) History of left mastectomy (04/11/08) History of total right knee replacement (2006) History of transesophageal echocardiography (LEN) (10/06/12) Social History household members: spouse Smoking Status: Never smoker alcohol intake: never substance use type: does not use ROS Constitutional Constitutional: Denies anorexia, change in weight, chills, fatigue, fever(s), malaise, night sweats or weakness Eyes Eyes: Denies blurry vision, change in vision, discharge from eye(s) or eye pain Cardiovascular Cardiovascular: Denies chest pain, claudication, edema or palpitations Respiratory/Chest Respiratory/Chest: Denies cough, hemoptysis, shortness of breath at rest or shortness of breath with exertion Gastrointestinal Gastrointestinal: Denies abdominal pain, constipation, diarrhea, hematemesis, hematochezia, melena, nausea or vomiting Genitourinary Genitourinary: Denies dysuria, hematuria, urinary frequency, urinary hesitancy, urinary incontinence or urinary urgency Musculoskeletal Musculoskeletal: Reports joint pain and joint swelling; Denies back pain, joint stiffness, myalgias or neck pain Neurologic Neurologic: Denies abnormal gait, abnormal speech, dizziness, focal weakness, headache(s), loss of vision, numbness, other visual disturbances, paresthesias, syncope or tingling Psychiatric Psychiatric: Denies anxiety, cognitive impairment, depression, irritability, mood swings or suicidal ideation Endocrine Endocrinology: Denies change in body appearance, cold intolerance, excessive sweating, heat intolerance, polydipsia or polyuria Hematologic/Lymphatic Hematologic/Lymphatic: Denies none, anemia, easy bleeding, easy bruising or lymphadenopathy Allergic/Immunologic Allergic/Immunologic: Denies rhinitis, urticaria, eczemia or asthma Vital Signs Vital Signs Vital Signs: 11/23/23 06:26 11/23/23 06:25 11/23/23 08:42 Temperature 98.2 F Temperature Source Temporal Pulse Rate 58 L 68 47 L Respiratory Rate 16 19 H 18 Blood Pressure 167/82 H 147/79 H 136/81 H Blood Pressure Mean 110 101 99 Pulse Ox 95 96 93 Oxygen Delivery Method Room Air Room Air Room Air Weight Weight: 53.1 kg Body Mass Index (BMI) 20.0 Physical Exam Const alert, oriented x3, no apparent distress, average body habitus and healthy appearing General Appearance: cooperative, well kempt and well developed Orientation / Consciousness: awake, oriented to person, oriented to place and oriented to time HEENT normocephalic and moist oral mucous membranes Eyes PERRL, EOMs intact bilaterally and conjunctivae normal Neck supple, no JVD, thyroid normal and no carotid bruits General: trachea midline Resp normal respiratory effort and clear to auscultation bilaterally Auscultation: Negative for rales, rhonchi or wheezes Cardio S1 normal heart sound, S2 normal heart sound, no murmurs, no rub and no gallops Cardio Narrative: Heart rate and rhythm is irregular GI normal to inspection, nondistended, normoactive bowel sounds, soft to palpation, non-tender and non-distended Extremity Extremity Narrative: Right knee is moderately swollen, it is not overly warm but it is warmer than the left knee on palpation. There is limited range of motion to flexion and extension the knee due to the knee pain, patient is not able to ambulate due to right knee pain. Skin no rashes or lesions noted General Skin Exam: no breakdown Neuro oriented x3, CN's II-XII intact bilaterally, moves all extremities, no focal motor deficits and no sensory deficits noted Sensorium / Orientation: awake, alert, oriented to person, oriented to place and oriented to time Speech: speech normal Psych affect normal Results Lab / Micro Data 11/23/23 07:21 11/23/23 07:21 Labs: Laboratory Results - last 24 hr 11/23/23 07:21: WBC 26.0 H, RBC 4.07 L, Hgb 12.4, Hct 38.7, MCV 95.1, MCH 30.5, MCHC 32.0, RDW Std Deviation 50.4 H, RDW Coeff of Asael 14.5, Plt Count 133 L, MPV 10.0, Immature Gran % (Auto) 0.200, Neut % (Auto) 17.4 L, Lymph % (Auto) 79.0 H, [place] % (Auto) 2.2, Eos % (Auto) 0.9, Baso % (Auto) 0.3, Absolute Neuts (auto) 4.6, Absolute Lymphs (auto) 20.56 H, Nucleated RBC % 0.2, Diff Path Review January, Sodium 142, Potassium 4.0, Chloride 109 H, Carbon Dioxide 27.0, Anion Gap 6, BUN 20 H, Creatinine 0.85, Estim Creat Clear Calc 40.56, Est GFR (MDRD) Af Amer 82, Est GFR (MDRD) Non-Af 67, BUN/Creatinine Ratio 23.5 H, Glucose 116 H, Uric Acid 3.8, Calcium 9.2 Imaging Radiology Impression Knee X-Ray 11/23/23 07:30 IMPRESSION: Total knee arthroplasty, grossly anatomic in alignment. Joint effusion. Electronically Signed: Rocío Borja MD at 8:07 EDT , Assessment & Plan Assessment/Plan (1) Inability to ambulate due to right knee: PLAN: Plan 1. Acute recurrent right knee effusion-most probably secondary to hemarthrosis precipitated by chronic aspirin usage-patient will be placed in observation status on [facility] 3, she will be seen by PT and OT, I will administer IV corticosteroids to the patient, orthopedic surgery did not recommend injecting the knee with corticosteroids and did not recommend any further workup for the patient's right knee problem. I will not consult orthopedic surgery. #2 permanent atrial fibrillation-patient's aspirin will be discontinued, it is not effective in preventing thrombus from atrial fibs. According to the patient's cardiology records, she was intolerant of Xarelto and Eliquis, and she elected not to go on Coumadin due to frequent blood draws. She may benefit from being evaluated for a Watchman procedure. Outpatient cardiology will have to determine this. #3 hyperlipidemia-patient is on lovastatin #4 chronic depression-patient is on Zoloft Total clinical time spent by myself addressing the patient's medical issues, reviewing all of her data, and collaborating with patient's care team: 55 minutes Charges/Coding Visit Charges Inpatient E&M: 13639 Init Hosp L2
[2023-11-23] MEDS: dexAMETHasone 4 MG/ML Vial IV ×2 (20:06→23:08)
[2023-11-23] MEDS: Atorvastatin Calcium 10 MG Tablet 5 MG PO (20:07)
[2023-11-24 05:00] VITALS: BP 134/73; PULSE 56; RESP 16; TEMP 36.9; O2SAT 96
[2023-11-24] MEDS: dexAMETHasone 4 MG/ML Vial IV ×2 (05:36→11:50)
[2023-11-24 07:39] LABS: Absolute Lymphocyte Count 19.62 X10^3/uL (0.83-4.51); Absolute Neutrophil Count 4.9 X10^3/uL (2.0-7.7); Basophil# 0.04 X10^3/uL; Basophil% 0.2 % (0-1); Eosinophil# 0.01 X10^3/uL; Hematocrit 35.9 % (37-47); Hemoglobin 11.4 g/dL (12.0-15.0); Lymphocyte # 19.62 X10^3/ul (0.83-4.51); Lymphocyte % 77.8 % (19-41); Mean Corp Hgb Conc 31.8 g/dL (32-36); Mean Corpuscular Hgb 30.2 pg (27.0-32.0); Mean Corpuscular Volume 95.2 fL (81-99); Mean Platelet Vol. 11.6 fl (6.2-12.0); Monocyte# 0.59 X10^3/uL; Monocyte% 2.3 % (0-10); NRBC Flagged by Analyzer 0 % (0-5); Neutrophil % 19.5 % (47-70); POSITIVE DIFFERENTIAL YES; POSITIVE MORPHOLOGY YES; Platelet Count 125 K/mm3 (150-450); RBC Distribution Width CV 14.4 % (11.6-14.6); RBC Distribution Width SD 50.3 fl (35.1-43.9); Red Blood Count 3.77 M/mm3 (4.2-5.4); White Blood Count 25.2 K/mm3 (4.4-11.0)
[2023-11-24 07:51] LABS: Differential Indicated SCAN CRITERIA MET
[2023-11-24 09:23] VITALS: BP 145/74; PULSE 69; RESP 18; TEMP 36.8; O2SAT 95
[2023-11-24] MEDS: Sertraline 50 MG Tablet PO (09:31)
[2023-11-24 09:32] LABS: Pathologist Review Reviewed
[2023-11-24] MEDS: 0.9% Saline Lock 10 ML Syringe IV (11:50)
--- NOTE | 2023-11-24 11:54 | CASEMGMT ---
Met with?patient to complete ERNANDEZ form. ERNANDEZ form explained to patient who voiced understanding and signed form. Original form placed in pt?s chart and copy provided to?patient. Leti Jackson, Discharge Planning Asst
--- NOTE | 2023-11-24 13:23 | DCINST_ITS ---
Discharge Instructions Diet Discharge Diet: No restrictions Activity Discharge Activity: Use Walker Weight Bearing Status: Full weight bearing Follow Up Care Test Results: Test results from this visit will be discussed in further detail at your follow- up appointment, if applicable. Discharge Plan Admission Admit Date/Time: 11/23/23 10:20 Primary Reason for Your Visit: Right knee effusion/pain Attending Provider: Adan Sotelo Primary Care Provider: Yamil Madden Discharge Orders/Prescriptions Prescriptions: No Action multivitamin Tablet 1 tab PO DAILY lovastatin 20 mg tablet 20 mg PO QHS sertraline 50 mg tablet 50 mg PO DAILY PreserVision AREDS-2 250-90-40-1 mg Capsule 1 tab PO BID aspirin [Aspir-Melida] 325 mg tablet,delayed release (DR/EC) 325 mg PO DAILY Referrals / Follow Up: Yamil Madden MD [Primary Care Provider] -
--- NOTE | 2023-11-24 13:23 | PCM.DC ---
Discharge Instructions Diet Discharge Diet: No restrictions Activity Discharge Activity: Use Walker Weight Bearing Status: Full weight bearing Follow Up Care Test Results: Test results from this visit will be discussed in further detail at your follow-up appointment, if applicable. Discharge Plan Admission Admit Date/Time: 11/23/23 10:20 Primary Reason for Your Visit: Right knee effusion/pain Attending Provider: Adan Sotelo Primary Care Provider: Yamil Madden Instructions Additional Instructions / Restrictions: Do not take any ibuprofen, Aleve, or aspirin Take Tylenol or hydrocodone/Tylenol only for pain Discharge Orders/Prescriptions Prescriptions: New hydrocodone-acetaminophen 5-325 mg Tablet 1 tab PO Q4H PRN PRN (Reason: Pain Score 4-10) 7 Days Qty: 20 0RF prednisone 10 mg tablet 20 mg PO BID Qty: 30 0RF Rx Instructions: Two twice a day for 3 days, then 3 once a day for 3 days, then 2/day for 3 days, then 1/day for 3 days then stop Continued multivitamin Tablet 1 tab PO DAILY lovastatin 20 mg tablet 20 mg PO QHS sertraline 50 mg tablet 50 mg PO DAILY PreserVision AREDS-2 250-90-40-1 mg Capsule 1 tab PO BID Discontinued aspirin [Aspir-Melida] 325 mg tablet,delayed release (DR/EC) 325 mg PO DAILY Referrals / Follow Up: Yamil Madden MD [Primary Care Provider] - Within 2 Weeks Gaetano Herrera MD [Med Staff - Active Staff] - See Referral Note (See Dr. Herrera within 3 weeks to discuss alternate treatments for the prevention of clots with A-fib (? Watchman procedure)) Disposition Disposition (needs filled in before D/C Order can be placed): Home, Self Care
--- NOTE | 2023-11-24 13:39 | PCM.DC.SUM ---
Providers Date of Admission: 11/23/23 Date of Discharge: 11/24/23 Primary Care Physician: Dr. Yamil Madden MD Reason For Visit: DEBILITY, INABLILITY TO AMBULATE, CHRONIC RT KNEE Diagnosis Discharge Diagnosis (1) Inability to ambulate due to right knee: Status: Acute Code(s): R26.2 - Difficulty in walking, not elsewhere classified Plan 1. Acute recurrent right knee effusion-most probably secondary to hemarthrosis precipitated by chronic aspirin usage-[facility], she will be seen by PT and OT, I will administer IV corticosteroids to the patient, orthopedic surgery did not recommend injecting the knee with corticosteroids and did not recommend any further workup for the patient's right knee problem. I will not consult orthopedic surgery. #2 permanent atrial fibrillation-patient's aspirin will be discontinued, it is not effective in preventing thrombus from atrial fibs. According to the patient's cardiology records, she was intolerant of Xarelto and Eliquis, and she elected not to go on Coumadin due to frequent blood draws. She may benefit from being evaluated for a Watchman procedure. Outpatient cardiology will have to determine this. #3 hyperlipidemia-patient is on lovastatin #4 chronic depression-patient is on Zoloft Total clinical time spent by myself addressing the patient's medical issues, reviewing all of her data, and collaborating with patient's care team: 55 minutes Medications at Discharge Home Medications lovastatin 20 mg tablet 20 mg PO QHS Cholesterol 04/21/21 multivitamin 1 tab PO DAILY Supplement 04/21/21 sertraline 50 mg tablet 50 mg PO DAILY mental health 11/13/21 vit C 250 mg-vit E 90 mg-zinc 40 mg-copper 1 lf-btprnr-epvore capsule (PreserVision AREDS-2) 1 tab PO BID vitamin 11/13/21 hydrocodone-acetaminophen 5-325mg 5mg-325mg 1 tab PO Q4H PRN PRN Pain Score 4-10 7 days #20 tabs 11/24/23 prednisone 10 mg tablet 20 mg (2 x 10 mg) PO BID #30 tabs 11/24/23 Hospital Course Operations None Procedures None Summary of Care Provided Minutes Spent on Discharge: 31 Hospital Course: This 87-year-old white female was seen in the emergency room at [facility] with complaints of right knee pain and inability to weight-bear in the right knee. She denies any recent trauma. Patient has a long history of right knee effusions which are easily bloody in nature. According to her orthopedic surgeon who I talked with by phone, patient has been worked up for this persistent right knee recurrent effusion, no etiology was determined and it was not recommended that the patient have her right knee undergo surgery. Examination of the patient in the emergency room revealed limited walking ability due to right knee pain, there was some slight swelling of the right knee noted, orthopedic surgery requested the patient not undergo an arthrocentesis by the ER doctor. I talked with the patient's orthopedic surgeon by phone and he stated it was not necessary for him to see the patient and that he could not add any additional input into her care. Patient was placed in observation status on [facility] 3 and seen by PT and OT, she was placed on IV Decadron, the next day the swelling in her right knee had diminished, it was felt that the patient's use of chronic aspirin 325 mg daily may have contributed to a possible hemarthrosis in the right knee. I talked with the patient's catering driver by phone and he recommended discontinuing her aspirin-she was taking it for dementia and clots for A-fib. On 11/24/2023, patient was seen and examined: On examination she appeared in good health and spirits, she does not appear to be in any distress. Vital signs as documented. Skin warm and dry and without overt rashes. Neck without JVD, thyroid appears normal, trachea is midline, neck is supple. Lungs clear, normal air movement was noted. Heart exam notable for regular rhythm, normal sounds and absence of murmurs, rubs or gallops. Abdomen unremarkable and without evidence of organomegaly, masses, or abdominal aortic enlargement, bowel sounds are present in all 4 quadrants, no abdominal tenderness was noted. Extremities nonedematous, no cyanosis was noted, no clubbing was noted. Neuro: Cranial nerves II through XII are grossly intact, no focal motor deficits were noted, sensation to light touch and pinprick is intact, motor exam 5/5 throughout. Psych: Patient is alert and oriented x3, she does not appear anxious or depressed, she does not appear agitated. On 11/24/2023, patient was seen and examined and felt to be stable for discharge home, she was instructed to follow-up with her catering driver for a discussion regarding prevention of blood clots from A-fib which may include a Watchman device. Weight / BMI Weight Weight: 53.07 kg Body Mass Index (BMI) 20.0 ABG / Lab / Microbiology Data 11/24/23 06:25 11/23/23 07:21 Laboratory: Laboratory Results - last 24 hr 11/23/23 07:21: Diff Path Review Reviewed 11/24/23 06:25: WBC 25.2 H, RBC 3.77 L, Hgb 11.4 L, Hct 35.9 L, MCV 95.2, MCH 30.2, MCHC 31.8 L, RDW Std Deviation 50.3 H, RDW Coeff of Asael 14.4, Plt Count 125 L, MPV 11.6, Immature Gran % (Auto) 0.200, Neut % (Auto) 19.5 L, Lymph % (Auto) 77.8 H, [place] % (Auto) 2.3, Eos % (Auto) 0.0, Baso % (Auto) 0.2, Absolute Neuts (auto) 4.9, Absolute Lymphs (auto) 19.62 H, Nucleated RBC % 0, Differential Comment COMMENT D/C Instructions Discharge Diet: No restrictions Weight Bearing Status: Full weight bearing Meaningful Use Info Meaningful Use Diagnoses (Choose all that apply): None applicable Discharge Plan Admission Admit Date/Time: 11/23/23 10:20 Primary Reason for Your Visit: Right knee effusion/pain Attending Provider: Adan Sotelo Primary Care Provider: Yamil Maddne Instructions Additional Instructions / Restrictions: Do not take any ibuprofen, Aleve, or aspirin Take Tylenol or hydrocodone/Tylenol only for pain Discharge Orders/Prescriptions Prescriptions: New hydrocodone-acetaminophen 5-325 mg Tablet 1 tab PO Q4H PRN PRN (Reason: Pain Score 4-10) 7 Days Qty: 20 0RF prednisone 10 mg tablet 20 mg PO BID Qty: 30 0RF Rx Instructions: Two twice a day for 3 days, then 3 once a day for 3 days, then 2/day for 3 days, then 1/day for 3 days then stop Continued multivitamin Tablet 1 tab PO DAILY lovastatin 20 mg tablet 20 mg PO QHS sertraline 50 mg tablet 50 mg PO DAILY PreserVision AREDS-2 250-90-40-1 mg Capsule 1 tab PO BID Discontinued aspirin [Aspir-Melida] 325 mg tablet,delayed release (DR/EC) 325 mg PO DAILY Referrals / Follow Up: Gaetano Herrera MD [Med Staff - Active Staff] - See Referral Note (See Dr. Herrera within 3 weeks to discuss alternate treatments for the prevention of clots with A-fib (? Watchman procedure)) Yamil Madden MD [Primary Care Provider] - Within 2 Weeks Disposition Disposition (needs filled in before D/C Order can be placed): Home, Self Care Charges/Coding Visit Charges Inpatient E&M: 28991 Disch Hosp >30min
[2023-11-24 14:05] VITALS: BP 128/86; PULSE 65; RESP 18; TEMP 36.8; O2SAT 96
--- NOTE | 2023-11-24 14:26 | CASEMGMT ---
LORIE CM into pt room, pt lying in bed with at bedside. Pt denies any homegoing needs. She states she is I in ADL's. Pt does cooking and pt does laundry. Pt has macular degeneration. Pt states she recently had a stair lift put in her home which helps greatly. She has a walker at home. She denies need for any therapy. She states that she does exercises daily in bed. She demonstrated this. She states her knee feels so much better now. in agreeance with pt dc'ing and denies need for services.
--- NOTE | 2023-11-24 15:38 | CHAPLAIN ---
Type of Pastoral Visit _x__ Initial Visit ___ Follow-up Visit ___ On-call Visit ___ General Patient Visit ___ Spiritual Assessment ___ Family Conference ___ Bereavement ___ Rapid Response ___ Code Blue ___ Other (describe below) Pastoral Care Referral From _x__ Patient ___ Family ___ Nurse ___ Physician ___ Diesel Truck Mechanic ___ Developer Automatic ___ Other (describe below) Sacrament/Intervention _x__ Active listening ___ Anointing ___ Samaritan ___ Bereavement ___ Communion ___ Mirela exploration ___ ___ Life review _x__ Prayer ___ Reconciliation ___ Sacrament of Sick _x__ Supportive presence ___ Wedding ___ Other (describe below) Pastoral Comments this was a brief visit to patient and spouse; pt needs to use the bathroom and had called for assistance; gave time to talk and then offered a prayer before CERTIFIED PROFESSIONAL MIDWIFE came; no other needs at this time
== END 2023-11-24 15:41 | disposition home or self-care (01) ==
LOC: ED 07:09 → ICU 10:12 → MS3 22:07
PROVIDERS: Admitting Provider Internal Medicine; Emergency Provider Emergency Medicine; PCP Family Medicine; Visit Provider Internal Medicine
DX: M25.461 Effusion, right knee (principal); C91.10 Chronic lymphocytic leukemia of B-cell type not having achieved remission; I48.21 Permanent atrial fibrillation; E78.5 Hyperlipidemia, unspecified; R53.81 Other malaise; R26.2 Difficulty in walking, not elsewhere classified; Z96.659 Presence of unspecified artificial knee joint; I10 Essential (primary) hypertension; Z86.718 Personal history of other venous thrombosis and embolism; Z86.711 Personal history of pulmonary embolism; Z79.899 Other long term (current) drug therapy; Z79.01 Long term (current) use of anticoagulants; F32.A Depression, unspecified
CPT/HCPCS: 36415; 73560; 80048; 84550; 85025; 96374; 96375; 96376; 97162; 99221; 99283; A4216; G0378

== ENCOUNTER 2024-10-29 14:22 | Emergency (ER) | payer MEDICARE, SELFPAY ==
[2024-10-29 14:23] VITALS: BP 156/69; PULSE 145; RESP 16; TEMP 36.6; O2SAT 99
--- NOTE | 2024-10-29 14:30 | EDS_ITS ---
HPI History of Present Illness Chief Complaint: Shortness of Breath [facility] Medical History (Updated 10/29/24 @ 17:[address] 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 Osteoporosis Benign paroxysmal positional vertigo Macular degeneration Chronic lymphocytic leukemia Personal history of malignant neoplasm of breast (2007) History of DVT of lower extremity (2006) History of pulmonary embolus (PE) Hyperlipidemia Essential hypertension Permanent atrial fibrillation Home Medications ?Medication ?Instructions ?Recorded ?Last Taken ?Type lovastatin 20 mg tablet 20 mg PO QHS Cholesterol Unknown History multivitamin 1 tab PO DAILY Supplement Unknown History vit C 250 mg-vit E 90 mg-zinc 40 1 tab PO BID vitamin 11/13/21 Unknown History mg-copper 1 rz-nsbyzs-kchoms capsule (PreserVision AREDS-2) hydrocodone-acetaminophen 5-325mg 1 tab PO Q4H PRN PRN Pain Score 11/24/23 Unknown Rx 5mg-325mg 4-10 7 days #20 tabs sertraline 50 mg tablet 100 mg PO DAILY mental healt h 12/29/23 Unknown History aspirin 81 mg tablet,delayed 81 mg PO QDAY #30 tabs Unknown Rx release (Adult Aspirin Regimen) Allergy/AdvReac Type Severity Reaction Status Date / Time Gadolinium-MRI Contrast Allergy Severe Hives Verified 10/29/24 14:24 Medium gadoterate meglumine (From Allergy Severe Hives Verified 10/29/24 14:24 Dotarem) dabigatran etexilate (From AdvReac Intermediate GI upset Verified 10/29/24 14:24 Pradaxa) codeine AdvReac Unknown Verified 10/29/24 14:24 diphtheria,pertussis AdvReac Swelling Verified 10/29/24 14:24 (acell),tetanu Penicillins AdvReac Hives Verified 10/29/24 14:24 Family History Mother H/O bilateral mastectomy Breast cancer Father Heart disease unsure of type Sister Cardiac pacemaker in situ Surgical History History of total right knee replacement History of transesophageal echocardiography (LEN) (10/06/12) History of cardioversion (10/06/12) History of total right knee replacement (2006) History of left mastectomy (04/11/08) Social History household members: spouse Smoking Status: Never smoker alcohol intake: never substance use type: does not use EXAM Physical Exam Const Vital Signs: 10/29/24 14:23 10/29/24
--- NOTE | 2024-10-29 14:30 | ED.VIS.DYS ---
HPI History of Present Illness Chief Complaint: Shortness of Breath [facility] Medical History (Updated 10/29/24 @ 17:[address] 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 Osteoporosis Benign paroxysmal positional vertigo Macular degeneration Chronic lymphocytic leukemia Personal history of malignant neoplasm of breast (2007) History of DVT of lower extremity (2006) History of pulmonary embolus (PE) Hyperlipidemia Essential hypertension Permanent atrial fibrillation Home Medications ?Medication ?Instructions ?Recorded ?Last Taken ?Type lovastatin 20 mg tablet 20 mg PO QHS Cholesterol 04/21/21 Unknown History multivitamin 1 tab PO DAILY Supplement 04/21/21 Unknown History vit C 250 mg-vit E 90 mg-zinc 40 1 tab PO BID vitamin 11/13/21 Unknown History mg-copper 1 yq-iaiakw-gczedi capsule (PreserVision AREDS-2) hydrocodone-acetaminophen 5-325mg 1 tab PO Q4H PRN PRN Pain Score 11/24/23 Unknown Rx 5mg-325mg 4-10 7 days #20 tabs sertraline 50 mg tablet 100 mg PO DAILY mental health 12/29/23 Unknown History aspirin 81 mg tablet,delayed 81 mg PO QDAY #30 tabs 06/28/24 Unknown Rx release (Adult Aspirin Regimen) Allergy/AdvReac Type Severity Reaction Status Date / Time Gadolinium-MRI Contrast Allergy Severe Hives Verified 10/29/24 14:24 Medium gadoterate meglumine (From Allergy Severe Hives Verified 10/29/24 14:24 Dotarem) dabigatran etexilate (From AdvReac Intermediate GI upset Verified 10/29/24 14:24 Pradaxa) codeine AdvReac Unknown Verified 10/29/24 14:24 diphtheria,pertussis AdvReac Swelling Verified 10/29/24 14:24 (acell),tetanu Penicillins AdvReac Hives Verified 10/29/24 14:24 Family History Mother H/O bilateral mastectomy Breast cancer Father Heart disease unsure of type Sister Cardiac pacemaker in situ Surgical History History of total right knee replacement History of transesophageal echocardiography (LEN) (10/06/12) History of cardioversion (10/06/12) History of total right knee replacement (2006) History of left mastectomy (04/11/08) Social History household members: spouse Smoking Status: Never smoker alcohol intake: never substance use type: does not use EXAM Physical Exam Const Vital Signs: 10/29/24 14:23 10/29/24 15:27 10/29/24 16:22 Temperature 98 F Temperature Source Oral Pulse Rate 145 H 66 Respiratory Rate 16 18 Respiratory Effort Normal Non-Labored Respiratory Depth Normal Respiratory Pattern Normal Blood Pressure 156/69 H 155/78 H Blood Pressure Mean 98 103 Pulse Ox 99 97 Oxygen Delivery Method Room Air Room Air MDM MDM MDM Narrative Medical decision making narrative: HISTORY OF PRESENT ILLNESS: 88-year-old female history of PE/DVT, CLL, hyperlipidemia, atrial fibrillation, hypertension, hyperlipidemia presents with shortness of breath. Notes she was sent in for concern for PE. She notes short of breath. She notes this began 2 days ago. No chest pain. No fever or chills. No bleeding diathesis. No leg swelling. Notes no recent estrogen use, no travel. REVIEW OF SYSTEMS: Pertinent positives: Shortness of breath Pertinent negatives: Syncope, chest pain PHYSICAL EXAM: Nursing triage notes reviewed, Vital signs reviewed Constitutional: please see mdm HENT: MMM Eyes: Pupils equal round and reactive to light, Extraocular muscles intact Neck: No stridor, no JVD, full neck ROM Lungs: Clear to auscultation, No wheezing or rales. No increased work of breathing, no conversational dyspnea, no accessory muscle use, no nasal flaring. No respiratory distress noted Heart: Regular rate and rhythm, No murmurs, No rubs and No gallops, 2+ distal pulses (radial, femoral, posterior tibial) in all extremities Abdomen: Soft, there is no tenderness, rigidity, rebound or guarding, no obvious peritoneal signs, no palpable pulsatile abdominal masses, no auscultated abdominal bruit : No CVAT Extremities: No edema Neuro: No new focal neurological deficits, cranial nerves II through XII intact, 5/5 strength in all present extremities. Intact sensation to light touch in all present extremities, 2+ reflexes bilateral patella tendons. Skin: No rash or lesions noted MEDICAL DECISION MAKING: Chief Complaint: Shortness of breath External records reviewed: Reviewed prior cardiovascular testing Echocardiogram from 2022 shows ejection fraction of 60%. D-dimer from today was 1140 (elevated). Factors affecting care: A-fib, hypertension, DVT, PE, breast cancer, CLL Social determinants of health: none History obtained from others: none Consults: Cardiology (Dr. Bob) MDM Narrative: The patient was initially tachycardic, otherwise afebrile, nontoxic-appearing saturating 99% room air. I considered the following differential diagnosis: Arrhythmia, anemia, electro disturbance, PE ALL IMAGES (IF OBTAINED) HAVE BEEN PERSONALLY REVIEWED AND INTERPRETED BY MYSELF. EKG with rate controlled A-fib rate of 58, QT interval 435, left axis deviation, no obvious STEMI, noted T wave inversions in V5 V6 which are new from prior EKGs Initial troponin elevated at 63, delta troponin downtrending 54 CBC with baseline leukocytosis, no anemia or thrombocytopenia noted BMP without evidence of significant electrolyte abnormalities, no anion gap, no acute kidney injury. CT of the chest shows no evidence of PE Upon reassessment patient remained chest pain-free. She ambulated without chest pain. I suspect these changes are related to initial rate of 145. Given high rates she had likely had a troponin leak or type II demand ischemia. There is no obvious STEMI on EKG and should not have to chest pain. I did discuss case with grease monkey on-call given elevated troponin and subtle EKG changes. He stated the patient initial heart rate was 145 and she was chest pain-free abductor point was downtrending and her age precludes any definitive intervention she does not meet criteria for admission at this time. Recommended she be discharged if she was chest pain-free. Again she was ambulated here without chest pain. She is appropriate discharge home. Strict return precautions were discussed. The patient and/or family, caregivers express understanding. The patient and/or family, caregivers agrees with the plan. Shared decision making: I will have a discussion with the patient and or visitors regarding risk/benefits of further testing or admission. They will be made aware of of the risk/benefits inherent in this decision they will be given the opportunity to voice understanding. Total critical care time today provided was at least 0 . This excludes separately billable procedures. Critical care time (if documented) is secondary to the patient having high probability of clinically significant/life threatening deterioration in the patient's condition which required my urgent intervention. Impression: 1. Elevated D-dimer 2. History of PE 3. History of atrial fibrillation Dispo: Discharge home This note was generated with So[employer] dictation software. It may contain incorrect words, spelling, and punctuation that were not noted in review of the chart prior to signing. Lab Data Labs: Laboratory Results - last 24 hr 10/29/24 10/29/24 15:30 16:53 WBC 24.2 H RBC 4.11 L Hgb 12.9 Hct 40.1 MCV 97.6 MCH 31.4 MCHC 32.2 RDW Std Deviation 53.2 H RDW Coeff of Asael 14.8 H Plt Count 156 MPV 10.2 Immature Gran % (Auto) 0.200 Neut % (Auto) 19.7 L Lymph % (Auto) 70.6 H [place] % (Auto) 8.1 Eos % (Auto) 1.0 Baso % (Auto) 0.4 Absolute Neuts (auto) 4.8 Absolute Lymphs (auto) 17.12 H Nucleated RBC % 0 Diff Path Review May foll Atypical Lymphocytes 2+ Sodium 140 Potassium 4.1 Chloride 106 Carbon Dioxide 29.0 Anion Gap 6 BUN 22 H Creatinine 0.68 Estim Creat Clear Calc 35.47 Est GFR (MDRD) Af Amer 105 Est GFR (MDRD) Non-Af 86 BUN/Creatinine Ratio 32.2 H Glucose 96 Calcium 9.3 Troponin I High Sens 63 H 54 Radiography Diagnostic Testing: Clinical Impression(s) from Imaging Studies Chest CTA 10/29/24 15:50 IMPRESSION: One or more dose reduction techniques were used (e.g., Automated exposure control, adjustment of the mA and/or kV according to patient size, use of iterative reconstruction technique). Reading Location: [id number] Discharge Plan Triage Chief Complaint: Shortness of Breath ED Provider: Abundio You Dx/Rx/DC Orders Clinical Impression: D-dimer, elevated Prescriptions: No Action aspirin [Adult Aspirin Regimen] 81 mg tablet,delayed release (DR/EC) 81 mg PO QDAY Qty: 30 0RF multivitamin Tablet 1 tab PO DAILY lovastatin 20 mg tablet 20 mg PO QHS PreserVision AREDS-2 250-90-40-1 mg Capsule 1 tab PO BID sertraline 50 mg tablet 100 mg PO DAILY hydrocodone-acetaminophen 5-325 mg Tablet 1 tab PO Q4H PRN PRN (Reason: Pain Score 4-10) 7 Days Qty: 20 0RF Primary Care Provider: Yamil Madden Referrals: Yamil Madden MD [Primary Care Provider] - Activity Restrictions/Additional Instructions: Thank you for trusting us with your care today! Please take Tylenol (2 pills, 650 mg), ibuprofen (2 pills, 400 mg) every 6 hours as needed for pain and fever control. Please return to the emergency department if your symptoms change or worsen. Please follow with your primary care physician for further outpatient evaluation and management. Print Language: Macedonian Disposition Disposition: Home, Self Care
--- NOTE | 2024-10-29 14:43 | EKG12_ITS ---
Test Reason : SOB Blood Pressure : */* mmHG Vent. Rate : 58 BPM Atrial Rate : * BPM P-R Int : * ms QRS Dur : 120 ms QT Int : 464 ms P-R-T Axes : * -47 29 degrees QTcB Int : 455 ms Atrial fibrillation with slow ventricular response RSR' or QR pattern in V1 suggests right ventricular conduction delay Left anterior fascicular block Septal infarct , age undetermined ST & T wave abnormality, consider anterolateral ischemia Abnormal ECG Confirmed by Clinton Bob ([id number]), editor sound MARYCRUZ HOWARD ([id number]) on 10/31/2024 8:06:01 AM Referred By: Confirmed By: Clinton Bob
[2024-10-29 15:28] VITALS: BMI 16.8
[2024-10-29 15:37] LABS: Absolute Lymphocyte Count 17.12 X10^3/uL (0.83-4.51); Absolute Neutrophil Count 4.8 X10^3/uL (2.0-7.7); Basophil# 0.09 X10^3/uL; Basophil% 0.4 % (0-1); Eosinophil# 0.24 X10^3/uL; Hematocrit 40.1 % (37-47); Hemoglobin 12.9 g/dL (12.0-15.0); Lymphocyte # 17.12 X10^3/ul (0.83-4.51); Lymphocyte % 70.6 % (19-41); Mean Corp Hgb Conc 32.2 g/dL (32-36); Mean Corpuscular Hgb 31.4 pg (27.0-32.0); Mean Corpuscular Volume 97.6 fL (81-99); Mean Platelet Vol. 10.2 fl (6.2-12.0); Monocyte# 1.96 X10^3/uL; Monocyte% 8.1 % (0-10); NRBC Flagged by Analyzer 0 % (0-5); Neutrophil # 4.78 X10^3/uL (2.7-7.7); Neutrophil % 19.7 % (47-70); POSITIVE DIFFERENTIAL YES; POSITIVE MORPHOLOGY YES; Platelet Count 156 K/mm3 (150-450); RBC Distribution Width CV 14.8 % (11.6-14.6); RBC Distribution Width SD 53.2 fl (35.1-43.9); Red Blood Count 4.11 M/mm3 (4.2-5.4); White Blood Count 24.2 K/mm3 (4.4-11.0)
--- NOTE | 2024-10-29 15:50 | CT_ITS ---
PROCEDURE: CTA CHEST W/WO CONTRAST TECHNIQUE: CTA imaging of the chest with intravenous contrast. 3D reconstructions. CONTRAST: 100 cc of Isovue 370. COMPARISON: None. FINDINGS: Hardware: None. Lymph nodes: No mediastinal hilar or axillary lymphadenopathy. Heart: Normal heart size. No pericardial effusion. Coronary artery calcification. RV/LV Diameter Ratio: N/A Thoracic Aorta: No thoracic aortic aneurysm or dissection. Pulmonary Vessels: No evidence of acute pulmonary emboli through the major subsegmental branches. Most Proximal Level of Embolus (if embolus present): N/A Lungs and Airways: The lungs are normally expanded and clear. Pleura: No pleural effusion. No pneumothorax. Upper Abdomen: Visualized portions of the upper abdominal viscera are unremarkable. Bones: Degenerative changes of the thoracic spine. CT/CTA Chest W/WO Contrast IMPRESSION: One or more dose reduction techniques were used (e.g., Automated exposure contr ol, adjustment of the mA and/or kV according to patient size, use of iterative reconstruction technique). Reading Location: [facility]
[2024-10-29 16:13] LABS: Anion Gap 6 (5-15); BUN 22 mg/dL (7-18); BUN/Creat Ratio 32.2 RATIO (10-20); Calcium,Total 9.3 mg/dL (8.5-10.1); Chloride 106 mmol/L (98-107); Creatinine, Serum 0.68 mg/dL (0.55-1.02); EST Glomerular Filtration Rate 86 mL/min (>60); Est Glom Filt Rate - Afr Amer 105 mL/min (>60); Estimated Creatinine Clearance 35.47 ml/min; Glucose 96 mg/dL (74-106); Potassium 4.1 mmol/L (3.5-5.1); Sodium Level 140 mmol/L (136-145); Troponin-I HS 63 pg/mL (3.0-54.0)
[2024-10-29 16:21] LABS: Differential Indicated SCAN CRITERIA MET
[2024-10-29 16:22] VITALS: BP 155/78; PULSE 66; RESP 18; O2SAT 97
[2024-10-29 16:22] LABS: Atypical Lymphocyte 2+ %
[2024-10-29 17:15] LABS: Troponin-I HS 54 pg/mL (3.0-54.0)
[2024-10-29 18:00] VITALS: BP 167/74; PULSE 73; RESP 16; TEMP 36.6; O2SAT 98
[2024-10-30 11:48] LABS: Pathologist Review Reviewed
== END 2024-10-29 18:02 | disposition home or self-care (01) ==
PROVIDERS: Emergency Provider Emergency Medicine; PCP Family Medicine; Visit Provider Emergency Medicine
DX: R06.02 Shortness of breath (principal); I48.21 Permanent atrial fibrillation; R79.89 Other specified abnormal findings of blood chemistry; I10 Essential (primary) hypertension; E78.5 Hyperlipidemia, unspecified; Z86.711 Personal history of pulmonary embolism; Z79.82 Long term (current) use of aspirin; Z79.899 Other long term (current) drug therapy; Z96.651 Presence of right artificial knee joint; Z90.12 Acquired absence of left breast and nipple; Z85.3 Personal history of malignant neoplasm of breast
CPT/HCPCS: 71275; 80048; 84484; 85025; 93005; 99283; Q9967; A4216

== ENCOUNTER 2024-11-05 19:38 | Emergency (ER) | payer MEDICARE, SELFPAY ==
[2024-11-05 19:39] VITALS: BP 135/77; PULSE 68; RESP 18; TEMP 36.6; O2SAT 96
--- NOTE | 2024-11-05 21:26 | ED.VIS.BACK ---
HPI History of Present Illness Chief Complaint: Back Detail of Chief Complaint: Upper dorsal/thoracic back pain Informant: patient and spouse/S.O. Onset/Context/Timing Onset: Weeks Context: Gradual Onset Chronic pain exacerbated by: Movement Injury: - (No history of trauma) Timing: Continuous Quality: Aching Location: Thoracic Current Severity: Mild Maximum Severity: Moderate Worsened by: improves with Movement and Bending Relieved by: Nothing Associated Symptoms Associated Symptoms: - (Denies radicular pain. Denies numbness or tingling in her upper extremities.); Negative for Numbness, Tingling, Radiation to Right Leg, Radiation to Left Leg, Fever, Abdominal Pain, Dysuria, Unable to Ambulate, Unable to Transfer, Urinary Retention, Urinary Incontinence, Constipation or Fecal Incontinence Narrative Narrative: Patient is an 88-year-old woman. She was seen October 29 for pain and had an elevated D-dimer. CTA was performed which revealed no PE. She had significant degenerative changes of her thoracic vertebral bodies. She denies radicular pain. She denies weakness in her arms or hands. She denies cardiac or respiratory symptoms. She has taken Tylenol with no improvement. She has applied both ice and heat with no improvement. Prior similar symptoms: Yes Recent Illness/Hospitalization: Yes [facility] Medical History (Updated 11/05/24 @ 21:[address] 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 Osteoporosis Benign paroxysmal positional vertigo Macular degeneration Chronic lymphocytic leukemia Personal history of malignant neoplasm of breast (2007) History of DVT of lower extremity (2006) History of pulmonary embolus (PE) Hyperlipidemia Essential hypertension Permanent atrial fibrillation Home Medications ?Medication ?Instructions ?Recorded ?Last Taken ?Type lovastatin 20 mg tablet 20 mg PO QHS Cholesterol 04/21/21 Unknown History multivitamin 1 tab PO DAILY Supplement 04/21/21 Unknown History vit C 250 mg-vit E 90 mg-zinc 40 1 tab PO BID vitamin 11/13/21 Unknown History mg-copper 1 [id number] capsule (PreserVision AREDS-2) hydrocodone-acetaminophen 5-325mg 1 tab PO Q4H PRN PRN Pain Score 11/24/23 Unknown Rx 5mg-325mg 4-10 7 days #20 tabs sertraline 50 mg tablet 100 mg PO DAILY mental health 12/29/23 Unknown History aspirin 81 mg tablet,delayed 81 mg PO QDAY #30 tabs 06/28/24 Unknown Rx release (Adult Aspirin Regimen) hydrocodone-acetaminophen 5-325mg 1 tab PO Q6H PRN PRN Pain 5 days 11/05/24 Unknown Rx 5mg-325mg #20 TABLETS Allergy/AdvReac Type Severity Reaction Status Date / Time Gadolinium-MRI Contrast Allergy Severe Hives Verified 11/05/24 19:43 Medium gadoterate meglumine (From Allergy Severe Hives Verified 11/05/24 19:43 Dotarem) dabigatran etexilate (From AdvReac Intermediate GI upset Verified 11/05/24 19:43 Pradaxa) codeine AdvReac Unknown Verified 11/05/24 19:43 diphtheria,pertussis AdvReac Swelling Verified 11/05/24 19:43 (acell),tetanu Penicillins AdvReac Hives Verified 11/05/24 19:43 Family History Mother H/O bilateral mastectomy Breast cancer Father Heart disease unsure of type Sister Cardiac pacemaker in situ Surgical History History of total right knee replacement History of transesophageal echocardiography (LEN) (10/06/12) History of cardioversion (10/06/12) History of total right knee replacement (2006) History of left mastectomy (04/11/08) Social History household members: spouse housing: house current occupational status: retired Smoking Status: Never smoker alcohol intake: never substance use type: does not use ROS ROS ED Constitutional Constitutional ED: Denies chills, fever(s) or subjective Cardiovascular Cardiovascular: Denies chest pain, orthopnea, palpitations or paroxysmal nocturnal dyspnea Respiratory/Chest Respiratory/Chest: Denies dyspnea, dyspnea on exertion, orthopnea or paroxysmal nocturnal dyspnea Gastrointestinal Gastrointestinal: Denies nausea or vomiting Musculoskeletal Musculoskeletal: Reports other Details: HPI narrative Integumentary Denies rash Endocrine Endocrinology: Denies cold intolerance or heat intolerance Hematologic/Lymphatic Hematologic/Lymphatic: Denies easy bleeding or easy bruising EXAM Physical Exam Const Vital Signs: 11/05/24 19:39 Temperature 98 F Temperature Source Temporal Pulse Rate 68 Respiratory Rate 18 Blood Pressure 135/77 H Blood Pressure Mean 96 Pulse Ox 96 Oxygen Delivery Method Room Air Positive well nourished and well developed Constitutional Narrative: Patient is kyphotic. She is in slight discomfort. General Appearance ED: well developed HEENT Reports moist mucous membranes HEENT Narrative: Head is atraumatic normocephalic. Sclera is anicteric. Eyes PERRL and EOMs intact bilaterally General Eye ED: Negative for scleral icterus Neck no lymphadenopathy, supple and no JVD Resp normal respiratory effort and clear to auscultation bilaterally Cardio regular rate, regular rhythm, S1 normal heart sound, S2 normal heart sound and no murmurs Back/Spine Negative for no thoracic nor lumbar tenderness Back/Spine Narrative: Pain to outpatient thoracic spine. General Back: Negative for CVA tenderness Cervical Spine: Negative for cervical spine tenderness Thoracic Spine / Upper Back: paraspinal muscle tenderness Lumbar Spine / Lower Back: ROM limited Extremity normal to inspection and no clubbing, cyanosis or edema Neuro oriented x3 and no sensory deficits noted Neuro Narrative: Axillary, median, radial and ulnar function intact. Bicep, brachialis and tricep reflex are 2+ and symmetric. Radial pulses 2+ and symmetric. Motor Exam: strength 5/5 throughout Psych mental status grossly normal Skin no rashes or lesions noted and no wounds MDM MDM MDM Narrative Medical decision making narrative: Records from [facility] were reviewed. Patient has significant degenerative changes noted on the CTA. There is no indication for repeat imaging. Patient was informed that her back pain is due to generative disc disease at multiple levels. She was treated with opiate analgesic. She has reported allergy to codeine which is not a true allergy. Patient received her first dose of Snow in the emergency department. She to follow-up with her primary for pain management. History & Record Review Additional record(s) reviewed:: Prior ED visit and Prior labs Discharge Plan Triage Chief Complaint: Back ED Provider: Cy Read Dx/Rx/DC Orders Clinical Impression: Degenerative joint disease of thoracic spine, Essential hypertension, Hyperlipidemia, Depression Instructions: ED Degenerative Disk Disease Prescriptions: New hydrocodone-acetaminophen 5-325 mg tablet 1 tab PO Q6H PRN PRN (Reason: Pain) 5 Days Qty: 20 0RF No Action aspirin [Adult Aspirin Regimen] 81 mg tablet,delayed release (DR/EC) 81 mg PO QDAY Qty: 30 0RF multivitamin Tablet 1 tab PO DAILY lovastatin 20 mg tablet 20 mg PO QHS PreserVision AREDS-2 250-90-40-1 mg Capsule 1 tab PO BID sertraline 50 mg tablet 100 mg PO DAILY hydrocodone-acetaminophen 5-325 mg Tablet 1 tab PO Q4H PRN PRN (Reason: Pain Score 4-10) 7 Days Qty: 20 0RF Primary Care Provider: Yamil Madden Referrals: Yamil Madden MD [Primary Care Provider] - 5-7 Days Print Language: Sinhala Disposition Disposition: Home, Self Care
[2024-11-05] MEDS: HYDROcodone Bitartrate/Apap 5/325 Tablet PO (21:40)
[2024-11-05 21:56] VITALS: BP 132/74; PULSE 61; RESP 16; TEMP 36.8; O2SAT 98
== END 2024-11-05 21:57 | disposition home or self-care (01) ==
PROVIDERS: Emergency Provider Emergency Medicine; PCP Family Medicine; Visit Provider Emergency Medicine
DX: M54.9 Dorsalgia, unspecified (principal); I48.21 Permanent atrial fibrillation; M47.814 Spondylosis without myelopathy or radiculopathy, thoracic region; F32.A Depression, unspecified; E78.5 Hyperlipidemia, unspecified; I10 Essential (primary) hypertension; Z79.899 Other long term (current) drug therapy; Z79.82 Long term (current) use of aspirin; Z96.651 Presence of right artificial knee joint; Z90.12 Acquired absence of left breast and nipple
CPT/HCPCS: 99282

== ENCOUNTER 2024-11-20 14:37 | Observation (INO) | payer MEDICARE, SELFPAY ==
[2024-11-20 14:37] VITALS: BP 173/80; PULSE 54; RESP 14; TEMP 35.7; O2SAT 98
--- NOTE | 2024-11-20 15:51 | EKG12_ITS ---
Test Reason : Blood Pressure : */* mmHG Vent. Rate : 50 BPM Atrial Rate : * BPM P-R Int : * ms QRS Dur : 102 ms QT Int : 476 ms P-R-T Axes : * -34 38 degrees QTcB Int : 433 ms Atrial fibrillation with slow ventricular response Left axis deviation Incomplete right bundle branch block Biventricular hypertrophy Cannot rule out Anteroseptal infarct , age undetermined T wave abnormality, consider lateral ischemia Abnormal ECG Confirmed by DANIELA GARVEY, ALVIN ([id number]), editor house organ MARYCRUZ HOWARD ([id number]) on 11/21/2024 8:49:59 AM Referred By: JENNIFER Confirmed By: ALVIN SUAREZ MD
--- NOTE | 2024-11-20 15:54 | ED.VIS.BACK ---
HPI History of Present Illness Chief Complaint: Back Informant: patient and spouse/S.O. Narrative Narrative: 88-year-old female has been having back pain for 3 to 4 weeks, it is low back, often bilateral that sometimes switches sides, she denies any radiation down her legs, numbness, weakness, she is able to walk but has trouble getting to a standing position, and for the past couple weeks she has been having issues urinating, she states she is having to go very frequently but the amount of urination is very little, she had a urinalysis done at her family doctor that was negative for infection. states they were seen here in the ER and had some [place] which did not help anything, they were seen somewhere else and had some other medication that did not help, he is using topical Voltaren that is not helping, was referred by family doctor to pain management, they went up to [place] to see a pain management doctor with the [facility], who gave her some other medications that have not helped at all, and she is now having trouble getting around due to the amount of pain that she is in. None of the medications or topicals are helping. is at a loss and is having trouble caring for her. She has not yet had an MRI but at other facilities had x-rays and CT scans according to him. She denies any fevers or chills. She denies any problems having bowel movements although she has been a little constipated recently since using the narcotics. She is not incontinent. She denies any saddle anesthesia. She denies any other systemic symptoms. She denies any fall or injury associated with any of this. She has a history of A-fib but is no longer anticoagulated because she kept developing blood collections under her kneecap according to the . [facility] Medical History (Updated 11/20/24 @ 18:[address] 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 Osteoporosis Benign paroxysmal positional vertigo Macular degeneration Chronic lymphocytic leukemia Personal history of malignant neoplasm of breast (2007) History of DVT of lower extremity (2006) History of pulmonary embolus (PE) Hyperlipidemia Essential hypertension Permanent atrial fibrillation Home Medications ?Medication ?Instructions ?Recorded ?Last Taken ?Type lovastatin 20 mg tablet 20 mg PO QHS Cholesterol 04/21/21 Unknown History multivitamin 1 tab PO DAILY Supplement 04/21/21 Unknown History vit C 250 mg-vit E 90 mg-zinc 40 1 tab PO BID vitamin 11/13/21 Unknown History mg-copper 1 [id number] capsule (PreserVision AREDS-2) hydrocodone-acetaminophen 5-325mg 1 tab PO Q4H PRN PRN Pain Score 11/24/23 Unknown Rx 5mg-325mg 4-10 7 days #20 tabs sertraline 50 mg tablet 100 mg PO DAILY mental health 12/29/23 Unknown History aspirin 81 mg tablet,delayed 81 mg PO QDAY #30 tabs 06/28/24 Unknown Rx release (Adult Aspirin Regimen) hydrocodone-acetaminophen 5-325mg 1 tab PO Q6H PRN PRN Pain 5 days 11/05/24 Unknown Rx 5mg-325mg #20 TABLETS Allergy/AdvReac Type Severity Reaction Status Date / Time Gadolinium-MRI Contrast Allergy Severe Hives Verified 11/20/24 14:37 Medium gadoterate meglumine (From Allergy Severe Hives Verified 11/20/24 14:37 Dotarem) dabigatran etexilate (From AdvReac Intermediate GI upset Verified 11/20/24 14:37 Pradaxa) codeine AdvReac Unknown Verified 11/20/24 14:37 diphtheria,pertussis AdvReac Swelling Verified 11/20/24 14:37 (acell),tetanu Penicillins AdvReac Hives Verified 11/20/24 14:37 Family History Mother H/O bilateral mastectomy Breast cancer Father Heart disease unsure of type Sister Cardiac pacemaker in situ Surgical History History of total right knee replacement History of transesophageal echocardiography (LEN) (10/06/12) History of cardioversion (10/06/12) History of total right knee replacement (2006) History of left mastectomy (04/11/08) Social History household members: spouse housing: house current occupational status: retired Smoking Status: Never smoker alcohol intake: never substance use type: does not use ROS ROS ED Constitutional Constitutional ED: Denies chills or fever(s) Eyes Eyes: Denies change in vision or diplopia ENT ENT ED: Denies rhinorrhea or sore throat Cardiovascular Cardiovascular: Denies chest pain or palpitations Respiratory/Chest Respiratory/Chest: Denies cough or dyspnea Gastrointestinal Gastrointestinal: Reports constipation; Denies abdominal pain, fecal incontinence, nausea or vomiting Genitourinary Genitourinary ED: Reports urinary frequency and other Details: see HPI ; Denies abdominal discomfort or urinary incontinence Musculoskeletal Musculoskeletal: Reports as per HPI and back pain; Denies neck pain Integumentary Denies rash or wounds Neurologic Neurologic: Denies headache(s), paresthesias or weakness EXAM Physical Exam Const Vital Signs: 11/20/24 14:37 Temperature 96.2 F L Temperature Source Temporal Pulse Rate 54 L Respiratory Rate 14 Blood Pressure 173/80 H Blood Pressure Mean 111 Pulse Ox 98 Oxygen Delivery Method Room Air Positive well nourished and well developed General Appearance ED: well developed and NAD HEENT Reports moist mucous membranes Negative for trauma or tenderness Eyes PERRL and EOMs intact bilaterally Neck full ROM and supple Resp normal respiratory effort and clear to auscultation bilaterally Cardio Rate: Negative for tachycardic Rhythm: abnormal rhythm irregularly irregular GI normal to inspection, nondistended, normoactive bowel sounds, soft to palpation and non-tender Auscultation: normoactive bowel sounds Palpation: soft Back/Spine normal to inspection Back/Spine Narrative: Straight leg raise is negative bilaterally Lumbar Spine / Lower Back: ROM limited, lumbar spinal tenderness L3 and L4, paraspinal muscle tenderness left and straight leg raise negative bilaterally Extremity normal to inspection, full ROM and no pedal edema General Extremety ED: Negative for edema, pulses abnormal or tenderness General Extremity: Negative for edema or pulses abnormal Neuro oriented x3 and no sensory deficits noted Sensorium / Orientation: alert Motor Exam: strength 5/5 throughout and clonus absent Deep Tendon Reflexes: Rt Patellar (L4): 2+, Lt Patellar (L4): 2+, Rt Ankle (S1): 2+ and Lt Ankle (S1): 2+ Deep Tendon Reflexes Back: Rt Patellar (L4): 2+, Lt Patellar (L4): 2+, Rt Ankle (S1): 2+ and Lt Ankle (S1): 2+ Plantar Reflex: Downgoing: bilateral Psych mental status grossly normal and thought process normal Psych Narrative: Little anxious due to being in pain Skin no rashes or lesions noted and no wounds MDM MDM MDM Narrative Medical decision making narrative: I reviewed records, patient did not have any lumbar radiography here is obtained some x-rays, and provided patient with some pain control and obtain some basic labs and EKG documenting her persistent atrial fibrillation which appears to be rate controlled. I think given her functional decline and intractable pain despite multiple medications, most of which the cannot name which is okay, I think admission is warranted, she may continue to need workup for spinal stenosis or progressive lumbosacral cord compression that might be given her some of the urinary symptoms, although she does not have any weakness or numbness at this time, nor an acute compressive syndrome that would warrant an emergent surgical evaluation. I did obtain 2 view lumbosacral x-rays, on my interpretation there is no acute fracture, there are significant degenerative changes as noted by radiology. She does have a significant leukocytosis but looking back this is always the case and probably related to her CLL. EKG confirms A-fib. She is improved with morphine, but she and still prefer to be admitted she is asking for more pain medication which is being given. Discussed with hospitalist. History & Record Review Additional record(s) reviewed:: No prior records (CTA chest several weeks ago, showing degenerative changes of thoracic spine, no prior lumbar radiography recently) Lab Data Attestation: I reviewed the patient's lab results. Labs: Laboratory Results - last 24 hr 11/20/24 11/20/24 16:13 16:15 WBC 36.8 H* RBC 4.33 Hgb 13.6 Hct 42.2 MCV 97.5 MCH 31.4 MCHC 32.2 RDW Std Deviation 52.8 H RDW Coeff of Asael 14.6 Plt Count 240 MPV 9.8 Immature Gran % (Auto) 0.200 Neut % (Auto) 15.3 L Lymph % (Auto) 82.3 H Smyth % (Auto) 1.5 Eos % (Auto) 0.6 Baso % (Auto) 0.1 Absolute Neuts (auto) 5.6 Absolute Lymphs (auto) 30.27 H Nucleated RBC % 0.1 Differential Comment COMMENT Diff Path Review May foll Sodium 138 Potassium 4.0 Chloride 103 Carbon Dioxide 25.8 Anion Gap 9 BUN 11 Creatinine 0.67 L Est GFR (MDRD) Non-Af 85 BUN/Creatinine Ratio 16.4 Glucose 102 H Calcium 9.8 Urine Color Yellow Urine Clarity Clear Urine pH 8.0 Ur Specific [place] 1.015 Urine Protein 30 H Urine Glucose (UA) Normal Urine Ketones Negative Urine Occult Blood Negative Urine Nitrite Negative Urine Bilirubin Negative Urine Urobilinogen Normal Ur Leukocyte Esterase Negative Urine RBC 0 SEEN Urine WBC 0 SEEN Ur Squamous Epith Cells 0 SEEN Amorphous Sediment 1+ Urine Bacteria 0 SEEN Urine Mucus 0 SEEN Radiography Diagnostic Testing: Clinical Impression(s) from Imaging Studies Lumbar Spine X-Ray 11/20/24 16:35 IMPRESSION: Multilevel spondylosis/discogenic change as above with a mild leftward curvature. No fracture identified. Reading Location: [facility] Rhythm Strip Rhythm Strip: A-fib Rate: 50 Ectopy: None EKG Initial EKG: Attestation: I personally reviewed and interpreted this EKG as follows: Interpretation: No Acute Injury Pattern, Atrial Fibrillation, Inverted T-Waves (lateral precordial) and Non-Specific ST Changes Prior EKG tracings: available for review Prior: Unchanged Management Discussion w/another healthcare provider: Hospitalist Discharge Plan Triage Chief Complaint: Back ED Provider: Faustino Donnelly Dx/Rx/DC Orders Clinical Impression: Intractable low back pain, Declining functional status Prescriptions: No Action aspirin [Adult Aspirin Regimen] 81 mg tablet,delayed release (DR/EC) 81 mg PO QDAY Qty: 30 0RF multivitamin Tablet 1 tab PO DAILY lovastatin 20 mg tablet 20 mg PO QHS PreserVision AREDS-2 250-90-40-1 mg Capsule 1 tab PO BID sertraline 50 mg tablet 100 mg PO DAILY hydrocodone-acetaminophen 5-325 mg Tablet 1 tab PO Q4H PRN PRN (Reason: Pain Score 4-10) 7 Days Qty: 20 0RF hydrocodone-acetaminophen 5-325 mg tablet 1 tab PO Q6H PRN PRN (Reason: Pain) 5 Days Qty: 20 0RF Primary Care Provider: Yamil Madden Referrals: Yamil Madden MD [Primary Care Provider] - Print Language: Haitian Disposition Disposition: Acute Care Hospital [facility]
[2024-11-20] MEDS: Ondansetron 4 MG/2 ML Vial IV (16:13)
[2024-11-20] MEDS: Morphine 4 MG/ML Syringe IV ×2 (16:13→18:18)
[2024-11-20 16:18] LABS: Bacteria 0 SEEN /hpf (None Seen); Mucous, Urine 0 SEEN /hpf (<or=2+); Squamous Epithelial Cells - UA 0 SEEN /hpf (5-10); White Blood Cells 0 SEEN /hpf (0-5)
[2024-11-20 16:20] LABS: Color, Urine Yellow (Yellow); Glucose, Dipstick Normal (Normal); Ketone-Dipstick Negative (Negative); Leukocyte Esterase-Dipstick Negative /ul (Negative); Nitrite-Dipstick Negative (Negative); Occult Blood-Urine Negative /ul (Negative); Protein-Dipstick 30 mg/dl (Negative); Specific Gravity, Urine 1.015 (1.002-1.030); Urine Bilirubin Dipstick Negative (Negative); Urine Clarity Clear (Clear); Urine Urobilinogen Normal (Normal)
[2024-11-20 16:25] LABS: Absolute Lymphocyte Count 30.27 X10^3/uL (0.83-4.51); Absolute Neutrophil Count 5.6 X10^3/uL (2.0-7.7); Basophil# 0.05 X10^3/uL; Basophil% 0.1 % (0-1); Eosinophil# 0.21 X10^3/uL; Eosinophils% 0.6 % (0-5); Hematocrit 42.2 % (37-47); Hemoglobin 13.6 g/dL (12.0-15.0); Lymphocyte # 30.27 X10^3/ul (0.83-4.51); Lymphocyte % 82.3 % (19-41); Mean Corp Hgb Conc 32.2 g/dL (32-36); Mean Corpuscular Hgb 31.4 pg (27.0-32.0); Mean Corpuscular Volume 97.5 fL (81-99); Mean Platelet Vol. 9.8 fl (6.2-12.0); Monocyte# 0.56 X10^3/uL; Monocyte% 1.5 % (0-10); NRBC Flagged by Analyzer 0.1 % (0-5); Neutrophil # 5.62 X10^3/uL (2.7-7.7); Neutrophil % 15.3 % (47-70); POSITIVE COUNT YES; POSITIVE DIFFERENTIAL YES; POSITIVE MORPHOLOGY YES; Platelet Count 240 K/mm3 (150-450); RBC Distribution Width CV 14.6 % (11.6-14.6); RBC Distribution Width SD 52.8 fl (35.1-43.9); Red Blood Count 4.33 M/mm3 (4.2-5.4)
[2024-11-20 16:26] LABS: Amorphous Sediment 1+; Red Blood Cells-Urine 0 SEEN /hpf (0-5)
[2024-11-20 16:32] LABS: Differential Indicated SCAN CRITERIA MET; White Blood Count 36.8 K/mm3 (4.4-11.0)
--- NOTE | 2024-11-20 16:33 | ED.RN ---
Critical WBC of 36.8. Dr. Donnelly notified.
--- NOTE | 2024-11-20 16:35 | RAD_ITS ---
PROCEDURE: LUMBAR SPINE 2 OR 3 VIEWS 11/20/2024 REASON FOR EXAM: PAIN TECHNIQUE: 2 view(s) of the lumbar spine COMPARISON: None available FINDINGS: 5 [id number] lumbar vertebral type bodies. Mild leftward curvature, scoliosis. No fracture. L2-3: Mild spondylosis/discogenic change. L3-4: Moderate to severe appearing spondylosis/discogenic changes with disc space narrowing, anterior and qhxwi-affrtpk-wawa-left lateral osteophyte formation L4-5: [id number]-ar-qfiwocwk appearing spondylosis/discogenic change and 3-4 mm of anterolisthesis L4 on L5. L5-S1 mild spondylosis/discogenic change. Asymmetric multilevel hownk-qazqjdo-kzkh-left appearing hypertrophic facet degenerative changes. RAD/Lumbar Spine 2 or 3 Views IMPRESSION: Multilevel spondylosis/discogenic change as above with a mild leftward curvatur e. No fracture identified. Reading Location: [id number]
[2024-11-20 16:50] LABS: Anion Gap 9 (5-15); BUN 11 mg/dL (4-19); BUN/Creat Ratio 16.4 RATIO (10-20); Calcium,Total 9.8 mg/dL (7.6-11.0); Carbon Dioxide 25.8 mmol/L (21.0-32.0); Chloride 103 mmol/L (98-108); Creatinine, Serum 0.67 mg/dL (0.70-1.20); EST Glomerular Filtration Rate 85 (>60); Glucose 102 mg/dL (70-99); Sodium Level 138 mmol/L (133-145)
[2024-11-20 17:11] LABS: Pathologist Review May foll
[2024-11-20 18:19] VITALS: BMI 19.5
[2024-11-20 18:24] VITALS: BP 153/78; PULSE 78; RESP 18; TEMP 36.6; O2SAT 96
--- NOTE | 2024-11-20 18:24 | PCM.HP.STD ---
HPI - General General Date of Admission: 11/20/24 Date of Service: 11/20/24 Chief Complaint: acute on chronic low back pain w/ debility HPI Narrative DOMENICO MAIN, is a 88 F who presented to [facility] ED on 11/20/2024 with worsening low back pain with debility. Patient has history of mild chronic back pain with osteoarthritis. However, over the past 3 to 4 weeks she has had significantly worsening low back pain with increasing debility. She was seen in the ER here a few weeks ago and imaging showed apparent chronic changes but no acute changes. She was prescribed Wolf which did not seem to help much. She was then referred to pain management by her PCP and saw the pain management doctor in [place] last week. Apparently that doctor prescribed other oral and topical medications that have not seem to help much either. That doctor mentioned that if patient did not have much relief of pain with this, she would need an MRI of her lumbar spine with likely plan for pain injections. Patient has not had worsening difficulty with getting to a standing position as well as difficulty with ambulating at all. She also has had some difficulties with urinating over the past week or so. UA recently was negative for infection. Her has had difficulty caring for her at home so he brought her into the ED for further evaluation. In the ED she was hemodynamically stable on room air. Labs notable for WBC count 36 (baseline around 25-30 in setting of CLL); CBC and BMP otherwise unremarkable. Lumbar spine x-ray showed multilevel spondylosis/discogenic changes with no acute fractures noted. Given her intractable low back pain and difficulty being cared for at home, hospitalist was contacted for admission. I saw the patient at bedside in the ED. was not present at that point. Patient was mildly fatigued appearing but otherwise laying back comfortably in bed and in no acute distress. Patient had been given a dose of IV morphine and noted that it was mildly helpful for her back pain but she also felt somewhat loopy from this. She denies any radiation of the pain down her legs at any point recently. She does note that she has not been eating and drinking as much over the past several days. She otherwise denies any acute concerns at this time. 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 Osteoporosis Benign paroxysmal positional vertigo Macular degeneration Chronic lymphocytic leukemia Personal history of malignant neoplasm of breast (2007) History of DVT of lower extremity (2006) History of pulmonary embolus (PE) Hyperlipidemia Essential hypertension Permanent atrial fibrillation Home Medications ?Medication ?Instructions ?Recorded ?Last Taken ?Type lovastatin 20 mg tablet 20 mg PO QHS Cholesterol 04/21/21 Unknown History multivitamin 1 tab PO DAILY Supplement 04/21/21 Unknown History duloxetine 20 mg capsule,delayed 20 mg PO DAILY 11/20/24 Unknown History release Allergy/AdvReac Type Severity Reaction Status Date / Time Gadolinium-MRI Contrast Allergy Severe Hives Verified 11/20/24 14:37 Medium gadoterate meglumine (From Allergy Severe Hives Verified 11/20/24 14:37 Dotarem) Penicillins Allergy Hives Verified 11/20/24 20:27 dabigatran etexilate (From AdvReac Intermediate GI upset Verified 11/20/24 14:37 Pradaxa) codeine AdvReac Unknown Verified 11/20/24 14:37 diphtheria,pertussis AdvReac Swelling Verified 11/20/24 14:37 (acell),tetanu Family History Mother H/O bilateral mastectomy Breast cancer Father Heart disease unsure of type Sister Cardiac pacemaker in situ Surgical History (Updated 11/20/24 @ 19:57 by Suma Duarte) History of appendectomy History of total right knee replacement History of transesophageal echocardiography (LEN) (10/06/12) History of cardioversion (10/06/12) History of total right knee replacement (2006) History of left mastectomy (04/11/08) Social History household members: spouse housing: house current occupational status: retired Smoking Status: Never smoker alcohol intake: never substance use type: does not use ROS Constitutional Constitutional: Reports fatigue and weakness; Denies chills or fever(s) Eyes Eyes: Denies change in vision Cardiovascular Cardiovascular: Denies chest pain Respiratory/Chest Respiratory/Chest: Denies shortness of breath at rest Gastrointestinal Gastrointestinal: Denies abdominal pain Genitourinary Genitourinary: Reports difficulty urinating and urinary hesitancy; Denies dysuria Musculoskeletal Musculoskeletal: Reports back pain; Denies arthralgias or myalgias Neurologic Neurologic: Denies dizziness, headache(s), numbness, paresthesias or tingling Vital Signs Vital Signs Vital Signs: 11/20/24 14:37 Temperature 96.2 F L Temperature Source Temporal Pulse Rate 54 L Respiratory Rate 14 Blood Pressure 173/80 H Blood Pressure Mean 111 Pulse Ox 98 Oxygen Delivery Method Room Air Weight Weight: 51.5 kg Body Mass Index (BMI) 19.5 Physical Exam Const alert, oriented x3 and no apparent distress Constitutional Narrative: Elderly female, thin and somewhat cachectic appearing, moderately fatigued appearing but otherwise laying back comfortably in bed, answering questions with short appropriate responses, in no acute distress. General Appearance: cooperative and comfortable HEENT normocephalic, head/scalp atraumatic, hearing grossly normal bilaterally, nasal mucous membranes and turbinates normal and moist oral mucous membranes Eyes PERRL, EOMs intact bilaterally and conjunctivae normal Neck full ROM Chest inspection of chest normal Resp normal respiratory effort, normal air movement, no use of accessory muscles and clear to auscultation bilaterally Cardio regular rate, regular rhythm, no murmurs and peripheral pulses 2+ throughout GI normal to inspection, nondistended, normoactive bowel sounds, soft to palpation, non-tender and non-distended Back/Spine Back/Spine Narrative: Mild tenderness to palpation in low back diffusely. No point tenderness noted. Extremity normal to inspection and no pedal edema Skin no rashes or lesions noted Neuro moves all extremities Speech: speech normal Psych mental status grossly normal Psych Narrative: Flat affect. Results Lab / Micro Data 11/20/24 16:15 11/20/24 16:15 Labs: Laboratory Results - last 24 hr 11/20/24 16:13: Urine Color Yellow, Urine Clarity Clear, Urine pH 8.0, Ur Specific [place] 1.015, Urine Protein 30 H, Urine Glucose (UA) Normal, Urine Ketones Negative, Urine Occult Blood Negative, Urine Nitrite Negative, Urine Bilirubin Negative, Urine Urobilinogen Normal, Ur Leukocyte Esterase Negative, Urine RBC 0 SEEN, Urine WBC 0 SEEN, Ur Squamous Epith Cells 0 SEEN, Amorphous Sediment 1+, Urine Bacteria 0 SEEN, Urine Mucus 0 SEEN 11/20/24 16:15: WBC 36.8 H*, RBC 4.33, Hgb 13.6, Hct 42.2, MCV 97.5, MCH 31.4, MCHC 32.2, RDW Std Deviation 52.8 H, RDW Coeff of Asael 14.6, Plt Count 240, MPV 9.8, Immature Gran % (Auto) 0.200, Neut % (Auto) 15.3 L, Lymph % (Auto) 82.3 H, Anderson % (Auto) 1.5, Eos % (Auto) 0.6, Baso % (Auto) 0.1, Absolute Neuts (auto) 5.6, Absolute Lymphs (auto) 30.27 H, Nucleated RBC % 0.1, Differential Comment COMMENT, Diff Path Review January foll, Sodium 138, Potassium 4.0, Chloride 103, Carbon Dioxide 25.8, Anion Gap 9, BUN 11, Creatinine 0.67 L, Est GFR (MDRD) Non-Af 85, BUN/Creatinine Ratio 16.4, Glucose 102 H, Calcium 9.8 Rhythm Strip Rhythm Strip: A-fib Rate: 50 Ectopy: None Imaging Radiology Impression Lumbar Spine X-Ray 11/20/24 16:35 IMPRESSION: Multilevel spondylosis/discogenic change as above with a mild leftward curvature. No fracture identified. Reading Location: [facility] Assessment & Plan Assessment/Plan (1) Intractable low back pain: (2) Declining functional status: PLAN: Plan Patient is an 88-year-old female who presented to [facility] ED on 11/20/2024 with worsening low back pain with debility. 1. Acute on chronic debility with difficulty ambulating in setting of intractable low back pain ? Admit under observation status to [facility]. Pain management consulted. PT/OT/case management consulted. Lumbar x-ray on admit showed significant chronic changes but no acute changes. MRI lumbar spine ordered for further evaluation. Suspect patient may be a good candidate for pain injection pending MRI results. Will keep patient n.p.o. at midnight for possible pain injection tomorrow. Will also hold Lovenox for DVT prophylaxis and plan to start on 11/22. Pain control for now with scheduled Tylenol, oxycodone as needed and IV Dilaudid as needed. 2. Concern for malnutrition ? Nutrition consulted. BMI 17 on admit. Appreciate nutrition recommendations. 3. Leukocytosis with history of CLL ? WBC count 36 on admit. Baseline appears to be around 25-30. Suspect this is due to hemoconcentration as hemoglobin appears slightly higher than normal as well. Given 1 L of IV fluids on admit, follow-up a.m. CBC. 4. Permanent A-fib, hypertension, hyperlipidemia ? Follows with outpatient cardiology. Not on anticoagulation due to history of bleeding. Not on rate control due to history of bradycardia. Continue home aspirin and statin. 5. Depression ? Continue home duloxetine. DVT prophylaxis: Lovenox CODE STATUS: DNR CCA, DNI Expected disposition: TBD Total clinical time spent by myself addressing the patient's medical issues, reviewing all the data, and collaborating with patient's care team: 55 minutes. Charges/Coding Visit Charges Inpatient E&M: 37913 Init Hosp L2
[2024-11-20 20:11] VITALS: BMI 17.2
[2024-11-20 20:55] VITALS: BP 163/67; PULSE 51; RESP 18; TEMP 36.2; O2SAT 95
[2024-11-20] MEDS: Lactated Ringers 1,000 ML 200 ML IV (21:19)
[2024-11-20] MEDS: Lidocaine 5% Patch 1 PATCH TOPICAL (21:20)
[2024-11-20] MEDS: dexAMETHasone 4 MG/ML Vial IV (21:20)
[2024-11-21] VITALS (7 sets, daily range): BP systolic 140–156; BP diastolic 64–81; PULSE 48–70; RESP 12–20; TEMP 36.2–36.8; O2SAT 93–99
[2024-11-21] MEDS: Acetaminophen 500 MG Tablet 1000 MG PO (05:31)
[2024-11-21 06:59] LABS: Hematocrit 35.6 % (37-47); Hemoglobin 11.8 g/dL (12.0-15.0); Mean Corp Hgb Conc 33.1 g/dL (32-36); Mean Corpuscular Hgb 31.9 pg (27.0-32.0); Mean Corpuscular Volume 96.2 fL (81-99); Mean Platelet Vol. 9.8 fl (6.2-12.0); Platelet Count 186 K/mm3 (150-450); RBC Distribution Width CV 14.6 % (11.6-14.6); RBC Distribution Width SD 50.5 fl (35.1-43.9); White Blood Count 25.9 K/mm3 (4.4-11.0)
[2024-11-21 07:15] LABS: International Normalized Ratio 1.1; Prothrombin Time (Protime)PT. 14.3 SECONDS (11.7-14.9)
[2024-11-21 07:33] LABS: Anion Gap 9 (5-15); BUN 15 mg/dL (4-19); BUN/Creat Ratio 22.8 RATIO (10-20); Calcium,Total 8.7 mg/dL (7.6-11.0); Carbon Dioxide 24.1 mmol/L (21.0-32.0); Chloride 103 mmol/L (98-108); Creatinine, Serum 0.64 mg/dL (0.70-1.20); EST Glomerular Filtration Rate 86 (>60); Estimated Creatinine Clearance 36.34 ml/min (50-250); Glucose 129 mg/dL (70-99); Potassium 4.8 mmol/L (3.3-5.1); Sodium Level 136 mmol/L (133-145)
[2024-11-21] MEDS: Multivitamin (Healthy Eyes) Capsule 1 CAP PO (09:38)
[2024-11-21] MEDS: DULoxetine Hcl 20 MG Capsule PO (09:38)
[2024-11-21] MEDS: Multivitamins,Therapeutic Tablet 1 TABLET PO (09:38)
[2024-11-21] MEDS: Aspirin E.C. 81 MG Tablet PO (09:38)
[2024-11-21] MEDS: Lidocaine 5% Patch 1 PATCH TOPICAL (09:39)
[2024-11-21] MEDS: Morphine 4 MG/ML Syringe IV (11:08)
[2024-11-21] MEDS: Ondansetron 4 MG/2 ML Vial IV ×2 (11:09→17:05)
[2024-11-21] MEDS: Lorazepam 2 MG/ML WCH Syringe 1 MG IV ×2 (11:30→12:00)
[2024-11-21] MEDS: DiphenhydrAMINE 50 MG/ML Syringe IV (12:07)
--- NOTE | 2024-11-21 12:22 | CT_ITS ---
PROCEDURE: SPINE LUMBAR WITHOUT CONTRAST 11/21/2024 REASON FOR EXAM: RADICULOPATHY TECHNIQUE: Lumbar spine CT without contrast. Coronal and Sagittal reconstruction series were provided. One or more dose reduction techniques were used (e.g., Automated exposure control, adjustment of the mA and/or kV according to patient size, use of iterative reconstruction technique COMPARISON: None. RADIATION DOSE SUMMARY: CTDlvol: 14.43 mGy DLP: 187.95 mGycm FINDINGS: Vertebrae: Irregularity of the superior endplate of the L3 and L4 vertebrae. Alignment: Minimal anterior listhesis of L4 on L5 most likely secondary to facet joint osteoarthritis. L1-2: Mild degree of disc space narrowing. Mild anterior spondylosis. No significant stenosis is seen. L2-3: Moderate degree of disc space narrowing. Anterior spondylosis. Irregularity along the superior endplate of the L3 vertebrae. Facet joint osteoarthritis and hypertrophy. Bilateral neural foraminal stenosis. L3-4: There is a 7.8 mm cystic nodule in the inferior posterior aspect of the right side of the L3 vertebrae. Irregularity of the superior endplate of the L4 vertebrae. Mild anterior spondylosis. Facet joint osteoarthritis and hypertrophy with bilateral neural foraminal stenosis. L4-5: Minimal anterior listhesis of L4 on L5. Facet joint osteoarthritis and hypertrophy. Bilateral neural foraminal stenosis. L5-S1: Anterior spondylosis. Facet joint osteoarthritis. No stenosis seen. Sacrum: Unremarkable Calcification of the abdominal aorta. Hepatomegaly. CT/Spine Lumbar without Contrast IMPRESSION: LUMBAR DEGENERATIVE DISC AND FACET DISEASE. Irregularity of the superior endplate of the L3 and L4 vertebrae as described. Clinical correlation recommended to rule out possible osteomyelitis. Reading Location: [place] [id number]
--- NOTE | 2024-11-21 14:24 | CASEMGMT ---
Met with patient to complete ERNANDEZ form x2 with pt sleeping and not present. Copy given to pts daughter to forward to pts . Original with explanation placed in pt's chart. Leti Jackson, Discharge Planning Asst
--- NOTE | 2024-11-21 14:26 | CASEMGMT ---
Pts daughter made aware that pts ring and watch was placed in med room. Pts daughter (Mackenzie) will notify her dad to retrieve them when he is in next. Leti Jackson DC Planning Asst.
--- NOTE | 2024-11-21 14:52 | CASEMGMT ---
LORIE ROMAN spoke with pt nurse, pt is medicated for upcoming MRI and nurse does not feel it is feasible for pt to have discussion regarding dc planning. Pt unable to have water at this time. LORIE ROMAN to follow after MRI and when pt may be more alert.
--- NOTE | 2024-11-21 15:29 | PN.HOSP_ITS ---
Reason for Visit Reason for Visit: Diagnoses Other low back pain (11/20/24) Other malaise (11/20/24) Subjective Subjective Patient was seen and examined today, she was not able to complete an MRI earlier in the day due to the fact that she was moving her hands and trying to scratch her scalp due to itching. She came back to the floor and instead I decided to order the CT of the lumbar spine after talking with pain management, patient had to be given IV Benadryl, IV morphine, and IV Ativan to calm her down enough to obtain the imaging study. Imaging study showed possible endplate osteomyelitis on L3 and L4, at that point I decided to go ahead with an MRI of the lumbar spine which will be done approximately 6 PM today. Patient may need to be given additional medication to keep her calm during the exam. Objective Data Objective Data Vital Signs: Vital Signs Temp Pulse Resp BP Pulse Ox O2 Del Method O2 Flow Rate 97.2 F L 49 L 12 156/70 H 98 Nasal Cannula 2 11/21/24 14:43 11/21/24 14:43 11/21/24 14:43 11/21/24 14:43 11/21/24 14:43 11/21/24 14:56 11/21/24 14:56 Oxygen Flow Rate (L/min) 2 Oxygen Delivery Method Nasal Cannula Weight: 45.6 kg Body Mass Index (BMI) 17.2 Intake & Output: Intake and Output for Last 24 Hours 11/19/24 11/20/24 11/21/24 23:59 23:59 23:59 Intake Total 200 / 200 1450 / 1450 Balance 200 / 200 1450 / 1450 Lab / Micro Data 11/21/24 06:42 11/21/24 06:42 Labs: Laboratory Results - last 24 hr 11/20/24 16:13: Urine Color Yellow, Urine Clarity Clear, Urine pH 8.0, Ur Specific [place] 1.015, Urine Protein 30 H, Urine Glucose (UA) Normal, Urine Ketones Negative, Urine Occult Blood Negative, Urine Nitrite Negative, Urine Bilirubin Negative, Urine Urobilinogen Normal, Ur Leukocyte Esterase Negative, Urine RBC 0 SEEN, Urine WBC 0 SEEN, Ur Squamous Epith Cells 0 SEEN, Amorphous Sediment 1+, Urine Bacteria 0 SEEN, Urine Mucus 0 SEEN 11/20/24 16:15: WBC 36.8 H*, RBC 4.33, Hgb 13.6, Hct 42.2, MCV 97.5, MCH 31.4, MCHC 32.2, RDW Std Deviation 52.8 H, RDW Coeff of [place]se[place] 14.6, Plt Count 240, MPV 9.8, Immature Gran % (Auto) 0.200, Neut % (Auto) 15.3 L, Lymph % (Auto) 82.3 H, Williams % (Auto) 1.5, Eos % (Auto) 0.6, Baso % (Auto) 0.1, Absolute Neuts (auto) 5.6, Absolute Lymphs (auto) 30.27 H, Nucleated RBC % 0.1, Differential Comment COMMENT, Diff Path Review January, Sodium 138, Potassium 4.0, Chloride 103, Carbon Dioxide 25.8, Anion Gap 9, BUN 11, Creatinine 0.67 L, Est GFR (MDRD) Non- Af 85, BUN/Creatinine Ratio 16.4, Glucose 102 H, Calcium 9.8 11/21/24 06:42: WBC 25.9 H, RBC 3.70 L, Hgb 11.8 L, Hct 35.6 L, MCV 96.2, MCH 31.9, MCHC 33.1, RDW Std Deviation 50.5 H, RDW Coeff of Asael 14.6, Plt Count 186, MPV 9.8, PT 14.3, INR 1.1, Sodium 136, Potassium 4.8, Chloride 103, Carbon Dioxide 24.1, Anion Gap 9, BUN 15, Creatinine 0.64 L, Estim Creat Clear Calc 36.34 L, Est GFR (MDRD) Non-Af 86, BUN/Creatinine Ratio 22.8 H, Glucose 129 H, Calcium 8.7 Radiography Diagnostic Testing: Radiology Impression Lumbar Spine X-Ray 11/20/24 16:35 IMPRESSION: Multilevel spondylosis/discogenic change as above with a mild leftward curvature. No fracture identified. Reading Location: [id number] Lumbar Spine CT 11/21/24 12:22 IMPRESSION: LUMBAR DEGENERATIVE DISC AND FACET DISEASE. Irregularity of the superior endplate of the L3 and L4 vertebrae as described. Clinical correlation recommended to rule out possible osteomyelitis. Reading Location: [place] [address] Rhythm Strip Rhythm Strip: A-fib Rate: 50 Ectopy: None Physical Exam Const alert, oriented x3 and no apparent distress General Appearance: cooperative, well kempt and well developed Orientation / Consciousness: awake, oriented to person, oriented to place and oriented to time HEENT normocephalic, head/scalp atraumatic and moist oral mucous membranes Eyes PERRL, EOMs intact bilaterally and conjunctivae normal Neck supple, no JVD, thyroid normal and no carotid bruits General: trachea midline Resp normal respiratory effort, no retractions, no use of accessory muscles and clear to auscultation bilaterally Auscultation: Negative for rales, rhonchi or wheezes Cardio regular rate, regular rhythm, S1 normal heart sound, S2 normal heart sound, no murmurs, no rub and no gallops GI normal to inspection, nondistended, normoactive bowel sounds, soft to palpation, non-tender and non-distended Extremity no clubbing, cyanosis or edema Skin no rashes or lesions noted General Skin Exam: no breakdown Neuro oriented x3, CN's II-XII intact bilaterally, moves all extremities, no focal motor deficits and no sensory deficits noted Sensorium / Orientation: awake and alert Speech: speech normal Psych affect normal Assessment & Plan Assessment/Plan (1) Declining functional status: (2) Intractable low back pain: PLAN: Plan 1. Acute on chronic debility from intractable back pain due to degenerative disc disease of the lumbar spine-PT and OT will see the patient, pain management is due to see the patient also on consultation #2 leukocytosis secondary to CLL-complicates care, management, recovery, and prognosis #3 permanent atrial fibrillation-patient is not on anticoagulation due to a history of bleeding, patient is on a home aspirin #4 chronic depression-patient is on Cymbalta #5 hyperlipidemia-patient is on a statin Total clinical time spent by myself addressing the patient's medical issues, reviewing all of her data, and collaborating with patient's care team: 35 minutes Charges/Coding Visit Charges Inpatient E&M: 37548 Subs Hosp L2
--- NOTE | 2024-11-21 16:23 | NURSING ---
All documentation by nursing service administrator Earline Tim reviewed by professional nursing assistant Shefali LOZANON, RN.
[2024-11-21] MEDS: Morphine 2 MG/ML Syringe IV (17:06)
--- NOTE | 2024-11-21 20:13 | MRI_ITS ---
PROCEDURE: MRI lumbar spine without IV contrast REASON FOR EXAM: ACUTE ON CHRONIC LBP W/ DIFFICULTY AMBULATING TECHNIQUE: Multisequence multiplanar MR images of the lumbar spine were obtained without the administration of intravenous contrast. COMPARISON: 11/21/2024 FINDINGS: Mild compression fractures of the superior endplates of the L3 and L4 vertebral bodies with mild associated edema. No significant osseous retropulsion. Remaining vertebral body heights are preserved. Mild levoscoliosis. Grade 1 retrolisthesis of L2-3. Grade 1 anterolisthesis of L3-4. Conus medullaris is intact and terminates at L1-2. Mild/moderate paraspinal muscle atrophy. L1-2: Small posterior disc bulge. Mild bilateral facet arthrosis. No significant spinal stenosis. Mild bilateral foraminal narrowing. L2-3: Posterior disc bulge. Moderate bilateral facet arthrosis. Mild lateral spinal stenosis. Moderate right and mild/moderate left foraminal narrowing. L3-4: Posterior disc bulge. Moderate bilateral facet arthrosis. Mild lateral spinal stenosis. Moderate/severe right and moderate left foraminal narrowing. L4-5: Grade 1 anterolisthesis with uncovering of the posterior disc. Superimposed posterior disc bulge. Severe bilateral facet arthrosis. Moderate spinal stenosis with narrowing of the lateral recesses, greater on the right. Moderate/severe bilateral foraminal narrowing. L5-S1: Posterior disc bulge. Moderate bilateral facet arthrosis. No significant spinal stenosis or foraminal narrowing. MRI/Spine Lumbar (Routine) IMPRESSION: 1. Probable subacute compression fractures of L2 and L3. No definite evidence of acute osteomyelitis. 2. Acquired [id number] multilevel spinal stenosis, greatest at L4-5. 3. Acquired multilevel foraminal narrowing, greatest at L3-4 and L4-5. Reading Location: [facility]
[2024-11-22 04:50] VITALS: BP 124/79; PULSE 53; RESP 16; TEMP 36.5; O2SAT 98
[2024-11-22] MEDS: Acetaminophen 500 MG Tablet 1000 MG PO ×2 (05:22→13:34)
[2024-11-22] MEDS: Multivitamins,Therapeutic Tablet 1 TABLET PO (07:24)
[2024-11-22] MEDS: Aspirin E.C. 81 MG Tablet PO (07:24)
[2024-11-22] MEDS: Multivitamin (Healthy Eyes) Capsule 1 CAP PO ×2 (07:24→16:31)
[2024-11-22] MEDS: Lidocaine 5% Patch 1 PATCH TOPICAL (07:25)
[2024-11-22] MEDS: DULoxetine Hcl 20 MG Capsule PO (07:25)
[2024-11-22] MEDS: Enoxaparin 40 MG/0.4 ML Syringe SC (07:27)
[2024-11-22 07:50] VITALS: BP 149/68; PULSE 57; RESP 16; TEMP 36.6; O2SAT 99
--- NOTE | 2024-11-22 09:27 | PCM.PN.HOSP ---
Reason for Visit Reason for Visit: Diagnoses Other low back pain (11/20/24) Other malaise (11/20/24) Subjective Subjective Patient was seen and examined today, she still complaining of some scalp itching. MRI of the lumbar spine yesterday showed probable subacute compression fractures of L2 and L3, no definite evidence of osteomyelitis was noted, there is also mild to moderate multilevel spinal stenosis greatest at L4-5. Objective Data Objective Data Vital Signs: Vital Signs Temp Pulse Resp BP Pulse Ox O2 Del Method O2 Flow Rate 97.8 F 57 L 16 149/68 H 99 Room Air 3 11/22/24 07:50 11/22/24 07:50 11/22/24 07:50 11/22/24 07:50 11/22/24 07:50 11/22/24 07:50 11/22/24 04:50 Oxygen Flow Rate (L/min) 3 Oxygen Delivery Method Room Air Weight: 45.6 kg Body Mass Index (BMI) 17.2 Intake & Output: Intake and Output for Last 24 Hours 11/20/24 11/21/24 11/22/24 23:59 23:59 23:59 Intake Total 200 / 200 1450 / 1450 250 / 250 Balance 200 / 200 1450 / 1450 250 / 250 Lab / Micro Data 11/21/24 06:42 11/21/24 06:42 Radiography Diagnostic Testing: Radiology Impression Lumbar Spine CT 11/21/24 12:22 IMPRESSION: LUMBAR DEGENERATIVE DISC AND FACET DISEASE. Irregularity of the superior endplate of the L3 and L4 vertebrae as described. Clinical correlation recommended to rule out possible osteomyelitis. Reading Location: [facility] Lumbar Spine MRI 11/21/24 20:13 IMPRESSION: 1. Probable subacute compression fractures of L2 and L3. No definite evidence of acute osteomyelitis. 2. Acquired [id number] multilevel spinal stenosis, greatest at L4-5. 3. Acquired multilevel foraminal narrowing, greatest at L3-4 and L4-5. Reading Location: [facility] Rhythm Strip Rhythm Strip: A-fib Rate: 50 Ectopy: None Physical Exam Narrative alert, oriented x3 and no apparent distress General Appearance: cooperative, well kempt and well developed Orientation / Consciousness: awake, oriented to person, oriented to place and oriented to time HEENT normocephalic, head/scalp atraumatic and moist oral mucous membranes Eyes PERRL, EOMs intact bilaterally and conjunctivae normal Neck supple, no JVD, thyroid normal and no carotid bruits General: trachea midline Resp normal respiratory effort, no retractions, no use of accessory muscles and clear to auscultation bilaterally Auscultation: Negative for rales, rhonchi or wheezes Cardio irregular rate, irregular rhythm, S1 normal heart sound, S2 normal heart sound, no murmurs, no rub and no gallops GI normal to inspection, nondistended, normoactive bowel sounds, soft to palpation, non-tender and non-distended Extremity no clubbing, cyanosis or edema Skin no rashes or lesions noted General Skin Exam: no breakdown Neuro oriented x3, CN's II-XII intact bilaterally, moves all extremities, no focal motor deficits and no sensory deficits noted Sensorium / Orientation: awake and alert Speech: speech normal Psych affect normal Assessment & Plan Assessment/Plan (1) Declining functional status: (2) Intractable low back pain: PLAN: Plan 1. Acute on chronic debility from intractable back pain due to subacute compression fractures of the lumbar spine and mild to moderate spinal stenosis-patient will continue to work with PT and OT, it is not clear whether she will need to go to group home facility, I will review the patient's pain medications #2 leukocytosis secondary to CLL-complicates care, management, recovery, and prognosis #3 permanent atrial fibrillation-patient is not on anticoagulation due to a history of bleeding, patient is on a home aspirin #4 chronic depression-patient is on Cymbalta #5 hyperlipidemia-patient is on a statin Total clinical time spent by myself addressing the patient's medical issues, reviewing all of her data, and collaborating with patient's care team: 35 minutes Charges/Coding Visit Charges Inpatient E&M: 12158 Subs Hosp L2
[2024-11-22 09:55] VITALS: O2SAT 90
[2024-11-22 11:03] VITALS: BP 114/54; PULSE 56; RESP 16; TEMP 36.6; O2SAT 94
--- NOTE | 2024-11-22 11:07 | CASEMGMT ---
Discharge Planning A list of?SNF providers including quality and resource use data and consistent with the patient's preferred geographic region, medical needs, and insurance network was created in [employer] Guide.? This list was provided to the SW. Leti Jackson Discharge Planning Asst.
--- NOTE | 2024-11-22 11:38 | CASEMGMT ---
Social Work SW received referral from physician that pt may need SNF at discharge. SW met with pt and spouse and introduced self and role of SW. SW discussed discharge plan with pt's spouse who is agreeable to SNF placement if needed. Pt was very painful yesterday and then medicated and pt states she was out of it. SW spoke with therapy and requested pt be seen again today to evaluate for need for SNF vs returning home with spouse. A list of SNF providers including quality and resource use data and consistent with the patient?s preferred geographic region, medical needs, and insurance network were provided from the [employer] Guide. Pt's spouse to review list, will await for therapy treatment and SW to follow up for determination of discharge needs. HOWARD Porter
[2024-11-22] MEDS: oxyCODONE 5 MG Tablet PO (13:34)
[2024-11-22] MEDS: Ensure Plus High Protein 120 ML LIQUID PO (13:36)
--- NOTE | 2024-11-22 14:26 | CASEMGMT ---
Addendum entered by Peter Husain 11/22/24 16:09: Per [facility], they are able to accept pt, but would not be able to do SOC until Tuesday or Tuesday. LORIE ROMAN to room. Pt and made aware and offered to have referral sent to other [facility] agencies to see if SOC could be sooner. states does not want another referral made, he would like to continue w/[facility] and states is okay w/SOC for Tue or . Pt is also agreeable. Call back to Nomei @ [facility] and she was made aware. Pt & would like meds from [facility] retail pharmacy delivered to pt's room. Call placed to the pharmacy and notified. Pt and deny having other dc needs or concerns. Addendum entered by Peter Husain 11/22/24 15:06: LORIE ROMAN to room. has left for a hair appt. Pt states their 1st choice is [facility]. Call placed to Noemi and referral made. Original Note: LORIE ROMAN NOTE: Per therapy, pt safe to discharge home and HHC recommended. LORIE ROMAN to room. Pt resting in bed, @ bedside. Made aware of therapy's recommendations. Pt and both feel comfortable w/pt going home and feel that she can manage @ home w/ assistance. Pt states her pain has improved since coming into the hospital and states is just hopeful they can continue to keep her pain managed @ home. Discussed option for therapy, including HHC and OP therapy. Also discussed aquatic therapy. Pt and decided on HHC. HHC list that was prepared by leola Landeros senior executive assistant, was provided for them to review. Emeterio ESPINAL RN, CM
--- NOTE | 2024-11-22 14:30 | CASEMGMT ---
Discharge Planning A list of HH providers including quality and resource use data and consistent with the patient's preferred geographic region, medical needs, and insurance network was created in [employer] Guide.? This list was provided to the RN BAEL. Leti Jackson, Discharge Planning Asst.
[2024-11-22 14:56] VITALS: BP 113/64; PULSE 56; RESP 16; TEMP 36.6; O2SAT 96
--- NOTE | 2024-11-22 14:56 | DCINST_ITS ---
Discharge Instructions Diet Discharge Diet: No restrictions DC O2, CPAP, BIPAP needs Home O2 Discharge instructions: No Dressing / Incision Discharge Activity: Return to Normal Activity Weight Bearing Status: Full weight bearing Follow Up Care Test Results: Test results from this visit will be discussed in further detail at your follow- up appointment, if applicable. Discharge Plan Admission Admit Date/Time: 11/20/24 18:25 Primary Reason for Your Visit: Compression fractures of the lumbar spine with chronic back pain Attending Provider: Adan Sotelo Primary Care Provider: Yamil Madden Consulting Providers: Nicole Brothers; Nav Fine Instructions Additional Instructions / Restrictions: Take MiraLAX 17 g once or twice daily while you are taking pain pills to prevent constipation. Do not take any ibuprofen or Aleve Take Os-Bj 500 mg with 200 units of vitamin D3 1 tablet twice a day, you should follow-up with your family physician about osteoporosis treatment Discharge Orders/Prescriptions Prescriptions: New calcium carbonate-vitamin D3 [Oyster Shell Calcium-Vit D3] 500 mg-5 mcg (200 unit) Tablet 1 tab PO BIDCM Qty: 0 0RF acetaminophen 500 mg Tablet 1,000 mg PO Q8 Qty: 1 0RF oxycodone 5 mg Tablet 5 - 10 mg PO Q6H PRN (Reason: Pain Score 4-10) 7 Days Qty: 40 0RF Continued multivitamin Tablet 1 tab PO DAILY lovastatin 20 mg tablet 20 mg PO QHS duloxetine 20 mg capsule,delayed release(DR/EC) 20 mg PO DAILY Discontinued tizanidine 2 mg tablet 2 mg PO QHS meloxicam 7.5 mg tablet 7.5 mg PO DAILY Referrals / Follow Up: Nicole Brothers MD [Med Staff - Active Staff] - See Referral Note (Follow-up as directed by Dr. Brothers) Yamil Madden MD [Primary Care Provider] - Within 2 Weeks Disposition Disposition (needs filled in before D/C Order can be placed): Home Health Service
[2024-11-22] MEDS: Calcium Carb/Vitamin D 1 TABLET Tablet PO (16:31)
--- NOTE | 2024-11-22 17:44 | DS.PCM_ITS ---
Providers Date of Admission: 11/20/24 Date of Discharge: 11/22/24 Primary Care Physician: Dr. Yamil aMdden MD Consultations 11/20/24 20:13 Consult: Pain Management Routine Consulting Provider: Nicole Brothers Reason for Consult: acute on chronic LBP w/ difficulty ambulating EMERGENT Consult: No MD Notified: Yes Date Notified: 11/20/24 Time Notified: 20:10 Method of Notification: Verbal Reason For Visit: INTRACTABLE LOW BACK PAINB W/DEBILITY Diagnosis Discharge Diagnosis (1) Declining functional status: Status: Acute Code(s): R53.81 - Other malaise (2) Intractable low back pain: Status: Acute Code(s): M54.59 - Other low back pain Plan 1. 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-complicates care, management, recovery, and prognosis #3 permanent atrial fibrillation-patient is not on anticoagulation due to a history of bleeding, patient is on a home aspirin #4 chronic depression-patient is on Cymbalta #5 hyperlipidemia-patient is on a statin Total clinical time spent by myself addressing the patient's medical issues, reviewing all of her data, and collaborating with patient's care team: 35 minutes Medications at Discharge Home Medications lovastatin 20 mg tablet 20 mg PO QHS Cholesterol 04/21/21 multivitamin 1 tab PO DAILY Supplement 04/21/21 duloxetine 20 mg capsule,delayed release 20 mg PO DAILY 11/20/24 acetaminophen 500 mg tablet 1,000 mg (2 x 500 mg) PO Q8 #1 TAB 11/22/24 calcium 500 mg (as carbonate)-vitamin D3 5 mcg (200 unit) tablet (Oyster Shell Calcium-Vitamin D3) 1 tab PO BIDCM #0 tabs 11/22/24 oxycodone 5 mg tablet 5 - 10 mg (1 - 2 x 5 mg) PO Q6H PRN Pain Score 4-10 7 days #40 tabs 11/22/24 Hospital Course Operations None Procedures None Summary of Care Provided Minutes Spent on Discharge: 31 Hospital Course: This 88-year-old white female was seen in the emergency room at [facility] with a chief complaint of back pain x 3 to 4 weeks that is located in the low back area. Patient can walk at home but she has problem getting into a standing position. Patient was seen previously in the ER here and was given some [place] but it did not help her back discomfort. She was referred to a pain management doctor who went to [place] to see pain management who placed her on meloxicam and Zanaflex. She did not have an MRI performed. Workup in the emergency room included labs which showed an elevated white blood cell count 36.8, chemistry profile was unremarkable, urinalysis was unremarkable. Patient had lumbar x-rays performed which showed multilevel spondylosis/discogenic changes, no fracture was identified. Patient was placed in observation status on MedSurg 3 for declining functional status and back pain, she was placed on IV and p.o. pain meds, initially it was attempted to have the patient undergo an MRI of the lumbar spine but she was not able to hold still and so a CT of the lumbar spine was obtained which questioned the presence of osteomyelitis. Sent back and was able to complete an MRI, this MRI showed subacute compression fractures of the lumbar spine. I contacted pain management and pain management came up to the floor to talk with the patient and her about undergoing a kyphoplasty as an outpatient. On 11/22/2024, patient was seen and examined:alert, oriented x3 and no apparent distress General Appearance: cooperative, well kempt and well developed Orientation / Consciousness: awake, oriented to person, oriented to place and oriented to time HEENT normocephalic, head/scalp atraumatic and moist oral mucous membranes Eyes PERRL, EOMs intact bilaterally and conjunctivae normal Neck supple, no JVD, thyroid normal and no carotid bruits General: trachea midline Resp normal respiratory effort, no retractions, no use of accessory muscles and clear to auscultation bilaterally Auscultation: Negative for rales, rhonchi or wheezes Cardio irregular rate, irregular rhythm, S1 normal heart sound, S2 normal heart sound, no murmurs, no rub and no gallops GI normal to inspection, nondistended, normoactive bowel sounds, soft to palpation, non-tender and non-distended Extremity no clubbing, cyanosis or edema Skin no rashes or lesions noted General Skin Exam: no breakdown Neuro oriented x3, CN's II-XII intact bilaterally, moves all extremities, no focal motor deficits and no sensory deficits noted Sensorium / Orientation: awake and alert Speech: speech normal Psych affect normal Patient was discharged home in stable condition on 11/22/2024. Weight / BMI Weight Weight: 45.6 kg Body Mass Index (BMI) 17.2 ABG / Lab / Microbiology Data 11/21/24 06:42 11/21/24 06:42 Radiography Diagnostic Testing: Radiology Impression Lumbar Spine MRI 11/21/24 20:13 IMPRESSION: 1. Probable subacute compression fractures of L2 and L3. No definite evidence of acute osteomyelitis. 2. Acquired [id number]-[id number] multilevel spinal stenosis, greatest at L4-5. 3. Acquired multilevel foraminal narrowing, greatest at L3-4 and L4-5. Reading Location: [facility] D/C Instructions Discharge Diet: No restrictions Weight Bearing Status: Full weight bearing DC O2, CPAP, BIPAP Needs Home O2 Discharge instructions: No Meaningful Use Info Meaningful Use Meaningful Use Diagnoses (Choose all that apply): None applicable Ischemic Stroke Statin Dosing Therapy Reference: STATIN DOSE THERAPY REFERENCE: * Patients > 75 years receive moderate or high dose statin therapy. * Patients 75 years or YOUNGER should receive HIGH intensity statin dose unless contraindicated. You will be required to document reason for non-treatment if statin daily dose does not meet guidelines. HIGH DOSE STATIN THERAPY DAILY Atorvastatin > than or = to 40 mg Rosuvastatin > than or = to 20 mg Amlodipine + Atorvastatin > than or = to 2.5/40 mg Ezetimibe + Simvastatin 10/80 mg Simvastatin 80mg Discharge Plan Admission Admit Date/Time: 11/20/24 18:25 Primary Reason for Your Visit: Compression fractures of the lumbar spine with chronic back pain Attending Provider: Adan Sotelo Primary Care Provider: Yamil Madden Consulting Providers: Nicole Brothers; Nav Fine Instructions Additional Instructions / Restrictions: Take MiraLAX 17 g once or twice daily while you are taking pain pills to prevent constipation. Do not take any ibuprofen or Aleve Take Os-Bj 500 mg with 200 units of vitamin D3 1 tablet twice a day, you should follow-up with your family physician about osteoporosis treatment Discharge Orders/Prescriptions Prescriptions: New calcium carbonate-vitamin D3 [Oyster Shell Calcium-Vit D3] 500 mg-5 mcg (200 unit) Tablet 1 tab PO BIDCM Qty: 0 0RF acetaminophen 500 mg Tablet 1,000 mg PO Q8 Qty: 1 0RF oxycodone 5 mg Tablet 5 - 10 mg PO Q6H PRN (Reason: Pain Score 4-10) 7 Days Qty: 40 0RF Continued multivitamin Tablet 1 tab PO DAILY lovastatin 20 mg tablet 20 mg PO QHS duloxetine 20 mg capsule,delayed release(DR/EC) 20 mg PO DAILY Discontinued tizanidine 2 mg tablet 2 mg PO QHS meloxicam 7.5 mg tablet 7.5 mg PO DAILY Referrals / Follow Up: Nicole Brothers MD [Med Staff - Active Staff] - See Referral Note (Follow-up as directed by Dr. Brothers) Yamil Madden MD [Primary Care Provider] - Within 2 Weeks Disposition Disposition (needs filled in before D/C Order can be placed): Home Health Service Charges/Coding Visit Charges Inpatient E&M: 34916 Disch Hosp >30min
== END 2024-11-22 18:13 | disposition home or self-care (01) ==
LOC: ED 18:15 → MS3 20:12
PROVIDERS: Admitting Provider Hospitalist; Emergency Provider Emergency Medicine; PCP Family Medicine; Visit Provider Internal Medicine
DX: M80.08XA Age-related osteoporosis with current pathological fracture, vertebra(e), initial encounter for fracture (principal); C91.10 Chronic lymphocytic leukemia of B-cell type not having achieved remission; I48.21 Permanent atrial fibrillation; M47.814 Spondylosis without myelopathy or radiculopathy, thoracic region; M48.061 Spinal stenosis, lumbar region without neurogenic claudication; G89.29 Other chronic pain; K59.00 Constipation, unspecified; R35.0 Frequency of micturition; R53.81 Other malaise; I10 Essential (primary) hypertension; E78.5 Hyperlipidemia, unspecified; F32.A Depression, unspecified; Z79.82 Long term (current) use of aspirin; Z79.899 Other long term (current) drug therapy; Z79.891 Long term (current) use of opiate analgesic; Z86.718 Personal history of other venous thrombosis and embolism; M51.360 Other intervertebral disc degeneration, lumbar region with discogenic back pain only
CPT/HCPCS: 36415; 72100; 72131; 72148; 80048; 81001; 85025; 85027; 85610; 93005; 94668; 96361; 96372; 96374; 96375; 96376; 97162; 97166; 97530; 97535; 97802; 99221; 99283; A4216; G0378; J2405